=== PATIENT | female | born 1955 | race Caucasian/White ===

== ENCOUNTER 2019-08-28 17:08 | Emergency (ER) | payer MEDICARE, MEDICAID, SELFPAY ==
[2019-08-28 17:11] VITALS: BP 178/103; PULSE 96; RESP 18; TEMP 37.1; O2SAT 97; BMI 26.9
--- NOTE | 2019-08-28 17:31 | ED_ITS ---
Documented by User: SABA Milelr 08/28/19 19:29 HPI - Headache General: Chief Complaint: Headache Stated Complaint: Head Ache Time Seen by Provider: 08/28/19 17:24 History of Present Illness: HPI Narrative: Patient is 64-year-old female comes into the ED with headache. This started 4-5 days ago and she described the headaches as brief sharp pains on the left congregational and face. They are intense mildly sharp and localized. They only last for 3-5 seconds. She reports having these 2-3 times a day. Denies any numbness, weakness, vision changes or any other neurological symptoms during these head pains. She does not have a h istory of migraines or headaches. Patient also denies any head trauma or recent falls. Review of Systems General: Reports: 10 or more systems reviewed and unremarkable except in HPI and below PFSH ED PFSH: Statuses (acute, chronic, etc) shown below reflect problem list status as previously entered and may not be historically accurate Social History Smoking and tobacco status: current every day smoker Physical Exam Const: COMMON NORMALS: oriented x3 HENMT: COMMON NORMALS: normocephalic HEAD & SCALP: normocephalic MOUTH: oral and palatal mucosa normal THROAT: posterior oropharynx normal and uvula midline Neck/C-Spine: COMMON NORMALS: supple GENERAL: Yes normal visual inspection Resp: COMMON NORMALS: normal respiratory effort, no retractions, no use of accessory muscles and clear to auscultation bilaterally AUSCULTATION: clear to auscultation bilaterally and diminished lung sounds (bases ) bilateral Cardio: COMMON NORMALS: regular rate, regular rhythm, S1 normal heart sound, S2 normal heart sound, no gallops, no clicks, no murmurs and peripheral pulses 2+ throughout RATE: regular rate RHYTHM: regular rhythm HEART SOUNDS: S1 normal and S2 normal PERIPHERAL PULSES: pulses 2+ throughout GI: COMMON NORMALS: normal to inspection, nondistended, normoactive bowel sounds, soft to palpation, non-tender and no masses PALPATION: Yes soft : COMMON NORMALS: Yes no CVA tenderness BLADDER/KIDNEY EXAM: Yes no CVA tenderness Back/Pelvis: COMMON NORMALS: no CVA tenderness Extremity: COMMON NORMALS: normal to inspection and full ROM Neuro: COMMON NORMALS: oriented x3, CN's II-XII intact bilaterally, moves all extremities, no focal motor deficits and no sensory deficits noted SENSORY EXAM: Yes extremities (intact) MOTOR EXAM: strength 5/5 throughout Course Vital Signs: Vital signs: Vital Signs Temperature 98.8 F 08/28/19 17:11 Pulse Rate 96 08/28/19 17:11 Respiratory Rate 18 08/28/19 17:11 Blood Pressure 178/103 08/28/19 17:11 Pulse Oximetry 97 08/28/19 17:11 MDM - Headache Lab Data: Labs: Lab Results 08/28/19 08/28/19 08/28/19 Range/Units 18:53 18:53 18:53 WBC 8.2 (4.0-10.0) 10^3/ uL RBC 5.35 H (4.1-5.3) 10^6/u L Hgb 14.3 (11.5-15.3) g/dL Hct 46.5 (37.0-47.0) % MCV 86.9 (81-99) fL MCH 26.7 L (28.0-34.0) pg MCHC 30.8 (30.0-36.0) g/dL RDW 14.5 (12.1-15.1) % Plt Count 225 (130-400) 10^3/c mm MPV 10.3 (7.4-10.4) fL Neut % (Auto) 71.7 % Lymph % (Auto) 20.6 % Hunt % (Auto) 5.2 % Eos % (Auto) 1.9 % Baso % (Auto) 0.2 % Neut # (Auto) 5.9 (1.8-7.7) 10^3/u L Lymph # (Auto) 1.7 (0.8-4.8) 10^3/u L Hunt # (Auto) 0.4 (0.2-0.9) 10^3/u L Eos # (Auto) 0.2 (0.0-0.8) 10^3/u L Baso # (Auto) 0.0 (0.0-0.1) 10^3/u L Nucleated RBC % (a uto) 0 % Nucleated RBCs # 0.0 /100WBC PT 14.00 H (10.5-13.3) SECO NDS INR 1.05 (0.8-1.2) Sodium 137 (136-145) mmol/L Potassium 3.9 (3.5-5.1) mmol/L Chloride 102 (98-107) mmol/L Carbon Dioxide 24 (22-29) mmol/L Anion Gap 14.9 (5-19) BUN 18 (8-23) mg/dL Creatinine 0.7 (0.5-0.9) mg/dL GFR Calculation 84.0 L (90-130) mL/min Glucose 126 H (74-106) mg/dL Calcium 9.7 (8.8-10.2) mg/Dl Discharge Plan Discharge Patient Disposition: Xfer Other Clinical Impression: Subdural hemorrhage Condition: Stable Discharge Orders: Transfer Out of Facility (Order); Ordered 08/28/19 Ordered By: Margarette Rivera Referrals: Marifer Herrera MD [Family Provider] - Coding Level of Care Code ED Buy Boat Operator for Chg Fwd Documented by User: Margarette Rivera MD 08/28/19 19:49 HPI - Headache General: Chief Complaint: Headache Stated Complaint: Head Ache Time Seen by Provider: 08/28/19 17:24 History of Present Illness: Associated symptoms: Deny chest pain, fever(s), rash or vomiting Review of Systems Const: Denies: fever or chills Eyes: Denies: change in vision ENMT: Denies: throat pain or mouth pain Card: Denies: chest pain Resp: Denies: shortness of breath GI: Denies: abdominal pain, vomiting or diarrhea : Denies: difficulty urinating Musc: Denies: back pain or joint pain Skin/Breast: Denies: rash Neuro: Reports: headache Psych: Denies: depression Endo: Denies: excessive urination Brad/Lymph: Denies: easy bruising All/Imm: Denies: hives PFSH ED PFSH: Statuses (acute, chronic, etc) shown below reflect problem list status as previously entered and may not be historically accurate Social History Smoking and tobacco status: current every day smoker Physical Exam Const: COMMON NORMALS: no apparent distress and healthy appearing HENMT: COMMON NORMALS: normocephalic and external nose normal HEAD & SCALP: normocephalic NOSE: external nose normal and no nasal discharge (nasal dischage) Eye: COMMON NORMALS: PERRL PUPIL: Yes PERRL Neck/C-Spine: COMMON NORMALS: full ROM and no lymphadenopathy Chest: COMMONS NORMALS: inspection of chest normal Resp: COMMON NORMALS: normal respiratory effort and clear to auscultation bilaterally AUSCULTATION: clear to auscultation bilaterally Cardio: COMMON NORMALS: regular rate and regular rhythm RATE: regular rate RHYTHM: regular rhythm GI: COMMON NORMALS: soft to palpation PALPATION: Yes soft Extremity: COMMON NORMALS: normal to inspection, full ROM and normal capillary refill Psych: COMMON NORMALS: mental status grossly normal and cooperative Skin: COMMON NORMALS: no rashes or lesions noted GENERAL SKIN EXAM: no rashes or lesions noted Course Vital Signs: Vital signs: Vital Signs Temperature 98.8 F 08/28/19 17:11 Pulse Rate 96 08/28/19 17:11 Respiratory Rate 18 08/28/19 17:11 Blood Pressure 178/103 08/28/19 17:11 Pulse Oximetry 97 08/28/19 17:11 MDM - Headache MDM Narrative: Medical decision making narrative: Patient presents with a closed head injury with a subdural hemorrhage. Spoke to [facility] and will transfer there for higher level of care for neurosurgery. Patient has been stable while here. Lab Data: Labs: Lab Results 08/28/19 08/28/19 08/28/19 Range/Units 18:53 18:53 18:53 WBC 8.2 (4.0-10.0) 10^3/ uL RBC 5.35 H (4.1-5.3) 10^6/u L Hgb 14.3 (11.5-15.3) g/dL Hct 46.5 (37.0-47.0) % MCV 86.9 (81-99) fL MCH 26.7 L (28.0-34.0) pg MCHC 30.8 (30.0-36.0) g/dL RDW 14.5 (12.1-15.1) % Plt Count 225 (130-400) 10^3/c mm MPV 10.3 (7.4-10.4) fL Neut % (Auto) 71.7 % Lymph % (Auto) 20.6 % Hunt % (Auto) 5.2 % Eos % (Auto) 1.9 % Baso % (Auto) 0.2 % Neut # (Auto) 5.9 (1.8-7.7) 10^3/u L Lymph # (Auto) 1.7 (0.8-4.8) 10^3/u L Hunt # (Auto) 0.4 (0.2-0.9) 10^3/u L Eos # (Auto) 0.2 (0.0-0.8) 10^3/u L Baso # (Auto) 0.0 (0.0-0.1) 10^3/u L Nucleated RBC % (a uto) 0 % Nucleated RBCs # 0.0 /100WBC PT 14.00 H (10.5-13.3) SECO NDS INR 1.05 (0.8-1.2) Sodium 137 (136-145) mmol/L Potassium 3.9 (3.5-5.1) mmol/L Chloride 102 (98-107) mmol/L Carbon Dioxide 24 (22-29) mmol/L Anion Gap 14.9 (5-19) BUN 18 (8-23) mg/dL Creatinine 0.7 (0.5-0.9) mg/dL GFR Calculation 84.0 L (90-130) mL/min Glucose 126 H (74-106) mg/dL Calcium 9.7 (8.8-10.2) mg/Dl Imaging Data^: CT Head: Radiologist's impression: PROCEDURE INFORMATION: Exam: CT Head Without Contrast Exam date and time: 08/28/2019 5:50 PM Age: 64 years old Clinical indication: Pain; Headache not specified TECHNIQUE: Imaging protocol: Computed tomography of the head without contrast. Total DLP: 835.07 mGy-cm Radiation optimization: All CT scans at this facility use at least one of these dose optimization techniques: automated exposure control; mA and/or kV adjustment per patient size (includes targeted exams where dose is matched to clinical indication); or iterative reconstruction. COMPARISON: No relevant prior studies available. FINDINGS: Brain: Small slightly dense subdural hemorrhage in the left temporal region measuring up to 2.5 mm in thickness. No mass effect or midline shift. No abnormal brain attenuation identified. No brain parenchymal hemorrhage. Ventricles: Normal. No ventriculomegaly. Bones/joints: Unremarkable. No acute fracture. Sinuses: Visualized sinuses are unremarkable. No fluid levels. Mastoid air cells: Visualized mastoid air cells are well aerated. Soft tissues: Small soft tissue hematoma in the left temporal region, overlying the small subdural hemorrhage. CT/CT head wo con* [id number] IMPRESSION: 1. Small left temporal subdural hemorrhage. This is slightly denser than the bone cortex and is most likely acute or subacute in age. 2. Small left temporal scalp hematoma. Discharge Plan Discharge Patient Disposition: Xfer Other Clinical Impression: Subdural hemorrhage Condition: Stable Discharge Orders: Transfer Out of Facility (Order); Ordered 08/28/19 Ordered By: Margarette Rivera Referrals: Marifer Herrera MD [Family Provider] - Coding Level of Care Code ED Buy Boat Operator for Kiki Escobar
--- NOTE | 2019-08-28 17:48 | CTR_ITS ---
PROCEDURE INFORMATION: Exam: CT Head Without Contrast Exam date and time: 08/28/2019 5:50 PM Age: 64 years old Clinical indication: Pain; Headache not specified TECHNIQUE: Imaging protocol: Computed tomography of the head without contrast. Total DLP: 835.07 mGy-cm Radiation optimization: All CT scans at this facility use at least one of these dose optimization techniques: automated exposure control; mA and/or kV adjustment per patient size (includes targeted exams where dose is matched to clinical indication); or iterative reconstruction. COMPARISON: No relevant prior studies available. FINDINGS: Brain: Small slightly dense subdural hemorrhage in the left temporal region measuring up to 2.5 mm in thickness. No mass effect or midline shift. No abnormal brain attenuation identified. No brain parenchymal hemorrhage. Ventricles: Normal. No ventriculomegaly. Bones/joints: Unremarkable. No acute fracture. Sinuses: Visualized sinuses are unremarkable. No fluid levels. Mastoid air cells: Visualized mastoid air cells are well aerated. Soft tissues: Small soft tissue hematoma in the left temporal region, overlying the small subdural hemorrhage. CT/CT head wo con* [id number] IMPRESSION: 1. Small left temporal subdural hemorrhage. This is slightly denser than the bone cortex and is most likely acute or subacute in age. 2. Small left temporal scalp hematoma. Radiation Dose CTDIVOL = (mGy): DLP = 835.07 (mGy-cm)
[2019-08-28 19:01] LABS: Basophils % 0.2 %; Eosinophils # 0.2 10^3/uL (0.0-0.8); Eosinophils % 1.9 %; Hematocrit 46.5 % (37.0-47.0); Hemoglobin 14.3 g/dL (11.5-15.3); Lymphocytes # 1.7 10^3/uL (0.8-4.8); Lymphocytes % 20.6 %; Mean Corpuscular HGB Conc 30.8 g/dL (30.0-36.0); Mean Corpuscular Hemoglobin 26.7 pg (28.0-34.0); Mean Corpuscular Volume 86.9 fL (81-99); Mean Platelet Volume 10.3 fL (7.4-10.4); Monocytes # 0.4 10^3/uL (0.2-0.9); Monocytes % 5.2 %; Neutrophils # 5.9 10^3/uL (1.8-7.7); Neutrophils % 71.7 %; Nucleated Red Blood Cells % 0 %; Platelet Count 225 10^3/cmm (130-400); Red Blood Count 5.35 10^6/uL (4.1-5.3); Red Cell Distribution Width 14.5 % (12.1-15.1); White Blood Count 8.2 10^3/uL (4.0-10.0)
[2019-08-28 19:17] LABS: Anion Gap 14.9 (5-19); Blood Urea Nitrogen 18 mg/dL (8-23); Calcium 9.7 mg/Dl (8.8-10.2); Carbon Dioxide 24 mmol/L (22-29); Chloride 102 mmol/L (98-107); Glucose 126 mg/dL (74-106); Potassium 3.9 mmol/L (3.5-5.1); Sodium 137 mmol/L (136-145)
--- NOTE | 2019-08-28 19:30 | ECG_ITS ---
Measurements Intervals [place] Rate: 84 P: 65 AL: 142 QRS: 55 QRSD: 87 T: 66 QT: 377 QTc: 448 SINUS RHYTHM Compared to ECG 07/10/2019 21:52:54 No significant changes Electronically Signed On 08-28-2019 22:25:53 NAPHTHALENE STILL OPERATOR by Billie Lea M.D. [id number]
[2019-08-28 19:35] LABS: INR 1.05 (0.8-1.2)
[2019-08-28 19:49] VITALS: BP 151/101; PULSE 88; RESP 16; TEMP 36.9; O2SAT 94
--- NOTE | 2019-08-28 20:14 | PC.NURSE ---
Patient requesting to speak to the physician regarding transfer as she does not feel as though it is necessary and does not understand why she needs to go all that way .
[2019-08-28 22:05] VITALS: BP 149/90; PULSE 81; RESP 16; O2SAT 95
[2019-08-28 22:11] VITALS: BP 149/90; PULSE 81; RESP 16; O2SAT 95
== END 2019-08-28 22:10 | disposition other institution (70) ==
PROVIDERS: Emergency Provider Emergency Medicine; Family Provider Family Medicine
DX: I62.00 Nontraumatic subdural hemorrhage, unspecified (principal); F17.210 Nicotine dependence, cigarettes, uncomplicated
CPT/HCPCS: 70450; 80048; 85025; 85610; 93005; 99282

== ENCOUNTER 2019-09-16 10:02 | Outpatient (CLI) | payer MEDICARE, MEDICAID, SELFPAY | END 2019-09-16 10:03 | disposition home or self-care (01) | LOC: ONCMED 10:10 | PROVIDERS: Family Provider Family Medicine; Referring Provider Internal Medicine Critical Care Medicine; Visit Provider Internal Medicine Hematology & Oncology | DX: C34.11 Malignant neoplasm of upper lobe, right bronchus or lung (principal); J44.9 Chronic obstructive pulmonary disease, unspecified; I10 Essential (primary) hypertension; Z99.81 Dependence on supplemental oxygen; Z90.2 Acquired absence of lung [part of]; Z79.51 Long term (current) use of inhaled steroids | CPT/HCPCS: 99205 ==

== ENCOUNTER 2019-09-23 12:00 | Emergency (ER) | payer MEDICARE, MEDICAID, SELFPAY ==
[2019-09-23 12:20] VITALS: BP 140/88; PULSE 95; RESP 16; TEMP 36.7; O2SAT 95; BMI 26.4
--- NOTE | 2019-09-23 12:31 | CT_ITS ---
WS: [id number] CT scan of the head, 09/23/2019 Clinical Data: hx of subdural hematoma Comparison: CT head, 08/28/2019 DLP: 821.[address] scans at [facility] use at least one of these dose optimization techniques: automat ed exposure control; mA and/or kV adjustment per patient size (includes targeted exams where dose is matched to clinical indication); or iterative reconstruction. Findings: The ventricular system is normal without shift. No recent infarct or hemorrhage is seen. A possible l eft temporal contusion or subdural is still present. This is seen on axial images 18-21 of 64. There is also a scalp hematoma in this area. There are no abnormal intracerebral masses. The cerebellum an d brainstem are not remarkable. Bony windows of the skull and skull base show no fractures or erosions. The mastoid air cells, internal controls consultant al auditory canals, sella turcica, intraorbital contents, and paranasal sinuses are unremarkable. CT/CT head wo con* [id number] Impression: 1. No change in small subdural or possible contusion of the left temporal lobe. 2. Increase in size of soft tissue density adjacent to the left temporal bone w hich may represent a organized hematoma.
--- NOTE | 2019-09-23 12:31 | W.ED.GENADLT ---
HPI - General Adult General: Chief complaint: Headache Stated complaint: Brain bleed on her head Time Seen by Provider: 09/23/19 12:27 History of Present Illness: HPI narrative: Patient with a history of subdural hematoma x2 weeks ago has been follow-up Dr. Tolbert's office and a CT was ordered to see if there is any changes side. Medicare did not approve CT as of now and patient was sent over here by Dr. Tolbert's office to get evaluated for possible increasing size of hematoma. Patient also complains about hematoma on outside skull left side. Also complains about a headache x2 days. Denies any neurological changes MD complaint: headche Onset (ago): day(s) (2) Location: head Radiation: non-radiation Associated symptoms: Reports no associated symptoms and headache(s) (See HPI and past history patient states she has some numbness in the left upper jaw area.); Deny chest pain, dyspnea, nausea, rash or vomiting Review of Systems Const: Denies: fever, chills or body aches Eyes: Denies: change in vision or blurry vision ENMT: Denies: throat pain or nasal congestion Card: Denies: chest pain or shortness of breath on exertion Resp: Denies: shortness of breath, productive cough or non-productive cough GI: Denies: abdominal pain, nausea or vomiting Musc: Denies: extremity pain Skin/Breast: Denies: rash Neuro: Reports: headache (See HPI and past history patient states she has some numbness in the left upper jaw area.) Psych: Denies: anxiety or depression Brad/Lymph: Denies: easy bruising PFSH ED PFSH: Statuses (acute, chronic, etc) shown below reflect problem list status as previously entered and may not be historically accurate Medical History (Updated 09/18/19 @ 13:00 by Marsha Thomas APRN) COPD (chronic obstructive pulmonary disease) Essential (primary) hypertension Lung cancer Rheumatoid arthritis Skull mass Subdural hemorrhage Urinary incontinence UTI (urinary tract infection) Surgical History (Updated 09/18/19 @ 12:28 by Marsha Thomas APRN) H/O shoulder surgery History of cholecystectomy History of knee replacement History of lung surgery CT guided trans-thoracic cord needle biopsy right upper lobe lung mass pending Hx of cataract surgery Social History (Reviewed 09/18/19 @ 12:29 by PHYLLIS Bustos Smoking and tobacco status: current some day smoker Alcohol intake: never Lives independently: Yes Household members: family and children Housing: House Marital status: service: No Current occupational status: retired History of recent travel: No Current gender identity: Female Physical Exam Const: COMMON NORMALS: no apparent distress, average body habitus and oriented x3 HENMT: COMMON NORMALS: normocephalic HEAD & SCALP: normal to inspection and normocephalic FACE & SINUS: normal facial exam Eye: COMMON NORMALS: conjunctivae normal GENERAL EYE: normal appearance of both eyes CONJUNCTIVA: Yes conjunctivae normal Neck/C-Spine: COMMON NORMALS: no JVD Chest: COMMONS NORMALS: inspection of chest normal Resp: COMMON NORMALS: normal respiratory effort and clear to auscultation bilaterally AUSCULTATION: clear to auscultation bilaterally Cardio: COMMON NORMALS: no JVD, regular rate and regular rhythm RATE: regular rate RHYTHM: regular rhythm GI: COMMON NORMALS: normal to inspection, nondistended, normoactive bowel sounds Extremity: COMMON NORMALS: normal to inspection and full ROM Neuro: COMMON NORMALS: oriented x3 and CN's II-XII intact bilaterally Skin: NARRATIVE SKIN EXAM: Patient has small hematoma left temporal area slight bruising old. Is slightly tender. Course Vital Signs: Vital signs: Vital Signs Temperature 98.1 F 09/23/19 12:20 Pulse Rate 95 09/23/19 12:20 Respiratory Rate 16 09/23/19 12:20 Blood Pressure 140/88 09/23/19 12:20 Pulse Oximetry 95 09/23/19 12:20 Discharge Plan Discharge Prescriptions: No Action albuterol sulfate [ProAir HFA] 90 mcg/actuation HFA aerosol inhaler 2 puff INHALATION Q6H PRN (Reason: bronchospasm) Qty: 6.7 RF: 2 albuterol sulfate 2.5 mg /3 mL (0.083 %) solution for nebulization 2.5 mg INHALATION Q4H PRN (Reason: bronchospasm) Qty: 90 RF: 2 losartan 50 mg tablet 100 mg PO QDAY Qty: 30 RF: 2 montelukast [Singulair] 10 mg tablet 10 mg PO QDAY Qty: 30 RF: 2 oxybutynin chloride 15 mg tablet extended release 24hr 15 mg PO QDAY Qty: 30 RF: 2 oxybutynin chloride 5 mg tablet extended release 24hr 5 mg PO QDAY Qty: 30 RF: 2 pantoprazole [Protonix] 20 mg tablet,delayed release (DR/EC) 20 mg PO QDAY Qty: 30 RF: 2 Anoro Ellipta 62.5-25 mcg/actuation blister with device 1 inh INHALATION Q24H Qty: 60 RF: 2 metaxalone [Skelaxin] 800 mg tablet 800 mg PO TID Qty: 90 RF: 0 Coding Level of Care Code ED Inside Technical Sales Representative for Chg Fwmessi
[2019-09-23 12:58] VITALS: O2SAT 98
[2019-09-23 13:28] VITALS: BP 135/87; PULSE 72; RESP 17; O2SAT 97
== END 2019-09-23 13:29 | disposition home or self-care (01) ==
PROVIDERS: Emergency Provider Nurse Practitioner Family; Family Provider Family Medicine; PCP Nurse Practitioner Family
DX: R51 Headache (principal); J44.9 Chronic obstructive pulmonary disease, unspecified; I10 Essential (primary) hypertension; Z85.118 Personal history of other malignant neoplasm of bronchus and lung; F17.210 Nicotine dependence, cigarettes, uncomplicated
CPT/HCPCS: 70450; 99282

== ENCOUNTER 2019-10-01 13:43 | Outpatient (CLI) | payer MEDICARE, MEDICAID, SELFPAY ==
[2019-10-01 13:54] LABS: Basophils # 0.1 10^3/uL (0.0-0.1); Basophils % 0.7 %; Eosinophils # 0.1 10^3/uL (0.0-0.8); Eosinophils % 1.7 %; Hematocrit 44.8 % (37.0-47.0); Lymphocytes # 1.6 10^3/uL (0.8-4.8); Mean Corpuscular HGB Conc 31.3 g/dL (30.0-36.0); Mean Corpuscular Hemoglobin 25.4 pg (28.0-34.0); Mean Corpuscular Volume 81.3 fL (81-99); Mean Platelet Volume 11.6 fL (7.4-10.4); Monocytes # 0.5 10^3/uL (0.2-0.9); Monocytes % 6.9 %; Neutrophils # 4.7 10^3/uL (1.8-7.7); Neutrophils % 63.4 %; Nucleated Red Blood Cells # 0.1 /100WBC; Nucleated Red Blood Cells % 0.7 %; Platelet Count 153 10^3/cmm (130-400); Red Blood Count 5.51 10^6/uL (4.1-5.3); Red Cell Distribution Width 14.8 % (12.1-15.1); White Blood Count 7.4 10^3/uL (4.0-10.0)
[2019-10-01 15:09] LABS: Alanine Aminotransferase 162 U/L (0-33); Albumin Level 3.6 g/dL (3.5-5.2); Alkaline Phosphatase 256 IU/L (35-105); Anion Gap 21.2 (5-19); Aspartate Amino Transferase 119 U/L (0-32); Blood Urea Nitrogen 15 mg/dL (8-23); Calcium 10.1 mg/dL (8.5-10.5); Carbon Dioxide 21 mmol/L (22-29); Chloride 96 mmol/L (98-107); Globulin 3.7 g/dL (1.3-4.6); Glomerular Filtration Rate 55.6 mL/min (90-130); Glucose 126 mg/dL (65-115); Potassium 4.2 mmol/L (3.5-5.1); Sodium 134 mmol/L (136-145); Total Bilirubin 0.3 mg/dL (0.15-1.2); Total Protein 7.3 g/dL (6.6-8.7)
[2019-10-01 15:15] LABS: Slide Review Slide Review Perform
== END 2019-10-01 13:44 | disposition home or self-care (01) ==
LOC: ONCMED 13:43
PROVIDERS: Family Provider Family Medicine; PCP Nurse Practitioner Family; Visit Provider Internal Medicine Hematology & Oncology
DX: C34.11 Malignant neoplasm of upper lobe, right bronchus or lung (principal)
CPT/HCPCS: 80053; 85025

== ENCOUNTER 2019-10-02 15:26 | Outpatient (CLI) | payer MEDICARE, MEDICAID, SELFPAY ==
--- NOTE | 2019-10-02 16:22 | ONC FU_ITS ---
Dr. Kunz follow up note Patient: Shira Mata Unit #: [id number]: 1955 Dicatated By: Nikki Kunz M.D.Date of Visit:Oct 02, 2019 Onc Med Follow-up/Prog Note History of Present Illness: Mrs. Shira Mata, is a 64-year-old female with a history of adenocarcinoma involving the right upper lobe underwent wedge resection in March 2018 in [facility]. As per patient he was stage IA, clear surgical margins and no further treatment was suggested but follow-up every 6 months. Patient said later on she moved to [facility], and lost insurance so no further follow-up was done. Later on she moved to [facility] and establish pulmonary care with Dr. Monroe and during evaluation for COPD, as per patient her chest x-ray shows some abnormality in right lung, subsequently underwent CT scan of chest which revealed right upper lobe mass and patient underwent bronchoscopy and endobronchial ultrasound-guided transbronchial needle aspiration of hilar lymph node which was negative for malignancy. CT PET scan was done which showed hypermetabolic right upper lobe lung mass but no FDG uptake in the hilar or mediastinal lymph nodes. Subsequently on 09/01/2019 she underwent transthoracic needle biopsy in [place] and final pathology report came back small cell carcinoma, interestingly, as mentioned earlier in March 2018 she underwent wedge resection for adenocarcinoma in same right upper lobe of the lung. Recently developed episode of headaches and underwent CT scan of the head and was diagnosed with small subdural bleed which was managed in [place] without surgical intervention. Patient has COPD she is on home oxygen. History of hypertension, Came for follow-up, denies any specific complaints except left temporal area fullness as patient has subcutaneous hematoma and small subdural hematoma and now being monitored by neurosurgery, as per patient MRI scan of the head is under consideration. Patient has seen Dr. Rachel cardiac thoracic surgeon last week for possible surgery for newly diagnosed early-stage small cell lung cancer, as per patient she is not a candidate for surgery because of poor pulmonary reserve. Patient denies any fever chills denies any nausea vomiting denies any hemoptysis or hematemesis. Now recovering from the flu. Medications: Albuterol Sulfate 1 (108 (90 base) mcg/act) Aerosol Powder, Breath Activated Inhalation daily, Anoro Ellipta 1 (62.5-25 mcg/inh) Aerosol Powder, Breath Activated Inhalation daily, Losartan Potassium 1 Tablet (of 50 mg) Oral daily, Metaxalone 1 Tablet (of 800 mg) Oral daily, Montelukast Sodium 1 Tablet (of 10 mg) Oral daily, Oxybutynin Chloride 1 Tablet (of 10 mg) Oral b.i.d., Pantoprazole Sodium 1 Tablet (of 20 mg) Tablet, enteric coated Oral daily Allergies: Iodinated Contrast Media, Lisinopril, and Naproxen. Review of Systems: Constitutional - Appetite and weight have decreased. No fever, chills, hot flashes, or night sweats. Energy level is poor, ENMT - No sinus congestion/drainage. No mouth sores. No sore throat or difficulty swallowing, Hematologic/Lymphatic - Positive for easy bruising, Respiratory - Positive for shortness of breath and cough. No pleuritic pain or hemoptysis, Cardiovascular - No angina pain. No palpitations, Gastrointestinal - Pt states she is recovering from the flu, Genitourinary (F) - No dysuria or hematuria. No urinary frequency. No urgency. Positive for incontinence, Musculoskeletal - Positive for joint stiffness, Neurologic - No headache or dizziness. No numbness/paresthesias or other focal neurologic symptoms, Psychiatric - No anxiety or depression. Positive for insomnia. Vital Signs: Performed on Oct 02, 2019 15:32 Height - 68.00 in Weight - 171.4 lbs (LOW) BSA - 1.91 sq.m BMI - 26.06 Temperature - 98.2 F (LOW) Pulse - 92 /min Respiration - 24 /min BP - 117/74 mm(hg) O2 Sat - 93 % (LOW) Pain - 5 Performance Status: 2 - Ambulatory/capable of all self-care, unable to perform any work activities. Up and about more than 50% of waking hours. (ECOG) Physical Examination: ENMT - . No oral exudates, ulcers, masses, thrush or mucositis. Oropharynx clear. Tongue normal, Hematologic/Lymphatic - No petechiae or purpura. No tender or palpable lymph nodes in the cervical, supraclavicular, axillary or inguinal area, Respiratory - Lungs are clear to auscultation without rhonchi or wheezing, Abdomen - Non-tender, non-distended, . Good bowel sounds. No guarding or rebound tenderness. No pulsatile masses, Extremities - no edema. Lab/Imaging: Most recent lab results are not available for this patient. Impression: Newly diagnosed small cell lung cancer per transthoracic right upper lobe lung biopsy done on 09/01/2019 CT PET scan shows increased uptake in right upper lobe no FDG uptake in mediastinal or hilar lymph nodes as per pulmonology note. History of adenocarcinoma involving the right upper lobe of the lung status post wedge resection and March 2018, stage IA no further treatment was offered rather follow-up. COPD on home oxygen Hypertension. Plan: Discussed with patient regarding her labs white blood count 7.4 hemoglobin 14 crit 44.8 platelets 153,000 CMP within normal limits except ALT 162 AST 119 alkaline phosphatase 256 Clinically, patient is doing well with no signs symptoms suggestive of disease progression but abnormal LFTs and elevated alkaline phosphatase. Patient is reluctant to consider systemic chemotherapy but agreed to consider surgical intervention or radiation therapy so she was referred to Dr. Rachel for evaluation, as per patient she is not a candidate for surgery because of poor pulmonary reserve, now we'll refer her to radiation oncology for evaluation for SB RT or conventional radiation therapy, patient was informed standard of care is systemic chemotherapy with radiation therapy for better local control. But patient and her daughter is refusing systemic chemotherapy at this point but will think about this. We will refer her to radiation oncology for evaluation and we'll see her on same date and patient was also offered second opinion or referred to tertiary care center for evaluation but patient declined. We'll see her back in a week for further discussion. As far as abnormal LFTs concern, etiology unclear, her bilirubin is normal but possibilities including metastatic disease to the liver, or she may have passed gallbladder stone, or infectious like hepatitis,we will review her labs from her PMDs office or from the hospital as is not available to me. we will consider ultrasound right upper quadrant to rule out hepatic pathology if it is normal consider hepatitis profile<<Signature on File>>
--- NOTE | 2019-10-10 13:04 | N.ONRAD NP_ITS ---
Radiation Oncology New Patient Visit Patient: Shira Mata MR#: [id number] : 1955> Age: 64> Sex: Female> Dictated by: Dr. Harjit Mederos Date of Service: 10/09/2019 Referring Physician(s) : Nikki Kunz Primary Diagnosis: C34.11 - malignant neoplasm of upper lobe, right bronchus or lung, Diagnosed 09/16/2019 (active). 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 She received no adjuvant treatment and underwent follow-up every 6 months. Her regular followup was interrupted due to the fact that she moved to [facility] and lost insurance. She moved to [place] recently and establish pulmonary care with Dr. MONROE. She underwent a chest x-ray for evaluation of COPD that showed some abnormality in right lung. Subsequently CT scan of chest revealed a right upper lobe mass. The patient underwent bronchoscopy by Dr. Monroe on July 21, 2019. The bronchoscopy was introduced in the right upper lobe bronchus and endobronchial mass was seen in the anterior segment which was biopsied and the pathology is highly suspicious for small cell carcinoma but very few cells were present for evaluation. Endobronchial ultrasound was performed. There was no identifiable station 4R or 7 lymphadenopathy. Lymphadenopathy was identified in station 11R and 10R. Transbronchial needle aspiration was performed from the 11R and 10R lymphadenopathy but pathology showed no malignancy. There was some error associated with labeling/reporting of the specimen during pathological examination. I have spoken with both Dr. Monroe and the pathologist and confirmed the above finding and pathology results. Subsequently on 09/01/[address] guided transthoracic needle biopsy of the right upper lobe mass in [place], [place] and final pathology report confirmed small cell carcinoma. PET/CT on August 02, 2009 showed 3.7 x 2.5 cm right upper lobe mass with an SUV of 19.6. Another nodule in the right upper lobe measures 1.1 cm and is FDG negative, likely benign. There is no evidence of regional or distant metastasis. The patient was admitted to the hospital due to COPD exacerbation. She also has a hematoma on her scalp. She was evaluated by Dr. Kunz for chemotherapy. She was also evaluated by Dr. Rachel who ruled out her as a candidate for surgery due to poor pulmonary function. Current Medications: Albuterol Sulfate, anoro Ellipta, losartan Potassium, metaxalone, montelukast Sodium, oxybutynin Chloride, pantoprazole Sodium. Allergies: Naproxen, Lisinopril and Iodinated Contrast Media. Medical History: - Chronic obstructive pulmonary disease, - hypertension, - rheumatoid arthritis. No history of collagen vascular disease. No previous radiation therapy. Surgical History: Bilateral knee replacement, bronchoscopy, cataract excision, cholecystectomy and right shoulder. Family History: Father is at age 75 having experienced blood cancer. Mother is at age 91 having experienced emphysema. Social History: Last screened on 09/16/2019 - Current every day smoker 0.5 packs/day for 50 years (25 pack years). Last screened on 09/16/2019 - Never drank. Patient indicated use of the following products: cigarettes. Patient indicated access to the following support systems: lives alone, lives in own house, supportive family/friends willing to assist with needs, and adequate transportation available for expected visits. Patient indicated the following nutritional habits: regular meals. Patient indicated participation in the following forms of activity: regular exercise. Review of Systems: The 12 point review of system is negative except as described in the above history is. Vital Signs: Performed at 4pm 10/09/2019: T 98.4F, P 93, R 18, BP 130/84, O2% 95% Physical Exam: Pertinent to diagnosis and treatment. General: Alert and oriented x 3. No acute distress. HEENT: Normocephalic, atraumatic. EOMI ( Extraocular Movements Intact), PERRLA ( Pupils Equal, Round, Reactive to Light and Accommodation), Sclerae anicteric. Oral cavity is clear without lesions, masses or ulcers. NECK: Supple without supraclavicular or jugular lymphadenopathy. LUNGS: Clear to auscultation bilaterally without rales, rhonchi or wheeze. HEART: Regular rate and rhythm, normal S1 and S2 without murmur, gallop or rub. MUSCULOSKELETAL: No tenderness or percussion pain over the axial skeleton, scapulae or pelvis. ABDOMEN: Soft, nontender, nondistended without masses or organomegaly. Bowel sounds are present. EXTREMITIES: No peripheral edema is identified. Limited motor and sensory examination are grossly intact and symmetric bilaterally. NEUROLOGIC: Cranial nerves II ???XII are grossly intact. Normal sensation, strength 5/5 in all extremities, normal gait, no ataxia. Performance Status: ECOG 2 Pathology: Small cell carcinoma of the lung Lab: Test performed on 10/01/2019 10:45 AM RBC - 5.51 10 6/ul (high), MCH - 25.4 pg (low), MPV - 11.6 fl (high), Sodium - 134 mmol/l (low), Chloride - 96 mmol/l (low), CO2 - 21 mmol/l (low), Anion Gap - 21.2 (high), Creatinine - 1.0 mg/dl (high), Cr Clearance (Est) - 68.84 ml/min (low), eGFR - 55.6 ml/min (low), Glucose - 126 mg/dl (high), ALT (SGPT) - 162 u/l (high), AST (SGOT) - 119 u/l (high) and Alkaline Phosphatase - 256 iu/l (high). Imaging: See HPI Impression: This is a 64-year-old woman with the diagnosis of limited stage small cell carcinoma involving the right upper lobe. She also has endobronchial lesion in the anterior segment of the right upper lobe bronchus which was biopsied and highly suspicious for small cell carcinoma. Plan: The patient has a right upper lobe mass that is confirmed to be small cell carcinoma. She also has an endobronchial lesion/mass in the anterior segment of the right upper lobe bronchus highly suspicious for small cell carcinoma on biopsy. Biopsy of the 11 R and pain or lymphadenopathy were negative for malignancy. I discussed about the treatment options with the patient. I recommended conventional radiotherapy to include the right upper lobe mass and the endobronchial lesion in the treatment arango to a total dose of 66 Gy with concurrent chemotherapy. The patient has some concern on chemotherapy because of her scalp hematoma. She will see Dr. Kunz and discuss about whether or not she will have concurrent chemotherapy with radiotherapy. We can also consider a MRI of brain to complete staging workup. I went over the procedure for radiation therapy to the chest with the patient. The benefit, risks and potential side effects of radiotherapy to the chest were explained to the patient. The potential side effects include but not limited to fatigue, skin reaction, radiation pneumonitis, esophagitis with odynophagia/dysphagia, damages to the heart/vessels, brachial plexus and spinal cord. Ms. Mata expressed good understanding and decided to proceed with the recommended radiotherapy. I instructed the patient to call us and set up appointment for the CT simulation as soon as she is discharged from the hospital. She expressed good understanding and will call us then. Signed by: 10/10/2019 1:02:11 PM <<Signature on File>> CPT Code: CPT Code: Signed By: Dr. Harjit Mederos, 10/10/2019 1:02:12 PM <<Signature on File>>
== END 2019-10-02 15:27 | disposition home or self-care (01) ==
LOC: ONCMED 15:26
PROVIDERS: Family Provider Family Medicine; PCP Nurse Practitioner Family; Visit Provider Internal Medicine Hematology & Oncology
DX: C34.11 Malignant neoplasm of upper lobe, right bronchus or lung (principal); R94.5 Abnormal results of liver function studies; I10 Essential (primary) hypertension; J44.9 Chronic obstructive pulmonary disease, unspecified; Z90.2 Acquired absence of lung [part of]; Z85.118 Personal history of other malignant neoplasm of bronchus and lung; Z99.81 Dependence on supplemental oxygen
CPT/HCPCS: G0463

== ENCOUNTER 2019-10-07 09:36 | Outpatient (CLI) | payer MEDICARE, MEDICAID, SELFPAY ==
--- NOTE | 2019-10-07 09:47 | US_ITS ---
WS: [id number] ULTRASOUND ABDOMEN CLINICAL INFORMATION: ABNORMAL LFT'S COMPARISON: PET/CT August 02, 2019 FINDINGS: Liver Size: Enlarged Craniocaudal length: 18.2 cm. Echogenicity: Coarse Diffuse coarse heterogeneous liver echogenicity. This is nonspecific but considerations include diffu se metastatic disease versus diffuse parenchymal disease. Mild surface nodularity. Hepatomegaly. This can be further evaluated with CT abdomen pelvis with liver protocol. Bile ducts Intrahepatic ducts: Normal. Common bile duct diameter: 3.8 mm. Gallbladder Removed Pancreas Not well seen Spleen Splenomegaly: Present Craniocaudal length: 13.4 cm. Right kidney: Normal. Hydronephrosis: None. Size: 9.7 cm x 3.3 cm x 3.0 cm Left kidney: Normal. Hydronephrosis: None. Size: 11.5 cm x 5.7 cm x 5.2 cm. Abdominal aorta and IVC Visualized portions are normal. Ascites: None. US/US abdomen complete* [id number] IMPRESSION: 1. Hepatomegaly with diffuse coarse echogenicity. This is nonspecific but diff erential considerations include diffuse metastatic disease versus hepatocellula r disease. This can be further evaluated with CT abdomen pelvis liver protocol. 2. Gallbladder is normal. 3. No hydronephrosis in either kidney. 4. Splenomegaly measuring 13.4 cm
== END 2019-10-07 09:37 | disposition home or self-care (01) ==
LOC: RAD 09:40
PROVIDERS: Family Provider Family Medicine; PCP Nurse Practitioner Family; Visit Provider Internal Medicine Hematology & Oncology
DX: R94.5 Abnormal results of liver function studies (principal); R16.0 Hepatomegaly, not elsewhere classified; R16.1 Splenomegaly, not elsewhere classified
CPT/HCPCS: 76700

== ENCOUNTER 2019-10-07 10:26 | Inpatient (IN) | payer MEDICARE, MEDICAID, SELFPAY ==
[2019-10-07] VITALS (11 sets, daily range): BP systolic 108–130; BP diastolic 57–81; PULSE 83–86; RESP 18–20; TEMP 36.5–36.9; O2SAT 89–93; BMI 25.9
--- NOTE | 2019-10-07 10:55 | ED_ITS ---
Entered by Natividad Winter, acting as scribe for Hugo Arroyo DO HPI - SOB/Dyspnea General: Chief Complaint: Shortness of Breath/Dyspnea Stated Complaint: SOB Time Seen by Provider: 10/07/19 10:54 Source: patient and family Mode of arrival: ambulatory Limitations: no limitations History of Present Illness: MD elicited complaint: shortness of breath Onset (ago): day(s) (today) Timing: constant and progressively worsening Severity: moderate Exacerbating factors: nothing Relieving factors: oxygen Known history of: other (cancer) Associated symptoms: Reports other (headache, diarrhea); Deny abdominal pain, chest pain or fever(s) Treatment prior to arrival: oxygen and other (nebulizer ) Related Data: Home oxygen amount: 2 liters Review of Systems General: Reports: 10 or more systems reviewed and unremarkable except in HPI and below Const: Reports: fatigue; Denies: fever Eyes: Denies: change in vision ENMT: Denies: throat pain Card: Denies: chest pain Resp: Reports: shortness of breath and productive cough GI: Denies: abdominal pain PFSH ED PFSH: Social History Smoking and tobacco status: current every day smoker Alcohol intake: never Lives independently: Yes Household members: family and children Housing: House Marital status: service: No Current occupational status: retired History of recent travel: No Physical Exam Const: COMMON NORMALS: no apparent distress, average body habitus, oriented x3, no limitations, healthy appearing, alert and well nourished HENMT: COMMON NORMALS: normocephalic, head/scalp atraumatic, hearing grossly normal bilaterally, external ears normal, EAC's normal, TM's normal bilaterally, external nose normal, nasal mucous membranes and turbinates normal, moist oral mucous membranes, oropharynx normal, dentition normal and gingiva normal HEAD & SCALP: normocephalic and atraumatic NOSE: external nose normal and nasal mucous membranes and turbinates normal EXTERNAL EAR: Yes external ears normal EXTERNAL AUDITORY CANAL: EAC's normal TYMPANIC MEMBRANE: TM's normal bilaterally Eye: COMMON NORMALS: PERRL, EOMs intact bilaterally, conjunctivae normal, no scleral icterus, no papilledema, normal visual arango by confrontation and fundi normal bilaterally CONJUNCTIVA: Yes conjunctivae normal PUPIL: Yes PERRL DIRECT OPHTHALMOSCOPY: Yes no papilledema and Yes fundi normal bilaterally Neck/C-Spine: COMMON NORMALS: full ROM, no lymphadenopathy, supple, no meningeal signs, no JVD, thyroid normal and no carotid bruits THYROID: thyroid normal Chest: COMMONS NORMALS: inspection of chest normal and palpation of chest normal Cardio: COMMON NORMALS: no JVD, regular rate, regular rhythm, S1 normal heart sound, S2 normal heart sound, no gallops, no clicks, no murmurs, no rub and peripheral pulses 2+ throughout RATE: regular rate RHYTHM: regular rhythm HEART SOUNDS: S1 normal and S2 normal PERIPHERAL PULSES: pulses 2+ throughout GI: COMMON NORMALS: normal to inspection, nondistended, normoactive bowel sounds, soft to palpation, non-tender, no hepatosplenomegaly, no masses and no bruits PALPATION: Yes soft and Yes no hepatosplenomegaly : COMMON NORMALS: Yes no CVA tenderness and Yes external appearance normal BLADDER/KIDNEY EXAM: Yes no CVA tenderness Back/Pelvis: COMMON NORMALS: no CVA tenderness, thoracic and lumbar spine normal to inspection, no thoracic nor lumbar tenderness, thoraco-lumbar ROM normal and straight leg raise negative bilaterally Extremity: COMMON NORMALS: normal to inspection, full ROM, normal capillary refill, no joint enlargement, no clubbing, cyanosis or edema, no calf tenderness and no pedal edema Neuro: COMMON NORMALS: oriented x3 SENSORIUM/ORIENTATION: Yes alert MENINGEAL SIGNS: Yes no meningeal signs Skin: COMMON NORMALS: no rashes or lesions noted, no wounds, skin turgor normal, no jaundice, no petechiae and no mottling GENERAL SKIN EXAM: no rashes or lesions noted and turgor normal Course Vital Signs: Vital signs: Vital Signs Temperature 97.7 F 10/07/19 10:30 Pulse Rate 86 10/07/19 14:04 Respiratory Rate 18 10/07/19 11:30 Blood Pressure 108/72 10/07/19 14:04 Pulse Oximetry 92 10/07/19 14:29 MDM - SOB/Dyspnea Lab Data: Labs: Lab Results 10/07/19 10/07/19 10/07/19 Range/Units 11:20 11:20 11:20 WBC 7.8 (4.0-10.0) 10^3/ uL RBC 5.36 H (4.1-5.3) 10^6/u L Hgb 13.4 (11.5-15.3) g/dL Hct 43.9 (37.0-47.0) % MCV 81.9 (81-99) fL MCH 25.0 L (28.0-34.0) pg MCHC 30.5 (30.0-36.0) g/dL RDW 15.8 H (12.1-15.1) % Plt Count 91 L (130-400) 10^3/c mm MPV 12.2 H (7.4-10.4) fL Neut % (Auto) 67.1 % Lymph % (Auto) 19.5 % [place] % (Auto) 6.8 % Eos % (Auto) 1.2 % Baso % (Auto) 0.5 % Neut # (Auto) 5.2 (1.8-7.7) 10^3/u L Lymph # (Auto) 1.5 (0.8-4.8) 10^3/u L [place] # (Auto) 0.5 (0.2-0.9) 10^3/u L Eos # (Auto) 0.1 (0.0-0.8) 10^3/u L Baso # (Auto) 0.0 (0.0-0.1) 10^3/u L Nucleated RBC % (a uto) 1.0 % Nucleated RBCs # 0.1 /100WBC Sodium 135 L (136-145) mmol/L Potassium 4.3 (3.5-5.1) mmol/L Chloride 98 (98-107) mmol/L Carbon Dioxide 22 (22-29) mmol/L Anion Gap 19.3 H (5-19) BUN 31 H (8-23) mg/dL Creatinine 1.8 H (0.5-0.9) mg/dL GFR Calculation 28.2 L (90-130) mL/min Glucose 109 (65-115) mg/dL Calcium 10.8 H (8.5-10.5) mg/dL Total Bilirubin 0.6 (0.15-1.2) mg/dL AST 125 H (0-32) U/L ALT 165 H (0-33) U/L Alkaline Phosphata se 428 H (35-105) IU/L Troponin T Baselin e 49 H (0-10) ng/mL Troponin T 120 Min [place] (0-10) ng/mL Delta Troponin T (0-10) ABS# NT-Pro-B Natriuret Pep 1525 H (0-125) pg/mL Total Protein 6.4 L (6.6-8.7) g/dL Albumin 4.0 (3.5-5.2) g/dL Globulin 2.4 (1.3-4.6) g/dL Influenza Type A A g (Negative) POC Influenza B Ag (Negative) 10/07/19 10/07/19 Range/Units 12:35 13:28 WBC (4.0-10.0) 10^3/ uL RBC (4.1-5.3) 10^6/u L Hgb (11.5-15.3) g/dL Hct (37.0-47.0) % MCV (81-99) fL MCH (28.0-34.0) pg MCHC (30.0-36.0) g/dL RDW (12.1-15.1) % Plt Count (130-400) 10^3/c mm MPV (7.4-10.4) fL Neut % (Auto) % Lymph % (Auto) % [place] % (Auto) % Eos % (Auto) % Baso % (Auto) % Neut # (Auto) (1.8-7.7) 10^3/u L Lymph # (Auto) (0.8-4.8) 10^3/u L [place] # (Auto) (0.2-0.9) 10^3/u L Eos # (Auto) (0.0-0.8) 10^3/u L Baso # (Auto) (0.0-0.1) 10^3/u L Nucleated RBC % (a uto) % Nucleated RBCs # /100WBC Sodium (136-145) mmol/L Potassium (3.5-5.1) mmol/L Chloride (98-107) mmol/L Carbon Dioxide (22-29) mmol/L Anion Gap (5-19) BUN (8-23) mg/dL Creatinine (0.5-0.9) mg/dL GFR Calculation (90-130) mL/min Glucose (65-115) mg/dL Calcium (8.5-10.5) mg/dL Total Bilirubin (0.15-1.2) mg/dL AST (0-32) U/L ALT (0-33) U/L Alkaline Phosphata se (35-105) IU/L Troponin T Baselin e (0-10) ng/mL Troponin T 120 Min [place] 48.42 H (0-10) ng/mL Delta Troponin T -0.58 L (0-10) ABS# NT-Pro-B Natriuret Pep (0-125) pg/mL Total Protein (6.6-8.7) g/dL Albumin (3.5-5.2) g/dL Globulin (1.3-4.6) g/dL Influenza Type A A g Negative (Negative) POC Influenza B Ag Negative (Negative) Discharge Plan Discharge Clinical Impression: Lung mass, Chronic dyspnea COPD (chronic obstructive pulmonary disease) Qualifiers: COPD type: emphysema Emphysema type: unspecified Qualified Code(s): J43.9 - Emphysema, unspecified Lung cancer Qualifiers: Laterality: right Lung location: upper lobe of lung Qualified Code(s): C34.11 - Malignant neoplasm of upper lobe, right bronchus or lung Condition: Stable Prescriptions: No Action albuterol sulfate [ProAir HFA] 90 mcg/actuation HFA aerosol inhaler 2 puff INHALATION Q6H PRN (Reason: bronchospasm) Qty: 6.7 RF: 2 albuterol sulfate 2.5 mg /3 mL (0.083 %) solution for nebulization 2.5 mg INHALATION Q4H PRN (Reason: bronchospasm) Qty: 90 RF: 2 Anoro Ellipta 62.5-25 mcg/actuation blister with device 1 inh INHALATION Q24H Qty: 60 RF: 2 metaxalone [Skelaxin] 800 mg tablet 800 mg PO TID Qty: 90 RF: 0 losartan 50 mg tablet 100 mg PO DAILY RF: 0 oxybutynin chloride 15 mg tablet extended release 24hr 15 mg PO DAILY RF: 0 Protonix 20 mg tablet,delayed release (DR/EC) 20 mg PO DAILY RF: 0 oxybutynin chloride 5 mg tablet extended release 24hr 5 mg PO DAILY RF: 0 Singulair 10 mg tablet 10 mg PO DAILY RF: 0 Referrals: Prema Jenkins FNP [Primary Care Provider] - Marifer Herrera MD [Family Provider] - Coding Level of Care Code ED Business Applications Analyst for Chg Fwd Exam Comprehensive The documentation recorded by the Moy evans Bridget Annette, accurately reflects the service I personally performed and the decisions made by , Hugo Arryoo, Oct 07, 2019 10:26
--- NOTE | 2019-10-07 10:56 | XR_ITS ---
WS: [id number] Portable AP upright chest, 10/07/2019 Clinical Data: dyspnea / lung CA Comparison: Portable chest, 07/10/2019. Findings: The right upper lobe nodule remains the same and it abuts the lateral right pleural surface . 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 Heart smal l. The aortic arch shows tortuosity. No effusions are seen. There is no pneumonia or pneumothorax. Th e right total shoulder prosthesis remains unchanged. XR/XR chest 1V portable [id number] Impression: 1. No change in right upper lobe mass. 2. No change in bilateral interstitial lung disease.
--- NOTE | 2019-10-07 10:58 | ECG_ITS ---
Measurements Intervals [place] Rate: 82 P: 60 NV: 150 QRS: 53 QRSD: 89 T: 67 QT: 368 QTc: 432 SINUS RHYTHM POSSIBLE LEFT ATRIAL ENLARGEMENT [-0.1mV P WAVE IN V1/V2] LOW QRS VOLTAGE IN PRECORDIAL LEADS [QRS DEFLECTION < 1.0 mV IN CHEST LEADS] Compared to ECG 08/28/2019 19:44:54 Low QRS voltage now present Electronically Signed On 10-07-2019 19:44:34 EMERGENCY ROOM RN by Billie Lea M.D. [email or web address]
[2019-10-07] MEDS: ipratropium-albuterol 3 mL Neb INHALATION ×2 (11:31→18:31)
[2019-10-07] MEDS: sodium chloride 0.9% 500 ML 999 ML IV (11:37)
[2019-10-07 11:38] LABS: Basophils % 0.5 %; Eosinophils # 0.1 10^3/uL (0.0-0.8); Eosinophils % 1.2 %; Hematocrit 43.9 % (37.0-47.0); Hemoglobin 13.4 g/dL (11.5-15.3); Lymphocytes # 1.5 10^3/uL (0.8-4.8); Lymphocytes % 19.5 %; Mean Corpuscular HGB Conc 30.5 g/dL (30.0-36.0); Mean Corpuscular Volume 81.9 fL (81-99); Mean Platelet Volume 12.2 fL (7.4-10.4); Monocytes # 0.5 10^3/uL (0.2-0.9); Monocytes % 6.8 %; Neutrophils # 5.2 10^3/uL (1.8-7.7); Neutrophils % 67.1 %; Nucleated Red Blood Cells # 0.1 /100WBC; Platelet Count 91 10^3/cmm (130-400); Red Blood Count 5.36 10^6/uL (4.1-5.3); Red Cell Distribution Width 15.8 % (12.1-15.1); White Blood Count 7.8 10^3/uL (4.0-10.0)
[2019-10-07 11:52] LABS: Troponin(5th) Baseline 49 ng/mL (0-10)
[2019-10-07 12:21] LABS: Alanine Aminotransferase 165 U/L (0-33); Alkaline Phosphatase 428 IU/L (35-105); Anion Gap 19.3 (5-19); Aspartate Amino Transferase 125 U/L (0-32); Blood Urea Nitrogen 31 mg/dL (8-23); Calcium 10.8 mg/dL (8.5-10.5); Carbon Dioxide 22 mmol/L (22-29); Chloride 98 mmol/L (98-107); Globulin 2.4 g/dL (1.3-4.6); Glomerular Filtration Rate 28.2 mL/min (90-130); Glucose 109 mg/dL (65-115); NT Pro B Type Natriuretic Pept 1525 pg/mL (0-125); Potassium 4.3 mmol/L (3.5-5.1); Sodium 135 mmol/L (136-145); Total Bilirubin 0.6 mg/dL (0.15-1.2); Total Protein 6.4 g/dL (6.6-8.7)
--- NOTE | 2019-10-07 12:58 | ECG_ITS ---
Measurements Intervals [place] Rate: 81 P: 66 DE: 152 QRS: 53 QRSD: 87 T: 69 QT: 372 QTc: 434 SINUS RHYTHM POSSIBLE LEFT ATRIAL ENLARGEMENT [-0.1mV P WAVE IN V1/V2] LOW QRS VOLTAGE IN PRECORDIAL LEADS [QRS DEFLECTION < 1.0 mV IN CHEST LEADS] Compared to ECG 08/28/2019 19:44:54 Low QRS voltage now present Electronically Signed On 10-07-2019 20:00:07 EMPLOYMENT LAW ATTORNEY by Billie Lea M.D. [id number]
[2019-10-07 13:18] LABS: Influenza A by IFA Negative (Negative); Influenza B by IFA Negative (Negative)
[2019-10-07 13:59] LABS: Troponin 5 2HR 48.42 ng/mL (0-10)
[2019-10-07] MEDS: acetaminophen 500 mg Tablet 1000 MG PO (14:00)
[2019-10-07 14:03] LABS: Troponin 5 2HR Delta -0.58 ABS# (0-10)
--- NOTE | 2019-10-07 14:42 | PC.NURSE ---
PATIENT ASKING FOR FOOD EMD INFORMED
--- NOTE | 2019-10-07 14:52 | P.HP_ITS ---
Providers/Chief Complaint Primary Care Provider: NELDA Berry Chief Complaint: SOB History of Present Illness Shira Mata is a 64 year old female who presents to the hospital with 5 days of cough productive of green sputum, shortness of breath, loose stools, low-grade temperature of 99.6 and increased wheezing. She reports she has not had any vomiting. No blood in stool. Is currently being evaluated for elevated liver tests. Reports occasional Excedrin Migraine use but relatively rare. No other Tylenol use. No alcohol use. Does take Skelaxin. Review of Systems Const: Reports: fever (Reports low-grade temperature/fever lately) Eyes: Denies: blurry vision ENMT: Denies: throat pain Card: Denies: chest pain Resp: Reports: shortness of breath, productive cough and wheezing GI: Reports: diarrhea; Denies: abdominal pain or nausea : Denies: flank pain Musc: Denies: neck pain Neuro: Denies: headache Psych: Denies: anxiety Endo: Denies: excessive urination Brad/Lymph: Reports: easy bruising All/Imm: Denies: hives Medications/Allergies Home Medications Medication Instructions Recorded Confirmed Last Taken Type Protonix 20 mg PO DAILY 10/07/19 10/07/19 10/07/19 History Singulair 10 mg PO DAILY 10/07/19 10/07/19 10/07/19 History losartan 100 mg PO DAILY 10/07/19 10/07/19 10/07/19 History oxybutynin chloride 5 mg PO DAILY 10/07/19 10/07/19 10/07/19 History oxybutynin chloride 15 mg PO DAILY 10/07/19 10/07/19 10/07/19 History Allergies Allergy/AdvReac Type Severity Reaction Status Date / Time naproxen Allergy Severe ALGY-Anaphy Verified 10/02/19 13:30 laxis Iodinated Contrast Media Allergy ALGY-Anaphy Verified 10/02/19 13:30 laxis lisinopril AdvReac diarrhea Verified 10/02/19 13:30 PFSH Acute PFSH: Medical History (Updated 10/07/19 @ 15:52 by Eran Puente MD) COPD (chronic obstructive pulmonary disease) Essential (primary) hypertension GERD (gastroesophageal reflux disease) Hypertension Lung cancer Rheumatoid arthritis Skull mass Subdural hemorrhage Urinary incontinence UTI (urinary tract infection) Surgical History H/O shoulder surgery History of cholecystectomy History of knee replacement History of lung surgery CT guided trans-thoracic cord needle biopsy right upper lobe lung mass pending Hx of cataract surgery Family History Mother Lung disease COPD Brother Lung disease COPD Social History (Updated 10/07/19 @ 15:46 by Eran Puente MD) Smoking and tobacco status: current every day smoker Alcohol intake: never Substance/Drug Use: never Lives independently: Yes Household members: family and children Housing: House Marital status: service: No Current occupational status: retired History of recent travel: No Vitals/I&O/Wt Last Vital Signs Temp 97.7 F 10/07/19 10:30 Pulse 86 10/07/19 14:04 Resp 18 10/07/19 11:30 BP 108/72 10/07/19 14:04 Pulse Ox 92 10/07/19 14:29 Weight last 48 hrs Weight 77.564 kg Physical Exam Narrative: EXAM NARRATIVE: General exam is a white female, in no apparent distress HEENT: Pupils equally round. Oropharynx clear. Neck is supple no lymphadenopathy or thyromegaly Cardiovascular regular rate and rhythm without murmur. No S3 or S4 Lungs bilateral expiratory wheezes Abdomen is soft with positive bowel sounds. No obvious organomegaly was deferred Extremities no cyanosis clubbing or edema, cap refill brisk Skin no rash Neuro no focal deficits Data : 10/07/19 11:20 10/07/19 11:20 Micro: Microbiology 10/07/19 11:29 Blood Culture - Preliminary Blood SPECIMEN COLLECTED 10/07/19 11:20 Blood Culture - Preliminary Blood SPECIMEN COLLECTED A&P Assessment and plan (1) COPD (chronic obstructive pulmonary disease): Significant COPD exacerbation with hypoxia. Initiate pulmonary toilet Oxygen as needed Levaquin IV Prednisone 40 mg daily Status: Acute Qualifiers: COPD type: emphysema Emphysema type: unspecified Qualified Code(s): J4 3.9 - Emphysema, unspecified Code(s): J44.9 - Chronic obstructive pulmonary disease, unspecified (2) Acute bronchitis: Levaquin as above Status: Acute Code(s): J20.9 - Acute bronchitis, unspecified (3) Respiratory failure: Respiratory care as above Status: Acute Code(s): J96.90 - Respiratory failure, unspecified, unspecified whether with hypoxia or hypercapnia (4) Transaminitis: Stop Skelaxin Robaxin as needed is alternative Follow liver function tests closely Reviewed ultrasound which is nonspecific. Consider CT scan with contrast if renal function improves Associated with thrombocytopenia, follow closely Status: Acute Code(s): R74.0 - Nonspecific elevation of levels of transaminase and lactic acid dehydrogenase [LDH] (5) Tobacco dependency: Counseled abstinence Status: Acute Code(s): F17.200 - Nicotine dependence, unspecified, uncomplicated (6) Acute kidney injury: Hydration, close follow-up of renal function Status: Acute Code(s): N17.9 - Acute kidney failure, unspecified Additional A&P Information History of a traumatic subdural and left scalp hematoma. For now avoid anticoagulants. Small cell lung cancer, recently diagnosed. Reviewing options for chemotherapy and/or radiation. Elevated troponin, suspect type II Elevated BNP, no evidence of fluid overload History of hypertension GERD Rheumatoid arthritis SCDs for DVT prophylaxis Full code Attestations Medical Necessity Statement*: Will need greater than 2 midnight stay for treatment of acute COPD exacerbation with respiratory failure Time Spent in Patient Care: Greater than 35 minutes Coding Level of Care Code Acute Search Engine Optimization Analyst for Kiki Escobar Diagnoses COPD (chronic obstructive pulmonary disease) J43.9 COPD type: emphysema Emphysema type: unspecified Acute bronchitis J20.9 Respiratory failure J96.90 Transaminitis R74.0 Tobacco dependency F17.200 Acute kidney injury N17.9
[2019-10-07 15:39] LABS: INR 1.09 (0.8-1.2)
[2019-10-07] MEDS: predniSONE 20 mg Tablet 40 MG PO (16:53)
[2019-10-07] MEDS: sodium chloride 0.9% 1,000 ML 75 ML IV (16:53)
[2019-10-07] MEDS: TRAMadol 50 mg Tablet PO (16:53)
[2019-10-07] MEDS: levofloxacin-dextrose 5 % 750 MG/150 ML PREMIX 150 MG IV (16:53)
[2019-10-07] MEDS: methocarbamol 500 mg Tablet PO (16:53)
[2019-10-07] MEDS: guaiFENesin-dextromethorphan UDC 10 mL 5 ML PO (17:46)
[2019-10-07 17:51] LABS: Troponin 5 6HR 51.75 ng/mL (0-10); Troponin 5 6HR Delta 2.75 ng/L (0-12)
[2019-10-07 17:58] LABS: Thyroid Stimulating Hormone 3.79 uIU/mL (0.27-4.20)
--- NOTE | 2019-10-07 19:15 | PC.NURSE ---
iNTRODUCTION OF STAFF AND REPORT RECEIVED, AIDET.
[2019-10-08] VITALS (17 sets, daily range): BP systolic 118–160; BP diastolic 68–93; PULSE 83–105; RESP 18–20; TEMP 36.3–36.9; O2SAT 89–95
[2019-10-08] MEDS: ipratropium-albuterol 3 mL Neb INHALATION ×7 (00:12→23:58)
[2019-10-08] MEDS: TRAMadol 50 mg Tablet PO ×3 (03:51→19:15)
[2019-10-08] MEDS: methocarbamol 500 mg Tablet PO (03:51)
[2019-10-08] MEDS: sodium chloride 0.9% 1,000 ML 75 ML IV (04:59)
[2019-10-08 05:34] LABS: Basophils % 0.2 %; Eosinophils % 0.5 %; Hematocrit 39.8 % (37.0-47.0); Hemoglobin 12.1 g/dL (11.5-15.3); Lymphocytes % 16.3 %; Mean Corpuscular HGB Conc 30.4 g/dL (30.0-36.0); Mean Corpuscular Hemoglobin 25.1 pg (28.0-34.0); Mean Corpuscular Volume 82.4 fL (81-99); Mean Platelet Volume 11.9 fL (7.4-10.4); Monocytes # 0.3 10^3/uL (0.2-0.9); Monocytes % 4.5 %; Neutrophils # 4.5 10^3/uL (1.8-7.7); Neutrophils % 71.5 %; Nucleated Red Blood Cells % 0.6 %; Platelet Count 73 10^3/cmm (130-400); Positive C 1; Positive M 1; Red Blood Count 4.83 10^6/uL (4.1-5.3); Red Cell Distribution Width 15.7 % (12.1-15.1); White Blood Count 6.3 10^3/uL (4.0-10.0)
[2019-10-08 05:43] LABS: Anion Gap 16.2 (5-19); Blood Urea Nitrogen 31 mg/dL (8-23); Calcium 10.2 mg/dL (8.5-10.5); Carbon Dioxide 20 mmol/L (22-29); Chloride 101 mmol/L (98-107); Glomerular Filtration Rate 32.3 mL/min (90-130); Glucose 183 mg/dL (65-115); Osmolality Calculated 278 mOsm/kg (285-295); Potassium 4.2 mmol/L (3.5-5.1); Sodium 133 mmol/L (136-145)
[2019-10-08 07:02] LABS: Slide Review Slide Review Perform
[2019-10-08] MEDS: montelukast sodium 10 mg Tablet PO (11:05)
[2019-10-08] MEDS: pantoprazole DR 40 mg Tablet PO (11:05)
[2019-10-08] MEDS: predniSONE 20 mg Tablet 40 MG PO (11:05)
[2019-10-08] MEDS: oxybutynin chloride XL 5 MG TABLET 15 MG PO (11:05)
[2019-10-08 11:26] LABS: Alanine Aminotransferase 135 U/L (0-33); Albumin Level 3.2 g/dL (3.5-5.2); Alkaline Phosphatase 375 IU/L (35-105); Globulin 3.5 g/dL (1.3-4.6); Total Bilirubin 0.4 mg/dL (0.15-1.2); Total Protein 6.7 g/dL (6.6-8.7)
--- NOTE | 2019-10-08 11:29 | P.PN_ITS ---
Subjective Subjective: Interval history: Shira has many different concerns. She does report she seems to be breathing better. She believes her hematoma on her scalp is perhaps slightly less swollen. She certainly has less numbness. Medications: Reviewed: Yes Vitals/I&O/Wt Last Vital Signs Temp 97.7 F 10/08/19 11:15 Pulse 83 10/08/19 11:15 Resp 18 10/08/19 11:15 BP 126/76 10/08/19 11:15 Pulse Ox 90 10/08/19 11:15 10/07/19 10/08/19 10/08/19 22:59 06:59 14:59 Intake Total 1220 / 1220 907.5 / 2127.5 480 / 480 Balance 1220 / 1220 907.5 / 2127.5 480 / 480 Weight last 48 hrs Weight 77.564 kg Physical Exam 2 Narrative: EXAM NARRATIVE: General exam is a white female, in no apparent distress Cardiovascular regular rate and rhythm without murmur. No S3 or S4 Lungs bilateral expiratory wheezes. Perhaps slightly better aeration than yesterday. Occasional cough is noted. Abdomen is soft with positive bowel sounds. No obvious organomegaly Extremities no cyanosis clubbing or edema, cap refill brisk Data : 10/08/19 04:57 10/08/19 04:57 Micro: Microbiology 10/07/19 11:29 Blood Culture - Preliminary Blood SPECIMEN COLLECTED 10/07/19 11:20 Blood Culture - Preliminary Blood SPECIMEN COLLECTED A&P Assessment and plan (1) COPD (chronic obstructive pulmonary disease): Significant COPD exacerbation with hypoxia. Continue pulmonary toilet Oxygen as needed Continue IV Levaquin Prednisone 40 mg daily She may use her home Anora Ellipta Status: Acute Qualifiers: COPD type: emphysema Emphysema type: unspecified Qualified Code(s): J43.9 - Emphysema, unspecified Code(s): J44.9 - Chronic obstructive pulmonary disease, unspecified (2) Acute bronchitis: Levaquin as above Status: Acute Code(s): J20.9 - Acute bronchitis, unspecified (3) Respiratory failure: Respiratory care as above Status: Acute Code(s): J96.90 - Respiratory failure, unspecified, unspecified whether with hypoxia or hypercapnia (4) Transaminitis: Stop Skelaxin Robaxin as needed is alternative Follow liver function tests closely. I failed to order the test today but it is being done now. Will follow up on this. Reviewed ultrasound which is nonspecific. Consider CT scan with contrast if renal function improves Associated with thrombocytopenia, and this is slightly worse. Recheck tomorrow Status: Acute Code(s): R74.0 - Nonspecific elevation of levels of transaminase and lactic acid dehydrogenase [LDH] (5) Tobacco dependency: Counseled abstinence Status: Acute Code(s): F17.200 - Nicotine dependence, unspecified, uncomplicated (6) Acute kidney injury: Improving. Continue hydration Status: Acute Code(s): N17.9 - Acute kidney failure, unspecified Additional A&P Information History of a traumatic subdural and left scalp hematoma. For now avoid anticoagulants. Small cell lung cancer, recently diagnosed. Reviewing options for chemotherapy and/or radiation. Elevated troponin, suspect type II. Will check echocardiogram Elevated BNP, no evidence of fluid overload History of hypertension GERD Rheumatoid arthritis Insomnia. Will use some trazodone as needed. SCDs for DVT prophylaxis Full code Attestations Medical Necessity Statement*: Needs continued hospitalization for close monitoring of COPD exacerbation with frequent nebs Coding Level of Care Code Acute Skilled Nursing Facilities Professional for Chg Fwd Diagnoses COPD (chronic obstructive pulmonary disease) J43.9 COPD type: emphysema Emphysema type: unspecified Acute bronchitis J20.9 Respiratory failure J96.90 Transaminitis R74.0 Tobacco dependency F17.200 Acute kidney injury N17.9
--- NOTE | 2019-10-08 11:33 | USCV_ITS ---
Shira Mata Age: 64 Gender: F : 1955 Exam Date: 10/08/2019 18:05 Ordering Phys: Eran Puente MD Technologist: Iliana Mitchell [place] [facility] [place]: ELEVATED TROPONIN BP: 137 / 82 HR: 95 Rhythm: Sinus Technical Quality: Technically difficult study MEASUREMENTS (Male / Female) Normal Values 2D ECHO LV Diastolic Diameter PLAX 2.3 cm 4.2 - 5.9 / 3.9 - 5.3 cm LV Systolic Diameter PLAX 1.2 cm LV Chamber Size 2.5 cm IVS Diastolic Thickness 1.2 cm 0.6 - 1.0 / 0.6 - 0.9 cm IVS Systolic Thickness 1.8 cm LVPW Diastolic Thickness 1.7 cm 0.6 - 1.0 / 0.6 - 0.9 cm LVPW Systolic Thickness 1.6 cm RV Chamber Size 2.6 cm LVOT Diameter 2.0 cm LV Ejection Fraction 2D Teich 81.8 % LA Diameter 3.2 cm LA Width 3.5 cm LA Height 3.8 cm RA Width 3.1 cm RA Height 2.9 cm Aorta at Sinotubular Diameter 2.9 cm M-MODE LV Diastolic Diameter MM 4.2 cm 4.2 - 5.9 / 3.9 - 5.3 cm LV Systolic Diameter MM 2.2 cm LV Ejection Fraction MM Teich 79.5 % IVS Diastolic Thickness MM 0.8 cm 0.6 - 1.0 / 0.6 - 0.9 cm IVS Systolic Thickness MM 1.2 cm LVPW Diastolic Thickness MM 0.9 cm 0.6 - 1.0 / 0.6 - 0.9 cm LVPW Systolic Thickness MM 1.7 cm Aortic Annulus Diameter 3.1 cm LA Ao Ratio MM 1.0 MV E Point Septal Separation 0.6 cm DOPPLER AV Peak Velocity 120.0 cm/s LVOT Peak Velocity 94.0 cm/s AV Area Cont Eq vti 2.5 cm squared AV Area Cont Eq pk 2.5 cm squared MV Area PHT 5.1 cm squared Mitral E to A Ratio 0.7 MV E' Velocity 9.0 cm/s Mitral E to MV E' Ratio 6.9 Mitral E to LV E' Lateral Ratio 6.4 Mitral E to LV E' Septal Ratio 7.6 TR Peak Velocity 182.0 cm/s TR Peak Gradient 13.2 mmHg TV Peak E Velocity 59.0 cm/s Right Atrial Pressure 3.0 mmHg Pulmonary Artery Systolic Pressu 16.2 mmHg PV Peak Velocity 60.0 cm/s RV Acceleration Time 0.2 s RV Ejection Time 0.4 s RV AcT/ET 0.4 FINDINGS Left Ventricle Normal left ventricular systolic function. Left ventricular ejection fraction is visually estimated at 55 %. This study is inadequate for estimation of regional wall motion abnormality. Grade I diastolic dysfunction (abnormal relaxation filling pattern), normal to mildly elevated filling pressures. Right Ventricle Right ventricle not well visualized. Probably upper normal right ventricular size with normal systolic function. Right ventricular systolic pressure 16.2 mmHg. Right Atrium Right atrium not well visualized. Left Atrium Left atrium not well visualized. Mitral Valve Mitral valve not well visualized. Aortic Valve Aortic valve not well visualized. No aortic valve stenosis. Mild aortic valve regurgitation. Tricuspid Valve Tricuspid valve not well visualized. Pulmonic Valve Pulmonic valve not well visualized. Pericardium No pericardial effusion. Aorta Aorta not well visualized. CONCLUSIONS 1. This is a technically very difficult study. 2. Normal left ventricular systolic function. Left ventricular ejection fraction is visually estimated at 55 %. This study is inadequate for estimation of regional wall motion abnormality. Grade I diastolic dysfunction (abnormal relaxation filling pattern), normal to mildly elevated filling pressures. 3. Mild aortic valve regurgitation. 4. No prior similar studies to compare. Maryellen Schmidt MD (Electronically Signed) Final Date: 09 October 2019 18:09 S
[2019-10-08 11:38] LABS: Aspartate Amino Transferase 112 U/L (0-32)
--- NOTE | 2019-10-08 12:24 | PC.CHAP ---
Pastoral Care Encounter/Spiritual Assessment Type of Contact [] Declined wood miller visit [] Patient/Family/Request visit [] Outpatient visit [] Follow-up visit [] Physician referral [] Code/Alert [x] Routine visit [] Staff referral [] Actively dying [] Patient sleeping [] Family support [] [] Out of room [] Palliative care [] [] Receiving care in room [] Pre-surgical visit [] Trauma [] Long length of stay [] ICU visit [] Other: Relational/Emotional Strength [x] Patient feels connected with others/family/visitors/staff [] Distress [] Loneliness/isolation [] Abandonment Spirituality of Patient [x] Person of [place] [x] Attends Denominational of their [place] [x] Believes in Prayer [] Reads Bible or Sikh materials [] There are Spiritual issues to be addressed [place] Interventions [x] Prayer [x] Active listening [x] Non-anxious presence [] Spiritual/emotional support [] Crisis/trauma care [] Spiritual counseling [] Bereavement support [] Provided bereavement packet [] Provided Bible/devotional materials [] Provided toy/stuffed animal, coloring book to patient or family member [] Provided Communion [] Anointing/[place] [] Salvation [x] Completed spiritual assessment [] Other: Impact on Illness or Injury [] Angry [] Fearful [] Anxious [] Often cries [] Exhaustion [] Unable to work [] Unable to attend religious [] Unable to walk/stand [] Unable to read [] Unable to drive [] Unable to eat/drink [] Unable to sleep [] Unable to be with family [] Patient intubated [] Other: Summary patient say doing better today n eating Time spent with patient 10 min
--- NOTE | 2019-10-08 15:29 | PC.RESP ---
Patient given Pulmonary Rehab information.
--- NOTE | 2019-10-08 19:23 | PC.NURSE ---
CALLED AND NOTIFIED DR HODGE THAT PT IV HAD INFILTRATED AND WANTED TO KNOW IF NEW ONE WAS NEEDED RIGHT NOW. HE SAID IT COULD STAY OUT FOR NOW UNTIL NEXT IV ANTIBIOTIC DUE ON 10/09/19 AT 1700.
[2019-10-09] VITALS (19 sets, daily range): BP systolic 102–144; BP diastolic 64–85; PULSE 82–105; RESP 16–24; TEMP 36.4–36.9; O2SAT 90–96
[2019-10-09] MEDS: TRAMadol 50 mg Tablet PO ×3 (00:09→20:26)
[2019-10-09] MEDS: methocarbamol 500 mg Tablet PO (00:09)
[2019-10-09] MEDS: ipratropium-albuterol 3 mL Neb INHALATION ×7 (03:45→23:42)
[2019-10-09 05:13] LABS: Basophils % 0.5 %; Eosinophils # 0.1 10^3/uL (0.0-0.8); Eosinophils % 0.7 %; Hematocrit 42.1 % (37.0-47.0); Hemoglobin 12.9 g/dL (11.5-15.3); Lymphocytes # 1.8 10^3/uL (0.8-4.8); Lymphocytes % 20.7 %; Mean Corpuscular HGB Conc 30.6 g/dL (30.0-36.0); Mean Corpuscular Hemoglobin 25.7 pg (28.0-34.0); Mean Platelet Volume 10.6 fL (7.4-10.4); Monocytes # 0.6 10^3/uL (0.2-0.9); Monocytes % 6.9 %; Neutrophils # 5.5 10^3/uL (1.8-7.7); Neutrophils % 63.8 %; Nucleated Red Blood Cells # 0.1 /100WBC; Platelet Count 87 10^3/cmm (130-400); Red Blood Count 5.01 10^6/uL (4.1-5.3); Red Cell Distribution Width 15.8 % (12.1-15.1); White Blood Count 8.7 10^3/uL (4.0-10.0)
[2019-10-09 05:43] LABS: Alanine Aminotransferase 140 U/L (0-33); Albumin Level 3.3 g/dL (3.5-5.2); Alkaline Phosphatase 390 IU/L (35-105); Anion Gap 16.4 (5-19); Aspartate Amino Transferase 122 U/L (0-32); Blood Urea Nitrogen 31 mg/dL (8-23); Calcium 10.5 mg/dL (8.5-10.5); Carbon Dioxide 24 mmol/L (22-29); Chloride 99 mmol/L (98-107); Globulin 3.4 g/dL (1.3-4.6); Glomerular Filtration Rate 34.9 mL/min (90-130); Glucose 100 mg/dL (65-115); Potassium 4.4 mmol/L (3.5-5.1); Sodium 135 mmol/L (136-145); Total Bilirubin 0.4 mg/dL (0.15-1.2); Total Protein 6.7 g/dL (6.6-8.7)
[2019-10-09 05:48] LABS: Slide Review Slide Review Perform
[2019-10-09] MEDS: pantoprazole DR 40 mg Tablet PO (08:45)
[2019-10-09] MEDS: oxybutynin chloride XL 5 MG TABLET 20 MG PO (08:47)
[2019-10-09] MEDS: predniSONE 20 mg Tablet 40 MG PO (08:47)
[2019-10-09] MEDS: montelukast sodium 10 mg Tablet PO (08:47)
[2019-10-09 09:47] LABS: Hepatitis A Antibody IgM. Non-Reactive (Nonreactive); Hepatitis B Core IgM Non-Reactive (Nonreactive); Hepatitis B Surface Antigen. Non-Reactive (Nonreactive); Hepatitis C Virus Antibody Reactive (Nonreactive)
--- NOTE | 2019-10-09 11:41 | P.PN_ITS ---
Subjective Subjective: Interval history: Shira reports she had some worsening of her breathing last night. Feels better today. Got placed on a facemask at 4 L. Still coughing and wheezing some. Medications: Reviewed: Yes Vitals/I&O/Wt Last Vital Signs Temp 97.8 F 10/09/19 08:00 Pulse 86 10/09/19 11:02 Resp 18 10/09/19 10:57 BP 102/67 10/09/19 08:00 Pulse Ox 95 10/09/19 10:57 10/08/19 10/09/19 10/09/19 22:59 06:59 14:59 Intake Total 1540 / 2500 360 / 2860 Output Total 450 / 450 Balance 1540 / 2500 -90 / 2410 Physical Exam Narrative: EXAM NARRATIVE: General exam is a white female, in no apparent distress Cardiovascular regular rate and rhythm without murmur. No S3 or S4 Lungs a few bilateral expiratory wheezes Abdomen is soft with positive bowel sounds. No obvious organomegaly Extremities no cyanosis clubbing or edema, cap refill brisk Data : 10/09/19 04:55 10/09/19 04:55 Micro: Microbiology 10/07/19 11:20 Blood Culture - Preliminary Blood NEGATIVE TO DATE 10/07/19 11:29 Blood Culture - Preliminary Blood NEGATIVE TO DATE A&P Assessment and plan (1) COPD (chronic obstructive pulmonary disease): Significant COPD exacerbation with hypoxia. Continue pulmonary toilet Oxygen as needed Continue IV Levaquin Continue prednisone 40 mg daily She may use her home Anora Ellipta Wean oxygen as tolerated Note that influenza swab was negative As she is requiring more oxygen, will recheck chest x-ray. Add flutter valve, add Mucinex. Status: Acute Qualifiers: COPD type: emphysema Emphysema type: unspecified Qualified Code(s): J43.9 - Emphysema, unspecified Code(s): J44.9 - Chronic obstructive pulmonary disease, unspecified (2) Acute bronchitis: Levaquin as above Status: Acute Code(s): J20.9 - Acute bronchitis, unspecified (3) Respiratory failure: Respiratory care as above Status: Acute Code(s): J96.90 - Respiratory failure, unspecified, unspecified whether with hypoxia or hypercapnia (4) Transaminitis: This appears to be slightly improved from admission. Platelet count appears to be rebounding slightly. Stop Skelaxin Robaxin as needed as alternative Repeat liver function test tomorrow Reviewed ultrasound which is nonspecific. Consider CT scan with contrast if renal function improves Status: Acute Code(s): R74.0 - Nonspecific elevation of levels of transaminase and lactic acid dehydrogenase [LDH] (5) Tobacco dependency: Counseled abstinence Status: Acute Code(s): F17.200 - Nicotine dependence, unspecified, uncomplicated (6) Acute kidney injury: Continues to improve Fluids can be discontinued Status: Acute Code(s): N17.9 - Acute kidney failure, unspecified Additional A&P Information History of a traumatic subdural and left scalp hematoma. For now avoid anticoagulants. She feels as if this is slightly better Small cell lung cancer, recently diagnosed. Reviewing options for chemotherapy and/or radiation. I have consulted radiation oncology to see her today. Elevated troponin, suspect type II. Echocardiogram has been taken and report is pending Elevated BNP, no evidence of fluid overload History of hypertension GERD Rheumatoid arthritis Insomnia. Will use some trazodone as needed. SCDs for DVT prophylaxis Full code Attestations Medical Necessity Statement*: Needs continued hospitalization for frequent nebulized treatments, close monitoring secondary to COPD exacerbation. Coding Level of Care Code Acute Acute Care Nurse for g Fwd Diagnoses COPD (chronic obstructive pulmonary disease) J43.9 COPD type: emphysema Emphysema type: unspecified Acute bronchitis J20.9 Respiratory failure J96.90 Transaminitis R74.0 Tobacco dependency F17.200 Acute kidney injury N17.9
--- NOTE | 2019-10-09 11:47 | XR_ITS ---
WS: [id number] PORTABLE CHEST HISTORY: hypoxia COMPARISON: 10/07/2019 Patient has a known RIGHT upper lobe pulmonary mass which measures 3.4 x 3.5 cm. Mass is superimposed on a background of chronic emphysema and coarse interstitial thickening. No pneumonia or pulmonary v ascular congestion. Fullness at the RIGHT hilum consistent with atelectasis and adenopathy which has been previously described. No pleural effusion or pneumothorax. Cardiac size: Normal. Mediastinum/Aorta: Mild atherosclerosis aorta. Prior RIGHT humeral head prosthesis. XR/XR chest 1V portable [id number] IMPRESSION: 1. Lobulated mass RIGHT upper lobe is stable measuring 3.4 x 3.5 cm. 2. Chronic interstitial lung disease with fullness at the RIGHT hilum due to p reviously seen nodules or adenopathy.
[2019-10-09] MEDS: guaiFENesin 600 mg Tablet PO (19:46)
[2019-10-09] MEDS: calcium carbonate 500 mg Chew Tablet 1000 MG PO (23:38)
[2019-10-10] VITALS (18 sets, daily range): BP systolic 116–141; BP diastolic 78–82; PULSE 82–103; RESP 14–24; TEMP 36.5–36.8; O2SAT 90–96
[2019-10-10] MEDS: methocarbamol 500 mg Tablet PO ×2 (00:23→23:10)
[2019-10-10] MEDS: TRAMadol 50 mg Tablet PO ×3 (00:23→22:43)
[2019-10-10] MEDS: ipratropium-albuterol 3 mL Neb INHALATION ×6 (04:01→23:52)
[2019-10-10] MEDS: calcium carbonate 500 mg Chew Tablet 1000 MG PO (04:53)
[2019-10-10 06:23] LABS: Basophils # 0.1 10^3/uL (0.0-0.1); Eosinophils # 0.1 10^3/uL (0.0-0.8); Hematocrit 40.9 % (37.0-47.0); Hemoglobin 12.5 g/dL (11.5-15.3); Lymphocytes # 1.6 10^3/uL (0.8-4.8); Lymphocytes % 27.5 %; Mean Corpuscular HGB Conc 30.6 g/dL (30.0-36.0); Mean Corpuscular Hemoglobin 25.1 pg (28.0-34.0); Mean Platelet Volume 12.2 fL (7.4-10.4); Monocytes # 0.3 10^3/uL (0.2-0.9); Monocytes % 4.6 %; Neutrophils # 3.4 10^3/uL (1.8-7.7); Neutrophils % 56.7 %; Nucleated Red Blood Cells # 0.1 /100WBC; Platelet Count 69 10^3/cmm (130-400); Red Blood Count 4.99 10^6/uL (4.1-5.3); Red Cell Distribution Width 15.9 % (12.1-15.1); White Blood Count 5.9 10^3/uL (4.0-10.0)
[2019-10-10 06:45] LABS: Alanine Aminotransferase 158 U/L (0-33); Albumin Level 3.6 g/dL (3.5-5.2); Alkaline Phosphatase 404 IU/L (35-105); Anion Gap 16.5 (5-19); Aspartate Amino Transferase 138 U/L (0-32); Blood Urea Nitrogen 31 mg/dL (8-23); Calcium 10.9 mg/dL (8.5-10.5); Carbon Dioxide 30 mmol/L (22-29); Chloride 95 mmol/L (98-107); Globulin 3.3 g/dL (1.3-4.6); Glomerular Filtration Rate 49.8 mL/min (90-130); Glucose 90 mg/dL (65-115); Potassium 4.5 mmol/L (3.5-5.1); Sodium 137 mmol/L (136-145); Total Bilirubin 0.5 mg/dL (0.15-1.2); Total Protein 6.9 g/dL (6.6-8.7)
[2019-10-10 07:03] LABS: Slide Review Slide Review Perform
[2019-10-10 07:06] LABS: Absolute Segmented Neutrophil 1.7 10/cmm (1.6-7.1); Band Neutrophils Absolute 1.2 10^3/cmm (0.0-1.2); Lymphocytes 41 %; Monocytes Absolute 0.2 10^3/cmm (0.1-0.6); Segmented Neutrophils 29 %; Total Cells Counted 100 (0-100)
[2019-10-10 07:07] LABS: Platelet Estimate Decreased (Normal)
--- NOTE | 2019-10-10 09:14 | CT_ITS ---
WS: [id number] CTA CHEST ABDOMEN AND PELVIS TECHNIQUE: Noncontrast plus contrast enhanced CTA of the chest, abdomen, and pelvis with coronal and sagittal reformatted images and additional MIP Images. CLINICAL INFORMATION: rule out PE, dyspnea COMPARISON: PET CT August 02, 2019 and CTA chest July 11, 2019 DLP: 1498.[address] scans at [facility] use at least one of these dose optimization techniques: automat ed exposure control; mA and/or kV adjustment per patient size (includes targeted exams where dose is matched to clinical indication); or iterative reconstruction. FINDINGS: Proximal main pulmonary arteries are normal. Multiple new bronchovascular metastatic nodules. No evid ence of pulmonary embolus. Normal caliber thoracic aorta. Right upper lobe pulmonary mass measuring 3.8 x 3.2 CM. This has incre ased in size from previous. Innumerable new metastatic pulmonary nodules throughout both lungs with s ignificant progression. Right hilar lymphadenopathy. Hepatomegaly with innumerable metastatic lesions throughout both hepatic lobes. This is new from the prior examinations. Mild narrowing of the intrahepatic portal vein and hepatic veins which appear pat ent. Splenic vein appears patent. Normal spleen. Adrenal glands are normal. Renal cortical atrophy. N ormal renal parenchymal enhancement. Sigmoid diverticulosis. No periaortic lymphadenopathy. No pelvic or inguinal lymphadenopathy. Chronic anterior wedging L1. CT/CT angio chest w abd pel w con IMPRESSION: 1. No evidence for pulmonary embolus. 2. Innumerable new metastatic nodules throughout both lungs with a bronchovasc ular and angiocentric distribution. This is significantly progressed since the prior examinations. 3. Dominant right upper lobe mass measuring 3.2 x 3.8 cm appears increased. 4. Right hilar lymphadenopathy. 5. Hepatomegaly with diffuse hepatic metastatic disease throughout both hepati c lobes. Innumerable hepatic metastatic lesions. This is new from previous. 6. Normal caliber abdominal aorta. 7. No abdominal or pelvic lymphadenopathy.
--- NOTE | 2019-10-10 09:49 | XR_ITS ---
WS: [id number] Portable AP upright chest, 10/10/2019 Clinical Data: respiratory distress Comparison: Portable chest, 10/09/2019 Findings: Right upper lobe mass has not changed. There are increased interstitial markings throughout both lungs which could represent chronic interstitial lung disease. Right hilum is enlarged. The hea rt remains unchanged. The aortic arch and descending aorta show tortuosity. There are monitoring lead s on the chest wall. There is a right total shoulder prosthesis in position. XR/XR chest 1V portable [id number] Impression: 1. Right upper lobe mass unchanged from yesterday. 2. Interstitial infiltrate of the lungs consistent with chronic lung disease. 2. Probable right hilar adenopathy.
[2019-10-10] MEDS: FUROsemide 10 mg/mL SDV 4mL 40 MG IVP (10:09)
[2019-10-10] MEDS: guaiFENesin 600 mg Tablet PO ×2 (10:24→17:27)
[2019-10-10] MEDS: pantoprazole DR 40 mg Tablet PO (10:25)
[2019-10-10] MEDS: montelukast sodium 10 mg Tablet PO (10:25)
[2019-10-10] MEDS: oxybutynin chloride XL 5 MG TABLET 20 MG PO (10:25)
[2019-10-10] MEDS: diphenhydrAMINE 50 mg Capsule PO (10:26)
[2019-10-10] MEDS: predniSONE 20 mg Tablet 40 MG PO (10:26)
[2019-10-10] MEDS: levoFLOXacin 750 mg Tablet PO (10:26)
[2019-10-10] MEDS: LORazepam 2 mg/mL INJ 1 mL 0.5 MG IVP (10:50)
--- NOTE | 2019-10-10 11:02 | PC.NURSE ---
Personal Inhaler: Pt states that the physician approved her to take her home inhaler, Ellipta Breo. Pt had not had it today so assisted her to remove the Bipap momentarily so she could take it.
--- NOTE | 2019-10-10 11:07 | PC.NURSE ---
Assumed pt care at this time. Report received from JOON Kendall. Kristen given by freelance writer in preparation for her CT.
--- NOTE | 2019-10-10 11:10 | DCPLANNER ---
PT USING BIPAP, NO D/C DATE KNOWN YET.
[2019-10-10] MEDS: iodixanol 320 mg/mL 100mL Btl IV (12:06)
--- NOTE | 2019-10-10 12:15 | PC.SOCIAL ---
IMM Page 2 of IMM explained to and signed by patient. Initialed, dated, and timed and placed in chart. Copy provided to patient.
[2019-10-10 15:36] LABS: HEP C RNA Viral Load Quant <1.18 NOT DETECTED Log IU/mL (NOT DETECTED); HEP C RNA Viral Load Quant <15 NOT DETECTED IU/mL (NOT DETECTED)
--- NOTE | 2019-10-10 15:52 | P.PN_ITS ---
Subjective Subjective: Interval history: Shira reports she was more short of breath this morning. We placed her on BiPAP for a short while. I initiated 40 mg of Lasix. She is now feeling a little bit better. Medications: Reviewed: Yes Vitals/I&O/Wt Last Vital Signs Temp 98.3 F 10/10/19 15:09 Pulse 103 H 10/10/19 15:12 Resp 18 10/10/19 15:12 BP 134/80 10/10/19 15:09 Pulse Ox 91 10/10/19 15:12 10/10/19 10/10/19 10/10/19 06:59 14:59 22:59 Output Total 250 / 850 800 / 800 Balance -250 / -250 -800 / -800 Weight last 48 hrs Weight 84.459 kg Weight 84.459 kg Physical Exam Narrative: EXAM NARRATIVE: General exam is a white female, in no apparent dis tress Cardiovascular regular rate and rhythm without murmur. No S3 or S4 Lungs diminished breath sounds bilaterally with bilateral expiratory wheezes Abdomen is soft with positive bowel sounds. No obvious organomegaly Extremities no cyanosis clubbing or edema, cap refill brisk Data : 10/10/19 06:15 10/10/19 06:15 A&P Assessment and plan (1) COPD (chronic obstructive pulmonary disease): Significant COPD exacerbation with hypoxia. Continue pulmonary toilet Oxygen as needed Continue oral Levaquin Continue prednisone 40 mg daily She may use her home [employer] oxygen as tolerated Note that influenza swab was negative Continue flutter valve, Mucinex CT chest today secondary to worsening. No evidence of pulmonary embolism. Was given 40 mg of Lasix with some improvement. BiPAP started as needed. CT did demonstrate significant worsening of malignancy Status: Acute Qualifiers: COPD type: emphysema Emphysema type: unspecified Qualified Code(s): J43.9 - Emphysema, unspecified Code(s): J44.9 - Chronic obstructive pulmonary disease, unspecified (2) Acute bronchitis: Levaquin as above Status: Acute Code(s): J20.9 - Acute bronchitis, unspecified (3) Respiratory failure: Respiratory care as above Status: Acute Code(s): J96.90 - Respiratory failure, unspecified, unspecified whether with hypoxia or hypercapnia (4) Transaminitis: This appears to be slightly improved from admission. Platelet count appears to be rebounding slightly. Stop Skelaxin Robaxin as needed as alternative Repeat liver function test tomorrow Reviewed ultrasound which is nonspecific. CT scan today demonstrates metastasis in the liver. Status: Acute Code(s): R74.0 - Nonspecific elevation of levels of transaminase and lactic acid dehydrogenase [LDH] (5) Tobacco dependency: Counseled abstinence Status: Acute Code(s): F17.200 - Nicotine dependence, unspecified, uncomplicated (6) Acute kidney injury: Fluids have been discontinued over 48 hours ago. Lasix 40 mg IV given today secondary to significant dyspnea Status: Acute Code(s): N17.9 - Acute kidney failure, unspecified Additional A&P Information History of a traumatic subdural and left scalp hematoma. For now avoid anticoagulants. She feels as if this is slightly better Small cell lung cancer, recently diagnosed. Reviewing options for chemotherapy and/or radiation. Radiation oncology has evaluated the patient Elevated troponin, suspect type II. Echocardiogram demonstrates preserved EF, grade 1/4 diastolic dysfunction Elevated BNP, no evidence of fluid overload. She was given a dose of Lasix today secondary to worsening dyspnea. This did improve her condition History of hypertension GERD Rheumatoid arthritis Insomnia. Will use some trazodone as needed. 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
--- NOTE | 2019-10-10 16:21 | PC.PT ---
PT note; attempted PT evaluation this afternoon, patient declined out of bed stating that she has been up today, and feels she overdid it, states she will participate tomorrow, further states her whole family now has the flu so she cannot return there any time soon, will reattempt tomorrow
[2019-10-10] MEDS: budesonide 0.5 mg/2 mL Neb INHALATION (19:31)
[2019-10-11] VITALS (18 sets, daily range): BP systolic 102–134; BP diastolic 65–88; PULSE 88–100; RESP 18–24; TEMP 36.5–37; O2SAT 85–96
[2019-10-11] MEDS: ipratropium-albuterol 3 mL Neb INHALATION ×6 (03:34→23:29)
[2019-10-11] MEDS: TRAMadol 50 mg Tablet PO ×2 (05:49→09:45)
[2019-10-11] MEDS: levoFLOXacin 750 mg Tablet PO (05:49)
[2019-10-11] MEDS: budesonide 0.5 mg/2 mL Neb INHALATION ×2 (07:36→19:58)
[2019-10-11 07:55] LABS: Anion Gap 18.8 (5-19); Blood Urea Nitrogen 35 mg/dL (8-23); Carbon Dioxide 27 mmol/L (22-29); Chloride 95 mmol/L (98-107); Glomerular Filtration Rate 55.6 mL/min (90-130); Glucose 83 mg/dL (65-115); Osmolality Calculated 281 mOsm/kg (285-295); Potassium 3.8 mmol/L (3.5-5.1); Sodium 137 mmol/L (136-145)
[2019-10-11] MEDS: pantoprazole DR 40 mg Tablet PO (08:29)
[2019-10-11] MEDS: predniSONE 20 mg Tablet 40 MG PO (08:29)
[2019-10-11] MEDS: oxybutynin chloride XL 5 MG TABLET 20 MG PO (08:29)
[2019-10-11] MEDS: guaiFENesin 600 mg Tablet PO ×2 (08:30→17:47)
[2019-10-11] MEDS: montelukast sodium 10 mg Tablet PO (08:30)
[2019-10-11] MEDS: FUROsemide 40 mg Tablet PO (10:56)
--- NOTE | 2019-10-11 13:05 | PC.PT ---
Pt declined rehab today, stating she had difficulty with breathing and needed RT first and Bipap put back on. Pt declined therapy, will attempt again tomorrow.
--- NOTE | 2019-10-11 13:23 | P.PN_ITS ---
Subjective Subjective: Interval history: Shira reports she is a little bit better than yesterday but still short of breath with any movement. Medications: Reviewed: Yes Vitals/I&O/Wt Last Vital Signs Temp 98.3 F 10/11/19 11:46 Pulse 92 10/11/19 12:07 Resp 20 H 10/11/19 12:03 BP 131/88 10/11/19 11:46 Pulse Ox 93 10/11/19 12:07 10/10/19 10/11/19 10/11/19 22:59 06:59 14:59 Intake Total 600 / 600 240 / 240 Output Total 650 / 1450 Balance -50 / -850 240 / 240 Weight last 48 hrs Weight 84.459 kg Physical Exam Narrative: EXAM NARRATIVE: General exam is a white female, in no apparent distress Cardiovascular regular rate and rhythm without murmur. No S3 or S4 Lungs diminished breath sounds bilaterally with bilateral expiratory wheezes Abdomen is soft with positive bowel sounds. No obvious organomegaly Extremities no cyanosis clubbing or edema, cap refill brisk Data : 10/10/19 06:15 10/11/19 07:20 A&P Assessment and plan (1) COPD (chronic obstructive pulmonary disease): Significant COPD exacerbation with hypoxia. Continue pulmonary toilet Oxygen as needed Continue oral Levaquin Continue prednisone 40 mg daily She may use her home [employer] oxygen as tolerated. This is been difficult to do Note that influenza swab was negative Continue flutter valve, Mucinex CT chest today secondary to worsening. No evidence of pulmonary embolism. Was given 40 mg of Lasix with some improvement. BiPAP started as needed. CT did demonstrate significant worsening of malignancy Continue Lasix 40 mg daily, monitoring creatinine closely Status: Acute Qualifiers: COPD type: emphysema Emphysema type: unspecified Qualified Code(s): J43.9 - Emphysema, unspecified Code(s): J44.9 - Chronic obstructive pulmonary disease, unspecified (2) Acute bronchitis: Levaquin as above Status: Acute Code(s): J20.9 - Acute bronchitis, unspecified (3) Respiratory failure: Respiratory care as above Status: Acute Code(s): J96.90 - Respiratory failure, unspecified, unspecified whether with hypoxia or hypercapnia (4) Transaminitis: Reviewed ultrasound which is nonspecific. CT scan demonstrates metastasis in the liver, explaining transaminitis. Status: Acute Code(s): R74.0 - Nonspecific elevation of levels of transaminase and lactic acid dehydrogenase [LDH] (5) Tobacco dependency: Counseled abstinence Status: Acute Code(s): F17.200 - Nicotine dependence, unspecified, uncomplicated (6) Acute kidney injury: Continue Lasix 40 mg daily, monitoring renal function closely Status: Acute Code(s): N17.9 - Acute kidney failure, unspecified Additional A&P Information History of a traumatic subdural and left scalp hematoma. For now avoid ant icoagulants. She feels as if this is slightly better Small cell lung cancer, recently diagnosed. Reviewing options for chemotherapy and/or radiation. Radiation oncology has evaluated the patient Elevated troponin, suspect type II. Echocardiogram demonstrates preserved EF, grade 1/4 diastolic dysfunction Elevated BNP, no evidence of fluid overload. She was given a dose of Lasix today secondary to worsening dyspnea. This did improve her condition History of hypertension GERD Rheumatoid arthritis Insomnia. Will use some trazodone as needed. SCDs for DVT prophylaxis Full code Consider contacting oncology Sunday, to see if there are any options for systemic therapy if she has not made progress to be able to discharge home. Add hydrocodone for pain control Prognosis guarded. If she has no significant improvement, potentially may need skilled placement if she cannot manage at home. Attestations Medical Necessity Statement*: Needs continued hospitalization for frequent nebs, with hopes that her condition can improve somewhat here. She has widely metastatic small cell lung carcinoma. 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
[2019-10-11] MEDS: HYDROcodone-acetaminophen 5-325 mg Tablet 1 TAB PO ×2 (15:42→20:42)
[2019-10-12] VITALS (17 sets, daily range): BP systolic 99–130; BP diastolic 61–83; PULSE 85–103; RESP 16–20; TEMP 36.3–36.9; O2SAT 88–95
[2019-10-12] MEDS: HYDROcodone-acetaminophen 5-325 mg Tablet 1 TAB PO ×5 (00:45→18:28)
[2019-10-12] MEDS: ipratropium-albuterol 3 mL Neb INHALATION ×6 (03:58→23:27)
[2019-10-12 05:55] LABS: Basophils # 0.1 10^3/uL (0.0-0.1); Eosinophils # 0.1 10^3/uL (0.0-0.8); Eosinophils % 1.8 %; Hematocrit 41.8 % (37.0-47.0); Hemoglobin 12.8 g/dL (11.5-15.3); Lymphocytes # 1.9 10^3/uL (0.8-4.8); Lymphocytes % 25.8 %; Mean Corpuscular HGB Conc 30.6 g/dL (30.0-36.0); Mean Corpuscular Hemoglobin 25.3 pg (28.0-34.0); Mean Corpuscular Volume 82.6 fL (81-99); Mean Platelet Volume 11.6 fL (7.4-10.4); Monocytes # 0.6 10^3/uL (0.2-0.9); Neutrophils # 4.1 10^3/uL (1.8-7.7); Neutrophils % 56.8 %; Nucleated Red Blood Cells # 0.3 /100WBC; Nucleated Red Blood Cells % 3.5 %; Platelet Count 81 10^3/cmm (130-400); Red Blood Count 5.06 10^6/uL (4.1-5.3); White Blood Count 7.2 10^3/uL (4.0-10.0)
[2019-10-12 06:10] LABS: Slide Review Slide Review Perform
[2019-10-12] MEDS: levoFLOXacin 750 mg Tablet PO (06:21)
[2019-10-12 06:23] LABS: Alanine Aminotransferase 170 U/L (0-33); Albumin Level 3.8 g/dL (3.5-5.2); Alkaline Phosphatase 482 IU/L (35-105); Anion Gap 22.7 (5-19); Aspartate Amino Transferase 173 U/L (0-32); Blood Urea Nitrogen 40 mg/dL (8-23); Calcium 9.7 mg/dL (8.5-10.5); Carbon Dioxide 27 mmol/L (22-29); Chloride 92 mmol/L (98-107); Globulin 2.9 g/dL (1.3-4.6); Glomerular Filtration Rate 45.1 mL/min (90-130); Glucose 102 mg/dL (65-115); Potassium 3.7 mmol/L (3.5-5.1); Sodium 138 mmol/L (136-145); Total Bilirubin 0.9 mg/dL (0.15-1.2); Total Protein 6.7 g/dL (6.6-8.7)
[2019-10-12] MEDS: budesonide 0.5 mg/2 mL Neb INHALATION ×2 (07:34→20:45)
[2019-10-12] MEDS: FUROsemide 40 mg Tablet PO (07:50)
[2019-10-12] MEDS: oxybutynin chloride XL 5 MG TABLET 20 MG PO (09:12)
[2019-10-12] MEDS: guaiFENesin 600 mg Tablet PO ×2 (09:12→17:16)
[2019-10-12] MEDS: pantoprazole DR 40 mg Tablet PO (09:12)
[2019-10-12] MEDS: montelukast sodium 10 mg Tablet PO (09:13)
[2019-10-12] MEDS: predniSONE 20 mg Tablet 40 MG PO (09:13)
--- NOTE | 2019-10-12 11:55 | DCPLANNER ---
Pg 2 of IM updated and reviewed with pt. No questions. Copy provided.
--- NOTE | 2019-10-12 17:02 | P.PN_ITS ---
Subjective Subjective: Interval history: Shira reports that she is feeling like her shortness of breath is perhaps a little bit better. She is used BiPAP on occasion. Medications: Reviewed: Yes Vitals/I&O/Wt Last Vital Signs Temp 98.2 F 10/12/19 15:12 Pulse 103 H 10/12/19 16:12 Resp 20 H 10/12/19 16:12 BP 99/66 10/12/19 15:12 Pulse Ox 93 10/12/19 16:12 10/12/19 10/12/19 10/12/19 06:59 14:59 22:59 Intake Total 360 / 360 Output Total 850 / 1900 350 / 350 Balance -850 / -1000 10 / 10 Weight last 48 hrs Weight 80.739 kg Weight 80.824 kg Physical Exam Narrative: EXAM NARRATIVE: General exam is a white female, in no apparent distress Cardiovascular regular rate and rhythm without murmur. No S3 or S4 Lungs diminished breath sounds bilaterally with bilateral expiratory wheezes Abdomen is soft with positive bowel sounds. No obvious organomegaly Extremities no cyanosis clubbing or edema, cap refill brisk Data : 10/12/19 05:06 10/12/19 05:06 Micro: Microbiology 10/07/19 11:29 Blood Culture - Final Blood NO GROWTH AFTER 5 DAYS 10/07/19 11:20 Blood Culture - Final Blood NO GROWTH AFTER 5 DAYS A&P Assessment and plan (1) COPD (chronic obstructive pulmonary disease): Significant COPD exacerbation with hypoxia. Continue pulmonary toilet Oxygen as needed Continue oral Levaquin Continue prednisone 40 mg daily She may use her home [employer] oxygen as tolerated. This is been difficult to do Note that influenza swab was negative Continue flutter valve, Mucinex CT chest was done secondary to worsening. No evidence of pulmonary embolism. Was given 40 mg of Lasix with some improvement. BiPAP started as needed. CT did demonstrate significant worsening of malignancy Continue Lasix 40 mg daily, monitoring renal function closely Status: Acute Qualifiers: COPD type: emphysema Emphysema type: unspecified Qualified Code(s): J43.9 - Emphysema, unspecified Code(s): J44.9 - Chronic obstructive pulmonary disease, unspecified (2) Acute bronchitis: Levaquin as above Status: Acute Code(s): J20.9 - Acute bronchitis, unspecified (3) Respiratory failure: Respiratory care as above Status: Acute Code(s): J96.90 - Respiratory failure, unspecified, unspecified whether with hypoxia or hypercapnia (4) Transaminitis: Reviewed ultrasound which is nonspecific. CT scan demonstrates metastasis in the liver, explaining transaminitis. Status: Acute Code(s): R74.0 - Nonspecific elevation of levels of transaminase and lactic acid dehydrogenase [LDH] (5) Tobacco dependency: Counseled abstinence Status: Acute Code(s): F17.200 - Nicotine dependence, unspecified, uncomplicated (6) Acute kidney injury: Continue Lasix 40 mg daily, monitoring renal function closely Status: Acute Code(s): N17.9 - Acute kidney failure, unspecified Additional A&P Information History of a traumatic subdural and left scalp hematoma. For now avoid anticoagulants. She feels as if this is slightly better Small cell lung cancer, recently diagnosed. Reviewing options for chemotherapy and/or radiation. Radiation oncology has evaluated the patient. Oncology will see tomorrow. Elevated troponin, suspect type II. Echocardiogram demonstrates preserved EF, grade 1/4 diastolic dysfunction Elevated BNP, no evidence of fluid overload. She was given a dose of Lasix today secondary to worsening dyspnea. This did improve her condition History of hypertension GERD Rheumatoid arthritis Insomnia. Will use some trazodone as needed. SCDs for DVT prophylaxis Full code Add hydrocodone for pain control Prognosis guarded. If she has no significant improvement, potentially may need skilled placement if she cannot manage at home. May need BiPAP at home. 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
--- NOTE | 2019-10-12 20:48 | PC.RESP ---
patient placed on overnight pox patient was off o2 for 3 min before sat dropped to 84% patient placed back on 4lmp of o2 at that time.
[2019-10-13] VITALS (21 sets, daily range): BP systolic 103–120; BP diastolic 65–81; PULSE 81–109; RESP 18–24; TEMP 36.5–36.9; O2SAT 88–97
[2019-10-13] MEDS: HYDROcodone-acetaminophen 5-325 mg Tablet 1 TAB PO ×6 (00:06→22:00)
[2019-10-13] MEDS: ipratropium-albuterol 3 mL Neb INHALATION ×6 (04:13→23:56)
[2019-10-13 05:40] LABS: ABG PCO2 49.7 mmHg (35-45); ABG PH Result 7.43 (7.35-7.45); Arterial Blood Gas Hematocrit 42.4 % (37-47); Base Excess ABG 6.9 mmol/L (-2.0-2.0); Blood Gas Allen Test Pos; Blood Gas Sample Type Arterial; HCO3 ABG 32.7 mmol/L (22-26); PO2 ABG 70.2 mmHg (80.0-100.0)
[2019-10-13] MEDS: levoFLOXacin 750 mg Tablet PO (06:01)
[2019-10-13 06:28] LABS: Anion Gap 20.8 (5-19); Blood Urea Nitrogen 51 mg/dL (8-23); Calcium 10.1 mg/dL (8.5-10.5); Carbon Dioxide 30 mmol/L (22-29); Chloride 94 mmol/L (98-107); Glomerular Filtration Rate 41.1 mL/min (90-130); Glucose 104 mg/dL (65-115); Osmolality Calculated 291 mOsm/kg (285-295); Potassium 3.8 mmol/L (3.5-5.1); Sodium 141 mmol/L (136-145)
--- NOTE | 2019-10-13 07:41 | PM.CONSULT ---
Providers/Reason For Consult Consulting Physican/Specialty*: Medical Oncology Reason for Consult*: Lung cancer Attending Physician: Eran Puente MD Primary Care Provider: NELDA Berry History of Present Illness History of Present Illness Shira Mata is a 64 year-old woman with recently diagnosed small cell carcinoma involving the upper lobe of the right lung. In March 2018 she had undergone wedge resection of the right upper lobe adenocarcinoma in [place], [place]. She had subsequently relocated to this area and established care with Dr. Monroe for further management of COPD. A chest CT on 07/04/2019 showed right upper lobe intraparenchymal mass measuring 3.3 x 2.1 x 2.4 cm, suspicious for neoplasm. There was associated lobular right suprahilar mass measuring 1.7 cm and there were 2 additional smaller right upper lobe satellite nodules measuring 10 mm, suspicious for metastatic disease. A PET CT reportedly showed hypermetabolic right upper lobe mass but no FDG uptake in hilar or mediastinal lymph nodes. Transbronchial biopsy was nondiagnostic. A CT directed needle biopsy on 09/01/2019 showed small cell carcinoma. Her further clinical course was complicated by headache and finding of small subdural hematoma. It was managed conservatively. On 10/07/2019 she was readmitted to [facility] with increasing shortness of breath and hypoxia. Her CT pulmonary angiogram reported a dominant right upper lobe mass measuring 3.8 x 3.2 cm with multiple new bronchovascular metastatic lesions. Also noted was hepatomegaly with innumerable metastatic lesions throughout both lobes of the liver. At this point she continues to complain of shortness of breath while on continuous oxygen. She has nonproductive cough. She has not had chest pain or hemoptysis. She has very limited activity tolerance. Her ECOG score is 3. Her appetite has been poor. She reports 30 to 40 pound weight loss over the past 6 to 8 months. She does not have fever or night sweats, but she sometimes feels warm. She recently has had some episodes of heartburn. She has no other GI or complaints. She has pain in her neck and back, which is chronic. She is still having headaches. She has no focal neurologic symptoms. Review of Systems General: Reports: 10 or more systems reviewed and unremarkable except in HPI and below Const: Reports: change in appetite, change in weight and fatigue; Denies: fever, night sweats or diaphoresis Eyes: Denies: change in vision ENMT: Denies: throat pain or painful swallowing Card: Reports: shortness of breath on exertion; Denies: chest pain or palpitations Resp: Reports: shortness of breath and non-productive cough; Denies: wheezing, pain on inspiration or coughing up blood GI: Reports: heartburn/indigestion; Denies: abdominal pain, nausea, diarrhea, constipation, blood in stool or black tarry stool : Denies: flank pain, difficulty urinating, painful urination, urinary frequency, urinary urgency, urinary incontinence or blood in urine Musc: Reports: neck pain, back pain and joint pain Skin/Breast: Denies: rash Neuro: Reports: headache; Denies: numbness in extremities, weakness in extremities, changes in sensation or dizziness Psych: Reports: anxiety and sleeping less; Denies: depression Endo: Denies: excessive urination or hot flashes Brad/Lymph: Reports: easy bruising All/Imm: Denies: hives Meds/Allergies Home Medications and Allergies Home Medications Medication Instructions Recorded Confirmed Type Protonix 20 mg PO DAILY 10/07/19 10/07/19 History Singulair 10 mg PO DAILY 10/07/19 10/07/19 History losartan 100 mg PO DAILY 10/07/19 10/07/19 History oxybutynin chloride 5 mg PO DAILY 10/07/19 10/07/19 History oxybutynin chloride 15 mg PO DAILY 10/07/19 10/07/19 History Allergies Allergy/AdvReac Type Severity Reaction Status Date / Time naproxen Allergy Severe ALGY-Anaphy Verified 10/02/19 13:30 laxis Iodinated Contrast Media Allergy ALGY-Anaphy Verified 10/02/19 13:30 laxis lisinopril AdvReac diarrhea Verified 10/02/19 13:30 Current Medications Current Medications Generic Name Dose Route Start Last Admin Trade Name Freq PRN Reason Stop Dose Admin Hydrocodone Bitart/Acetaminophen 1 tab 10/11/19 10:35 10/13/19 04:07 Magnolia 5-325 Mg PO 1 tab Q4H PRN Administration MODERATE PAIN Albuterol/Ipratropium 3 ml 10/09/19 12:00 10/13/19 04:13 Duoneb INHALATION 3 ml Q4H.RESPIRATORY SP Administration Budesonide 0.5 mg 10/10/19 20:00 10/12/19 20:45 Pulmicort INHALATION 0.5 mg BID.RESPIRATORY SP Administration Calcium Carbonate 1,000 mg 10/09/19 23:27 10/10/19 04:53 Tums PO 1,000 mg Q4H PRN Administration INDIGESTION Furosemide 40 mg 10/11/19 10:40 10/12/19 07:50 Lasix PO 40 mg DAILY@0800 SP Administration Guaifenesin 600 mg 10/09/19 18:00 10/12/19 17:16 Mucinex PO 600 mg BID SP Administration Guaifenesin/Dextromethorphan 5 ml 10/07/19 17:20 10/07/19 17:46 Robitussin Dm Oral Liq PO 5 ml Q4H PRN Administration COUGH Levofloxacin 750 mg 10/10/19 09:15 10/13/19 06:01 Levaquin PO 750 mg DAILY@0600 SP Administration Protocol Lorazepam 0.5 mg 10/10/19 10:15 10/10/19 10:50 Ativan IVP 0.5 mg Q4H PRN Administration ANXIETY Losartan Potassium 50 mg 10/09/19 09:00 10/12/19 09:13 Cozaar PO Not Given DAILY SP Methocarbamol 500 mg 10/07/19 16:20 10/10/19 23:10 Robaxin PO 500 mg BID PRN Administration MUSCLE SPASMS Montelukast Sodium 10 mg 10/08/19 09:00 10/12/19 09:13 Singulair PO 10 mg DAILY SP Administration Oxybutynin Chloride 20 mg 10/09/19 09:00 10/12/19 09:12 Ditropan Xl PO 20 mg DAILY SP Administration Pantoprazole Sodium 40 mg 10/08/19 09:00 10/12/19 09:12 Protonix PO 40 mg DAILY SP Administration Prednisone 40 mg 10/07/19 16:20 10/12/19 09:13 Prednisone PO 40 mg DAILY SP Administration Tramadol HCl 50 mg 10/07/19 16:20 10/11/19 09:45 Ultram PO 50 mg Q4H PRN Administration PAIN PFSH Acute PFSH: Medical History (Updated 10/13/19 @ 08:34 by Eben Andino MD) COPD (chronic obstructive pulmonary disease) Essential (primary) hypertension GERD (gastroesophageal reflux disease) Hypertension Lung cancer Rheumatoid arthritis Skull mass Subdural hemorrhage Urinary incontinence UTI (urinary tract infection) Surgical History H/O shoulder surgery History of cholecystectomy History of knee replacement History of lung surgery CT guided trans-thoracic cord needle biopsy right upper lobe lung mass pending Hx of cataract surgery Family History Mother Lung disease COPD Brother Lung disease COPD Social History (Updated 10/07/19 @ 15:46 by Eran Puente MD) Smoking and tobacco status: current every day smoker Alcohol intake: never Substance/Drug Use: never Lives independently: Yes Household members: family and children Housing: House Marital status: service: No Current occupational status: retired History of recent travel: No Dietary Habits: Current diet type/program: regular High-fat food intake: 0-1 times daily Daily servings fruits/vegetables: 0-1 Daily servings of milk/calcium: 2-4 Eating out: rarely or never Reads food labels: seldom or never During the past year weight has: decreased > 10 lbs Exercise: What type of physical activity do you participate in?: walking Vitals/I&O/Wt Last Vital Signs Temp 97.9 F 10/13/19 07:31 Pulse 87 10/13/19 07:31 Resp 24 H 10/13/19 07:31 BP 103/65 10/13/19 07:31 Pulse Ox 92 10/13/19 07:31 10/12/19 10/13/19 10/13/19 22:59 06:59 14:59 Intake Total 360 / 720 Output Total 700 / 1050 Balance 360 / 370 -700 / -330 Weight last 48 hrs Weight 78.67 kg Weight 80.739 kg Weight 80.824 kg Physical Exam Const: OTHER: She appears generally weak and chronically ill. HENMT: THROAT: posterior oropharynx normal Eye: COMMON NORMALS: conjunctivae normal and no scleral icterus CONJUNCTIVA: Yes conjunctivae normal Lymph: LYMPHATIC: no lymphadenopathy noted (No cervical, clavicular, axillary, or inguinal lymphadenopathy) Resp: OTHER: Lungs show diminished air movement bilaterally. There are scattered coarse rales. Cardio: COMMON NORMALS: regular rate, regular rhythm, no gallops, no murmurs and no rub RATE: regular rate RHYTHM: regular rhythm GI: COMMON NORMALS: non-tender, no hepatosplenomegaly and no masses PALPATION: Yes no hepatosplenomegaly Back/Pelvis: COMMON NORMALS: no thoracic nor lumbar tenderness Extremity: NARRATIVE EXTREMITY EXAM: No edema. Pedal pulses are palpable bilaterally. Neuro: COMMON NORMALS: no focal motor deficits and no sensory deficits noted Skin: NARRATIVE SKIN EXAM: No evidence of skin eruption. No suspicious skin lesions noted. Data Micro: Micro: Microbiology 10/07/19 11:29 Blood Culture - Fi nal Blood NO GROWTH AFTER 5 DAYS 10/07/19 11:20 Blood Culture - Fi nal Blood NO GROWTH AFTER 5 DAYS A&P Assessment and plan (1) Cancer of lung, secondary: Status: Acute Code(s): C78.00 - Secondary malignant neoplasm of unspecified lung (2) Secondary malignant neoplasm of liver and intrahepatic bile duct: Status: Acute Code(s): C78.7 - Secondary malignant neoplasm of liver and intrahepatic bile duct Additional A&P Information 1. Patient with small cell carcinoma involving the upper lobe of the right lung, stage IV, with multiple pulmonary and multiple liver metastases. 2. She has shortness of breath and hypoxia, now oxygen dependent. 3. She has underlying COPD. 4. She has overall poor performance status, ECOG 3. 5. She has had a recent subdural hematoma. Recommendation: The CT findings were reviewed with the patient. We discussed the clinical implications. She has fairly widespread metastatic disease which appears to be progressing rather rapidly. We discussed the fact that his disease does tend to be sensitive to chemotherapy, with response rates in the range of 60 to 70%, but with no potential for cure in the setting of metastatic disease. Nonetheless, with relatively high response rate, she is recommended to begin a trial of chemotherapy with carboplatin/etoposide. This will need to be initiated as an inpatient, given her overall poor condition and declining status. I reviewed side effects including the potential for nausea/vomiting, fatigue, alopecia, and low blood counts. The latter would potentially put her at risk for infection and would also potentially increase her risk of bleeding with a low platelet count, which is obviously significant in the setting of a known subdural hematoma. Nonetheless, she is willing to proceed with treatment as recommended, and I will get this started today if at all possible. 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
--- NOTE | 2019-10-13 07:52 | DCPLANNER ---
Pg 2 of IM was updated and reviewed with pt on 10/11, filing writer failed to enter a note. Copy provided.
[2019-10-13] MEDS: guaiFENesin 600 mg Tablet PO ×2 (08:11→18:23)
[2019-10-13] MEDS: pantoprazole DR 40 mg Tablet PO (08:12)
[2019-10-13] MEDS: montelukast sodium 10 mg Tablet PO (08:12)
[2019-10-13] MEDS: oxybutynin chloride XL 5 MG TABLET 20 MG PO (08:13)
[2019-10-13] MEDS: predniSONE 20 mg Tablet 40 MG PO (08:13)
[2019-10-13] MEDS: FUROsemide 40 mg Tablet PO (08:13)
[2019-10-13] MEDS: budesonide 0.5 mg/2 mL Neb INHALATION ×2 (08:46→20:11)
--- NOTE | 2019-10-13 14:24 | P.PN_ITS ---
Subjective Subjective: Interval history: continues to be tachypneic. c/o dyspnea, currently on 5lpm via oxymask. Seen by Dr. lagos today, starting chemotherapy with carboplatin/etoposide today Medications: Reviewed: Yes Vitals/I&O/Wt Last Vital Signs Temp 97.7 F 10/13/19 12:00 Pulse 101 H 10/13/19 13:08 Resp 22 H 10/13/19 13:00 BP 116/79 10/13/19 12:00 Pulse Ox 94 10/13/19 13:00 10/12/19 10/13/19 10/13/19 22:59 06:59 14:59 Intake Total 360 / 720 840 / 840 Output Total 700 / 1050 Balance 360 / 370 -700 / -330 840 / 840 Weight last 48 hrs Weight 78.67 kg Weight 80.739 kg Physical Exam Narrative: EXAM NARRATIVE: GEN: Awake, alert and oriented, no acute distress , tachypneic on exam, able to talk to me in complete sentences HEENT: oxymask in place CVS: S1S2 N RS: B/L coarse crackles on auscultation Abd: Soft, nt/nd , bs+ ELECTRICAL ENGINEERING DRAFTSPERSON: no focal neuro deficits Data : 10/12/19 05:06 10/13/19 04:59 Micro: Microbiology 10/07/19 11:29 Blood Culture - Final Blood NO GROWTH AFTER 5 DAYS 10/07/19 11:20 Blood Culture - Final Blood NO GROWTH AFTER 5 DAYS A&P Assessment and plan (1) COPD (chronic obstructive pulmonary disease): Significant COPD exacerbation with hypoxia. Continue pulmonary toilet Oxygen as needed, titrate to keep saturation 90-92% Continue oral Levaquin day 4 today Continue prednisone 40 mg daily Continue flutter valve, Mucinex No evidence of pulmonary embolism. Continue BiPAP as needed. CT did demonstrate significant worsening of malignancy. To start chemo today Continue Lasix 40 mg daily, monitoring renal function closely Status: Acute Qualifiers: COPD type: emphysema Emphysema type: unspecified Qualified Code(s): J43.9 - Emphysema, unspecified Code(s): J44.9 - Chronic obstructive pulmonary disease, unspecified (2) Acute bronchitis: Levaquin as above Status: Acute Code(s): J20.9 - Acute bronchitis, unspecified (3) Respiratory failure: Respiratory care as above Status: Acute Code(s): J96.90 - Respiratory failure, unspecified, unspecified whether with hypoxia or hypercapnia (4) Transaminitis: Reviewed ultrasound which is nonspecific. CT scan demonstrates metastasis in the liver, explaining transaminitis. Status: Acute Code(s): R74.0 - Nonspecific elevation of levels of transaminase and lactic acid dehy drogenase [LDH] (5) Tobacco dependency: Counseled abstinence Status: Acute Code(s): F17.200 - Nicotine dependence, unspecified, uncomplicated (6) Acute kidney injury: Continue Lasix 40 mg daily, monitoring renal function closely Status: Acute Code(s): N17.9 - Acute kidney failure, unspecified Additional A&P Information History of a traumatic subdural and left scalp hematoma. For now avoid anticoagulants. She feels as if this is slightly better Small cell lung cancer, recently diagnosed. Starting chemotherapy with carboplatin/etoposide today Elevated troponin, suspect type II. Echocardiogram demonstrates preserved EF, grade 1/4 diastolic dysfunction History of hypertension GERD Rheumatoid arthritis Insomnia. Will use some trazodone as needed. SCDs for DVT prophylaxis Full code Prognosis guarded. If she has no significant improvement, potentially may need skilled placement if she cannot manage at home. Overnight oximetry done to evaluate for home bipap. Attestations Medical Necessity Statement*: starting chemotherapy today for metastatic lung cancer Coding Level of Care Code Acute Bindery Machine Tender for Chg Fwd Diagnoses COPD (chronic obstructive pulmonary disease) J43.9 COPD type: emphysema Emphysema type: unspecified Acute bronchitis J20.9 Respiratory failure J96.90 Transaminitis R74.0 Tobacco dependency F17.200 Acute kidney injury N17.9
[2019-10-13] MEDS: LORazepam 2 mg/mL INJ 1 mL 0.5 MG IVP ×2 (14:29→18:25)
[2019-10-13] MEDS: ondansetron 2 mg/ML SDV 2 mL 8 MG IV (14:34)
[2019-10-13] MEDS: dexamethasone 10 mg/mL INJ IV (14:36)
[2019-10-14] VITALS (16 sets, daily range): BP systolic 95–116; BP diastolic 64–77; PULSE 74–96; RESP 18–20; TEMP 36.8; O2SAT 90–97; BMI 27.5
[2019-10-14] MEDS: LORazepam 2 mg/mL INJ 1 mL 0.5 MG IVP ×2 (00:17→14:39)
[2019-10-14] MEDS: HYDROcodone-acetaminophen 5-325 mg Tablet 1 TAB PO ×6 (02:24→22:02)
[2019-10-14] MEDS: trazodone 50 mg Tablet PO ×2 (02:26→22:02)
[2019-10-14] MEDS: ipratropium-albuterol 3 mL Neb INHALATION ×6 (03:56→23:32)
[2019-10-14 04:52] LABS: Basophils % 0.3 %; Eosinophils # 0.1 10^3/uL (0.0-0.8); Eosinophils % 0.5 %; Hemoglobin 12.4 g/dL (11.5-15.3); Lymphocytes # 1.5 10^3/uL (0.8-4.8); Lymphocytes % 15.1 %; Mean Corpuscular HGB Conc 30.2 g/dL (30.0-36.0); Mean Corpuscular Hemoglobin 25.1 pg (28.0-34.0); Mean Corpuscular Volume 82.8 fL (81-99); Monocytes # 0.5 10^3/uL (0.2-0.9); Neutrophils # 7.3 10^3/uL (1.8-7.7); Neutrophils % 73.5 %; Nucleated Red Blood Cells # 0.1 /100WBC; Nucleated Red Blood Cells % 1.4 %; Platelet Count 95 10^3/cmm (130-400); Red Blood Count 4.95 10^6/uL (4.1-5.3); Red Cell Distribution Width 16.2 % (12.1-15.1); White Blood Count 9.9 10^3/uL (4.0-10.0)
[2019-10-14 05:10] LABS: Alanine Aminotransferase 152 U/L (0-33); Albumin Level 3.6 g/dL (3.5-5.2); Alkaline Phosphatase 431 IU/L (35-105); Anion Gap 18.1 (5-19); Aspartate Amino Transferase 138 U/L (0-32); Blood Urea Nitrogen 42 mg/dL (8-23); Calcium 9.2 mg/dL (8.5-10.5); Carbon Dioxide 30 mmol/L (22-29); Chloride 93 mmol/L (98-107); Globulin 2.7 g/dL (1.3-4.6); Glomerular Filtration Rate 55.6 mL/min (90-130); Glucose 121 mg/dL (65-115); Potassium 4.1 mmol/L (3.5-5.1); Sodium 137 mmol/L (136-145); Total Bilirubin 0.9 mg/dL (0.15-1.2); Total Protein 6.3 g/dL (6.6-8.7)
[2019-10-14 05:40] LABS: Slide Review Slide Review Perform
[2019-10-14] MEDS: levoFLOXacin 750 mg Tablet PO (06:14)
[2019-10-14] MEDS: budesonide 0.5 mg/2 mL Neb INHALATION ×2 (07:42→19:50)
[2019-10-14] MEDS: predniSONE 20 mg Tablet 40 MG PO (08:40)
[2019-10-14] MEDS: montelukast sodium 10 mg Tablet PO (08:41)
[2019-10-14] MEDS: guaiFENesin 600 mg Tablet PO ×2 (08:43→18:36)
[2019-10-14] MEDS: pantoprazole DR 40 mg Tablet PO (08:44)
[2019-10-14] MEDS: oxybutynin chloride XL 5 MG TABLET 20 MG PO (08:44)
[2019-10-14] MEDS: FUROsemide 40 mg Tablet PO (08:44)
--- NOTE | 2019-10-14 11:52 | PC.SOCIAL ---
IMM Updated Page 2 of IMM updated and given to patient. Initialed, dated, and timed and placed in chart.
--- NOTE | 2019-10-14 14:30 | P.PN_ITS ---
Subjective Subjective: Interval history: s/p crboplatin/etoposide yesterday, planned for more chemo today. She states feeling better since chemo yesterday, as if she is able to move air better Continues on 5lpm via NC Medications: Reviewed: Yes Vitals/I&O/Wt Last Vital Signs Temp 98.3 F 10/14/19 11:33 Pulse 74 10/14/19 11:33 Resp 18 10/14/19 11:33 BP 102/65 10/14/19 11:33 Pulse Ox 91 10/14/19 11:33 10/13/19 10/14/19 10/14/19 22:59 06:59 14:59 Intake Total 240 / 1080 480 / 480 Output Total 1000 / 1000 300 / 1300 Balance -760 / 80 -300 / -220 480 / 480 Weight last 48 hrs Weight 82.1 kg Weight 78.925 kg Weight 100.607 kg Weight 78.67 kg Physical Exam Narrative: EXAM NARRATIVE: GEN: Awake, alert and oriented, no acute distress , appears more comfortable compared to yesterday CVS: S1S2 N RS: B/L coarse crackles on auscultation Abd: Soft, nt/nd , bs+ OBSERVER ELECTRICAL PROSPECTING: no focal neuro deficits Urinary Catheter Management^: Ta: Cath Placed During This Visit: yes Urethral Indwelling: No Reason for Continuing Indwelling Catheter: Other Urinary Catheter Date of Insertion: 10/13/19 Data : 10/14/19 04:25 10/14/19 04:25 A&P Assessment and plan (1) COPD (chronic obstructive pulmonary disease): Significant COPD exacerbation with hypoxia. Continue pulmonary toilet Oxygen as needed, titrate to keep saturation 90-92% Continue oral Levaquin day 5 today. Will discontinue tomorrow Continue prednisone 40 mg daily Continue flutter valve, Mucinex No evidence of pulmonary embolism. Continue BiPAP as needed. CT did demonstrate significant worsening of malignancy. Started on palliative chemo yesetrday, states breathing is improving Continue Lasix 40 mg daily, monitoring renal function closely Status: Acute Qualifiers: COPD type: emphysema Emphysema type: unspecified Qualified Code(s): J43.9 - Emphysema, unspecified Code(s): J44.9 - Chronic obstructive pulmonary disease, unspecified (2) Acute bronchitis: Levaquin as above Status: Acute Code(s): J20.9 - Acute bronchitis, unspecified (3) Respiratory failure: Respiratory care as above Status: Acute Code(s): J96.90 - Respiratory failure, unspecified, unspecified whether with hypoxia or hypercapnia (4) Transaminitis: Reviewed ultrasound which is nonspecific. CT scan demonstrates metastasis in the liver, explaining transaminitis. Status: Acute Code(s): R74.0 - Nonspecific elevation of levels of transaminase and lactic acid dehydrogenase [LDH] (5) Tobacco dependency: Counseled abstinence Status: Acute Code(s): F17.200 - Nicotine dependence, unspecified, uncomplicated (6) Acute kidney injury: Continue Lasix 40 mg daily, monitoring renal function closely Status: Acute Code(s): N17.9 - Acute kidney failure, unspecified Additional A&P Information History of a traumatic subdural and left scalp hematoma. For now avoid anticoagulants. She feels as if this is slightly better Small cell lung cancer, recently diagnosed. Starting chemotherapy with carbopl atin/etoposide today Elevated troponin, suspect type II. Echocardiogram demonstrates preserved EF, grade 1/4 diastolic dysfunction History of hypertension GERD Rheumatoid arthritis Insomnia. Will use some trazodone as needed. SCDs for DVT prophylaxis Full code Prognosis guarded. If she has no significant improvement, potentially may need skilled placement if she cannot manage at home. Attestations Medical Necessity Statement*: ongoing chemotherapy, awaiting optimization of respiratory status Coding Level of Care Code Acute Child Life Therapist for Chg Fwd Diagnoses COPD (chronic obstructive pulmonary disease) J43.9 COPD type: emphysema Emphysema type: unspecified Acute bronchitis J20.9 Respiratory failure J96.90 Transaminitis R74.0 Tobacco dependency F17.200 Acute kidney injury N17.9
[2019-10-14] MEDS: ondansetron 2 mg/ML SDV 2 mL 8 MG IV (16:22)
[2019-10-14] MEDS: dexamethasone 10 mg/mL INJ IV (16:24)
[2019-10-15] VITALS (17 sets, daily range): BP systolic 96–115; BP diastolic 58–75; PULSE 76–93; RESP 18–20; TEMP 36.2–36.9; O2SAT 92–97
[2019-10-15] MEDS: calcium carbonate 500 mg Chew Tablet 1000 MG PO (00:26)
[2019-10-15] MEDS: methocarbamol 500 mg Tablet PO (01:18)
[2019-10-15] MEDS: HYDROcodone-acetaminophen 5-325 mg Tablet 1 TAB PO ×4 (01:32→18:24)
[2019-10-15] MEDS: ipratropium-albuterol 3 mL Neb INHALATION ×5 (03:52→19:53)
[2019-10-15] MEDS: levoFLOXacin 750 mg Tablet PO (05:17)
[2019-10-15] MEDS: budesonide 0.5 mg/2 mL Neb INHALATION ×2 (07:20→19:53)
[2019-10-15] MEDS: FUROsemide 40 mg Tablet PO (07:23)
[2019-10-15] MEDS: montelukast sodium 10 mg Tablet PO (08:34)
[2019-10-15] MEDS: predniSONE 20 mg Tablet 40 MG PO (08:34)
[2019-10-15] MEDS: guaiFENesin 600 mg Tablet PO ×2 (08:34→18:24)
[2019-10-15] MEDS: pantoprazole DR 40 mg Tablet PO (08:34)
[2019-10-15] MEDS: oxybutynin chloride XL 5 MG TABLET 20 MG PO (08:35)
[2019-10-15 10:40] LABS: Blood Gas Operator Identificat GD; Oxygen Device NC
[2019-10-15 10:45] LABS: Basophils % 0.2 %; Eosinophils % 0.2 %; Hematocrit 40.9 % (37.0-47.0); Hemoglobin 12.4 g/dL (11.5-15.3); Lymphocytes # 0.9 10^3/uL (0.8-4.8); Lymphocytes % 14.8 %; Mean Corpuscular HGB Conc 30.3 g/dL (30.0-36.0); Mean Corpuscular Hemoglobin 25.1 pg (28.0-34.0); Mean Corpuscular Volume 82.8 fL (81-99); Mean Platelet Volume 10.6 fL (7.4-10.4); Monocytes # 0.1 10^3/uL (0.2-0.9); Monocytes % 1.3 %; Neutrophils # 5.2 10^3/uL (1.8-7.7); Neutrophils % 81.8 %; Nucleated Red Blood Cells % 0.5 %; Platelet Count 75 10^3/cmm (130-400); Red Blood Count 4.94 10^6/uL (4.1-5.3); Red Cell Distribution Width 16.2 % (12.1-15.1); White Blood Count 6.4 10^3/uL (4.0-10.0)
[2019-10-15 11:06] LABS: Alanine Aminotransferase 139 U/L (0-33); Albumin Level 3.7 g/dL (3.5-5.2); Alkaline Phosphatase 411 IU/L (35-105); Anion Gap 13.8 (5-19); Aspartate Amino Transferase 141 U/L (0-32); Blood Urea Nitrogen 38 mg/dL (8-23); Calcium 8.9 mg/dL (8.5-10.5); Carbon Dioxide 36 mmol/L (22-29); Chloride 93 mmol/L (98-107); Globulin 2.8 g/dL (1.3-4.6); Glomerular Filtration Rate 55.6 mL/min (90-130); Glucose 115 mg/dL (65-115); Potassium 3.8 mmol/L (3.5-5.1); Sodium 139 mmol/L (136-145); Total Bilirubin 0.8 mg/dL (0.15-1.2); Total Protein 6.5 g/dL (6.6-8.7)
[2019-10-15 11:17] LABS: Slide Review Slide Review Perform
[2019-10-15 11:20] LABS: Absolute Eosinophils 0.1 10^3/cmm (0.0-0.7); Absolute Segmented Neutrophil 2.9 10/cmm (1.6-7.1); Band Neutrophils Absolute 2.2 10^3/cmm (0.0-1.2); Eosinophils 3 %; Giant Platelets Trace; Lymphocytes 14 %; Monocytes Absolute 0.1 10^3/cmm (0.1-0.6); Platelet Estimate Decreased (Normal); Poikilocytosis 1+; Polychromasia Trace; Segmented Neutrophils 46 %; Stomatocytes 1+; Total Cells Counted 100 (0-100)
[2019-10-15] MEDS: LORazepam 2 mg/mL INJ 1 mL 0.5 MG IVP ×2 (13:20→20:00)
--- NOTE | 2019-10-15 15:09 | PM.PN ---
Subjective Subjective: Interval history: feels that breathing is imrpoving with easier work of breathing since starting chemo. Objectively remains on 5lpm via nasal canula. Afebrile, hemodynamically stable. Refused removal of Ta cath today as she feels more comfortable with it. Counselled that this puts her at a higher risk of infections, she acknowledeges and refuses. Medications: Reviewed: Yes Vitals/I&O/Wt Last Vital Signs Temp 97.1 F L 10/15/19 11:23 Pulse 84 10/15/19 11:34 Resp 18 10/15/19 11:30 BP 107/69 10/15/19 11:23 Pulse Ox 92 10/15/19 11:30 10/15/19 10/15/19 10/15/19 06:59 14:59 22:59 Intake Total 480 / 480 Output Total 900 / 900 1450 / 1450 Balance -900 / -180 -970 / -970 Weight last 48 hrs Weight 82.826 kg Weight 82.214 kg Weight 82.1 kg Weight 78.925 kg Weight 100.607 kg Physical Exam Narrative: EXAM NARRATIVE: GEN: Awake, alert and oriented, no acute distress , appears more comfortable compared to yesterday CVS: S1S2 N RS: B/L coarse crackles on auscultation Abd: Soft, nt/nd , bs+ EXPANDED FUNCTION DENTAL ASSISTANT: no focal neuro deficits Urinary Catheter Management^: Ta: Cath Placed During This Visit: yes Urethral Indwelling: No Reason for Continuing Indwelling Catheter: Other Urinary Catheter Date of Insertion: 10/13/19 Data : 10/15/19 10:26 10/15/19 10:26 A&P Assessment and plan (1) COPD (chronic obstructive pulmonary disease): Significant COPD exacerbation with hypoxia. Continue pulmonary toilet Oxygen as needed, titrate to keep saturation 90-92% Discontinue Levaquin today Continue prednisone 40 mg daily Continue flutter valve, Mucinex No evidence of pulmonary embolism. Continue BiPAP as needed. CT did demonstrate significant worsening of malignancy. Started on palliative chemo states breathing is improving Continue Lasix 40 mg daily, monitoring renal function closely Status: Acute Qualifiers: COPD type: emphysema Emphysema type: unspecified Qualified Code(s): J43.9 - Emphysema, unspecified Code(s): J44.9 - Chronic obstructive pulmonary disease, unspecified (2) Acute bronchitis: Levaquin as above Status: Acute Code(s): J20.9 - Acute bronchitis, unspecified (3) Respiratory failure: Respiratory care as above Status: Acute Code(s): J96.90 - Respiratory failure, unspecified, unspecified whether with hypoxia or hypercapnia (4) Transaminitis: Reviewed ultrasound which is nonspecific. CT scan demonstrates metastasis in the liver, explaining transaminitis. Status: Acute Code(s): R74.0 - Nonspecific elevation of levels of transaminase and lactic acid dehydrogenase [LDH] (5) Tobacco dependency: Counseled abstinence Status: Acute Code(s): F17.200 - Nicotine dependence, unspecified, uncomplicated (6) Acute kidney injury: Continue Lasix 40 mg daily, monitoring renal function closely Status: Acute Code(s): N17.9 - Acute kidney failure, unspecified Additional A&P Information History of a traumatic subdural and left scalp hematoma. For now avoid anticoagulants. Small cell lung cancer, recently diagnosed. Starting palliative chemotherapy with carboplatin/etoposide today Elevated troponin, suspect type II. Echocardiogram demonstrates preserved EF, grade 1/4 diastolic dysfunction History of hypertension GERD Rheumatoid arthritis Insomnia. Will use some trazodone as needed. SCDs for DVT prophylaxis Full code Prognosis guarded. Dispo: [facility] with [facility] Attestations Medical Necessity Statement*: ongoing palliative chemotherapy Coding Level of Care Code Acute Felt Hat Mellowing Machine Operator for g Fwd Diagnoses COPD (chronic obstructive pulmonary disease) J43.9 COPD type: emphysema Emphysema type: unspecified Acute bronchitis J20.9 Respiratory failure J96.90 Transaminitis R74.0 Tobacco dependency F17.200 Acute kidney injury N17.9
[2019-10-16] VITALS (18 sets, daily range): BP systolic 106–147; BP diastolic 71–89; PULSE 83–103; RESP 16–20; TEMP 36.4–37.1; O2SAT 84–96
[2019-10-16] MEDS: ipratropium-albuterol 3 mL Neb INHALATION ×6 (00:16→23:53)
[2019-10-16] MEDS: budesonide 0.5 mg/2 mL Neb INHALATION ×2 (07:14→19:54)
[2019-10-16] MEDS: FUROsemide 40 mg Tablet PO (07:41)
[2019-10-16] MEDS: HYDROcodone-acetaminophen 5-325 mg Tablet 1 TAB PO ×2 (07:41→20:15)
[2019-10-16] MEDS: guaiFENesin 600 mg Tablet PO ×2 (08:45→17:27)
[2019-10-16] MEDS: oxybutynin chloride XL 5 MG TABLET 20 MG PO (08:45)
[2019-10-16] MEDS: pantoprazole DR 40 mg Tablet PO (08:45)
[2019-10-16] MEDS: predniSONE 20 mg Tablet 40 MG PO (08:45)
[2019-10-16] MEDS: montelukast sodium 10 mg Tablet PO (08:45)
--- NOTE | 2019-10-16 09:00 | PC.NURSE ---
Patient has refused physical therapy and is concerned about her doctor coming to see her. She was under the impression that Dr. Andino was going to come see her here in the hospital and Dr Monroe. Patient's family insisted on calling Dr Mclaughlin office. The number was provided to the family.
--- NOTE | 2019-10-16 12:05 | PC.CHAP ---
Pastoral Care Encounter/Spiritual Assessment Type of Contact [] Declined cleaning porter visit [] Patient/Family/Request visit [] Outpatient visit [] Follow-up visit [] Physician referral [] Code/Alert [x] Routine visit [] Staff referral [] Actively dying [] Patient sleeping [] Family support [] [] Out of room [] Palliative care [] [] Receiving care in room [] Pre-surgical visit [] Trauma [] Long length of stay [] ICU visit [] Other: Relational/Emotional Strength [x] Patient feels connected with others/family/visitors/staff [] Distress [] Loneliness/isolation [] Abandonment Spirituality of Patient [x] Person of Simona [x] Attends Zoroastrian of their [place] [x] Believes in Prayer [x] Reads Bible or Jainism materials [] There are Spiritual issues to be addressed Commercial Sewing Instructor Interventions [x] Prayer [x] Active listening [x] Non-anxious presence [x] Spiritual/emotional support [] Crisis/trauma care [x] Spiritual counseling [] Bereavement support [] Provided bereavement packet [] Provided Bible/devotional materials [] Provided toy/stuffed animal, coloring book to patient or family member [] Provided Communion [] Anointing/[place] [] Salvation [] Completed spiritual assessment [] Other: Impact on Illness or Injury [] Angry [] Fearful [] Anxious [] Often cries [] Exhaustion [] Unable to work [] Unable to attend jehovah's witness [] Unable to walk/stand [] Unable to read [] Unable to drive [] Unable to eat/drink [] Unable to sleep [] Unable to be with family [] Patient intubated [] Other: Summary Patient had her sister from [place] in visiting. Time spent with patient 10-minutes
--- NOTE | 2019-10-16 12:34 | PC.SOCIAL ---
IMM Updated Updated pt on Pg 2 IMM. Provided pt a copy & left on pt's bedside table. No questions voiced. Signed, dated, & timed original in chart.
--- NOTE | 2019-10-16 13:39 | PM.DCS ---
Discharge Providers Date of Admission: 10/07/19 14:48 Date of Discharge: October 16, 2019 Attending Provider at Admission: Eran Puente MD Attending Provider at Discharge: Elicia Luis MD Primary Care Provider: NELDA Berry Diagnoses at Discharge Discharge Diagnosis (1) COPD (chronic obstructive pulmonary disease): Status: Acute Qualifiers: COPD type: emphysema Emphysema type: unspecified Qualified Code(s): J43.9 - Emphysema, unspecified (2) Acute bronchitis: Status: Acute (3) Respiratory failure: Status: Acute (4) Transaminitis: Status: Acute (5) Tobacco dependency: Status: Acute (6) Acute kidney injury: Status: Acute Reason for Visit Reason for Visit: Reason For Visit: SOB Hospital Course Discharge Summary: This is a 64-year-old female with a 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 She received no adjuvant treatment and underwent follow-up every 6 months. She moved to [place] recently and establish pulmonary care with Dr. Monroe. She underwent a Ct chest for evaluation of COPD that showed a right upper lobe mass s/p endobronchial biopsy in Jul 2019 which was c/w small cell carcinoma. Her further clinical course was complicated by headache and finding of small subdural hematoma. It was managed conservatively. She presented for admission on 10/08 after developing worsening SOB, cough and expectoration, now requiring 5lpm 02 from a baseline of 2lpm. Her CT pulmonary angiogram reported a dominant right upper lobe mass measuring 3.8 x 3.2 cm with multiple new bronchovascular metastatic lesions. Also noted was hepatomegaly with innumerable metastatic lesions throughout both lobes of the liver. She was initially managed for COPD exacerbation with steroids, duoneb, pulmicort and intermittent bipap, however continued to have worsening respiratory distress. She then began chemo with carboplatin/etoposide on 10/13/19. Since starting chemo, she reports it is much easire for her to breathe. Her work of breathing is significantly improved. She is no longer requiring intermittent Bipap support. She underwent an overnight oximetry testing to see if she would qualify for BiPAP however she was declined for the same by her insurance based on results of the study. At the time of discharge she continues to be chronically sick, however improved since the time she was admitted. Her prognosis however overall is relatively poor given advanced metastatic disease. She will follow-up with Dr. Galvez as an outpatient on Sunday to discuss further treatment options.. Physical Exam Narrative: EXAM NARRATIVE: GEN: Awake, alert and oriented, no acute distress CVS: S1S2 N RS: restricted air entry over B/L lung arango, however improved since admission Abd: Soft, nt/nd , bs+ GRAPHIC DESIGN INTERN: no focal neuro deficits Urinary Catheter Management^: Ta: Cath Placed During This Visit: yes Urethral Indwelling: No Reason for Continuing Indwelling Catheter: Accurate Measurement of Urinary Output in Critically Ill Patients Urinary Catheter Date of Insertion: 10/13/19 Discharge Data Data Completed and Pending: Completed Studies During Hospitalization Category Date Time Status CT angio chest w abd pel w con Rout ine Cat Scan 10/10/19 09:14 Completed XR chest 1V moy ble [id number] Routine Exams 10/09/19 11:47 Completed XR chest 1V moy ble [id number] Stat Exams 10/10/19 09:49 Completed XR chest 1V moy ble [id number] Urgent Exams 10/07/19 10:56 Completed CV echo complete* [id number] Routine Ultrasound 10/08/19 11:33 Completed Pending at discharge Category Date Time Status ABG ONLY [Arteria l Blood Gas W/O Co ox] Routine Lab 10/13/19 05:30 Results Vitals: Last Vital Signs Temp 98.7 F 10/16/19 11:28 Pulse 83 10/16/19 11:45 Resp 16 10/16/19 11:45 BP 119/75 10/16/19 11:28 Pulse Ox 84 L 10/16/19 11:46 Discharge Plan Discharge Patient Disposition: Home Health Service Condition: Fair Prescriptions: New trazodone 50 mg Tablet 50 mg PO BEDTIME PRN (Reason: Insomnia) 7 Days Qty: 7 RF: 0 hydrocodone-acetaminophen 5-325 mg Tablet 1 tab PO Q4H PRN (Reason: Moderate Pain) 7 Days Qty: 28 RF: 0 tramadol 50 mg Tablet 50 mg PO Q4H PRN (Reason: Pain) 14 Days Qty: 56 RF: 0 dextromethorphan-guaifenesin 10-100 mg/5 mL Syrup 5 ml PO Q4H PRN (Reason: Cough) Qty: 0 RF: 0 Continued albuterol sulfate [ProAir HFA] 90 mcg/actuation HFA aerosol inhaler 2 puff INHALATION Q6H PRN (Reason: bronchospasm) Qty: 6.7 RF: 2 albuterol sulfate 2.5 mg /3 mL (0.083 %) solution for nebulization 2.5 mg INHALATION Q4H PRN (Reason: bronchospasm) Qty: 90 RF: 2 Anoro Ellipta 62.5-25 mcg/actuation blister with device 1 inh INHALATION Q24H Qty: 60 RF: 2 metaxalone [Skelaxin] 800 mg tablet 800 mg PO TID Qty: 90 RF: 0 losartan 50 mg tablet 100 mg PO DAILY RF: 0 oxybutynin chloride 15 mg tablet extended release 24hr 15 mg PO DAILY RF: 0 Protonix 20 mg tablet,delayed release (DR/EC) 20 mg PO DAILY RF: 0 oxybutynin chloride 5 mg tablet extended release 24hr 5 mg PO DAILY RF: 0 Singulair 10 mg tablet 10 mg PO DAILY RF: 0 Discharge Orders: Discharge Order (Routine); Ordered 10/16/19 Ordered By: Elicia Luis Other Ambulatory Orders: DME: BIPAP (Order) Location: None Selected Ordered By: Elicia Luis DME: Commode (Order) Location: None Selected Ordered By: Elicia Luis DME: Oxygen (Order) Location: None Selected Ordered By: Elicia Luis DME: Walker (Order) Location: None Selected Ordered By: Elicia Luis Referrals: Nikki Galvez MD [Staff Physician] - 10/20/19 3:00 pm (APPOINTMENT FOR LABS ON SundayOCTOBER 19 AT 3:[address] GALVEZ ON SundayOCTOBER 19 AT 4:30) Mellisa Dyer MD [Physician] - 10/22/19 2:30 pm Discharge Diet: Usual diet Discharge Activity: Resume usual activity, As per PT/OT instructions and Oxygen as instructed Discharge Attestations Time Spent in Discharge Care*: greater than 30 min Quality Metrics Clinical Quality Measures During this hospital stay, did patient experience: None Coding Level of Care Code Acute Seismic Computer for g Fwd Diagnoses COPD (chronic obstructive pulmonary disease) J43.9 COPD type: emphysema Emphysema type: unspecified Acute bronchitis J20.9 Respiratory failure J96.90 Transaminitis R74.0 Tobacco dependency F17.200 Acute kidney injury N17.9
--- NOTE | 2019-10-16 14:33 | PC.NURSE ---
Prn discharge note Patient family member came to desk stating patient would not discharge today as she had noone to help her at home and that she needed more time working with physical therapy. notified as well Meka with outreach and education social worker.
--- NOTE | 2019-10-16 15:43 | PC.NURSE ---
Pt expresses concern that the daughter of the patient will not be available to care for her at home until tomorrow and did not see how she could go home today. They petitioned the discharge stating that PT has not came and worked with them. See earlier entry. Pt's kingsley removed and patient transferred to the bed side commode with stand by assist. Her oxygen dropped to 82% on 4L NC. Oxygen went up to 89% after sitting on the commode.
--- NOTE | 2019-10-16 17:53 | PC.SOCIAL ---
Lilibeth from [facility] called to notify of appeal. Case # [id number]. Detailed notice of discharge completed, reviewed and signed by patient. Gave a copy to the patient. Sent all records to [facility]. Successful fax confirmation received. Patient had no questions or concerns and indicates it was explained well enough for her to understand.
[2019-10-16] MEDS: methocarbamol 500 mg Tablet PO (20:14)
[2019-10-16] MEDS: LORazepam 2 mg/mL INJ 1 mL 0.5 MG IVP (20:14)
[2019-10-17] VITALS (7 sets, daily range): BP systolic 107–111; BP diastolic 66–72; PULSE 76–88; RESP 16–18; TEMP 36.6–36.9; O2SAT 93–98; BMI 27.7
[2019-10-17] MEDS: ipratropium-albuterol 3 mL Neb INHALATION ×3 (03:34→11:16)
[2019-10-17] MEDS: LORazepam 2 mg/mL INJ 1 mL 0.5 MG IVP (05:02)
[2019-10-17] MEDS: HYDROcodone-acetaminophen 5-325 mg Tablet 1 TAB PO ×2 (05:02→09:28)
[2019-10-17] MEDS: budesonide 0.5 mg/2 mL Neb INHALATION (07:47)
[2019-10-17] MEDS: oxybutynin chloride XL 5 MG TABLET 20 MG PO (08:16)
[2019-10-17] MEDS: guaiFENesin 600 mg Tablet PO (08:16)
[2019-10-17] MEDS: montelukast sodium 10 mg Tablet PO (08:16)
[2019-10-17] MEDS: pantoprazole DR 40 mg Tablet PO (08:16)
[2019-10-17] MEDS: LORazepam 0.5 mg Tablet 0.25 MG PO (09:53)
--- NOTE | 2019-10-17 11:29 | P.DS_ITS ---
Discharge Providers Date of Admission: 10/07/19 14:48 Date of Discharge: October 17, 2019 Attending Provider at Admission: Eran Puente MD Attending Provider at Discharge: Elicia Luis MD Primary Care Provider: NELDA Berry Diagnoses at Discharge Discharge Diagnosis (1) COPD (chronic obstructive pulmonary disease): Status: Acute Qualifiers: COPD type: emphysema Emphysema type: unspecified Qualified Code(s): J43.9 - Emphysema, unspecified (2) Acute bronchitis: Status: Acute (3) Respiratory failure: Status: Acute (4) Transaminitis: Status: Acute (5) Tobacco dependency: Status: Acute (6) Acute kidney injury: Status: Acute Reason for Visit Reason for Visit: Reason For Visit: SOB Hospital Course Discharge Summary: please see summary from yesetrday, no acute events. Physical Exam Narrative: EXAM NARRATIVE: GEN: Awake, alert and oriented, no acute distress CVS: S1S2 N RS: restricted air entry over B/L lung arango, however improved since admission Abd: Soft, nt/nd , bs+ FORMS ANALYSIS MANAGER: no focal neuro deficits Urinary Catheter Management^: Ta: Cath Placed During This Visit: yes, but has since been removed by the nurse Urethral Indwelling: No Reason for Continuing Indwelling Catheter: Accurate Measurement of Urinary Output in Critically Ill Patients Urinary Catheter Date of Insertion: 10/13/19 Date Urinary Catheter Removed: 10/16/19 Time Urinary Catheter Discontinued: 13:00 Discharge Data Data Completed and Pending: Completed Studies During Hospitalization Category Date Time Status CT angio chest w abd pel w con Rout ine Cat Scan 10/10/19 09:14 Completed XR chest 1V moy ble [id number] Routine Exams 10/09/19 11:47 Completed XR chest 1V moy ble [id number] Stat Exams 10/10/19 09:49 Completed XR chest 1V moy ble [id number] Urgent Exams 10/07/19 10:56 Completed CV echo complete* [id number] Routine Ultrasound 10/08/19 11:33 Completed Pending at discharge Category Date Time Status ABG ONLY [Arteria l Blood Gas W/O Co ox] Routine Lab 10/13/19 05:30 Results Vitals: Last Vital Signs Temp 98.4 F 10/17/19 08:00 Pulse 86 10/17/19 11:26 Resp 16 10/17/19 11:26 BP 111/72 10/17/19 08:00 Pulse Ox 95 10/17/19 11:26 Discharge Plan Discharge Patient Disposition: Home Health Service Condition: Fair Prescriptions: New trazodone 50 mg Tablet 50 mg PO BEDTIME PRN (Reason: Insomnia) 7 Days Qty: 7 RF: 0 hydrocodone-acetaminophen 5-325 mg Tablet 1 tab PO Q4H PRN (Reason: Moderate Pain) 7 Days Qty: 28 RF: 0 dextromethorphan-guaifenesin 10-100 mg/5 mL Syrup 5 ml PO Q4H PRN (Reason: Cough) Qty: 0 RF: 0 tramadol 50 mg Tablet 50 mg PO Q4H PRN (Reason: Pain) 14 Days Qty: 56 RF: 0 Pyridium 100 mg tablet 100 mg PO Q12H PRN (Reason: pain) Qty: 28 RF: 0 Continued albuterol sulfate [ProAir HFA] 90 mcg/actuation HFA aerosol inhaler 2 puff INHALATION Q6H PRN (Reason: bronchospasm) Qty: 6.7 RF: 2 albuterol sulfate 2.5 mg /3 mL (0.083 %) solution for nebulization 2.5 mg INHALATION Q4H PRN (Reason: bronchospasm) Qty: 90 RF: 2 Anoro Ellipta 62.5-25 mcg/actuation blister with device 1 inh INHALATION Q24H Qty: 60 RF: 2 metaxalone [Skelaxin] 800 mg tablet 800 mg PO TID Qty: 90 RF: 0 losartan 50 mg tablet 100 mg PO DAILY RF: 0 oxybutynin chloride 15 mg tablet extended release 24hr 15 mg PO DAILY RF: 0 Protonix 20 mg tablet,delayed release (DR/EC) 20 mg PO DAILY RF: 0 oxybutynin chloride 5 mg tablet extended release 24hr 5 mg PO DAILY RF: 0 Singulair 10 mg tablet 10 mg PO DAILY RF: 0 Discharge Orders: Discharge Order (Routine); Ordered 10/16/19 Ordered By: Elicia Luis Other Ambulatory Orders: DME: BIPAP (Order) Location: None Selected Ordered By: Elicia Luis DME: Commode (Order) Location: None Selected Ordered By: Elicia Luis DME: Oxygen (Order) Location: None Selected Ordered By: Elicia Luis DME: Walker (Order) Location: None Selected Ordered By: Elicia Luis Referrals: [facility] [Outside] [facility]] Mars Castillo MD [Physician] - 2 weeks (urinary frequency and urgency ) Nikki Galvez MD [Staff Physician] - 10/20/19 3:00 pm (APPOINTMENT FOR LABS ON SundayOCTOBER 19 AT 3:[address] GALVEZ ON SundayOCTOBER 19 AT 4:30) Mellisa Dyer MD [Physician] - 10/22/19 2:30 pm Discharge Diet: Usual diet Discharge Activity: Resume usual activity, As per PT/OT instructions and Oxygen as instructed Patient Instructions: Hydrocodone/Acetaminophen (By mouth), Trazodone (By mouth), Tramadol (By mouth), How to Stop Smoking (DC), Acute Kidney Injury (DC), Lung Cancer (DC), Liver Cancer (DC) Discharge Date/Time: 10/17/19 12:00 Discharge Attestations Time Spent in Discharge Care*: less than 30 min Quality Metrics Clinical Quality Measures During this hospital stay, did patient experience: None Coding Level of Care Code Acute Clam Digger for Chg Fwd Diagnoses COPD (chronic obstructive pulmonary disease) J43.9 COPD type: emphysema Emphysema type: unspecified Acute bronchitis J20.9 Respiratory failure J96.90 Transaminitis R74.0 Tobacco dependency F17.200 Acute kidney injury N17.9
--- NOTE | 2019-10-17 12:09 | PC.NURSE ---
DISCHARGE SUMMARY Patient was given discharge instructions and verbalized understanding. Patients daughter/caregiver was also in the room while discharge instructions were being gone over. all medications sent tot patients preferred pharmacy. IV was discontinued. vital signs within patients normals. oxygen was delivered to patient in room. patient seen by physician before discharge.
--- NOTE | 2019-10-17 17:17 | PC.SOCIAL ---
Patient decided to be discharged prior to the determination from [facility] the O.
--- NOTE | 2019-10-17 17:46 | PC.SOCIAL ---
Shakira from [facility] called to update the result is that they do agree with discharge and fees would not incur until tomorrow at 12 Noon. Updated patients daughter of result even though she has decided to go home today anyway. CASE # [id number]
--- NOTE | 2019-10-21 16:50 | ONC FU_ITS ---
Dr. Kunz follow up note Patient: Shira Mata Unit #: [id number]: [id number] Dicatated By: Nikki Kunz M.D.Date of Visit:Oct 20, 2019 Onc Med Follow-up/Prog Note History of Present Illness: Mrs. Shira Mata, is a 64-year-old female with a history of adenocarcinoma involving the right upper lobe underwent wedge resection in March 2018 in [facility]. As per patient he was stage IA, clear surgical margins and no further treatment was suggested but follow-up every 6 months. Patient said later on she moved to [facility], and lost insurance so no further follow-up was done. Later on she moved to [facility] and establish pulmonary care with Dr. Monroe and during evaluation for COPD, as per patient her chest x-ray shows some abnormality in right lung, subsequently underwent CT scan of chest which revealed right upper lobe mass and patient underwent bronchoscopy and endobronchial ultrasound-guided transbronchial needle aspiration of hilar lymph node which was negative for malignancy. CT PET scan was done which showed hypermetabolic right upper lobe lung mass but no FDG uptake in the hilar or mediastinal lymph nodes. Subsequently on 09/01/2019 she underwent transthoracic needle biopsy in [place] and final pathology report came back small cell carcinoma, interestingly, as mentioned earlier in March 2018 she underwent wedge resection for adenocarcinoma in same right upper lobe of the lung. Recently developed episode of headaches and underwent CT scan of the head and was diagnosed with small subdural bleed which was managed in [place] without surgical intervention. Patient has COPD she is on home oxygen. History of hypertension, Patient developed progressive symptoms and was admitted to hospital recently and and abdominal sonogram showed hepatomegaly with a diffuse coarse echogenicity., Splenomegaly , eg disease progression and now she has extensive disease and patient was started on carboplatin/etoposide on 10/13/2019 Came for follow-up, complaining of generalized weakness and fatigue but no fever or chills, no nausea or vomiting no diarrhea constipation, no jaundice, no headaches blurred vision or double vision. No dysuria, no sinus tenderness no sore throat. No petechiae or ecchymosis. Medications: Albuterol Sulfate 1 (108 (90 base) mcg/act) Aerosol Powder, Breath Activated Inhalation daily, Anoro Ellipta 1 (62.5-25 mcg/inh) Aerosol Powder, Breath Activated Inhalation daily, HYDROcodone-Acetaminophen 1 - 2 Tablet (of 5-325 mg) Oral daily PRN, Metaxalone 1 Tablet (of 800 mg) Oral daily, Montelukast Sodium 1 Tablet (of 10 mg) Oral daily, Oxybutynin Chloride 1 Tablet (of 10 mg) Oral b.i.d., Pantoprazole Sodium 1 Tablet (of 20 mg) Tablet, enteric coated Oral daily, traZODone HCl 1 Tablet (of 50 mg) Oral at bedtime Allergies: Iodinated Contrast Media, Lisinopril, and Naproxen. Review of Systems: Constitutional - Appetite and weight have decreased. No fever, chills, hot flashes, or night sweats. Energy level is poor, ENMT - No sinus congestion/drainage. No mouth sores. No sore throat or difficulty swallowing, Hematologic/Lymphatic - Positive for easy bruising, Respiratory - Positive for shortness of breath and cough. No pleuritic pain or hemoptysis, Cardiovascular - No angina pain. No palpitations, Gastrointestinal - No nausea, vomiting or abdominal discomfort, Genitourinary (F) - No dysuria or hematuria. No urinary frequency. No urgency. Positive for incontinence, Musculoskeletal - Positive for joint stiffness, Neurologic - No headache or dizziness. No numbness/paresthesias or other focal neurologic symptoms, Psychiatric - No anxiety or depression. Positive for insomnia. Vital Signs: Performed on Oct 20, 2019 16:11 Height - 68.00 in Temperature - 98.4 F Pulse - 82 /min Respiration - 22 /min BP - 110/61 mm(hg) O2 Sat - 95 % (LOW) Pain - 0 Performance Status: 1 - No physically strenuous activity, but ambulatory and able to carry out light or sedentary work (e.g. office work, light house work). (ECOG) Physical Examination: ENMT - No oral exudates, ulcers, masses, thrush or mucositis. Oropharynx clear. Tongue normal, Respiratory - poor air entry, decreased breath sound at bases, Cardiovascular - Regular rate and rhythm of heart, Abdomen - Non-tender, non-distended, Good bowel sounds. No guarding or rebound tenderness. No pulsatile masses, Extremities - trace edema bilaterally. Lab/Imaging: Test performed on Oct 13, 2019 09:39 Glucose 104 mg/dL BUN 51 mg/dL Creatinine 1.3 mg/dL Cr Clearance (Est) 52.95 mL/min Sodium 141 mmol/L Potassium 3.8 mmol/L Chloride 94 mmol/L CO2 30 mmol/L Calcium 10.1 mg/dL Test performed on Oct 12, 2019 09:42 WBC 7.2 10^9/L RBC 5.06 10^12/L HGB 12.8 g/dL HCT 41.8 % MCV 82.6 fl MCH 25.3 pg MCHC 30.6 g/dL RDW 16.0 % Platelet Count 81 10^9/L MPV 11.6 fL Neutrophils (Gran) 4.1 10^9/L Lymphocytes 1.9 10^9/L Monocytes 0.6 10^9/L Eosinophils 0.1 10^9/L Basophils 0.1 10^9/L Test performed on Oct 01, 2019 10:45 Anion Gap 21.2 eGFR 55.6 mL/min Protein, Total 7.3 g/dL Albumin 3.6 g/dL Globulin 3.7 g/dL Bilirubin, Total 0.3 mg/dL ALT (SGPT) 162 U/L AST (SGOT) 119 U/L Alkaline Phosphatase 256 IU/L Neutrophil % 63.4 % Lymphocyte % 21.0 % Monocyte % 6.9 % Eosinophil % 1.7 % Basophils % 0.7 % CBC Slide Review Slide Review Perform Impression: small cell lung cancer per transthoracic right upper lobe lung biopsy done on 09/01/2019 patient was admitted to hospital with progressive signs symptoms and diagnosed with metastatic small cell lung cancer and she was started on systemic chemotherapy with carboplatin/etoposide on 10/13/2019. CT PET scan shows increased uptake in right upper lobe no FDG uptake in mediastinal or hilar lymph nodes as per pulmonology note. History of adenocarcinoma involving the right upper lobe of the lung status post wedge resection and March 2018, stage IA no further treatment was offered rather follow-up. COPD on home oxygen Hypertension. Plan: Discussed with patient regarding her labs white blood count 0.6 hemoglobin 10.4 hematocrit 34 platelets 48,000 ANC 0 CMP within normal limits except AST 45, ALT 52, glucose 137 Clinically, patient is doing reasonably well, she was given systemic chemotherapy with carboplatin and etoposide starting on 10/13/2019 and she is carboplatin now day 1 and etoposide day 1 through 3, tolerated well now her follow-up lab shows severe neutropenia/leukopenia and moderate thrombocytopenia and mild anemia. At this point we'll start on Levaquin 500 mg daily prophylactic patient is afebrile and patient was advised in case she has an episode of fever even low-grade she needed to go to hospital immediately for evaluation otherwise she was advised to avoid public places, or sick persons. She was also advised to avoid fresh fruit reynolds. And we will consider Neulasta with the next cycle of chemotherapy. Patient return to clinic in 1 week with CBC and CMP in the meantime we'll consider Port-A-Cath placement once her blood counts recover. Signed By: Nikki Kunz M.D. <<Signature on File>>
--- NOTE | 2019-10-28 17:35 | ONC FU_ITS ---
Dr. Kunz follow up note Patient: Shira Mata Unit #: [id number]: 1955 Dicatated By: Nikki Kunz M.D.Date of Visit:Oct 28, 2019 Onc Med Follow-up/Prog Note History of Present Illness: Mrs. Shira Mata, is a 64-year-old female with a history of adenocarcinoma involving the right upper lobe underwent wedge resection in March 2018 in [facility]. As per patient he was stage IA, clear surgical margins and no further treatment was suggested but follow-up every 6 months. Patient said later on she moved to [facility], and lost insurance so no further follow-up was done. Later on she moved to [facility] and establish pulmonary care with Dr. Monroe and during evaluation for COPD, as per patient her chest x-ray shows some abnormality in right lung, subsequently underwent CT scan of chest which revealed right upper lobe mass and patient underwent bronchoscopy and endobronchial ultrasound-guided transbronchial needle aspiration of hilar lymph node which was negative for malignancy. CT PET scan was done which showed hypermetabolic right upper lobe lung mass but no FDG uptake in the hilar or mediastinal lymph nodes. Subsequently on 09/01/2019 she underwent transthoracic needle biopsy in [place] and final pathology report came back small cell carcinoma, interestingly, as mentioned earlier in March 2018 she underwent wedge resection for adenocarcinoma in same right upper lobe of the lung. Recently developed episode of headaches and underwent CT scan of the head and was diagnosed with small subdural bleed which was managed in [place] without surgical intervention. Patient has COPD she is on home oxygen. History of hypertension, Patient developed progressive symptoms and was admitted to hospital recently and follow-ups CT scan of chest abdomen showed disease progression and now she has extensive disease and patient was started on carboplatin/etoposide on 10/13/2019 Came for follow-up, denies any specific complaint except one episode of brief nosebleed. No fever or chills, on Levaquin prophylactically. No sore throat no dysuria, no shortness of breath, no cough or yellowish phlegm. No sinus tenderness. No diarrhea constipation.Said she felt smaller nodules in both axilla but now resolved Medications: Albuterol Sulfate 1 (108 (90 base) mcg/act) Aerosol Powder, Breath Activated Inhalation daily, Anoro Ellipta 1 (62.5-25 mcg/inh) Aerosol Powder, Breath Activated Inhalation daily, HYDROcodone-Acetaminophen 1 - 2 Tablet (of 5-325 mg) Oral daily PRN, Metaxalone 1 Tablet (of 800 mg) Oral daily, Montelukast Sodium 1 Tablet (of 10 mg) Oral daily, Oxybutynin Chloride 1 Tablet (of 10 mg) Oral b.i.d., Pantoprazole Sodium 1 Tablet (of 20 mg) Tablet, enteric coated Oral daily, traZODone HCl 1 Tablet (of 50 mg) Oral at bedtime Allergies: Iodinated Contrast Media, Lisinopril, and Naproxen. Review of Systems: Constitutional - Appetite and weight have decreased. No fever, chills, hot flashes, or night sweats. Energy level is poor, ENMT - No sinus congestion/drainage. No mouth sores. No sore throat or difficulty swallowing, Hematologic/Lymphatic - Positive for easy bruising, Respiratory - Positive for shortness of breath and cough. No pleuritic pain or hemoptysis, Cardiovascular - No angina pain. No palpitations, Gastrointestinal - No nausea, vomiting or abdominal discomfort, Genitourinary (F) - No dysuria or hematuria. No urinary frequency. No urgency. Positive for incontinence, Musculoskeletal - Positive for joint stiffness, Neurologic - No headache or dizziness. No numbness/paresthesias or other focal neurologic symptoms, Psychiatric - No anxiety or depression. Positive for insomnia. Vital Signs: Performed on Oct 28, 2019 16:27 Height - 68.00 in Weight - 164.0 lbs (LOW) BSA - 1.88 sq.m BMI - 24.94 Temperature - 98.1 F (LOW) Pulse - 95 /min Respiration - 24 /min BP - 124/88 mm(hg) O2 Sat - 96 % Pain - 0 Performance Status: 1 - No physically strenuous activity, but ambulatory and able to carry out light or sedentary work (e.g. office work, light house work). (ECOG) Physical Examination: ENMT - No oral exudates, ulcers, masses, thrush or mucositis. Oropharynx clear. Tongue normal, Respiratory - Lungs are clear to auscultation without rhonchi or wheezing, Cardiovascular - Regular rate and rhythm of heart, Abdomen - Non-tender, non-distended, Good bowel sounds. No guarding or rebound tenderness. No pulsatile masses, Extremities - no edema. Lab/Imaging: Test performed on Oct 13, 2019 09:39 Glucose 104 mg/dL BUN 51 mg/dL Creatinine 1.3 mg/dL Cr Clearance (Est) 52.95 mL/min Sodium 141 mmol/L Potassium 3.8 mmol/L Chloride 94 mmol/L CO2 30 mmol/L Calcium 10.1 mg/dL Test performed on Oct 12, 2019 09:42 WBC 7.2 10^9/L RBC 5.06 10^12/L HGB 12.8 g/dL HCT 41.8 % MCV 82.6 fl MCH 25.3 pg MCHC 30.6 g/dL RDW 16.0 % Platelet Count 81 10^9/L MPV 11.6 fL Neutrophils (Gran) 4.1 10^9/L Lymphocytes 1.9 10^9/L Monocytes 0.6 10^9/L Eosinophils 0.1 10^9/L Basophils 0.1 10^9/L Test performed on Oct 01, 2019 10:45 Anion Gap 21.2 eGFR 55.6 mL/min Protein, Total 7.3 g/dL Albumin 3.6 g/dL Globulin 3.7 g/dL Bilirubin, Total 0.3 mg/dL ALT (SGPT) 162 U/L AST (SGOT) 119 U/L Alkaline Phosphatase 256 IU/L Neutrophil % 63.4 % Lymphocyte % 21.0 % Monocyte % 6.9 % Eosinophil % 1.7 % Basophils % 0.7 % CBC Slide Review Slide Review Perform Impression: small cell lung cancer per transthoracic right upper lobe lung biopsy done on 09/01/2019patient was admitted to hospital with progressive signs symptoms and diagnosed with metastatic small cell lung cancer per CT scan of chest abdomen and she was started on systemic chemotherapy with carboplatin/etoposide on 10/13/2019. CT PET scan shows increased uptake in right upper lobe no FDG uptake in mediastinal or hilar lymph nodes as per pulmonology note. History of adenocarcinoma involving the right upper lobe of the lung status post wedge resection and March 2018, stage IA no further treatment was offered rather follow-up. COPD on home oxygen Hypertension. Plan: Discussed with patient regarding her labs white blood count 1.2 hemoglobin 9.1 hematocrit 31.1 platelets 51,000 ANC 100 Clinically, patient is doing well with no signs symptoms suggestive of infection, on Levaquin prophylaxis. Patient had one episode of brief nosebleed, which happened after she cleaned her nose. Patient was advised not to blow nose and avoid any trauma to nasal lining. Her white blood count is recovering slowly and patient is afebrile with no sign suggestive of infection we'll continue to monitor repeat her CBC on if further recovery then she will return to clinic in a week with CBC CMP and if sufficient recovery then will consider second cycle of chemotherapy with but this time with Neulasta to prevent chemotherapy-induced neutropenia/leukopenia.was advised in case she has any fever and equal to more than 100f she needed to go to emergency room immediately Signed By: Nikki Kunz M.D. <<Signature on File>>
--- NOTE | 2019-11-17 16:07 | ONC FU_ITS ---
Dr. Kunz follow up note Patient: Shira Mata Unit #: [id number]: 1955 Dicatated By: Nikki Kunz M.D.Date of Visit:Nov 17, 2019 Onc Med Follow-up/Prog Note History of Present Illness: Mrs. Shira Mata, is a 64-year-old female with a history of adenocarcinoma involving the right upper lobe underwent wedge resection in March 2018 in [facility]. As per patient he was stage IA, clear surgical margins and no further treatment was suggested but follow-up every 6 months. Patient said later on she moved to [facility], and lost insurance so no further follow-up was done. Later on she moved to [facility] and establish pulmonary care with Dr. Monroe and during evaluation for COPD, as per patient her chest x-ray shows some abnormality in right lung, subsequently underwent CT scan of chest which revealed right upper lobe mass and patient underwent bronchoscopy and endobronchial ultrasound-guided transbronchial needle aspiration of hilar lymph node which was negative for malignancy. CT PET scan was done which showed hypermetabolic right upper lobe lung mass but no FDG uptake in the hilar or mediastinal lymph nodes. Subsequently on 09/01/2019 she underwent transthoracic needle biopsy in [place] and final pathology report came back small cell carcinoma, interestingly, as mentioned earlier in March 2018 she underwent wedge resection for adenocarcinoma in same right upper lobe of the lung. Recently developed episode of headaches and underwent CT scan of the head and was diagnosed with small subdural bleed which was managed in [place] without surgical intervention. Patient has COPD she is on home oxygen. History of hypertension, Patient developed progressive symptoms and was admitted to hospital recently and follow-ups CT scan of chest abdomen showed disease progression and now she has extensive disease and patient was started on carboplatin/etoposide on 10/13/2019 On 11/15/2019, patient went to [facility] with progressive headaches and left jaw pain CT scan of head without contrast was done on 11/15/2019 which showed findings strongly suspicious of left frontotemporal extracranial soft tissue metastatic tumor mass with invasion via dural sinus spread into the intracranial left frontotemporal extra axial space with 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 No definite visible evidence of intraparenchymal metastatic disease. As her headaches were not controlled with narcotics so trial of dexamethasone 4 mg every 6 hours for 3 days followed by 4 mg 3 times a day for 3 days was tried and patient felt much better with good pain control. Came for follow-up, denies any specific complaints, no fever or chills, no nausea or vomiting, no diarrhea constipation, no focal weakness, no blurred vision double vision, headaches is much better with steroids and pain medication. Medications: Albuterol Sulfate 1 (108 (90 base) mcg/act) Aerosol Powder, Breath Activated Inhalation daily, Anoro Ellipta 1 (62.5-25 mcg/inh) Aerosol Powder, Breath Activated Inhalation daily, HYDROcodone-Acetaminophen 1 - 2 Tablet (of 5-325 mg) Oral daily PRN, Metaxalone 1 Tablet (of 800 mg) Oral daily, Montelukast Sodium 1 Tablet (of 10 mg) Oral daily, Oxybutynin Chloride 1 Tablet (of 10 mg) Oral b.i.d., Pantoprazole Sodium 1 Tablet (of 20 mg) Tablet, enteric coated Oral daily, traZODone HCl 1 Tablet (of 50 mg) Oral at bedtime Allergies: Iodinated Contrast Media, Lisinopril, and Naproxen. Review of Systems: Constitutional - Appetite and weight have decreased. No fever, chills, hot flashes, or night sweats. Energy level is poor, ENMT - No sinus congestion/drainage. No mouth sores. No sore throat or difficulty swallowing, Hematologic/Lymphatic - Positive for easy bruising, Respiratory - Positive for shortness of breath and cough. No pleuritic pain or hemoptysis, Cardiovascular - No angina pain. No palpitations, Gastrointestinal - No nausea, vomiting or abdominal discomfort, Genitourinary (F) - No dysuria or hematuria. No urinary frequency. No urgency. Positive for incontinence, Musculoskeletal - Positive for joint stiffness. Positive for jaw pain, Neurologic - Positive for headache, no dizziness. No numbness/paresthesias or other focal neurologic symptoms, Psychiatric - No anxiety or depression. Positive for insomnia. Vital Signs: Performed on Nov 17, 2019 11:32 Height - 68.00 in Weight - 168.6 lbs (HIGH) BSA - 1.90 sq.m BMI - 25.64 Temperature - 98.3 F (LOW) Pulse - 87 /min Respiration - 24 /min BP - 135/80 mm(hg) O2 Sat - 99 % Pain - 4 Performance Status: 1 - No physically strenuous activity, but ambulatory and able to carry out light or sedentary work (e.g. office work, light house work). (ECOG) Physical Examination: ENMT - No oral exudates, ulcers, masses, thrush or mucositis. Oropharynx clear. Tongue normal, Respiratory - poor air entry otherwise clear, Cardiovascular - Regular rate and rhythm of heart, Abdomen - Non-tender, non-distended Good bowel sounds. No guarding or rebound tenderness. No pulsatile masses, Extremities - 1+ edema bilaterally. Lab/Imaging: Test performed on Nov 17, 2019 10:50 Sodium 137 mmol/L Potassium 4.2 mmol/L Chloride 100 mmol/L CO2 25 mmol/L Anion Gap 16.2 BUN 16 mg/dL Creatinine 0.8 mg/dL Cr Clearance (Est) 86.0500 mL/min eGFR 72.0 mL/min Glucose 135 mg/dL Calcium 9.2 mg/dL Protein, Total 6.6 g/dL Albumin 3.9 g/dL Globulin 2.7 g/dL Bilirubin, Total 0.5 mg/dL ALT (SGPT) 15 U/L AST (SGOT) 22 U/L Alkaline Phosphatase 232 IU/L WBC 6.4 10 3/uL Manual Bands % 12.0 % RBC 3.57 10 6/uL HGB 9.1 g/dL Manual Lymphs % 16 % HCT 31.6 % Manual Monos % 8.0 % MCV 88.5 fL MCH 25.5 pg MCHC 28.8 g/dL Metamyelocytes % 2.0 % RDW 19.5 % Myelocytes % 5.0 % Platelet Count 167 10 3/cmm MPV 10.6 fL Neutrophils 4.8 10 3/uL Lymphocytes 0.7 10 3/uL Monocytes 0.5 10 3/uL Eosinophils 0.0 10 3/uL Basophils 0.0 10 3/uL Neutrophil % 74.1 % Lymphocyte % 11.1 % Monocyte % 7.5 % Eosinophil % 0.3 % Basophils % 0.3 % CBC Slide Review Slide Review Perform Hypochromia 1+ Polychromasia 1+ Poikilocytosis 1+ Manual Bands Abs 0.8 10 3/cmm Manual Monocytes Abs 0.5 10 3/cmm Test performed on Nov 03, 2019 14:10 Anisocytosis 1+ Impression: small cell lung cancer per transthoracic right upper lobe lung biopsy done on 09/01/2019patient was admitted to hospital with progressive signs symptoms and diagnosed with metastatic small cell lung cancer per CT scan of chest abdomen and she was started on systemic chemotherapy with carboplatin/etoposide on 10/13/2019. CT PET scan shows increased uptake in right upper lobe no FDG uptake in mediastinal or hilar lymph nodes as per pulmonology note. History of adenocarcinoma involving the right upper lobe of the lung status post wedge resection and March 2018, stage IA no further treatment was offered rather follow-up. COPD on home oxygen Hypertension. 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 Her headaches improved with dexamethasone. We will proceed with next cycle #2 with carboplatin/etoposide with Neulasta support to prevent chemotherapy-induced neutropenia/leukopenia and to maintain chemotherapy schedule we will also consider adding tecentriq with the next cycle. And if there is a worsening of left headache or jaw pain then will consider referred to radiation oncology. Patient will return to clinic in 1 week with CBC CMP. Signed By: Nikki Kunz M.D. <<Signature on File>>
--- NOTE | 2019-12-01 17:59 | ONC FU_ITS ---
Dr. Kunz follow up note Patient: Shira Mata Unit #: [id number]: 1955 Dicatated By: Nikki Kunz M.D.Date of Visit:Dec 01, 2019 Onc Med Follow-up/Prog Note History of Present Illness: Mrs. Shira Mata, is a 64-year-old female with a history of adenocarcinoma involving the right upper lobe underwent wedge resection in March 2018 in [facility]. As per patient he was stage IA, clear surgical margins and no further treatment was suggested but follow-up every 6 months. Patient said later on she moved to [facility], and lost insurance so no further follow-up was done. Later on she moved to [facility] and establish pulmonary care with Dr. Monroe and during evaluation for COPD, as per patient her chest x-ray shows some abnormality in right lung, subsequently underwent CT scan of chest which revealed right upper lobe mass and patient underwent bronchoscopy and endobronchial ultrasound-guided transbronchial needle aspiration of hilar lymph node which was negative for malignancy. CT PET scan was done which showed hypermetabolic right upper lobe lung mass but no FDG uptake in the hilar or mediastinal lymph nodes. 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 Recently developed episode of headaches and underwent CT scan of the head and was diagnosed with small subdural bleed which was managed in [place] without surgical intervention. Patient has COPD she is on home oxygen. History of hypertension, Patient developed progressive symptoms and was admitted to hospital recently and follow-ups CT scan of chest abdomen showed disease progression and now she has extensive disease and patient was started on carboplatin/etoposide on 10/13/2019 On 11/15/2019, patient went to [facility] with progressive headaches and left jaw pain CT scan of head without contrast was done on 11/15/2019 which showed findings strongly suspicious of left frontotemporal extracranial soft tissue metastatic tumor mass with invasion via dural sinus spread into the intracranial left frontotemporal extra axial space with 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 No definite visible evidence of intraparenchymal metastatic disease. As her headaches were not controlled with narcotics so trial of dexamethasone 4 mg every 6 hours for 3 days followed by 4 mg 3 times a day for 3 days was tried and patient felt much better with good pain control. Came for follow-up, denies any specific complaints except generalized weakness and fatigue and requiring more oxygen but no shortness of breath or wheezing or palpitation at rest. Left temporal swelling is resolved with the chemotherapy. No headaches, no blurred vision or double vision. No fever or chills, no hemoptysis or hematemesis, no nosebleed or gum bleed, no petechiae or ecchymosis. Medications: Albuterol Sulfate 1 (108 (90 base) mcg/act) Aerosol Powder, Breath Activated Inhalation daily, Anoro Ellipta 1 (62.5-25 mcg/inh) Aerosol Powder, Breath Activated Inhalation daily, HYDROcodone-Acetaminophen 1 - 2 Tablet (of 5-325 mg) Oral daily PRN, Metaxalone 1 Tablet (of 800 mg) Oral daily, Montelukast Sodium 1 Tablet (of 10 mg) Oral daily, Pantoprazole Sodium 1 Tablet (of 20 mg) Tablet, enteric coated Oral daily, traZODone HCl 1 Tablet (of 50 mg) Oral at bedtime PRN Allergies: Iodinated Contrast Media, Lisinopril, and Naproxen. Review of Systems: Constitutional - Appetite and weight have decreased. No fever, chills, hot flashes, or night sweats. Energy level is poor, ENMT - No sinus congestion/drainage. No mouth sores. No sore throat or difficulty swallowing, Hematologic/Lymphatic - Positive for easy bruising, Respiratory - Positive for shortness of breath and cough. No pleuritic pain or hemoptysis, Cardiovascular - No angina pain. No palpitations, Gastrointestinal - No nausea, vomiting or abdominal discomfort, Genitourinary (F) - No dysuria or hematuria. No urinary frequency. No urgency. Positive for incontinence, Musculoskeletal - Positive for joint stiffness. Positive for jaw pain, Neurologic - Positive for headache, no dizziness. No numbness/paresthesias or other focal neurologic symptoms, Psychiatric - No anxiety or depression. Positive for insomnia. Vital Signs: Performed on Dec 01, 2019 13:03 Height - 68.00 in Weight - 170.2 lbs (HIGH) BSA - 1.91 sq.m BMI - 25.88 Temperature - 98.3 F (LOW) Pulse - 100 /min Respiration - 22 /min BP - 140/67 mm(hg) O2 Sat - 96 % Pain - 5 Performance Status: 2 - Ambulatory/capable of all self-care, unable to perform any work activities. Up and about more than 50% of waking hours. (ECOG) Physical Examination: Physical Exam-Comments is not available for this patient. Lab/Imaging: Test performed on Dec 01, 2019 12:43 WBC 13.2 10^9/L RBC 2.70 10^12/L HGB 6.9 g/dL HCT 23.7 % MCV 87.8 fl MCH 25.6 pg MCHC 29.1 g/dL RDW 19.2 % Platelet Count 20 10^9/L MPV 15.0 fL Neutrophils (Gran) 9.1 10^9/L Lymphocytes 1.3 10^9/L Monocytes 1.0 10^9/L Eosinophils 0.0 10^9/L Basophils 0.1 10^9/L Manual Lymphocytes 9.8 % Manual Monocytes 7.6 % Manual Eosinophils 0.2 % Manual Basophils 0.8 % Test performed on Nov 27, 2019 18:05 Sodium 138 mmol/L Potassium 4.1 mmol/L Chloride 100 mmol/L CO2 27 mmol/L Anion Gap 15.1 BUN 16 mg/dL Creatinine 0.6 mg/dL Cr Clearance (Est) 114.7300 mL/min eGFR 100.3 mL/min Glucose 126 mg/dL Calcium 9.1 mg/dL Protein, Total 5.8 g/dL Albumin 3.6 g/dL Globulin 2.2 g/dL Bilirubin, Total 0.3 mg/dL ALT (SGPT) 14 U/L AST (SGOT) 15 U/L Alkaline Phosphatase 216 IU/L Neutrophil % 36.1 % Lymphocyte % 36.2 % Monocyte % 15.9 % Eosinophil % 0.4 % Basophils % 1.2 % CBC Slide Review Slide Review Perform SLIDE REVIEW AGREES WITH AUTOMATION Test performed on Nov 17, 2019 10:50 Manual Bands % 12.0 % Metamyelocytes % 2.0 % Myelocytes % 5.0 % Hypochromia 1+ Polychromasia 1+ Poikilocytosis 1+ Manual Bands Abs 0.8 10 3/cmm Manual Monocytes Abs 0.5 10 3/cmm Test performed on Nov 03, 2019 14:10 Anisocytosis 1+ Impression: small cell lung cancer per transthoracic right upper lobe lung biopsy done on 09/01/2019patient was admitted to hospital with progressive signs symptoms and diagnosed with metastatic small cell lung cancer per CT scan of chest abdomen and she was started on systemic chemotherapy with carboplatin/etoposide on 10/13/2019. CT PET scan shows increased uptake in right upper lobe no FDG uptake in mediastinal or hilar lymph nodes as per pulmonology note. History of adenocarcinoma involving the right upper lobe of the lung status post wedge resection and March 2018, stage IA no further treatment was offered rather follow-up. COPD on home oxygen Hypertension. Plan: Discussed with patient regarding her labs white blood count 13.2 hemoglobin 6.9 hematocrit 23.7 platelets 20,000 Clinically, patient is doing reasonably well, tolerating systemic chemotherapy with carboplatin and etoposide well. Patient received second cycle on 11/16/2021 to 11/19/2019, with that her left headaches and left temporal mass is resolved. Her follow-up lab shows improvement in her white blood count with Neulasta but there is a further drop in her hemoglobin and persistent severe thrombocytopenia. At this point we'll proceed with type and cross-matching and consider 2 units of packed RBC and also consider units of platelets. And then patient return to clinic in 10 days with CBC CMP and blood counts recover then will consider third cycle of chemotherapy with carbo/etoposide and also add tecentriq. Signed By: Nikki Kunz M.D. <<Signature on File>>
--- NOTE | 2019-12-12 15:13 | ONC FU_ITS ---
Dr. Kunz follow up note Patient: Shira Mata Ann Unit #: [id number]: 1955 Dicatated By: Nikki Kunz M.D.Date of Visit:December 12, 2019 Onc Med Follow-up/Prog Note History of Present Illness: Mrs. Shira Mata, is a 64-year-old female with a history of adenocarcinoma involving the right upper lobe underwent wedge resection in March 2018 in [facility]. As per patient he was stage IA, clear surgical margins and no further treatment was suggested but follow-up every 6 months. Patient said later on she moved to [facility], and lost insurance so no further follow-up was done. Later on she moved to [facility] and establish pulmonary care with Dr. Monroe and during evaluation for COPD, as per patient her chest x-ray shows some abnormality in right lung, subsequently underwent CT scan of chest which revealed right upper lobe mass and patient underwent bronchoscopy and endobronchial ultrasound-guided transbronchial needle aspiration of hilar lymph node which was negative for malignancy. CT PET scan was done which showed hypermetabolic right upper lobe lung mass but no FDG uptake in the hilar or mediastinal lymph nodes. 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 Recently developed episode of headaches and underwent CT scan of the head and was diagnosed with small subdural bleed which was managed in [place] without surgical intervention. Patient has COPD she is on home oxygen. History of hypertension, Patient developed progressive symptoms and was admitted to hospital recently and follow-ups CT scan of chest abdomen showed disease progression and now she has extensive disease and patient was started on carboplatin/etoposide on 10/13/2019 On 11/15/2019, patient went to [facility] with progressive headaches and left jaw pain CT scan of head without contrast was done on 11/15/2019 which showed findings strongly suspicious of left frontotemporal extracranial soft tissue metastatic tumor mass with invasion via dural sinus spread into the intracranial left frontotemporal extra axial space with 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 No definite visible evidence of intraparenchymal metastatic disease. As her headaches were not controlled with narcotics so trial of dexamethasone 4 mg every 6 hours for 3 days followed by 4 mg 3 times a day for 3 days was tried and patient felt much better with good pain control. Came for follow-up, denies any specific complaints, no fever or chills, no nausea or vomiting, feeling much better with blood transfusion, more energetic. No more headaches, left temporal swelling resolved., Tolerating systemic chemotherapy with carboplatin/etoposide well, we'll also consider adding tecentriq to her regimen. Medications: Albuterol Sulfate 1 (108 (90 base) mcg/act) Aerosol Powder, Breath Activated Inhalation daily, Anoro Ellipta 1 (62.5-25 mcg/inh) Aerosol Powder, Breath Activated Inhalation daily, HYDROcodone-Acetaminophen 1 - 2 Tablet (of 5-325 mg) Oral daily PRN, Metaxalone 1 Tablet (of 800 mg) Oral daily, Montelukast Sodium 1 Tablet (of 10 mg) Oral daily, Pantoprazole Sodium 1 Tablet (of 20 mg) Tablet, enteric coated Oral daily, traZODone HCl 1 Tablet (of 50 mg) Oral at bedtime PRN Allergies: Iodinated Contrast Media, Lisinopril, and Naproxen. Review of Systems: Constitutional - Appetite and weight have decreased. No fever, chills, hot flashes, or night sweats. Energy level is poor, ENMT - No sinus congestion/drainage. No mouth sores. No sore throat or difficulty swallowing, Hematologic/Lymphatic - Positive for easy bruising, Respiratory - Positive for shortness of breath and cough. No pleuritic pain or hemoptysis, Cardiovascular - No angina pain. No palpitations, Gastrointestinal - No nausea, vomiting or abdominal discomfort, Genitourinary (F) - No dysuria or hematuria. No urinary frequency. No urgency. Positive for incontinence, Musculoskeletal - Positive for joint stiffness, Neurologic - No headache, no dizziness. No numbness/paresthesias or other focal neurologic symptoms, Psychiatric - No anxiety or depression. Positive for insomnia. Vital Signs: Performed on December 12, 2019 09:09 Height - 68.00 in Temperature - 97.9 F (LOW) Pulse - 86 /min Respiration - 19 /min BP - 125/72 mm(hg) O2 Sat - 97 % Pain - 0 Performance Status: 1 - No physically strenuous activity, but ambulatory and able to carry out light or sedentary work (e.g. office work, light house work). (ECOG) Physical Examination: ENMT - No mouth sores, Respiratory - Lungs are clear, Cardiovascular - Regular rate and rhythm of heart, Abdomen - soft ,bowel sounds present, Extremities - no visible edema. Lab/Imaging: Test performed on December 12, 2019 08:40 Sodium 140 mmol/L Potassium 4.1 mmol/L Chloride 100 mmol/L CO2 31 mmol/L Anion Gap 13.1 BUN 13 mg/dL Creatinine 0.6 mg/dL Cr Clearance (Est) 113.9300 mL/min eGFR 100.3 mL/min Glucose 120 mg/dL Calcium 9.0 mg/dL Protein, Total 6.3 g/dL Albumin 3.7 g/dL Globulin 2.6 g/dL Bilirubin, Total 0.3 mg/dL ALT (SGPT) 12 U/L AST (SGOT) 15 U/L Alkaline Phosphatase 227 IU/L WBC 6.9 10 3/uL RBC 3.53 10 6/uL HGB 9.7 g/dL HCT 32.5 % MCV 92.1 fL MCH 27.5 pg MCHC 29.8 g/dL RDW 19.9 % Platelet Count 198 10 3/cmm MPV 10.4 fL Neutrophils 4.9 10 3/uL Lymphocytes 1.1 10 3/uL Monocytes 0.8 10 3/uL Eosinophils 0.0 10 3/uL Basophils 0.0 10 3/uL Neutrophil % 70.8 % Lymphocyte % 15.6 % Monocyte % 11.1 % Eosinophil % 0.3 % Basophils % 0.3 % Test performed on Dec 01, 2019 12:43 Manual Lymphocytes 9.8 % Manual Monocytes 7.6 % Manual Eosinophils 0.2 % Manual Basophils 0.8 % CBC Slide Review Slide Review Perform SLIDE REVIEW AGREES WITH AUTO DIFF. Test performed on Nov 17, 2019 10:50 Manual Bands % 12.0 % Metamyelocytes % 2.0 % Myelocytes % 5.0 % Hypochromia 1+ Polychromasia 1+ Poikilocytosis 1+ Manual Bands Abs 0.8 10 3/cmm Manual Monocytes Abs 0.5 10 3/cmm Test performed on Nov 03, 2019 14:10 Anisocytosis 1+ Impression: small cell lung cancer per transthoracic right upper lobe lung biopsy done on 09/01/2019patient was admitted to hospital with progressive signs symptoms and diagnosed with metastatic small cell lung cancer per CT scan of chest abdomen and she was started on systemic chemotherapy with carboplatin/etoposide on 10/13/2019. CT PET scan shows increased uptake in right upper lobe no FDG uptake in mediastinal or hilar lymph nodes as per pulmonology note. History of adenocarcinoma involving the right upper lobe of the lung status post wedge resection and March 2018, stage IA no further treatment was offered rather follow-up. COPD on home oxygen Hypertension. Plan: Discussed with patient regarding her labs white blood count 6.9 hemoglobin 9.7 hematocrit 32.5 platelets 198,000 CMP within normal limits Clinically, patient is doing well, tolerating systemic therapy with carboplatin/etoposide well but with expected side effects. At this point we will proceed with cycle #3 with carboplatin/etoposide but also add tecentriq to her regimen. Patient will return to clinic on Sunday for day 2 etoposide. And Sunday for day 3 followed by Neulasta to prevent chemotherapy-induced neutropenia. And then she will return to clinic in 1 week after completion of the cycle, with CBC CMP and will consider follow-up CT PET scan prior to next cycle of chemotherapy, to assess the response. Signed By: Nikki Kunz M.D. <<Signature on File>>
--- NOTE | 2020-01-08 13:39 | ONC FU_ITS ---
Dr. Kunz follow up note Patient: Shira Mata Ann Unit #: [id number]: 1955 Dicatated By: Nikki Kunz M.D.Date of Visit:January 08, 2020 Onc Med Follow-up/Prog Note History of Present Illness: Mrs. Shira Mata, is a 64-year-old female with a history of adenocarcinoma involving the right upper lobe underwent wedge resection in March 2018 in [facility]. As per patient he was stage IA, clear surgical margins and no further treatment was suggested but follow-up every 6 months. Patient said later on she moved to [facility], and lost insurance so no further follow-up was done. Later on she moved to [facility] and establish pulmonary care with Dr. Monroe and during evaluation for COPD, as per patient her chest x-ray shows some abnormality in right lung, subsequently underwent CT scan of chest which revealed right upper lobe mass and patient underwent bronchoscopy and endobronchial ultrasound-guided transbronchial needle aspiration of hilar lymph node which was negative for malignancy. CT PET scan was done which showed hypermetabolic right upper lobe lung mass but no FDG uptake in the hilar or mediastinal lymph nodes. Subsequently on 09/01/2019 she underwent transthoracic needle biopsy in [place] and final pathology report came back small cell carcinoma, interestingly, as mentioned earlier in March 2018 she underwent wedge resection for adenocarcinoma in same right upper lobe of the lung. Recently developed episode of headaches and underwent CT scan of the head and was diagnosed with small subdural bleed which was managed in [place] without surgical intervention. Patient has COPD she is on home oxygen. History of hypertension, Patient developed progressive symptoms and was admitted to hospital recently and follow-ups CT scan of chest abdomen done on 10/07/2019 showed disease progression e.g. now right upper lobe lung mass measuring 2.8 x 3.2 cm, has increased in size and also seen innumerable new metastatic pulmonary nodules throughout both lungs with significant progression right hilar lymphadenopathy, hepatomegaly and innumerable metastatic lesions were both hepatic lobes. 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 No definite visible evidence of intraparenchymal metastatic disease. As her headaches were not controlled with narcotics so trial of dexamethasone 4 mg every 6 hours for 3 days followed by 4 mg 3 times a day for 3 days was tried and patient felt much better with good pain control. Follow-up CT PET scan done after 3 cycles of chemotherapy,on 12/20/2019 showed excellent response now with right upper lobe nodule which was previously 2.8 x 3.[address] scan of chest abdomen pelvis done on 10/07/2019 and now it is 1.1 x 1.5 cm with SUV of 5.7 and a secondary 1.1 cm nodule seen previously is no longer seen and the liver also shows normal uptake with resolution of metastatic disease and no other distant metastases seen Came for follow-up, denies any specific complaints, no fever or chills, no nausea or vomiting, no diarrhea constipation, no headaches or blurred vision or double vision, no hemoptysis or hematemesis. No skin rash, no shortness of breath, no diarrhea Tolerating carboplatin/etoposide/ tecentriq well. Medications: Albuterol Sulfate 1 (108 (90 base) mcg/act) Aerosol Powder, Breath Activated Inhalation daily, Anoro Ellipta 1 (62.5-25 mcg/inh) Aerosol Powder, Breath Activated Inhalation daily, HYDROcodone-Acetaminophen 1 - 2 Tablet (of 5-325 mg) Oral daily PRN, Montelukast Sodium 1 Tablet (of 10 mg) Oral daily, Pantoprazole Sodium 1 Tablet (of 20 mg) Tablet, enteric coated Oral daily Allergies: Iodinated Contrast Media, Lisinopril, and Naproxen. Review of Systems: Constitutional - Appetite and weight have decreased. No fever, chills, hot flashes, or night sweats. Energy level is poor, ENMT - No sinus congestion/drainage. No mouth sores. No sore throat or difficulty swallowing, Hematologic/Lymphatic - Positive for easy bruising, Respiratory - Positive for shortness of breath and cough. No pleuritic pain or hemoptysis, Cardiovascular - No angina pain. No palpitations, Gastrointestinal - No nausea, vomiting or abdominal discomfort, Genitourinary (F) - No dysuria or hematuria. No urinary frequency. No urgency. Positive for incontinence, Musculoskeletal - Positive for joint stiffness, Neurologic - No headache, no dizziness. No numbness/paresthesias or other focal neurologic symptoms, Psychiatric - No anxiety or depression. Positive for insomnia. Vital Signs: Performed on January 08, 2020 09:27 Height - 68.00 in Weight - 166.0 lbs (LOW) BSA - 1.89 sq.m BMI - 25.24 Temperature - 97.5 F (LOW) Pulse - 96 /min Respiration - 24 /min BP - 168/85 mm(hg) (HIGH) O2 Sat - 95 % (LOW) Pain - 5 Performance Status: 2 - Ambulatory/capable of all self-care, unable to perform any work activities. Up and about more than 50% of waking hours. (ECOG) Physical Examination: ENMT - , no mouth sores, no thrush, no jaundice, Respiratory - Lungs are clear, Cardiovascular - Regular rate and rhythm of heart, Abdomen - soft, bowel sounds present, Extremities - trace edema bilaterally. Lab/Imaging: Test performed on January 08, 2020 08:40 Sodium 143 mmol/L Potassium 3.6 mmol/L Chloride 102 mmol/L CO2 29 mmol/L Anion Gap 15.6 BUN 19 mg/dL Creatinine 0.7 mg/dL Cr Clearance (Est) 97.6500 mL/min eGFR 84.0 mL/min Glucose 119 mg/dL Calcium 9.7 mg/dL Protein, Total 6.5 g/dL Albumin 3.9 g/dL Globulin 2.6 g/dL Bilirubin, Total 0.2 mg/dL ALT (SGPT) 12 U/L AST (SGOT) 15 U/L Alkaline Phosphatase 192 IU/L WBC 6.1 10 3/uL RBC 3.98 10 6/uL HGB 10.6 g/dL HCT 36.5 % MCV 91.7 fL MCH 26.6 pg MCHC 29.0 g/dL RDW 18.7 % Platelet Count 241 10 3/cmm MPV 10.3 fL Neutrophils 4.3 10 3/uL Lymphocytes 1.1 10 3/uL Monocytes 0.6 10 3/uL Eosinophils 0.1 10 3/uL Basophils 0.0 10 3/uL Neutrophil % 70.4 % Lymphocyte % 18.2 % Monocyte % 9.9 % Eosinophil % 1.0 % Basophils % 0.3 % Test performed on Dec 01, 2019 12:43 Manual Lymphocytes 9.8 % Manual Monocytes 7.6 % Manual Eosinophils 0.2 % Manual Basophils 0.8 % CBC Slide Review Slide Review Perform SLIDE REVIEW AGREES WITH AUTO DIFF. Test performed on Nov 17, 2019 10:50 Manual Bands % 12.0 % Metamyelocytes % 2.0 % Myelocytes % 5.0 % Hypochromia 1+ Polychromasia 1+ Poikilocytosis 1+ Manual Bands Abs 0.8 10 3/cmm Manual Monocytes Abs 0.5 10 3/cmm Test performed on Nov 03, 2019 14:10 Anisocytosis 1+ Impression: small cell lung cancer per transthoracic right upper lobe lung biopsy done on 09/01/2019patient was admitted to hospital with progressive signs symptoms and diagnosed with metastatic small cell lung cancer per CT scan of chest abdomen and she was started on systemic chemotherapy with carboplatin/etoposide on 10/13/2019. extensive disease .CT scan of chest abdomen pelvis done on 10/07/2019 showed right upper lobe pulmonary mass 3.8 x 2.2 cm which has increased in size since last PET scan and now also with innumerable new pulmonary nodules throughout both lungs with significant progression of right hilar lymphadenopathy and hepatomegaly with innumerable metastatic lesions were both hepatic lobes butCT PET scan done earlier showed increased uptake in right upper lobe no FDG uptake in mediastinal or hilar lymph nodes as per pulmonology note History of adenocarcinoma involving the right upper lobe of the lung status post wedge resection and March 2018, stage IA no further treatment was offered rather follow-up. COPD on home oxygen Hypertension. Plan: Discussed with patient regarding her labs white blood count 6.1 hemoglobin 10.6 hematocrit 36.5 platelets 241,000 CMP within normal limits and follow-up CT PET scan which showed excellent response to the treatment, with resolution of hepatic metastases and now with a minimum disease in right upper lung Clinically, patient is doing well, tolerating systemic therapy with carboplatin/etoposide/ tecentriq , well but with expected side effects, follow-up CT PET scan done after 3 cycles showed excellent response. At this point we'll proceed with cycle #4 with Neulasta support and then we'll refer her to radiation oncology for evaluation for radiation therapy to the right lung for local control as well as prophylactic cranial radiation . And other option will be considering switching her maintenance therapy with immunotherapy tecentriq . Patient return to clinic in 2 weeks with CBC CMP in the meantime we'll refer her to radiation oncology for evaluation. Signed By: Nikki Kunz M.D. <<Signature on File>>
--- NOTE | 2020-01-26 15:49 | ONC FU_ITS ---
Dr. Kunz follow up note Patient: Shira Mata Ann Unit #: [id number]: 1955 Dicatated By: Nikki Kunz M.D.Date of Visit:Jan 26, 2020 Onc Med Follow-up/Prog Note History of Present Illness: Mrs. Shira Mata, is a 64-year-old female with a history of adenocarcinoma involving the right upper lobe underwent wedge resection in March 2018 in [facility]. As per patient he was stage IA, clear surgical margins and no further treatment was suggested but follow-up every 6 months. Patient said later on she moved to [facility], and lost insurance so no further follow-up was done. Later on she moved to [facility] and establish pulmonary care with Dr. Monroe and during evaluation for COPD, as per patient her chest x-ray shows some abnormality in right lung, subsequently underwent CT scan of chest which revealed right upper lobe mass and patient underwent bronchoscopy and endobronchial ultrasound-guided transbronchial needle aspiration of hilar lymph node which was negative for malignancy. CT PET scan was done which showed hypermetabolic right upper lobe lung mass but no FDG uptake in the hilar or mediastinal lymph nodes. Subsequently on 09/01/2019 she underwent transthoracic needle biopsy in [place] and final pathology report came back small cell carcinoma, interestingly, as mentioned earlier in March 2018 she underwent wedge resection for adenocarcinoma in same right upper lobe of the lung. Recently developed episode of headaches and underwent CT scan of the head and was diagnosed with small subdural bleed which was managed in [place] without surgical intervention. Patient has COPD she is on home oxygen. History of hypertension, Patient developed progressive symptoms and was admitted to hospital recently and follow-ups CT scan of chest abdomen done on 10/07/2019 showed disease progression e.g. now right upper lobe lung mass measuring 2.8 x 3.2 cm, has increased in size and also seen innumerable new metastatic pulmonary nodules throughout both lungs with significant progression right hilar lymphadenopathy, hepatomegaly and innumerable metastatic lesions were both hepatic lobes. 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 No definite visible evidence of intraparenchymal metastatic disease. As her headaches were not controlled with narcotics so trial of dexamethasone 4 mg every 6 hours for 3 days followed by 4 mg 3 times a day for 3 days was tried and patient felt much better with good pain control. Follow-up CT PET scan done after 3 cycles of chemotherapy,on 12/20/2019 showed excellent response now with right upper lobe nodule which was previously 2.8 x 3.[address] scan of chest abdomen pelvis done on 10/07/2019 and now it is 1.1 x 1.5 cm with SUV of 5.7 and a secondary 1.1 cm nodule seen previously is no longer seen and the liver also shows normal uptake with resolution of metastatic disease and no other distant metastases seen Came for follow-up, complaining of generalized weakness and fatigue, as per patient she had an episode of fever on Sunday, gone up to 101.2, lasted for 2 hours and improved on its own without any medicine, no more fever or chills since then. Also felt discomfort in chest wall and back, which is improved too. Denies any melena or hematochezia, denies any hemoptysis or hematemesis, denies any tachycardia or palpitation at rest but generalized weakness as mentioned above, denies any jaundice. Patient said she had episode of urine tract infection last month at that time she was treated with ciprofloxacin but then Dr. Castillo gave her Macrobid which she finished last week. Other than that no other symptoms. Patient has seen radiation oncology for evaluation, and has decided not to proceed with radiation to the chest or prophylactic cranial radiation rather continue with chemotherapy alone and if needed maintenance therapy with immunotherapy.. Tolerating carboplatin/etoposide/ tecentriq well. Medications: Albuterol Sulfate 1 (108 (90 base) mcg/act) Aerosol Powder, Breath Activated Inhalation daily, Anoro Ellipta 1 (62.5-25 mcg/inh) Aerosol Powder, Breath Activated Inhalation daily, HYDROcodone-Acetaminophen 1 - 2 Tablet (of 5-325 mg) Oral daily PRN, Montelukast Sodium 1 Tablet (of 10 mg) Oral daily, Pantoprazole Sodium 1 Tablet (of 20 mg) Tablet, enteric coated Oral daily, Tolterodine Tartrate ER 1 (4 mg) Capsule SR 24 HR Oral daily Allergies: Iodinated Contrast Media, Lisinopril, and Naproxen. Review of Systems: Constitutional - Appetite and weight have decreased. No fever, chills, hot flashes, or night sweats. Energy level is poor, ENMT - No sinus congestion/drainage. No mouth sores. No sore throat or difficulty swallowing, Hematologic/Lymphatic - Positive for easy bruising, Respiratory - Positive for shortness of breath and cough. No pleuritic pain or hemoptysis, Cardiovascular - No angina pain. No palpitations, Gastrointestinal - No nausea, vomiting or abdominal discomfort, Genitourinary (F) - No dysuria or hematuria. No urinary frequency. No urgency. Positive for incontinence, Musculoskeletal - Positive for joint stiffness, Neurologic - No headache, no dizziness. No numbness/paresthesias or other focal neurologic symptoms, Psychiatric - No anxiety or depression. Positive for insomnia. Vital Signs: Performed on Jan 26, 2020 10:58 Height - 68.00 in Weight - 169.8 lbs (HIGH) BSA - 1.91 sq.m BMI - 25.82 Temperature - 97.1 F (LOW) Pulse - 91 /min Respiration - 24 /min BP - 108/69 mm(hg) O2 Sat - 94 % (LOW) Pain - 0 Performance Status: 2 - Ambulatory/capable of all self-care, unable to perform any work activities. Up and about more than 50% of waking hours. (ECOG) Physical Examination: ENMT - No mouth sores, no thrush, no jaundice, Respiratory - Lungs are clear, Cardiovascular - Regular rate and rhythm of heart, Abdomen - Soft, bowel sounds present, Extremities - 1+ edema bilaterally. Lab/Imaging: Test performed on January 08, 2020 08:40 Sodium 143 mmol/L Potassium 3.6 mmol/L Chloride 102 mmol/L CO2 29 mmol/L Anion Gap 15.6 BUN 19 mg/dL Creatinine 0.7 mg/dL Cr Clearance (Est) 97.6500 mL/min eGFR 84.0 mL/min Glucose 119 mg/dL Calcium 9.7 mg/dL Protein, Total 6.5 g/dL Albumin 3.9 g/dL Globulin 2.6 g/dL Bilirubin, Total 0.2 mg/dL ALT (SGPT) 12 U/L AST (SGOT) 15 U/L Alkaline Phosphatase 192 IU/L WBC 6.1 10 3/uL RBC 3.98 10 6/uL HGB 10.6 g/dL HCT 36.5 % MCV 91.7 fL MCH 26.6 pg MCHC 29.0 g/dL RDW 18.7 % Platelet Count 241 10 3/cmm MPV 10.3 fL Neutrophils 4.3 10 3/uL Lymphocytes 1.1 10 3/uL Monocytes 0.6 10 3/uL Eosinophils 0.1 10 3/uL Basophils 0.0 10 3/uL Neutrophil % 70.4 % Lymphocyte % 18.2 % Monocyte % 9.9 % Eosinophil % 1.0 % Basophils % 0.3 % Test performed on Dec 01, 2019 12:43 Manual Lymphocytes 9.8 % Manual Monocytes 7.6 % Manual Eosinophils 0.2 % Manual Basophils 0.8 % CBC Slide Review Slide Review Perform SLIDE REVIEW AGREES WITH AUTO DIFF. Test performed on Nov 17, 2019 10:50 Manual Bands % 12.0 % Metamyelocytes % 2.0 % Myelocytes % 5.0 % Hypochromia 1+ Polychromasia 1+ Poikilocytosis 1+ Manual Bands Abs 0.8 10 3/cmm Manual Monocytes Abs 0.5 10 3/cmm Test performed on Nov 03, 2019 14:10 Anisocytosis 1+ Impression: small cell lung cancer per transthoracic right upper lobe lung biopsy done on 09/01/2019patient was admitted to hospital with progressive signs symptoms and diagnosed with metastatic small cell lung cancer per CT scan of chest abdomen and she was started on systemic chemotherapy with carboplatin/etoposide on 10/13/2019. extensive disease .CT scan of chest abdomen pelvis done on 10/07/2019 showed right upper lobe pulmonary mass 3.8 x 2.2 cm which has increased in size since last PET scan and now also with innumerable new pulmonary nodules throughout both lungs with significant progression of right hilar lymphadenopathy and hepatomegaly with innumerable metastatic lesions were both hepatic lobes butCT PET scan done earlier showed increased uptake in right upper lobe no FDG uptake in mediastinal or hilar lymph nodes as per pulmonology note History of adenocarcinoma involving the right upper lobe of the lung status post wedge resection and March 2018, stage IA no further treatment was offered rather follow-up. COPD on home oxygen Hypertension. Plan: Discussed with patient regarding her labs white blood count 2.5 hemoglobin is 7.8 g hematocrit 26.6 platelets 107,000 ANC 1300 Clinically, patient is doing reasonably well, now symptomatic due to progressive anemia, at this point will consider blood transfusion, as patient on home oxygen and now complaining of progressive weakness and fatigue. Will consider typing and crossing and transfuse 2 units of packed RBCs and consider Lasix 20 mg after first unit to avoid fluid overload. In the meantime, as patient has declined radiation therapy to the thorax and prophylactic radiation to her brain, treatment options including continue with current chemo regimen and complete total 6 cycles of chemo followed by CT PET scan if shows complete remission then consider maintenance therapy with immunotherapy Tecentriq. And if patient could not tolerate chemo then switch her to maintenance therapy alone. Patient wants to complete the recommended chemotherapy unless she could not tolerate. In the meantime we will continue supportive care and she will return to clinic in 1 week if blood count recovers then consider cycle #5 with carboplatin/etoposide/Tecentriq. Signed By: Nikki Kunz M.D. <<Signature on File>>
--- NOTE | 2020-02-17 18:44 | ONC FU_ITS ---
Dr. Kunz follow up note Patient: Shira Mata Ann Unit #: [id number]: 1955 Dicatated By: Nikki Kunz M.D.Date of Visit:Feb 17, 2020 Onc Med Follow-up/Prog Note History of Present Illness: Mrs. Shira Mata, is a 64-year-old female with a history of adenocarcinoma involving the right upper lobe underwent wedge resection in March 2018 in [facility]. As per patient he was stage IA, clear surgical margins and no further treatment was suggested but follow-up every 6 months. Patient said later on she moved to [facility], and lost insurance so no further follow-up was done. Later on she moved to [facility] and establish pulmonary care with Dr. Monroe and during evaluation for COPD, as per patient her chest x-ray shows some abnormality in right lung, subsequently underwent CT scan of chest which revealed right upper lobe mass and patient underwent bronchoscopy and endobronchial ultrasound-guided transbronchial needle aspiration of hilar lymph node which was negative for malignancy. CT PET scan was done which showed hypermetabolic right upper lobe lung mass but no FDG uptake in the hilar or mediastinal lymph nodes. Subsequently on 09/01/2019 she underwent transthoracic needle biopsy in [place] and final pathology report came back small cell carcinoma, interestingly, as mentioned earlier in March 2018 she underwent wedge resection for adenocarcinoma in same right upper lobe of the lung. Recently developed episode of headaches and underwent CT scan of the head and was diagnosed with small subdural bleed which was managed in [place] without surgical intervention. Patient has COPD she is on home oxygen. History of hypertension, Patient developed progressive symptoms and was admitted to hospital recently and follow-ups CT scan of chest abdomen done on 10/07/2019 showed disease progression e.g. now right upper lobe lung mass measuring 2.8 x 3.2 cm, has increased in size and also seen innumerable new metastatic pulmonary nodules throughout both lungs with significant progression right hilar lymphadenopathy, hepatomegaly and innumerable metastatic lesions were both hepatic lobes. 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 No definite visible evidence of intraparenchymal metastatic disease. As her headaches were not controlled with narcotics so trial of dexamethasone 4 mg every 6 hours for 3 days followed by 4 mg 3 times a day for 3 days was tried and patient felt much better with good pain control. Follow-up CT PET scan done after 3 cycles of chemotherapy,on 12/20/2019 showed excellent response now with right upper lobe nodule which was previously 2.8 x 3[address] scan of chest abdomen pelvis done on 10/07/2019 and now it is 1.1 x 1.5 cm with SUV of 5.7 and a secondary 1.1 cm nodule seen previously is no longer seen and the liver also shows normal uptake with resolution of metastatic disease and no other distant metastases seen Came for follow-up, denies any specific complaints, no nausea or vomiting no diarrhea fever, patient said she was in the hospital recently with urine tract infection and treated with IV antibiotic, now on oral antibiotic and Dr. Castillo has recommended her to continue it for whole month. Otherwise no fever chills no nausea or vomiting no dysuria no headaches blurred or double vision, no peripheral neuropathy. Medications: Albuterol Sulfate 1 (108 (90 base) mcg/act) Aerosol Powder, Breath Activated Inhalation daily, Anoro Ellipta 1 (62.5-25 mcg/inh) Aerosol Powder, Breath Activated Inhalation daily, Cyclobenzaprine HCl 1 Tablet (of 5 mg) Oral daily, HYDROcodone-Acetaminophen 1 - 2 Tablet (of 5-325 mg) Oral daily PRN, Montelukast Sodium 1 Tablet (of 10 mg) Oral daily, Pantoprazole Sodium 1 Tablet (of 20 mg) Tablet, enteric coated Oral daily, Tolterodine Tartrate ER 1 (4 mg) Capsule SR 24 HR Oral daily Allergies: Iodinated Contrast Media, Lisinopril, and Naproxen. Review of Systems: Review of Systems is not available for this patient. Vital Signs: Performed on Feb 17, 2020 10:43 Height - 68.00 in Weight - 165.4 lbs (LOW) BSA - 1.89 sq.m BMI - 25.15 Temperature - 98.6 F Pulse - 92 /min Respiration - 20 /min BP - 125/70 mm(hg) O2 Sat - 96 % Pain - 0 Performance Status: 1 - No physically strenuous activity, but ambulatory and able to carry out light or sedentary work (e.g. office work, light house work). (ECOG) Physical Examination: ENMT - No mouth sores, no thrush, no jaundice, Respiratory - Lungs are clear, Cardiovascular - Regular rate and rhythm of heart, Abdomen - Soft, bowel sounds present, Extremities - 1+ edema bilaterally. Lab/Imaging: Test performed on Feb 17, 2020 08:00 Creatinine 0.8 mg/dL Cr Clearance (Est) 85.45 mL/min Test performed on Feb 16, 2020 11:54 Sodium 136 mmol/L Potassium 3.9 mmol/L Chloride 98 mmol/L CO2 26 mmol/L Anion Gap 15.9 BUN 16 mg/dL eGFR 72.0 mL/min Glucose 116 mg/dL Calcium 9.2 mg/dL Protein, Total 6.9 g/dL Albumin 3.6 g/dL Globulin 3.3 g/dL Bilirubin, Total 0.3 mg/dL ALT (SGPT) 9 U/L AST (SGOT) 15 U/L Alkaline Phosphatase 168 IU/L WBC 6.3 10 3/uL RBC 4.50 10 6/uL HGB 11.8 g/dL HCT 39.5 % MCV 87.8 fL MCH 26.2 pg MCHC 29.9 g/dL RDW 16.1 % Platelet Count 186 10 3/cmm MPV 10.6 fL Neutrophils 4.6 10 3/uL Lymphocytes 0.9 10 3/uL Monocytes 0.6 10 3/uL Eosinophils 0.2 10 3/uL Basophils 0.0 10 3/uL Neutrophil % 72.7 % Lymphocyte % 15.0 % Monocyte % 9.2 % Eosinophil % 2.7 % Basophils % 0.2 % NRBC % 0 % Test performed on Dec 01, 2019 12:43 Manual Lymphocytes 9.8 % Manual Monocytes 7.6 % Manual Eosinophils 0.2 % Manual Basophils 0.8 % CBC Slide Review Slide Review Perform SLIDE REVIEW AGREES WITH AUTO DIFF. Test performed on Nov 17, 2019 10:50 Manual Bands % 12.0 % Metamyelocytes % 2.0 % Myelocytes % 5.0 % Hypochromia 1+ Polychromasia 1+ Poikilocytosis 1+ Manual Bands Abs 0.8 10 3/cmm Manual Monocytes Abs 0.5 10 3/cmm Test performed on Nov 03, 2019 14:10 Anisocytosis 1+ Impression: small cell lung cancer per transthoracic right upper lobe lung biopsy done on 09/01/2019patient was admitted to hospital with progressive signs symptoms and diagnosed with metastatic small cell lung cancer per CT scan of chest abdomen and she was started on systemic chemotherapy with carboplatin/etoposide on 10/13/2019. extensive disease .CT scan of chest abdomen pelvis done on 10/07/2019 showed right upper lobe pulmonary mass 3.8 x 2.2 cm which has increased in size since last PET scan and now also with innumerable new pulmonary nodules throughout both lungs with significant progression of right hilar lymphadenopathy and hepatomegaly with innumerable metastatic lesions were both hepatic lobes butCT PET scan done earlier showed increased uptake in right upper lobe no FDG uptake in mediastinal or hilar lymph nodes as per pulmonology note History of adenocarcinoma involving the right upper lobe of the lung status post wedge resection and March 2018, stage IA no further treatment was offered rather follow-up. COPD on home oxygen Hypertension. Plan: Discussed with patient regarding her labs white blood count 6.3 hemoglobin 11.8 crit 39.5 platelets 186,000 CMP within normal limits Clinically, patient is doing well, tolerating systemic therapy with carboplatin/etoposide/Tecentriq well but with expected side effects. We will proceed with cycle #5 and with Neulasta support to prevent chemotherapy-induced neutropenia/leukopenia, today and then return to clinic in 2 weeks with CBC CMP Signed By: Nikki Kunz M.D. <<Signature on File>>
--- NOTE | 2020-03-02 13:19 | ONC FU_ITS ---
Dr. Kunz follow up note Patient: Shira Mata Ann Unit #: [id number]: 1955 Dicatated By: Nikki Kunz M.D.Date of Visit:Mar 02, 2020 Onc Med Follow-up/Prog Note History of Present Illness: Mrs. Shira Mata, is a 64-year-old female with a history of adenocarcinoma involving the right upper lobe underwent wedge resection in March 2018 in [facility]. As per patient he was stage IA, clear surgical margins and no further treatment was suggested but follow-up every 6 months. Patient said later on she moved to [facility], and lost insurance so no further follow-up was done. Later on she moved to [facility] and establish pulmonary care with Dr. Monroe and during evaluation for COPD, as per patient her chest x-ray shows some abnormality in right lung, subsequently underwent CT scan of chest which revealed right upper lobe mass and patient underwent bronchoscopy and endobronchial ultrasound-guided transbronchial needle aspiration of hilar lymph node which was negative for malignancy. CT PET scan was done which showed hypermetabolic right upper lobe lung mass but no FDG uptake in the hilar or mediastinal lymph nodes. 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 Recently developed episode of headaches and underwent CT scan of the head and was diagnosed with small subdural bleed which was managed in [place] without surgical intervention. Patient has COPD she is on home oxygen. History of hypertension, Patient developed progressive symptoms and was admitted to hospital recently and follow-ups CT scan of chest abdomen done on 10/07/2019 showed disease progression e.g. now right upper lobe lung mass measuring 2.8 x 3.2 cm, has increased in size and also seen innumerable new metastatic pulmonary nodules throughout both lungs with significant progression right hilar lymphadenopathy, hepatomegaly and innumerable metastatic lesions were both hepatic lobes. 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 No definite visible evidence of intraparenchymal metastatic disease. As her headaches were not controlled with narcotics so trial of dexamethasone 4 mg every 6 hours for 3 days followed by 4 mg 3 times a day for 3 days was tried and patient felt much better with good pain control. Follow-up CT PET scan done after 3 cycles of chemotherapy,on 12/20/2019 showed excellent response now with right upper lobe nodule which was previously 2.8 x 3.[address] scan of chest abdomen pelvis done on 10/07/2019 and now it is 1.1 x 1.5 cm with SUV of 5.7 and a secondary 1.1 cm nodule seen previously is no longer seen and the liver also shows normal uptake with resolution of metastatic disease and no other distant metastases seen . Came for follow-up, denies any specific complaints, no fever chills, no nausea or vomiting, no diarrhea constipation, no melena hematochezia, no hematuria, no petechia, no wheezing, no skin rash, tolerating systemic therapy with carboplatin/etoposide/Tecentriq well Medications: Albuterol Sulfate 1 (108 (90 base) mcg/act) Aerosol Powder, Breath Activated Inhalation daily, Anoro Ellipta 1 (62.5-25 mcg/inh) Aerosol Powder, Breath Activated Inhalation daily, Cyclobenzaprine HCl 1 Tablet (of 5 mg) Oral daily, HYDROcodone-Acetaminophen 1 - 2 Tablet (of 5-325 mg) Oral daily PRN, Montelukast Sodium 1 Tablet (of 10 mg) Oral daily, Pantoprazole Sodium 1 Tablet (of 20 mg) Tablet, enteric coated Oral daily, Tolterodine Tartrate ER 1 (4 mg) Capsule SR 24 HR Oral daily Allergies: Iodinated Contrast Media, Lisinopril, and Naproxen. Review of Systems: Constitutional - Appetite and weight have decreased. No fever, chills, hot flashes, or night sweats. Energy level is poor, ENMT - No sinus congestion/drainage. No mouth sores. No sore throat or difficulty swallowing, Hematologic/Lymphatic - Positive for easy bruising, Respiratory - Positive for shortness of breath and cough. No pleuritic pain or hemoptysis, Cardiovascular - No angina pain. No palpitations, Gastrointestinal - No nausea, vomiting or abdominal discomfort, Genitourinary (F) - No dysuria or hematuria. No urinary frequency. No urgency. Positive for incontinence, Musculoskeletal - Positive for joint stiffness, Neurologic - No headache, no dizziness. No numbness/paresthesias or other focal neurologic symptoms, Psychiatric - No anxiety or depression. Positive for insomnia. Vital Signs: Performed on Mar 02, 2020 12:42 Height - 68.00 in Weight - 164.0 lbs (LOW) BSA - 1.88 sq.m BMI - 24.94 Temperature - 98.2 F (LOW) Pulse - 95 /min Respiration - 24 /min BP - 134/86 mm(hg) O2 Sat - 96 % Pain - 0 Performance Status: 1 - No physically strenuous activity, but ambulatory and able to carry out light or sedentary work (e.g. office work, light house work). (ECOG) Physical Examination: ENMT - No mouth sores, no thrush, no jaundice, Respiratory - Poor air entry otherwise clear, Cardiovascular - Regular rate and rhythm of heart, Abdomen - Soft, bowel sounds present, Extremities - Trace lower extremity edema bilaterally. Lab/Imaging: Test performed on Feb 17, 2020 08:00 Creatinine 0.8 mg/dL Cr Clearance (Est) 85.45 mL/min Test performed on Feb 16, 2020 11:54 Sodium 136 mmol/L Potassium 3.9 mmol/L Chloride 98 mmol/L CO2 26 mmol/L Anion Gap 15.9 BUN 16 mg/dL eGFR 72.0 mL/min Glucose 116 mg/dL Calcium 9.2 mg/dL Protein, Total 6.9 g/dL Albumin 3.6 g/dL Globulin 3.3 g/dL Bilirubin, Total 0.3 mg/dL ALT (SGPT) 9 U/L AST (SGOT) 15 U/L Alkaline Phosphatase 168 IU/L WBC 6.3 10 3/uL RBC 4.50 10 6/uL HGB 11.8 g/dL HCT 39.5 % MCV 87.8 fL MCH 26.2 pg MCHC 29.9 g/dL RDW 16.1 % Platelet Count 186 10 3/cmm MPV 10.6 fL Neutrophils 4.6 10 3/uL Lymphocytes 0.9 10 3/uL Monocytes 0.6 10 3/uL Eosinophils 0.2 10 3/uL Basophils 0.0 10 3/uL Neutrophil % 72.7 % Lymphocyte % 15.0 % Monocyte % 9.2 % Eosinophil % 2.7 % Basophils % 0.2 % NRBC % 0 % Test performed on Dec 01, 2019 12:43 Manual Lymphocytes 9.8 % Manual Monocytes 7.6 % Manual Eosinophils 0.2 % Manual Basophils 0.8 % CBC Slide Review Slide Review Perform SLIDE REVIEW AGREES WITH AUTO DIFF. Test performed on Nov 17, 2019 10:50 Manual Bands % 12.0 % Metamyelocytes % 2.0 % Myelocytes % 5.0 % Hypochromia 1+ Polychromasia 1+ Poikilocytosis 1+ Manual Bands Abs 0.8 10 3/cmm Manual Monocytes Abs 0.5 10 3/cmm Test performed on Nov 03, 2019 14:10 Anisocytosis 1+ Impression: small cell lung cancer per transthoracic right upper lobe lung biopsy done on 09/01/2019patient was admitted to hospital with progressive signs symptoms and diagnosed with metastatic small cell lung cancer per CT scan of chest abdomen and she was started on systemic chemotherapy with carboplatin/etoposide on 10/13/2019. extensive disease .CT scan of chest abdomen pelvis done on 10/07/2019 showed right upper lobe pulmonary mass 3.8 x 2.2 cm which has increased in size since last PET scan and now also with innumerable new pulmonary nodules throughout both lungs with significant progression of right hilar lymphadenopathy and hepatomegaly with innumerable metastatic lesions were both hepatic lobes butCT PET scan done earlier showed increased uptake in right upper lobe no FDG uptake in mediastinal or hilar lymph nodes as per pulmonology note History of adenocarcinoma involving the right upper lobe of the lung status post wedge resection and March 2018, stage IA no further treatment was offered rather follow-up. COPD on home oxygen Hypertension. Plan: Discussed with patient regarding her labs white blood count 5.6 hemoglobin 11.1 hematocrit 37.5 platelets 48,000 CMP within normal limits except alk phos 252 Clinically, patient is doing well with no signs symptoms suggestive of disease progression, tolerating systemic therapy with carboplatin/etoposide/Tecentriq well. Her follow-up CBC showed white blood count within normal range due to Neulasta given after the chemotherapy but significant drop in her platelet count and with a stable mild anemia. Patient has no evidence of gross bleeding and hemoglobin is stable. We will continue monitor and repeat her CBC on Sunday if thrombocytopenia resolves and her white blood count continues stay within normal range then will consider final cycle #6 of chemotherapy with carboplatin/etoposide/Tecentriq on Sunday otherwise we will hold chemo for another week and repeat CBC to ensure recovery before we consider final cycle of chemotherapy/immunotherapy prior to follow-up CT PET scan, if that shows complete remission then will discuss with patient regarding maintenance therapy with Tecentriq versus observation. Patient was advised to avoid any kind of trauma. Signed By: Nikki Kunz M.D. <<Signature on File>>
--- NOTE | 2020-03-25 16:07 | ONC FU_ITS ---
Dr. Kunz follow up note Patient: Shira Mata Ann Unit #: [id number]: 1955 Dicatated By: Nikki Kunz M.D.Date of Visit:Mar 23, 2020 Onc Med Follow-up/Prog Note History of Present Illness: Mrs. Shira Mata, is a 64-year-old female with a history of adenocarcinoma involving the right upper lobe underwent wedge resection in March 2018 in [facility]. As per patient he was stage IA, clear surgical margins and no further treatment was suggested but follow-up every 6 months. Patient said later on she moved to [facility], and lost insurance so no further follow-up was done. Later on she moved to [facility] and establish pulmonary care with Dr. Monroe and during evaluation for COPD, as per patient her chest x-ray shows some abnormality in right lung, subsequently underwent CT scan of chest which revealed right upper lobe mass and patient underwent bronchoscopy and endobronchial ultrasound-guided transbronchial needle aspiration of hilar lymph node which was negative for malignancy. CT PET scan was done which showed hypermetabolic right upper lobe lung mass but no FDG uptake in the hilar or mediastinal lymph nodes. Subsequently on 09/01/2019 she underwent transthoracic needle biopsy in [place] and final pathology report came back small cell carcinoma, interestingly, as mentioned earlier in March 2018 she underwent wedge resection for adenocarcinoma in same right upper lobe of the lung. Recently developed episode of headaches and underwent CT scan of the head and was diagnosed with small subdural bleed which was managed in [place] without surgical intervention. Patient has COPD she is on home oxygen. History of hypertension, Patient developed progressive symptoms and was admitted to hospital recently and follow-ups CT scan of chest abdomen done on 10/07/2019 showed disease progression e.g. now right upper lobe lung mass measuring 2.8 x 3.2 cm, has increased in size and also seen innumerable new metastatic pulmonary nodules throughout both lungs with significant progression right hilar lymphadenopathy, hepatomegaly and innumerable metastatic lesions were both hepatic lobes. 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 No definite visible evidence of intraparenchymal metastatic disease. As her headaches were not controlled with narcotics so trial of dexamethasone 4 mg every 6 hours for 3 days followed by 4 mg 3 times a day for 3 days was tried and patient felt much better with good pain control. Follow-up CT PET scan done after 3 cycles of chemotherapy,on 12/20/2019 showed excellent response now with right upper lobe nodule which was previously 2.8 x 3[address] scan of chest abdomen pelvis done on 10/07/2019 and now it is 1.1 x 1.5 cm with SUV of 5.7 and a secondary 1.1 cm nodule seen previously is no longer seen and the liver also shows normal uptake with resolution of metastatic disease and no other distant metastases seen, Patient continued with her systemic chemotherapy carboplatin/etoposide/Tecentriq and fifth dose was given on February 16 through February 19, 2020, she did fine but after couple of weeks she developed progressive shortness of breath, concern was with a COPD exacerbation but she was diagnosed with right pleural effusion which was drained on March 12, 2020, and again patient was admitted to hospital on March 15, 2020 with recurrent right pleural effusion and that time chest tube was placed in about 4 L fluid was drained and cytology came back clusters of large malignant cells with atypical mitotic figures., Sample was suboptimal further evaluation with flow cytometry was suggested, which was done and it ruled out lymphoma. Patient has history of adenocarcinoma of the lung in the past for which she underwent resection so, there was a concern whether pleural effusion was due to adenocarcinoma as her small cell lung cancer was responding so well to the chemotherapy. Patient underwent right Pleurx catheter and was discharged home on March 20, 2020.During recent hospital visit she underwent CTA chest which showed right pleural effusion as well as disease progression . Came for follow-up, complaining of generalized weakness and fatigue and poor appetite, poor oral intake, no shortness of breath at rest but dyspnea on exertion. Patient has Pleurx catheter in the right chest as per daughter Michelle, fluid drainage is decreasing. Patient denies any hemoptysis or hematemesis, denies any fever or chills, denies any headaches blurred vision or double vision. Medications: Albuterol Sulfate 1 (108 (90 base) mcg/act) Aerosol Powder, Breath Activated Inhalation daily, Anoro Ellipta 1 (62.5-25 mcg/inh) Aerosol Powder, Breath Activated Inhalation daily, Cyclobenzaprine HCl 1 Tablet (of 5 mg) Oral daily, HYDROcodone-Acetaminophen 1 - 2 Tablet (of 5-325 mg) Oral daily PRN, Montelukast Sodium 1 Tablet (of 10 mg) Oral daily, Pantoprazole Sodium 1 Tablet (of 20 mg) Tablet, enteric coated Oral daily, Tolterodine Tartrate ER 1 (4 mg) Capsule SR 24 HR Oral daily Allergies: Iodinated Contrast Media, Lisinopril, and Naproxen. Review of Systems: Constitutional - Appetite and weight have decreased. No fever, chills, hot flashes, or night sweats. Energy level is poor, ENMT - No sinus congestion/drainage. No mouth sores. No sore throat or difficulty swallowing, Hematologic/Lymphatic - Positive for easy bruising, Respiratory - Positive for severe shortness of breath and slight cough. No pleuritic pain or hemoptysis, Cardiovascular - No angina pain. No palpitations, Gastrointestinal - Positive for nausea today, Genitourinary (F) - No dysuria or hematuria. No urinary frequency. No urgency. Positive for incontinence, Musculoskeletal - Positive for joint stiffness, Neurologic - No headache, no dizziness. No numbness/paresthesias or other focal neurologic symptoms, Psychiatric - No anxiety or depression. Positive for insomnia. Vital Signs: Performed on Mar 23, 2020 10:48 Height - 68.00 in Weight - lbs Temperature - 98.3 F (LOW) Pulse - 98 /min Respiration - 24 /min BP - 122/64 mm(hg) O2 Sat - 83 % (LOW) Pain - 6 Performance Status: 3 - Capable of only limited self-care, confined to bed or chair more than 50% of waking hours. (ECOG) Physical Examination: ENMT - Poor oral hygiene but no mucositis, Respiratory - Decreased breath sound bilaterally more on the right side, right Pleurx catheter site, without discharge, Cardiovascular - Regular rate and rhythm of heart, Abdomen - Soft, bowel sounds present, Extremities - 2+ edema bilaterally. Lab/Imaging: Test performed on Mar 01, 2020 12:25 Cr Clearance (Est) 85.4500 mL/min Neutrophils 3.51 10 3/uL Eosinophils 0.1 10 3/uL Basophils 0.0 10 3/uL Neutrophil % 63.1 % Eosinophil % 1.3 % Basophils % 0.5 % NRBC % 0 % CBC Slide Review Slide Review Perform SLIDE REVIEW AGREES WITH AUTOMATED RESULTS Test performed on Dec 01, 2019 12:43 Manual Lymphocytes 9.8 % Manual Monocytes 7.6 % Manual Eosinophils 0.2 % Manual Basophils 0.8 % Test performed on Nov 17, 2019 10:50 Manual Bands % 12.0 % Metamyelocytes % 2.0 % Myelocytes % 5.0 % Hypochromia 1+ Polychromasia 1+ Poikilocytosis 1+ Manual Bands Abs 0.8 10 3/cmm Manual Monocytes Abs 0.5 10 3/cmm Test performed on Nov 03, 2019 14:10 Anisocytosis 1+ Impression: small cell lung cancer per transthoracic right upper lobe lung biopsy done on 09/01/2019patient was admitted to hospital with progressive signs symptoms and diagnosed with metastatic small cell lung cancer per CT scan of chest abdomen and she was started on systemic chemotherapy with carboplatin/etoposide on 10/13/2019. Because of extensive disease Tecentriq was added, Patient received total 5 doses of carboplatin/etoposide/Tecentriq till February 2020 as further course was complicated by recurrent right pleural effusion, cytology confirmed malignant and CTA chest done showed no evidence of pulmonary embolism but new right pleural effusion and disease progression .CT scan of chest abdomen pelvis done on 10/07/2019 showed right upper lobe pulmonary mass 3.8 x 2.2 cm which has increased in size since last PET scan and now also with innumerable new pulmonary nodules throughout both lungs with significant progression of right hilar lymphadenopathy and hepatomegaly with innumerable metastatic lesions were both hepatic lobes butCT PET scan done earlier showed increased uptake in right upper lobe no FDG uptake in mediastinal or hilar lymph nodes as per pulmonology note History of adenocarcinoma involving the right upper lobe of the lung status post wedge resection and March 2018, stage IA no further treatment was offered rather follow-up. COPD on home oxygen Hypertension. Plan: Discussed with patient regarding her disease status and further treatment options, considering her poor performance status and now disease progression while on systemic therapy/immunotherapy with carboplatin/etoposide/Tecentriq, her prognosis is guarded treatment options including new agent Lurbinectedin ( Zepzelca) or hospice care was discussed, patient will discuss with family and decide whether to consider hospice or proceed with palliative therapy with zepzelca, which is a new drug recently approved by FDA with significant response in recurrent small cell lung cancer but with significant toxicity. Patient has poor performance status due to poor nutritional status, patient was encouraged to maintain nutrition and once patient decided, then will make further planning e.g. hospice versus palliative therapy. Signed By: Nikki Kunz M.D. <<Signature on File>>
== END 2019-10-17 12:00 | disposition home health service (06) | DRG 190 ==
LOC: ER 14:04 → MEDSURG 16:02
PROVIDERS: Admitting Provider Internal Medicine; Emergency Provider Family Medicine; Family Provider Family Medicine; PCP Nurse Practitioner Family; Visit Provider Student in an Organized Health Care Education/Training Program
DX: J43.9 Emphysema, unspecified (principal); J96.01 Acute respiratory failure with hypoxia; C34.11 Malignant neoplasm of upper lobe, right bronchus or lung; N17.9 Acute kidney failure, unspecified; C78.7 Secondary malignant neoplasm of liver and intrahepatic bile duct; C78.02 Secondary malignant neoplasm of left lung; Z79.899 Other long term (current) drug therapy; Z91.041 Radiographic dye allergy status; Z88.8 Allergy status to other drugs, medicaments and biological substances; K21.9 Gastro-esophageal reflux disease without esophagitis; M06.9 Rheumatoid arthritis, unspecified; I10 Essential (primary) hypertension; J20.9 Acute bronchitis, unspecified; F17.200 Nicotine dependence, unspecified, uncomplicated; R74.0 Nonspecific elevation of levels of transaminase and lactic acid dehydrogenase [LDH]; G47.00 Insomnia, unspecified; R79.89 Other specified abnormal findings of blood chemistry
CPT/HCPCS: 12345; 36415; 36600; 51702; 71045; 71275; 74177; 76700; 80048; 80053; 80074; 80076; 82803; 83880; 84443; 84484; 85007; 85025; 85610; 87040; 87522; 87804; 93005; 93306; 94640; 94660; 94760; 96375; 97116; 97161; 97530; 99214; 99284; J1100; J1940; J1956; J2060; J2405; J2469; J7030; J7040; J7512; J7626; J9045; J9181; Q0163; Q9967

== ENCOUNTER 2019-10-20 15:05 | Outpatient (CLI) | payer MEDICARE, MEDICAID, SELFPAY ==
[2019-10-20 15:41] LABS: Hemoglobin 10.4 g/dL (11.5-15.3); Lymphocytes # 0.6 10^3/uL (0.8-4.8); Lymphocytes % 92.2 %; Mean Corpuscular HGB Conc 30.6 g/dL (30.0-36.0); Mean Corpuscular Hemoglobin 24.9 pg (28.0-34.0); Mean Corpuscular Volume 81.5 fL (81-99); Mean Platelet Volume 11.9 fL (7.4-10.4); Monocytes % 1.6 %; Neutrophils % 4.6 %; Nucleated Red Blood Cells % 0 %; Red Blood Count 4.17 10^6/uL (4.1-5.3); Red Cell Distribution Width 15.5 % (12.1-15.1)
[2019-10-20 16:38] LABS: Alanine Aminotransferase 52 U/L (0-33); Albumin Level 3.1 g/dL (3.5-5.2); Alkaline Phosphatase 298 IU/L (35-105); Anion Gap 17.3 (5-19); Aspartate Amino Transferase 45 U/L (0-32); Blood Urea Nitrogen 20 mg/dL (8-23); Calcium 9.7 mg/dL (8.5-10.5); Carbon Dioxide 30 mmol/L (22-29); Chloride 96 mmol/L (98-107); Glomerular Filtration Rate 100.3 mL/min (90-130); Glucose 137 mg/dL (65-115); Osmolality Calculated 287 mOsm/kg (285-295); Potassium 4.3 mmol/L (3.5-5.1); Sodium 139 mmol/L (136-145); Total Bilirubin 0.5 mg/dL (0.15-1.2); Total Protein 6.1 g/dL (6.6-8.7)
[2019-10-20 16:41] LABS: Platelet Count 48 10^3/cmm (130-400)
[2019-10-20 16:42] LABS: Slide Review Slide Review Perform; White Blood Count 0.6 10^3/uL (4.0-10.0)
== END 2019-10-20 15:06 | disposition home or self-care (01) ==
PROVIDERS: Family Provider Family Medicine; PCP Nurse Practitioner Family; Visit Provider Internal Medicine Hematology & Oncology
DX: C34.11 Malignant neoplasm of upper lobe, right bronchus or lung (principal); J44.9 Chronic obstructive pulmonary disease, unspecified; I10 Essential (primary) hypertension; Z99.81 Dependence on supplemental oxygen; Z79.51 Long term (current) use of inhaled steroids; Z79.891 Long term (current) use of opiate analgesic; Z79.899 Other long term (current) drug therapy; Z90.2 Acquired absence of lung [part of]
CPT/HCPCS: 80053; 85025; 99214

== ENCOUNTER 2019-10-27 13:50 | Outpatient (CLI) | payer MEDICARE, MEDICAID, SELFPAY ==
[2019-10-27 16:18] LABS: Eosinophils % 0.8 %; Hematocrit 30.6 % (37.0-47.0); Hemoglobin 9.2 g/dL (11.5-15.3); Lymphocytes % 82.8 %; Mean Corpuscular HGB Conc 30.1 g/dL (30.0-36.0); Mean Corpuscular Hemoglobin 25.3 pg (28.0-34.0); Mean Corpuscular Volume 84.1 fL (81-99); Monocytes # 0.2 10^3/uL (0.2-0.9); Monocytes % 13.1 %; Neutrophils % 3.3 %; Nucleated Red Blood Cells % 3.3 %; Platelet Count 31 10^3/cmm (130-400); Red Blood Count 3.64 10^6/uL (4.1-5.3); Red Cell Distribution Width 14.3 % (12.1-15.1); White Blood Count 1.2 10^3/uL (4.0-10.0)
[2019-10-27 17:35] LABS: Alanine Aminotransferase 28 U/L (0-33); Albumin Level 3.6 g/dL (3.5-5.2); Alkaline Phosphatase 279 IU/L (35-105); Anion Gap 14.2 (5-19); Aspartate Amino Transferase 24 U/L (0-32); Blood Urea Nitrogen 15 mg/dL (8-23); Calcium 8.9 mg/dL (8.5-10.5); Carbon Dioxide 28 mmol/L (22-29); Chloride 103 mmol/L (98-107); Glomerular Filtration Rate 100.3 mL/min (90-130); Glucose 127 mg/dL (65-115); Osmolality Calculated 290 mOsm/kg (285-295); Potassium 4.2 mmol/L (3.5-5.1); Sodium 141 mmol/L (136-145); Total Bilirubin 0.4 mg/dL (0.15-1.2); Total Protein 6.6 g/dL (6.6-8.7)
== END 2019-10-27 13:51 | disposition home or self-care (01) ==
LOC: ONCMED 15:31
PROVIDERS: Family Provider Family Medicine; PCP Nurse Practitioner Family; Visit Provider Internal Medicine Hematology & Oncology
DX: C34.11 Malignant neoplasm of upper lobe, right bronchus or lung (principal); D70.9 Neutropenia, unspecified
CPT/HCPCS: 80053; 85025

== ENCOUNTER 2019-10-28 15:54 | Outpatient (CLI) | payer MEDICARE, MEDICAID, SELFPAY ==
[2019-10-28 16:46] LABS: Eosinophils % 0.8 %; Hematocrit 31.1 % (37.0-47.0); Hemoglobin 9.2 g/dL (11.5-15.3); Lymphocytes # 0.9 10^3/uL (0.8-4.8); Lymphocytes % 71.1 %; Mean Corpuscular HGB Conc 29.6 g/dL (30.0-36.0); Mean Corpuscular Hemoglobin 25.6 pg (28.0-34.0); Mean Corpuscular Volume 86.4 fL (81-99); Mean Platelet Volume 11.1 fL (7.4-10.4); Monocytes # 0.3 10^3/uL (0.2-0.9); Monocytes % 20.7 %; Neutrophils % 6.6 %; Nucleated Red Blood Cells % 2.5 %; Platelet Count 51 10^3/cmm (130-400); Red Cell Distribution Width 14.3 % (12.1-15.1); White Blood Count 1.2 10^3/uL (4.0-10.0)
[2019-10-28 17:02] LABS: Neutrophils # 0.1 10^3/uL (1.8-7.7); Slide Review Slide Review Perform
== END 2019-10-28 15:55 | disposition home or self-care (01) ==
PROVIDERS: Family Provider Family Medicine; PCP Nurse Practitioner Family; Visit Provider Internal Medicine Hematology & Oncology
DX: C34.11 Malignant neoplasm of upper lobe, right bronchus or lung (principal); C77.1 Secondary and unspecified malignant neoplasm of intrathoracic lymph nodes; I10 Essential (primary) hypertension; J44.9 Chronic obstructive pulmonary disease, unspecified; Z99.81 Dependence on supplemental oxygen; Z79.51 Long term (current) use of inhaled steroids; Z79.891 Long term (current) use of opiate analgesic; Z79.899 Other long term (current) drug therapy; Z90.2 Acquired absence of lung [part of]
CPT/HCPCS: 85025; 99214

== ENCOUNTER 2019-11-10 05:58 | Day surgery (SDC) | payer MEDICARE, MEDICAID, SELFPAY ==
[2019-11-07 09:33] VITALS: BMI 25.0
--- NOTE | 2019-11-10 06:08 | W.PM.OPSFHP ---
Same Day Surgery H&P Indication for Procedure/HPI DATE OF PROCEDURE: November 10, 2019 CHIEF COMPLAINT/INDICATIONFOR SURGICAL PROCEDURE: Am here to have Port-A-Cath PREOP DIAGNOSIS: Lung cancer PLANNED PROCEDRUE: Operation Date: 11/10/19 07:20 Proposed Procedures p Portacath Placement 64518/R91.8(Not Applicable) - Christopher Lujan MD This is a pleasant 64 years old female patient with history of recent diagnosis of lung cancer that will require long-term IV access in the form of Port-A-Cath patient was referred to my practice to have it placed, I was able to have a telemetry health visit with the patient couple of days ago and she agreed to proceed with Port-A-Cath placement ROS All systems reviewed negative except as for per H&P and per problem list Medications/Allergies* Home Medications Medication Instructions Recorded Confirmed Type montelukast [Singulair] 10 mg PO DAILY 10/07/19 11/07/19 History pantoprazole [Protonix] 20 mg PO DAILY 10/07/19 11/07/19 History levofloxacin 500 mg PO DAILY 11/07/19 11/07/19 History ondansetron 4 mg PO Q6H 11/07/19 11/07/19 History tramadol 50 mg PO BID PRN 11/07/19 11/07/19 History trazodone 50 mg PO DAILY 11/07/19 11/07/19 History Allergies/Adverse Reactions Allergy/AdvReac Type Severity Reaction Status Date / Time naproxen Allergy Severe ALGY-Anaphy Verified 11/10/19 06:09 laxis Iodinated Contrast Media Allergy ALGY-Anaphy Verified 11/10/19 06:09 laxis lisinopril AdvReac diarrhea Verified 11/10/19 06:09 Pertinent History/Comorbid Conditions* Medical History (Updated 11/05/19 @ 15:26 by NELDA Berry) COPD (chronic obstructive pulmonary disease) Essential (primary) hypertension GERD (gastroesophageal reflux disease) Hypertension Lung cancer Rheumatoid arthritis Skull mass Subdural hemorrhage Urinary incontinence UTI (urinary tract infection) Surgical History (Updated 09/18/19 @ 12:28 by Marsha Thomas APRN) H/O shoulder surgery History of cholecystectomy History of knee replacement History of lung surgery CT guided trans-thoracic cord needle biopsy right upper lobe lung mass pending Hx of cataract surgery Family History (Updated 08/29/19 @ 15:19 by Mary Christensen LPN) Lung disease Mother COPD Brother COPD Social History Smoking and tobacco status: current every day smoker Alcohol intake: never Lives independently: Yes Household members: family and children Housing: House Marital status: service: No Current occupational status: retired History of recent travel: No Pertinent Exam Findings alert, oriented x 3, not clear to auscultation bilaterally (Scattered wheezes and rhonchi particularly on the right side) and regular rate & rhythm Abdominal examination nontender nondistended soft no organomegaly no guarding no rigidity or peritonitis Recommendations Surgery/Procedure today (Plan of care;After thorough history physical examination and reviewing the chart and images with my personal interpretation, I counseled the patient for Port-A-Cath placement, indications, risks including pneumothorax and injury of major vascular structures, benefits, and alternatives were all discussed with the patient, patient understands and is interested to proceed.Informed consent per chartAssurance and educationAll questions have been answered) Coding Level of Care Code Acute Air Traffic Instructor for Kiki Escobar
[2019-11-10 06:14] VITALS: BP 154/82; PULSE 89; RESP 20; TEMP 36.3; O2SAT 96
[2019-11-10 06:33] VITALS: PULSE 90; RESP 20; O2SAT 96
--- NOTE | 2019-11-10 06:33 | ANES.PREANE2 ---
Pre-Anesthetic Assessment Pre-Anesthetic Assessment: Height/Weight: Height 1.73 m Weight 74.843 kg Temp Pulse Resp BP Pulse Ox 97.4 F L 89 20 H 154/82 96 11/10/19 06:14 11/10/19 06:14 11/10/19 06:14 11/10/19 06:14 11/10/19 06:14 Preop Diagnosis: Lung cancer Proposed Procedure: Operation Date: 11/10/19 07:20 Proposed Procedures p Portacath Placement 37326/R91.8(Not Applicable) - Christopher Lujan MD Familial anesthetic complications: No trouble Was Beta Emma taken within 24 hours: N/A Last intake: Intake Last Liquid Date 11/09/19 Last Liquid Time 22:00 Last Solid Date 11/09/19 Last Solid Time 22:00 Social: Social History: Tobacco Packs per day: 0.5 ppd Comment: extensive hx of smoking Exam: Pre-Anes Outpt Exam: alert, oriented x 3, clear to auscultation bilaterally and regular rate & rhythm Additional Exam Findings (including area of procedure): coarse breathsounds w/ wheeze Airway: Cervical ROM: WNL MP: 4 Additional comments: edentulouus Pulmonary: Pulmonary: COPD (wears 2-4 L NC ) Comments: lung cancer CV/HEM: CV/HEM: HTN : : None reported Hepatic: Hepatic: None reported GI: GI: GERD Metabolic: Metabolic: None reported Musc/skel: Musc/skel: Lower Back Pain Neuropsych: Neuropsych: None reported Anesthetic Plan: ASA status: 4 Anesthesia: MAC Risk of > 500 ml blood loss (7ml/kg in children): No PFSH Anesthesia PFSH: Social History Smoking and tobacco status: current every day smoker Alcohol intake: never Lives independently: Yes Household members: family and children Housing: House Marital status: service: No Current occupational status: retired History of recent travel: No Data Anesthesia Cardiac Studies: No Data to Display
[2019-11-10] MEDS: ipratropium-albuterol 3 mL Neb INHALATION (06:40)
[2019-11-10 06:42] VITALS: PULSE 91; RESP 21; O2SAT 96
--- NOTE | 2019-11-10 06:49 | SC_ITS ---
WS: [id number] C-ARM RADIOGRAPHS CHEST; 2 IMAGES HISTORY: Intraoperative imaging. COMPARISON: None available. Intraoperative imaging during Port-A-Cath placement. LEFT IJ Port-A-Cath is present. Catheter crosses the midline and is at the junction of the brachiocephalic with the SVC. SC/C-arm FL for CVA [id number] IMPRESSION: Port-A-Cath terminates at the junction of the brachiocephalic with the SVC.
[2019-11-10] MEDS: sodium chloride 0.9% 1,000 ML 30 ML IV (06:59)
[2019-11-10] MEDS: lidocaine 2% INJ 20 mL INJECTION (07:18)
[2019-11-10] MEDS: heparin, porcine 1,000 unit/mL INJ 10 mL 10000 UNIT IRRIGATION (07:59)
--- NOTE | 2019-11-10 08:19 | P.OP_ITS ---
Operative Report Date of procedure: November 10, 2019 Pre-op Diagnosis: Lung cancer Post-op diagnosis: same Post-op Findings: Difficult access to left subclavian vein, access was obtained via left internal jugular vein Right lung mass Procedure Done: Ultrasound-guided left IJ Port-A-Cath placement PowerPort with fluoroscopic guidance and ultrasound images interpreted through the whole entire procedure by me. Implants: Left IJ PowerPort Surgeon: Christopher Lujan Combat Control Manager: cell technician Janie Strong nurse Nisa Anesthesia: MAC (WAYS OPERATOR Rivera) Estimated blood loss (mL): 5 Complications: No immediate complication Condition: stable Disposition: same day Brief History: This is a pleasant 64 years old female patient with history of right lung cancer that requires Port-A-Cath placement, due to the location of the lung mass were limited to place the port on the left side. Plan of care; After thorough history physical examination and reviewing the chart, I counseled the patient for Port-A-Cath placement, indications, risks including pneumothorax and injury of major vascular structures, benefits, and alternatives were all discussed with the patient, patient understands and is interested to proceed. Informed consent per chart Assurance and education All questions have been answered Procedure: U/S Guided IJ access Patient was identified in the holding area and taken to the operative room and placed in supine position IV propofol was given by the anesthesia provider ,both arms were tucked,Time-out was done verifying the patient's name/date of /planned procedure and destination after the procedure, all were in a greement. SCDs confirmed to be functioning, preoperative antibiotics administered per protocol, and beta digna protocol was confirmed, appropriate positioning of the patient was done by me. Medications were reviewed to assess for anticoagulant usage. Risks and benefits and prevention of central line associated blood stream infection (CLABSI) were discussed with the patient/CPOA, and a consent was obtained. Monitors were in place and monitored throughout the procedure. All necessary supplies were available prior to start. Hand hygiene was completed prior to starting. Maximum barrier technique was utilized including a sterile gown, sterile gloves with a hat and mask. Site was was prepped with [chlorhexidine] and a full body drape was placed. 5 mL of 2% lidocaine was injected into the skin with a 25 gauge needle. Prep& drape was done under the usual sterile technique, lidocaine 2% was injected at the site of the stick, started by left subclavian vein but were not able to have venous return so couple of times were tried and then I deviated my attention to the left internal jugular vein due to the location of the right lung mass I was limited not to Access from the right side due to potential future radiation Left internal Juglar vein stick that retrieved venous blood was obtained under ultrasound guidance and there was no evidence of intraluminal thrombosis, interpretation was done by me through the whole entire procedure, a guidewire was then threaded and under the guidance of fluoroscopy position was confirmed to be in the IVC and my interpretation, there was no PVC changes, at that point the guidewire was secured to the drapes with a hemostat and the needle was taken out. Attention was then deviated towards creation of a pocket for the port were lidocaine 2% was injected using an 15 blade knife skin incision was created at the right upper Chest ,dissection using the Bovie to create a pocket for the Port-A-Cath to be accommodated, hemostasis was secured, after the port being appropriately flushed it was inserted into the pocket and a tunneler was used to accommodate the catheter of the port cath to be delivered through the incision first created at the site of the stick, and then I was able to retrieve the catheter at the index site of the stick. At that point under fluoroscopy an estimated length was measured for the catheter and was cut at the designed level, followed by that a dilator with the sheath introduced onto the guidewire the dilator and the wire were retrieved and the catheter of the port was introduced via the sheath where it was peeled off and the catheter maintained to be in the brachiocephalic/SVC that was confirmed with fluoroscopy, and the fluoroscopy interpretation was done by me throughout the entire procedure that I did career counselor Dr. López intraoperatively and it would have been optimal if we can have the catheter tip in the SVC right atrium yet it was in a satisfactory position this point. Multiple flushes of the port was done by diluted heparin and I was able to retrieve without difficulty venous blood as well as appropriate flushing was achieved. The port was secured to the fascia with using Prolene sutures, 4-0 Vicryl deep subdermal interrupted sutures, skin was then closed by 4-0 Monocryl as subcuticular closure. The stick site was closed by 4-0 Monocryl and Dermabond was used followed by dressing. Patient tolerated the procedure well was taken to the recovery area Count was correct at the end of the procedure I was present for the whole entire procedure
--- NOTE | 2019-11-10 08:28 | XR_ITS ---
WS: [id number] PORTABLE CHEST HISTORY: s/p post left IJ port-a-cath placement COMPARISON: 10/10/2019. LEFT jugular subclavian Port-A-Cath has been placed. The tip of the line terminates near the junction of the SVC with the innominate. Hyperinflated lungs. Bilateral pulmonary nodules. These nodules are better appreciated on a prior CT. Largest nodule RIGHT upper lobe measures 2.5 cm. Chronic emphysema. No pleural effusion or pneumotho rax. Cardiac size: Normal. Mediastinum/Aorta: Mild atherosclerosis aorta. Prior RIGHT humeral head arthroplasty. XR/XR chest 1V portable [id number] IMPRESSION: 1. Interval placement LEFT Port-A-Cath with tip terminating at the junction of the SVC and innominate. 2. Emphysema and known pulmonary nodules.
[2019-11-10 08:35] VITALS: BP 125/82; PULSE 93; RESP 18; TEMP 36.1; O2SAT 95
[2019-11-10 09:06] VITALS: BP 136/87; PULSE 87; RESP 18; O2SAT 98
[2019-11-10] MEDS: HYDROcodone-acetaminophen 5-325 mg Tablet 1 TAB PO (09:11)
== END 2019-11-10 09:32 | disposition home or self-care (01) ==
PROVIDERS: Family Provider Family Medicine; PCP Nurse Practitioner Family; Visit Provider Surgery
PROC: (CPT 36561; principal; 2019-11-10 07:00)
DX: C34.90 Malignant neoplasm of unspecified part of unspecified bronchus or lung (principal); F17.210 Nicotine dependence, cigarettes, uncomplicated; J44.9 Chronic obstructive pulmonary disease, unspecified; I10 Essential (primary) hypertension; K21.9 Gastro-esophageal reflux disease without esophagitis; M06.9 Rheumatoid arthritis, unspecified
CPT/HCPCS: 36561; 12345; 71045; 76000; 77001; 94640; C1788; J0690; J1644; J2001; J2704; J3010; J7030

== ENCOUNTER 2019-11-11 06:36 | Outpatient (RCR) | payer MEDICARE, MEDICAID, SELFPAY ==
[2019-10-30 14:37] LABS: Alanine Aminotransferase 25 U/L (0-33); Albumin Level 3.3 g/dL (3.5-5.2); Alkaline Phosphatase 309 IU/L (35-105); Anion Gap 13.5 (5-19); Aspartate Amino Transferase 24 U/L (0-32); Blood Urea Nitrogen 13 mg/dL (8-23); Carbon Dioxide 29 mmol/L (22-29); Chloride 103 mmol/L (98-107); Globulin 3.3 g/dL (1.3-4.6); Glomerular Filtration Rate 100.3 mL/min (90-130); Glucose 123 mg/dL (65-115); Osmolality Calculated 290 mOsm/kg (285-295); Potassium 4.5 mmol/L (3.5-5.1); Sodium 141 mmol/L (136-145); Total Bilirubin 0.4 mg/dL (0.15-1.2); Total Protein 6.6 g/dL (6.6-8.7)
[2019-10-30 14:48] LABS: Basophils % 0.6 %; Eosinophils % 1.3 %; Hematocrit 28.9 % (37.0-47.0); Hemoglobin 8.7 g/dL (11.5-15.3); Lymphocytes % 60.8 %; Mean Corpuscular HGB Conc 30.1 g/dL (30.0-36.0); Mean Corpuscular Hemoglobin 25.4 pg (28.0-34.0); Mean Corpuscular Volume 84.5 fL (81-99); Mean Platelet Volume 11.5 fL (7.4-10.4); Monocytes # 0.3 10^3/uL (0.2-0.9); Monocytes % 20.3 %; Neutrophils % 13.2 %; Nucleated Red Blood Cells % 2.5 %; Platelet Count 90 10^3/cmm (130-400); Red Blood Count 3.42 10^6/uL (4.1-5.3); Red Cell Distribution Width 14.6 % (12.1-15.1); White Blood Count 1.6 10^3/uL (4.0-10.0)
[2019-10-30 15:10] LABS: Neutrophils # 0.2 10^3/uL (1.8-7.7)
[2019-11-03 16:35] LABS: Basophils % 0.3 %; Eosinophils % 0.3 %; Hemoglobin 7.8 g/dL (11.5-15.3); Lymphocytes # 1.1 10^3/uL (0.8-4.8); Lymphocytes % 36.7 %; Mean Corpuscular Hemoglobin 25.2 pg (28.0-34.0); Mean Corpuscular Volume 84.1 fL (81-99); Mean Platelet Volume 11.7 fL (7.4-10.4); Monocytes # 0.6 10^3/uL (0.2-0.9); Neutrophils # 1.2 10^3/uL (1.8-7.7); Neutrophils % 37.3 %; Nucleated Red Blood Cells # 0.1 /100WBC; Nucleated Red Blood Cells % 3.2 %; Platelet Count 183 10^3/cmm (130-400); Red Blood Count 3.09 10^6/uL (4.1-5.3); Red Cell Distribution Width 15.3 % (12.1-15.1); White Blood Count 3.1 10^3/uL (4.0-10.0)
[2019-11-03 16:53] LABS: Alanine Aminotransferase 17 U/L (0-33); Albumin Level 3.7 g/dL (3.5-5.2); Alkaline Phosphatase 334 IU/L (35-105); Anion Gap 15.3 (5-19); Aspartate Amino Transferase 20 U/L (0-32); Blood Urea Nitrogen 16 mg/dL (8-23); Calcium 9.1 mg/dL (8.5-10.5); Carbon Dioxide 25 mmol/L (22-29); Chloride 100 mmol/L (98-107); Globulin 2.8 g/dL (1.3-4.6); Glomerular Filtration Rate 100.3 mL/min (90-130); Glucose 117 mg/dL (65-115); Osmolality Calculated 279 mOsm/kg (285-295); Potassium 4.3 mmol/L (3.5-5.1); Sodium 136 mmol/L (136-145); Total Bilirubin 0.4 mg/dL (0.15-1.2); Total Protein 6.5 g/dL (6.6-8.7)
[2019-11-03 17:57] LABS: Slide Review Slide Review Perform
[2019-11-03 18:02] LABS: Band Neutrophils Absolute 0.2 10^3/cmm (0.0-1.2); Lymphocytes 49 %; Monocytes Absolute 0.1 10^3/cmm (0.1-0.6); Segmented Neutrophils 34 %; Total Cells Counted 100 (0-100)
[2019-11-03 18:03] LABS: Anisocytosis 1+; Platelet Estimate Normal (Normal); Poikilocytosis 1+
[2019-11-07 13:00] LABS: Basophils % 0.8 %; Eosinophils % 0.3 %; Hematocrit 28.5 % (37.0-47.0); Hemoglobin 8.3 g/dL (11.5-15.3); Mean Corpuscular HGB Conc 29.1 g/dL (30.0-36.0); Mean Corpuscular Hemoglobin 25.2 pg (28.0-34.0); Mean Corpuscular Volume 86.4 fL (81-99); Mean Platelet Volume 10.8 fL (7.4-10.4); Monocytes # 0.6 10^3/uL (0.2-0.9); Monocytes % 15.9 %; Neutrophils % 54.3 %; Nucleated Red Blood Cells # 0.2 /100WBC; Nucleated Red Blood Cells % 6.6 %; Platelet Count 220 10^3/cmm (130-400); Red Cell Distribution Width 16.9 % (12.1-15.1); White Blood Count 3.7 10^3/uL (4.0-10.0)
[2019-11-07 13:13] LABS: Alanine Aminotransferase 15 U/L (0-33); Albumin Level 3.7 g/dL (3.5-5.2); Alkaline Phosphatase 324 IU/L (35-105); Anion Gap 15.7 (5-19); Aspartate Amino Transferase 21 U/L (0-32); Blood Urea Nitrogen 17 mg/dL (8-23); Carbon Dioxide 27 mmol/L (22-29); Chloride 100 mmol/L (98-107); Globulin 2.3 g/dL (1.3-4.6); Glucose 95 mg/dL (65-115); Osmolality Calculated 282 mOsm/kg (285-295); Potassium 4.7 mmol/L (3.5-5.1); Sodium 138 mmol/L (136-145); Total Bilirubin 0.5 mg/dL (0.15-1.2)
--- NOTE | 2019-11-10 | SCC_ITS ---
Procedure Done: Ultrasound-guided left IJ Port-A-Cath placement PowerPort with fluoroscopic guidance 19.6 seconds of fluoroscopic guidance, for a cumulative dose of 2.23 mGy, was provided to Dr. Schafer by the radiology department. C-arm images of the chest were saved for the patient's permanent record. [facility]
== END 2019-11-11 23:59 | disposition home or self-care (01) ==
LOC: ONCMED 06:36
PROVIDERS: Family Provider Family Medicine; PCP Nurse Practitioner Family; Visit Provider Internal Medicine Hematology & Oncology
DX: C34.11 Malignant neoplasm of upper lobe, right bronchus or lung (principal); D70.9 Neutropenia, unspecified
CPT/HCPCS: 80053; 85007; 85025

== ENCOUNTER 2019-11-15 19:30 | Emergency (ER) | payer MEDICARE, MEDICAID, SELFPAY ==
[2019-11-15 19:32] VITALS: BP 140/92; PULSE 99; RESP 21; TEMP 37.1; O2SAT 90; BMI 25.8
--- NOTE | 2019-11-15 19:41 | PC.NURSE ---
patient states that she has had no trauma and has had a subdural hematoma and it had went away but it coming back now. patient states she is having jaw pain and head ache in the occipital area of the head that lasted for 20 minutes and was severe. patient recently had a port placed on the left side of her neck. patient states she has been dizzy. patient is currently on chemo treatments.
--- NOTE | 2019-11-15 19:49 | CTR_ITS ---
PROCEDURE INFORMATION: Exam: CT Head Without Contrast Exam date and time: 11/15/2019 8:05 PM Age: 64 years old Clinical indication: Headache not specified; Patient HX: Chemo PT C/O jaw and occipital pain TECHNIQUE: Imaging protocol: Computed tomography of the head without contrast. Total DLP: 1378.28 mGy-cm Radiation optimization: All CT scans at this facility use at least one of these dose optimization techniques: automated exposure control; mA and/or kV adjustment per patient size (includes targeted exams where dose is matched to clinical indication); or iterative reconstruction. COMPARISON: CT head wo con* [id number] 09/23/2019 1:05 PM FINDINGS: Brain: Examination reveals a large left frontotemporal extracalvarial soft tissue mass dimensions 49 mm by 13 mm x 37 mm. The mass is along the outer table of the skull. No underlying osteolytic destruction. Underneath the extracalvarial soft tissue mass is an extra-axial intracranial mass measuring 41 mm by 10 mm x 29 mm at the level of the sylvian fissure without significant mass effect. No inner table skull osteolytic destruction. There is apparent left meningeal extension into the anterior left temporal fossa. The aforemention findings raise strong suspicion for metastasis from the patient's known lung carcinoma. Extension from the outer table extracranial soft tissue mass into the extra-axial space of the intracranial space most likely from dural sinus spread. Currently no definite visible evidence of other intraparenchymal metastasis although MRI of the brain would be more sensitive for that evaluation. Currently no visible evidence of intracranial hemorrhagic event or generalized edema or demyelination. Ventricles: Unremarkable. No ventriculomegaly. Mastoid and paranasal sinus air cells: Visualized mastoid air cells are well aerated. No visible active paranasal sinus disease. CT/CT head wo con* [id number] IMPRESSION: 1. 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 2. MRI would be helpful in further delineation, characterization, and assessment for other metastatic foci. 3. No osteolytic destruction identified. Radiation Dose CTDIVOL = (mGy): DLP = 1378.28 (mGy-cm)
--- NOTE | 2019-11-15 19:49 | XRR_ITS ---
PROCEDURE INFORMATION: Exam: XR Chest, 1 View Exam date and time: 11/15/2019 8:08 PM Age: 64 years old Clinical indication: Cough; Prior surgery; Additional info: Port a cath TECHNIQUE: Imaging protocol: XR of the chest Views: 1 view. COMPARISON: [place] XR chest 1V portable [id number] 11/10/2019 8:29 AM FINDINGS: Tubes, catheters and devices: Left Infusaport catheter. Lungs: Patient with known lung carcinoma diagnosis. Surgical clips and anastomotic sutures right upper lobe from presumed partial segmental resection of a tumor mass. Suspicion of a 38 mm by 25 mm right upper lobe mass. Also suspicion for a right mid lung potential metastatic focus measuring 15 mm in diameter. Other hematogenous foci may be present. Findings of probable COPD/chronic bronchitis/centrilobular emphysema. Pleural space: Unremarkable. No pleural effusion. No pneumothorax. Heart/Mediastinum: Cardiac structures and configuration stable with arterial sclerosis. Bones/joints: Right shoulder prosthesis. XR/XR chest 1V portable [id number] IMPRESSION: 1. Known lung carcinoma with findings as detailed in text above. 2. No visible evidence of acute cardiopulmonary process.
[2019-11-15 19:50] VITALS: BP 110/72; PULSE 103; RESP 18; O2SAT 96
--- NOTE | 2019-11-15 19:50 | ECG_ITS ---
Measurements Intervals [place] Rate: 91 P: 63 AR: 134 QRS: 64 QRSD: 92 T: 36 QT: 350 QTc: 431 SINUS RHYTHM MODERATE T-WAVE ABNORMALITY, CONSIDER ANTERIOR ISCHEMIA [-0.1+ mV T WAVE IN V3/V4] Compared to ECG 10/07/2019 12:57:22 T-wave abnormality now present Possible ischemia now present Electronically Signed On 11-16-2019 21:09:47 CDT by Garry Duke M.D. [email or web address]
--- NOTE | 2019-11-15 20:02 | W.ED.HA ---
HPI - Headache General: Chief Complaint: Headache Stated Complaint: jaw pain/head ache Time Seen by Provider: 11/15/19 19:38 History of Present Illness: HPI Narrative: 64-year-old female with a history significant for carcinoma of the right lung. She also had a recent subdural hematoma that was managed conservatively. She says that she has had a headache that started earlier today, and significant lower jaw pain that started earlier today with it. These are both essentially resolved now. She had had swelling to the left side of her temporal area up until a week ago, and it resolved. The swelling is back today. No history of trauma. No other neurological symptoms such as weakness, blurry vision, etc. She has not had a fever. She had a Port-A-Cath placed last week. MD elicited complaint: headache Onset (ago): hour(s) Onset description: suddenly Location: left and temporal Quality & Timing: throbbing Exacerbating factors: none Relieving factors: nothing Context: occurred at rest Associated symptoms: Deny chest pain, confusion, cough, fever(s), nausea, rash, seizures, vomiting or weakness Review of Systems Const: Denies: fever Eyes: Denies: change in vision or blurry vision ENMT: Denies: painful swallowing, swelling of lips/tongue, bleeding gums, Change in hearing, nose bleeds or post nasal drip Card: Denies: chest pain Resp: Denies: shortness of breath, productive cough, non-productive cough or wheezing GI: Denies: nausea or vomiting : Denies: painful urination, urinary frequency, urinary urgency or blood in urine Musc: Reports: neck pain; Denies: back pain, redness or joint warmth Skin/Breast: Denies: rash, itching or redness Neuro: Reports: headache; Denies: dizziness, vertigo, confusion or seizure-like activity Psych: Denies: anxiety PFSH ED PFSH: Social History Smoking and tobacco status: current every day smoker Alcohol intake: never Lives independently: Yes Household members: family and children Housing: House Marital status: service: No Current occupational status: retired History of recent travel: No Physical Exam Const: GENERAL APPEARANCE: well developed ORIENTATION/CONSCIOUSNESS: Yes oriented to person, Yes oriented to place and Yes oriented to time HENMT: COMMON NORMALS: normocephalic, external ears normal and external nose normal HEAD & SCALP: normocephalic and hematoma (Significant swelling to the left temporal region) FACE & SINUS: normal facial exam NOSE: external nose normal and no nasal discharge EXTERNAL EAR: Yes external ears normal MOUTH: tongue normal THROAT: posterior oropharynx normal; no peritonsillar mass Eye: COMMON NORMALS: PERRL, EOMs intact bilaterally and conjunctivae normal EYELID: eyelids normal CONJUNCTIVA: Yes conjunctivae normal PUPIL: Yes PERRL Neck/C-Spine: COMMON NORMALS: full ROM GENERAL: No tracheal deviation CERVICAL SPINE: Yes normal cervical lordosis and No cervical spine tenderness Chest: COMMONS NORMALS: inspection of chest normal CHEST: No tenderness Resp: COMMON NORMALS: clear to auscultation bilaterally EFFORT & INSPECTION: No tachypneic, No respiratory distress, No retractions, No uses accessory muscles and No tracheal deviation AUSCULTATION: clear to auscultation bilaterally, no rhonchi, no wheezes and lung sounds not diminished Cardio: COMMON NORMALS: regular rate and regular rhythm RATE: regular rate RHYTHM: regular rhythm HEART SOUNDS: no murmurs PERIPHERAL PULSES: radial pulses present GI: INSPECTION: No abdominal distension AUSCULTATION: No hyperactive bowel sounds and No hypoactive bowel sounds PALPATION: No guarding and No rigid PERCUSSION: no dullness to percussion and no tympanic to percussion : COMMON NORMALS: Yes no CVA tenderness BLADDER/KIDNEY EXAM: Yes no CVA tenderness Back/Pelvis: COMMON NORMALS: no CVA tenderness Neuro: SENSORIUM/ORIENTATION: Yes oriented to person, Yes oriented to place and Yes oriented to time Psych: COMMON NORMALS: mental status grossly normal Skin: COMMON NORMALS: no rashes or lesions noted GENERAL SKIN EXAM: no rashes or lesions noted Course Vital Signs: Vital signs: Vital Signs Temperature 98.8 F 11/15/19 19:32 Pulse Rate 84 11/15/19 21:59 Respiratory Rate 16 11/15/19 21:59 Blood Pressure 120/81 11/15/19 21:59 Pulse Oximetry 100 11/15/19 21:59 MDM - Headache MDM Narrative: Medical decision making narrative: Spoke with the radiologist. Appears the soft tissue swelling, is actually a mass to the left temporal area. This is extracalvarial. It appears to be metastatic to him. Spoke with her oncologist, who wants to see her on Sunday. He prescribes dexamethasone every 6 hours for 48 hours then 3 times daily for 48 more hours. Counseled the patient on her diagnosis. Lab Data: Labs: Lab Results 11/15/19 11/15/19 11/15/19 Range/Units 20:00 20:00 20:00 WBC 4.6 (4.0-10.0) 10^3/ uL RBC 3.61 L (4.1-5.3) 10^6/u L Hgb 9.2 L (11.5-15.3) g/dL Hct 32.4 L (37.0-47.0) % MCV 89.8 (81-99) fL MCH 25.5 L (28.0-34.0) pg MCHC 28.4 L (30.0-36.0) g/dL RDW 19.2 H (12.1-15.1) % Plt Count 153 (130-400) 10^3/c mm MPV 10.2 (7.4-10.4) fL Neut % (Auto) 60.0 % Lymph % (Auto) 21.3 % [place] % (Auto) 11.7 % Eos % (Auto) 1.5 % Baso % (Auto) 0.7 % Neut # (Auto) 2.8 (1.8-7.7) 10^3/u L Lymph # (Auto) 1.0 (0.8-4.8) 10^3/u L [place] # (Auto) 0.5 (0.2-0.9) 10^3/u L Eos # (Auto) 0.1 (0.0-0.8) 10^3/u L Baso # (Auto) 0.0 (0.0-0.1) 10^3/u L Nucleated RBC % (a uto) 3.7 % Nucleated RBCs # 0.2 /100WBC PT 15.40 H (10.5-13.3) SECO NDS INR 1.18 (0.8-1.2) APTT 33.2 (23.9-36.7) SECO NDS Sodium 137 (136-145) mmol/L Potassium 3.8 (3.5-5.1) mmol/L Chloride 100 (98-107) mmol/L Carbon Dioxide 26 (22-29) mmol/L Anion Gap 14.8 (5-19) BUN 18 (8-23) mg/dL Creatinine 0.8 (0.5-0.9) mg/dL GFR Calculation 72.0 L (90-130) mL/min Glucose 118 H (65-115) mg/dL Calculated Osmolal ity 282 L (285-295) mOsm/k g Calcium 9.1 (8.5-10.5) mg/dL Total Bilirubin 0.4 (0.15-1.2) mg/dL AST 20 (0-32) U/L ALT 12 (0-33) U/L Alkaline Phosphata se 260 H (35-105) IU/L C-Reactive Protein 11.6 H (0.0-4.9) mg/L Total Protein 6.5 L (6.6-8.7) g/dL Albumin 3.7 (3.5-5.2) g/dL Globulin 2.8 (1.3-4.6) g/dL Discharge Plan Discharge Patient Disposition: Home, Self-Care Clinical Impression: Mass of soft tissue of face Condition: Stable Prescriptions: New dexamethasone 4 mg tablet 4 mg PO Q6H Qty: 14 RF: 0 No Action albuterol sulfate [ProAir HFA] 90 mcg/actuation HFA aerosol inhaler 2 puff INHALATION Q6H PRN (Reason: bronchospasm) Qty: 6.7 RF: 2 albuterol sulfate 2.5 mg /3 mL (0.083 %) solution for nebulization 2.5 mg INHALATION Q4H PRN (Reason: bronchospasm) Qty: 90 RF: 2 Anoro Ellipta 62.5-25 mcg/actuation blister with device 1 inh INHALATION Q24H Qty: 60 RF: 2 metaxalone [Skelaxin] 800 mg tablet 800 mg PO TID Qty: 90 RF: 0 pantoprazole [Protonix] 20 mg tablet,delayed release (DR/EC) 20 mg PO DAILY RF: 0 montelukast [Singulair] 10 mg tablet 10 mg PO DAILY RF: 0 trazodone 50 mg Tablet 50 mg PO DAILY RF: 0 tramadol 50 mg Tablet 50 mg PO BID PRN (Reason: Pain) RF: 0 levofloxacin 500 mg Tablet 500 mg PO DAILY RF: 0 ondansetron 4 mg Tablet,Disintegrating 4 mg PO Q6H RF: 0 [place] 5-325 mg tablet 1 tab PO Q6H PRN (Reason: pain) Qty: 10 RF: 0 Discharge Orders: Discharge Order (Routine); Ordered 11/15/19 Ordered By: Jabier Rosario Referrals: Prema Jenkins FNP [Primary Care Provider] - Nikki Kunz MD [Staff Physician] - (Call Sunday morning for an appointment. ) Marifer Herrera MD [Family Provider] - Discharge Diet: Usual diet Discharge Activity: Increase activity as tolerated Activity Restrictions/Additional Instructions: Return for worsening pain, mental status changes, weakness, shortness of breath, other concerning symptoms. Call your oncology office on Sunday morning, they will want to see you on Sunday instead of Sunday more than likely. Medication as directed. Discharge Date/Time: 11/15/19 22:00 Coding Level of Care Code ED Supervisor Wet End for Chg Fwd Exam Comprehensive
[2019-11-15 20:08] LABS: Basophils % 0.7 %; Eosinophils # 0.1 10^3/uL (0.0-0.8); Eosinophils % 1.5 %; Hematocrit 32.4 % (37.0-47.0); Hemoglobin 9.2 g/dL (11.5-15.3); Lymphocytes % 21.3 %; Mean Corpuscular HGB Conc 28.4 g/dL (30.0-36.0); Mean Corpuscular Hemoglobin 25.5 pg (28.0-34.0); Mean Corpuscular Volume 89.8 fL (81-99); Mean Platelet Volume 10.2 fL (7.4-10.4); Monocytes # 0.5 10^3/uL (0.2-0.9); Monocytes % 11.7 %; Neutrophils # 2.8 10^3/uL (1.8-7.7); Nucleated Red Blood Cells # 0.2 /100WBC; Nucleated Red Blood Cells % 3.7 %; Platelet Count 153 10^3/cmm (130-400); Red Blood Count 3.61 10^6/uL (4.1-5.3); Red Cell Distribution Width 19.2 % (12.1-15.1); White Blood Count 4.6 10^3/uL (4.0-10.0)
[2019-11-15 20:18] LABS: INR 1.18 (0.8-1.2)
[2019-11-15 20:19] LABS: Partial Thromboplastin Time 33.2 SECONDS (23.9-36.7)
[2019-11-15 20:29] VITALS: PULSE 91; O2SAT 100
[2019-11-15 20:33] LABS: Alanine Aminotransferase 12 U/L (0-33); Albumin Level 3.7 g/dL (3.5-5.2); Alkaline Phosphatase 260 IU/L (35-105); Anion Gap 14.8 (5-19); Aspartate Amino Transferase 20 U/L (0-32); Blood Urea Nitrogen 18 mg/dL (8-23); C Reactive Protein 11.6 mg/L (0.0-4.9); Calcium 9.1 mg/dL (8.5-10.5); Carbon Dioxide 26 mmol/L (22-29); Chloride 100 mmol/L (98-107); Globulin 2.8 g/dL (1.3-4.6); Glucose 118 mg/dL (65-115); Osmolality Calculated 282 mOsm/kg (285-295); Potassium 3.8 mmol/L (3.5-5.1); Sodium 137 mmol/L (136-145); Total Bilirubin 0.4 mg/dL (0.15-1.2); Total Protein 6.5 g/dL (6.6-8.7)
[2019-11-15] MEDS: dexamethasone 4 mg Tablet PO (21:42)
[2019-11-15 21:46] VITALS: BP 114/67; PULSE 86; O2SAT 99
[2019-11-15 21:59] VITALS: BP 120/81; PULSE 84; RESP 16; O2SAT 100
--- NOTE | 2019-11-17 12:28 | DCPLANNER ---
Patient is to follow up with oncology, embedded case manager called Olimpia Thompson at the oncology clinic informing the clinic that patient was seen in the ER and was recommended that patient follow up with clinic today. food and beverage manager was told that patient was being seen today at oncology.
== END 2019-11-15 22:00 | disposition home or self-care (01) ==
PROVIDERS: Emergency Provider Emergency Medicine; Family Provider Family Medicine; PCP Nurse Practitioner Family
DX: R22.0 Localized swelling, mass and lump, head (principal); F17.200 Nicotine dependence, unspecified, uncomplicated; C78.7 Secondary malignant neoplasm of liver and intrahepatic bile duct; C78.00 Secondary malignant neoplasm of unspecified lung; K21.9 Gastro-esophageal reflux disease without esophagitis; J44.9 Chronic obstructive pulmonary disease, unspecified
CPT/HCPCS: 12345; 70450; 71045; 80053; 85025; 85610; 85730; 86140; 93005; 99282; 99283; J8540

== ENCOUNTER 2019-12-02 08:52 | Outpatient (RCR) | payer MEDICARE, MEDICAID, SELFPAY ==
[2019-11-17 11:12] LABS: Basophils % 0.3 %; Eosinophils % 0.3 %; Hematocrit 31.6 % (37.0-47.0); Hemoglobin 9.1 g/dL (11.5-15.3); Lymphocytes # 0.7 10^3/uL (0.8-4.8); Lymphocytes % 11.1 %; Mean Corpuscular HGB Conc 28.8 g/dL (30.0-36.0); Mean Corpuscular Hemoglobin 25.5 pg (28.0-34.0); Mean Corpuscular Volume 88.5 fL (81-99); Mean Platelet Volume 10.6 fL (7.4-10.4); Monocytes # 0.5 10^3/uL (0.2-0.9); Monocytes % 7.5 %; Neutrophils # 4.8 10^3/uL (1.8-7.7); Neutrophils % 74.1 %; Nucleated Red Blood Cells # 0.2 /100WBC; Nucleated Red Blood Cells % 2.3 %; Platelet Count 167 10^3/cmm (130-400); Red Blood Count 3.57 10^6/uL (4.1-5.3); Red Cell Distribution Width 19.5 % (12.1-15.1); White Blood Count 6.4 10^3/uL (4.0-10.0)
[2019-11-17 11:37] LABS: Alanine Aminotransferase 15 U/L (0-33); Albumin Level 3.9 g/dL (3.5-5.2); Alkaline Phosphatase 232 IU/L (35-105); Anion Gap 16.2 (5-19); Aspartate Amino Transferase 22 U/L (0-32); Blood Urea Nitrogen 16 mg/dL (8-23); Calcium 9.2 mg/dL (8.5-10.5); Carbon Dioxide 25 mmol/L (22-29); Chloride 100 mmol/L (98-107); Globulin 2.7 g/dL (1.3-4.6); Glucose 135 mg/dL (65-115); Osmolality Calculated 282 mOsm/kg (285-295); Potassium 4.2 mmol/L (3.5-5.1); Sodium 137 mmol/L (136-145); Total Bilirubin 0.5 mg/dL (0.15-1.2); Total Protein 6.6 g/dL (6.6-8.7)
[2019-11-17 11:46] LABS: Slide Review Slide Review Perform
[2019-11-17 11:49] LABS: Absolute Segmented Neutrophil 3.6 10/cmm (1.6-7.1); Band Neutrophils Absolute 0.8 10^3/cmm (0.0-1.2); Lymphocytes 16 %; Monocytes Absolute 0.5 10^3/cmm (0.1-0.6); Segmented Neutrophils 57 %; Total Cells Counted 100 (0-100)
[2019-11-17 11:50] LABS: Hypochromasia 1+; Platelet Estimate Normal (Normal); Poikilocytosis 1+; Polychromasia 1+
[2019-11-17] MEDS: sodium chloride 0.9% 100 ML 75 ML (12:15)
[2019-11-18] MEDS: sodium chloride 0.9% 100 ML 75 ML (09:00)
[2019-11-19] MEDS: sodium chloride 0.9% 100 ML 75 ML (09:20)
[2019-11-19] MEDS: pegfilgrastim 6 mg/0.6 mL Kit (onpro) SUBCUT (11:15)
[2019-11-27 20:28] LABS: Basophils % 1.2 %; Eosinophils % 0.4 %; Hematocrit 24.9 % (37.0-47.0); Hemoglobin 7.3 g/dL (11.5-15.3); Lymphocytes # 0.9 10^3/uL (0.8-4.8); Lymphocytes % 36.2 %; Mean Corpuscular HGB Conc 29.3 g/dL (30.0-36.0); Mean Corpuscular Hemoglobin 25.6 pg (28.0-34.0); Mean Corpuscular Volume 87.4 fL (81-99); Monocytes # 0.4 10^3/uL (0.2-0.9); Monocytes % 15.9 %; Neutrophils # 0.9 10^3/uL (1.8-7.7); Neutrophils % 36.1 %; Nucleated Red Blood Cells # 0.1 /100WBC; Nucleated Red Blood Cells % 3.3 %; Red Blood Count 2.85 10^6/uL (4.1-5.3); Red Cell Distribution Width 18.2 % (12.1-15.1); White Blood Count 2.5 10^3/uL (4.0-10.0)
[2019-11-27 20:47] LABS: Alanine Aminotransferase 14 U/L (0-33); Albumin Level 3.6 g/dL (3.5-5.2); Alkaline Phosphatase 216 IU/L (35-105); Anion Gap 15.1 (5-19); Aspartate Amino Transferase 15 U/L (0-32); Blood Urea Nitrogen 16 mg/dL (8-23); Calcium 9.1 mg/dL (8.5-10.5); Carbon Dioxide 27 mmol/L (22-29); Chloride 100 mmol/L (98-107); Globulin 2.2 g/dL (1.3-4.6); Glomerular Filtration Rate 100.3 mL/min (90-130); Glucose 126 mg/dL (65-115); Osmolality Calculated 284 mOsm/kg (285-295); Potassium 4.1 mmol/L (3.5-5.1); Sodium 138 mmol/L (136-145); Total Bilirubin 0.3 mg/dL (0.15-1.2); Total Protein 5.8 g/dL (6.6-8.7)
[2019-11-27 21:40] LABS: Platelet Count 20 10^3/cmm (130-400)
[2019-11-27 21:41] LABS: Slide Review Slide Review Perform
[2019-12-01 13:21] LABS: Basophils # 0.1 10^3/uL (0.0-0.1); Basophils % 0.8 %; Eosinophils % 0.2 %; Hematocrit 23.7 % (37.0-47.0); Hemoglobin 6.9 g/dL (11.5-15.3); Lymphocytes # 1.3 10^3/uL (0.8-4.8); Lymphocytes % 9.8 %; Mean Corpuscular HGB Conc 29.1 g/dL (30.0-36.0); Mean Corpuscular Hemoglobin 25.6 pg (28.0-34.0); Mean Corpuscular Volume 87.8 fL (81-99); Monocytes % 7.6 %; Neutrophils # 9.1 10^3/uL (1.8-7.7); Neutrophils % 68.7 %; Nucleated Red Blood Cells # 0.1 /100WBC; Nucleated Red Blood Cells % 0.6 %; Red Cell Distribution Width 19.2 % (12.1-15.1); White Blood Count 13.2 10^3/uL (4.0-10.0)
[2019-12-01 13:39] LABS: Platelet Count 20 10^3/cmm (130-400)
[2019-12-01 13:40] LABS: Slide Review Slide Review Perform
[2019-12-02] VITALS (12 sets, daily range): BP systolic 106–132; BP diastolic 63–80; PULSE 76–88; RESP 18; TEMP 36.6–36.9; O2SAT 9–99
[2019-12-02] MEDS: diphenhydrAMINE 25 mg Capsule PO (11:35)
[2019-12-02] MEDS: sodium chloride 0.9% 250 ML 999 ML IV (11:35)
[2019-12-02] MEDS: FUROsemide 10 mg/mL SDV 2mL 20 MG IV (13:28)
== END 2019-12-11 23:59 | disposition home or self-care (01) ==
LOC: ONCMED 08:52
PROVIDERS: Family Provider Family Medicine; PCP Nurse Practitioner Family; Visit Provider Internal Medicine Hematology & Oncology
DX: Z51.11 Encounter for antineoplastic chemotherapy (principal); C34.11 Malignant neoplasm of upper lobe, right bronchus or lung; J44.9 Chronic obstructive pulmonary disease, unspecified; I10 Essential (primary) hypertension; M06.9 Rheumatoid arthritis, unspecified; R51 Headache; D70.1 Agranulocytosis secondary to cancer chemotherapy; T45.1X5A Adverse effect of antineoplastic and immunosuppressive drugs, initial encounter; Z90.2 Acquired absence of lung [part of]; Z79.899 Other long term (current) drug therapy
CPT/HCPCS: 36415; 36430; 36591; 80053; 85007; 85025; 86850; 86900; 86920; 96367; 96372; 96413; 96417; 99214; J1100; J1940; J2405; J2469; J2505; J7040; J7050; J9045; J9181; P9040

== ENCOUNTER 2019-12-16 06:52 | Outpatient (RCR) | payer MEDICARE, MEDICAID, SELFPAY ==
[2019-12-12 09:05] LABS: Basophils % 0.3 %; Eosinophils % 0.3 %; Hematocrit 32.5 % (37.0-47.0); Hemoglobin 9.7 g/dL (11.5-15.3); Lymphocytes # 1.1 10^3/uL (0.8-4.8); Lymphocytes % 15.6 %; Mean Corpuscular HGB Conc 29.8 g/dL (30.0-36.0); Mean Corpuscular Hemoglobin 27.5 pg (28.0-34.0); Mean Corpuscular Volume 92.1 fL (81-99); Mean Platelet Volume 10.4 fL (7.4-10.4); Monocytes # 0.8 10^3/uL (0.2-0.9); Monocytes % 11.1 %; Neutrophils # 4.9 10^3/uL (1.8-7.7); Neutrophils % 70.8 %; Nucleated Red Blood Cells # 0.1 /100WBC; Nucleated Red Blood Cells % 1.3 %; Platelet Count 198 10^3/cmm (130-400); Red Blood Count 3.53 10^6/uL (4.1-5.3); Red Cell Distribution Width 19.9 % (12.1-15.1); White Blood Count 6.9 10^3/uL (4.0-10.0)
[2019-12-12 09:27] LABS: Alanine Aminotransferase 12 U/L (0-33); Albumin Level 3.7 g/dL (3.5-5.2); Alkaline Phosphatase 227 IU/L (35-105); Anion Gap 13.1 (5-19); Aspartate Amino Transferase 15 U/L (0-32); Blood Urea Nitrogen 13 mg/dL (8-23); Carbon Dioxide 31 mmol/L (22-29); Chloride 100 mmol/L (98-107); Globulin 2.6 g/dL (1.3-4.6); Glomerular Filtration Rate 100.3 mL/min (90-130); Glucose 120 mg/dL (65-115); Osmolality Calculated 287 mOsm/kg (285-295); Potassium 4.1 mmol/L (3.5-5.1); Sodium 140 mmol/L (136-145); Total Bilirubin 0.3 mg/dL (0.15-1.2); Total Protein 6.3 g/dL (6.6-8.7)
[2019-12-12] MEDS: sodium chloride 0.9% 250 ML 75 ML IV (10:26)
[2019-12-12] MEDS: fosaprepitant 150 MG in sodium chloride 0.9% 50 ML, sodium chloride 0.9% (100 ml) 100 ML 300 MG IV (11:00)
[2019-12-15] MEDS: sodium chloride 0.9% 250 ML 75 ML IV (09:53)
[2019-12-16] MEDS: sodium chloride 0.9% 250 ML 75 ML IV (09:46)
[2019-12-16] MEDS: pegfilgrastim 6 mg/0.6 mL Kit (onpro) SUBCUT (10:00)
== END 2019-12-16 23:59 | disposition home or self-care (01) ==
LOC: ONCMED 06:52
PROVIDERS: Family Provider Family Medicine; PCP Nurse Practitioner Family; Visit Provider Internal Medicine Hematology & Oncology
DX: Z51.12 Encounter for antineoplastic immunotherapy (principal); Z51.11 Encounter for antineoplastic chemotherapy; C78.01 Secondary malignant neoplasm of right lung; Z85.118 Personal history of other malignant neoplasm of bronchus and lung; J44.9 Chronic obstructive pulmonary disease, unspecified; I10 Essential (primary) hypertension; Z79.899 Other long term (current) drug therapy; Z99.81 Dependence on supplemental oxygen; Z90.2 Acquired absence of lung [part of]
CPT/HCPCS: 80053; 85025; 96367; 96372; 96413; 96417; 99214; J1100; J1453; J2405; J2469; J2505; J7040; J7050; J9022; J9045; J9181

== ENCOUNTER 2019-12-22 13:16 | Emergency (ER) | payer MEDICARE, MEDICAID, SELFPAY ==
--- NOTE | 2019-12-22 13:23 | XRR_ITS ---
PROCEDURE INFORMATION: Exam: XR Chest, 1 View Exam date and time: 12/22/2019 2:22 PM Age: 64 years old Clinical indication: Cough; Prior surgery; Surgery date: 6+ months; Patient HX: HX of lung cancer, fever this am TECHNIQUE: Imaging protocol: XR of the chest Views: 1 view. COMPARISON: CR (CHEST, ) 11/15/2019 7:59 PM FINDINGS: Tubes, catheters and devices: Med port catheter again demonstrated. Lungs: COPD and interstitial disease. Pleural space: No significant pleural effusion. Heart/Mediastinum: No cardiomegaly. Vasculature: Pulmonary artery enlargement. Bones/joints: Right shoulder arthroplasty. Degenerative change. When correlating with the previous study, no significant interval changes are present. XR/XR chest 1V portable [id number] IMPRESSION: Stable appearance of the chest, not significantly changed from 11/15/19.
[2019-12-22 13:26] VITALS: BP 133/91; PULSE 107; RESP 18; TEMP 37.7; O2SAT 95; BMI 25.0
[2019-12-22 16:34] LABS: Bilirubin Urine Neg (NEGATIVE); Blood Urine 2+ (Negative); Glucose Urine UA Norm (Normal); Ketones Urine Negative (Negative); Leukocyte Esterase Urine 2+ (Negative); Nitrate Urine Negative (Negative); Protein Urine 1+ (Negative); Squamous Epithelial Cell Urine 0-4 (0-5); Sulfosalicylic Acid Urine Negative (Negative); Urine Appearance SL Hazy (CLEAR); Urine Color Yellow (Yellow); Urobilinogen Urine Norm (Negative); WBC Urine 55-80 /hpf (0-5); pH Urine 9 (5-7)
[2019-12-22 16:35] LABS: Add Urine Culture? Yes; Bacteria Urine 1+
== END 2019-12-22 18:33 | disposition left against medical advice (07) ==
LOC: ER 16:37
PROVIDERS: Emergency Medicine; Emergency Provider Physician Assistant; PCP Nurse Practitioner Family
DX: Z53.21 Procedure and treatment not carried out due to patient leaving prior to being seen by health care provider (principal)
CPT/HCPCS: 71045; 81001; 87077; 87086; 87186; 99281

== ENCOUNTER 2020-01-09 06:46 | Outpatient (RCR) | payer MEDICARE, MEDICAID, SELFPAY ==
[2020-01-08 08:56] LABS: Basophils % 0.3 %; Eosinophils # 0.1 10^3/uL (0.0-0.8); Hematocrit 36.5 % (37.0-47.0); Hemoglobin 10.6 g/dL (11.5-15.3); Lymphocytes # 1.1 10^3/uL (0.8-4.8); Lymphocytes % 18.2 %; Mean Corpuscular Hemoglobin 26.6 pg (28.0-34.0); Mean Corpuscular Volume 91.7 fL (81-99); Mean Platelet Volume 10.3 fL (7.4-10.4); Monocytes # 0.6 10^3/uL (0.2-0.9); Monocytes % 9.9 %; Neutrophils # 4.3 10^3/uL (1.8-7.7); Neutrophils % 70.4 %; Nucleated Red Blood Cells % 0 %; Platelet Count 241 10^3/cmm (130-400); Red Blood Count 3.98 10^6/uL (4.1-5.3); Red Cell Distribution Width 18.7 % (12.1-15.1); White Blood Count 6.1 10^3/uL (4.0-10.0)
[2020-01-08 09:20] LABS: Alanine Aminotransferase 12 U/L (0-33); Albumin Level 3.9 g/dL (3.5-5.2); Alkaline Phosphatase 192 IU/L (35-105); Anion Gap 15.6 (5-19); Aspartate Amino Transferase 15 U/L (0-32); Blood Urea Nitrogen 19 mg/dL (8-23); Calcium 9.7 mg/dL (8.5-10.5); Carbon Dioxide 29 mmol/L (22-29); Chloride 102 mmol/L (98-107); Globulin 2.6 g/dL (1.3-4.6); Glucose 119 mg/dL (65-115); Osmolality Calculated 294 mOsm/kg (285-295); Potassium 3.6 mmol/L (3.5-5.1); Sodium 143 mmol/L (136-145); Total Bilirubin 0.2 mg/dL (0.15-1.2); Total Protein 6.5 g/dL (6.6-8.7)
[2020-01-08] MEDS: sodium chloride 0.9% 250 ML IV (10:50)
[2020-01-08] MEDS: HYDROcodone-acetaminophen 10-325 mg Tablet 0.5 TAB PO (14:40)
[2020-01-09] MEDS: sodium chloride 0.9% 250 ML 75 ML IV (08:50)
== END 2020-01-11 23:59 | disposition home or self-care (01) ==
LOC: ONCMED 06:46
PROVIDERS: PCP Nurse Practitioner Family; Visit Provider Internal Medicine Hematology & Oncology
DX: Z51.12 Encounter for antineoplastic immunotherapy (principal); Z51.11 Encounter for antineoplastic chemotherapy; C34.11 Malignant neoplasm of upper lobe, right bronchus or lung; J44.9 Chronic obstructive pulmonary disease, unspecified; I10 Essential (primary) hypertension; M06.9 Rheumatoid arthritis, unspecified; Z79.899 Other long term (current) drug therapy
CPT/HCPCS: 80053; 85025; 96367; 96413; 96417; 99214; J1100; J1453; J2405; J7040; J7050; J9022; J9045; J9181

== ENCOUNTER 2020-01-26 06:44 | Outpatient (RCR) | payer MEDICARE, MEDICAID, SELFPAY ==
[2020-01-12] MEDS: sodium chloride 0.9% 250 ML 999 ML IV (09:50)
--- NOTE | 2020-01-12 10:51 | ONCRAD EPV_ITS ---
Radiation Oncology Established Patient Visit Patient: Vika Simental MR#: [id number] : 1955> Age: 64> Sex: Female> Dictated by: Dr. Yash Covington Date of Service: 01/12/2020 Referring Physician(s) : Nikki Kunz Diagnosis: C34.11 - Malignant neoplasm of upper lobe, right bronchus or lung, Diagnosed 09/16/2019 (Active) Extensive small cell carcinoma of the right lung with liver and pulmonary metastateses at diagnosis. Now with an near CR following chemotherapy. Radiotherapy to Date: None Chief Complaint / History of Present Illness: Ms. Cornelio Mata is a 64-year-old woman who had initial wedge resection for stage I adenocarcinoma the right upper lobe in [facility] in the past in 2017.. She then moved to [facility] for 6 months and ultimately moved to [facility] in December 2018 to be closer to family. She was seen by Dr. Monroe in evaluation for COPD at which time chest x-ray revealed abnormality in the right lung. She underwent CT scan of the chest which revealed a right upper lobe mass followed by bronchoscopy and aspiration of hilar adenopathy which was negative. In August 2019 she underwent transthoracic needle biopsy in [place] of the right lung mass which did reveal small cell carcinoma. She was seen here in September 2019 at which time she was felt to have limited small cell carcinoma and chest radiation was considered. [facility] imaging in September 2019 revealed extensive metastatic disease in lungs and liver and following this she received systemic chemotherapy with carboplatinum and etoposide beginning of October 2019. In November 2019 she was seen for headaches CT scan of the head without contrast in the ER here in November 2019 showed a left extracranial soft tissue mass in the left temporal region consistent with tumor mass with invasion via dural sinus spread into the intracranial left frontal temporal extra-axial space suggestive for leptomeningeal involvement. She received steroids with improvement MRI was never obtained to confirm these findings Follow-up PET CT scan here on December 20, 2019 showed an excellent response to treatment with complete clearance of pulmonary and hepatic metastatic disease the right upper lobe nodule previously measuring x 3.7 x 2.5 had decreased in size to 1.1 x 1.5 cm SUV had decreased from 19.6 to 5.7. She now is feeling much better she is breathing better her energy level has improved she has some periodic headaches and rare nausea. Overall she lost 50 pounds since diagnosis her weight now is stable. She is very active at home caring for her 5 dogs 1 of whom recently was lost over the weekend leading her distressed. 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 As result of the distress of a dog leaving the household her smoking has increased from 3 to 4 cigarettes a day to 10 cigarettes a day. She is smoked for 50 years up to 1-1/2 packs a day. 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 Worked in the [employer] in the past. Has a daughter living in [facility] and one in [facility]. She has smoked as noted above 50 years up to 1-1/2 packs a day. She is a social drinker. Current Medications: Albuterol Sulfate, albuterol Sulfate, anoro Ellipta, cARBOplatin, dexamethasone Sodium Phosphate, emend, etoposide, hYDROcodone-Acetaminophen, hYDROcodone-Acetaminophen, montelukast Sodium, neulasta Onpro, ondansetron HCl, ondansetron HCl, palonosetron HCl, pantoprazole Sodium, prochlorperazine Maleate, tecentriq, tolterodine Tartrate ER. Allergies: Naproxen, Lisinopril and Iodinated Contrast Media. Current Complaints / Review of Systems: Constitutional - Complains of a poor appetite. Complains of mild fatigue. Complains of change in weight had lost about 50 lbs. to begin with and now her weight is stable. Denies fever and night sweats. Eyes - Denies blurred vision. ENMT - Complains of mouth dryness, altered taste occasionally and tinnitus. Denies dysphagia, ear pain, problems with hearing and stomatitis. Neck - Complains of neck pain occasionally. Integumentary - Denies rash. Breasts - Denies pain. Cardiovascular - Denies arrhythmias, chest pain and edema. Respiratory - Complains of dyspnea and is on 3 L 02 NC at bedtime and under stressful events and wheezing. Denies cough and hemoptysis. Gastrointestinal - Complains of nausea. Denies abdominal pain, constipation, diarrhea, heartburn / dyspepsia, melena / GI bleeding and vomiting. Genitourinary (F) - Complains of nocturia gets up 1 to 3 times per night. Denies dysuria, frequency, urgency, vaginal discharge / bleeding and vaginal spotting. Musculoskeletal - Complains of joint pain and has history of JRA. Complains of generalized muscle weakness. Denies bone pain. Neurologic - Complains of intermittent dizziness. Complains of headaches. Denies disorientation and abnormal gait. Endocrine - Denies diabetes, hot flashes and thyroid disease. Hematologic/Lymphatic - Denies tender or enlarged lymph nodes.. Vital Signs: Performed on 01/12/2020 9:00 AM BMI - 25.544 kg/m2 (high), Height - 68.00 in, Weight - 168.0 lbs, Temperature - 98.4 f, Pulse - 88, Respiration - 20, O2 Sat - 93 % (low), Pain - 0 and BP - 130/ 73 mm(hg). Physical Exam: General: Alert and oriented x 3. No acute distress. She was elderly for her age. She was alopecia from chemotherapy. She was a dentulous. Lymph nodes she had no palpable cervical or supraclavicular adenopathy. Lungs are clear to auscultation. Heart was regular without gallop or murmur. Abdominal examination unremarkable. Extremities revealed no clubbing cyanosis or edema. She had no focal neurologic deficits. Performance Status: 2 - Ambulatory/capable of all self-care, unable to perform any work activities. Up and about more than 50% of waking hours. (ECOG) Lab: None pending. Test performed on 12/01/2019 12:43 PM Manual Lymphocytes - 9.8 % (low), Test performed on 01/08/2020 8:40 AM RBC - 3.98 10 6/ul (low), HGB - 10.6 g/dl (low), HCT - 36.5 % (low), MCH - 26.6 pg (low), MCHC - 29.0 g/dl (low), RDW - 18.7 % (high), eGFR - 84.0 ml/min (low), Glucose - 119 mg/dl (high), Protein, Total - 6.5 g/dl (low) and Alkaline Phosphatase - 192 iu/l (high). Pathology: Primary, c34.11 - malignant neoplasm of upper lobe, right bronchus or lung, Diagnosed 09/16/2019 (active). Imaging: See HPI Impression: In summary my impression is that of extensive small cell carcinoma of the lung. She has had an excellent near complete response to systemic chemotherapy. She has minimal residual mass with modest SUV uptake in the right upper lobe. This could be considered for consolidative localized chest radiation. Alternatively she can continue to see Dr. Kunz for ongoing systemic treatment management. She is clear that she is interested only in ongoing systemic treatment given her previous favorable response and good tolerance of treatment thus far. I did outlined to her that her approach is appropriate. Nonetheless in the event she has disease progression locally or distantly palliative radiation therapy could be considered at anytime in the future. She is very comfortable with this recommendation and I concur with her that systemic management at this time is the most appropriate path to take. I did plead with her for smoking cessation. I reviewed these recommendations with the patient and with Dr. Kunz. Signed by: 01/12/2020 10:49:34 AM <<Signature on File>> Time spent with patient: CPT Code: CPT Code:
[2020-01-12] MEDS: pegfilgrastim 6 mg/0.6 mL Kit (onpro) SUBCUT (11:15)
[2020-01-26] VITALS (10 sets, daily range): BP systolic 116–129; BP diastolic 74–84; PULSE 94–98; RESP 18; TEMP 36.2–36.6; O2SAT 96–99
[2020-01-26] MEDS: alteplase 1 mg/mL SDV 2 mL 2 MG INTRACATH (09:22)
[2020-01-26 10:23] LABS: Eosinophils # 0.4 10^3/uL (0.0-0.8); Eosinophils % 15.9 %; Hematocrit 26.6 % (37.0-47.0); Hemoglobin 7.8 g/dL (11.5-15.3); Lymphocytes # 0.5 10^3/uL (0.8-4.8); Mean Corpuscular HGB Conc 29.3 g/dL (30.0-36.0); Mean Corpuscular Hemoglobin 26.1 pg (28.0-34.0); Mean Platelet Volume 10.6 fL (7.4-10.4); Monocytes # 0.2 10^3/uL (0.2-0.9); Monocytes % 8.2 %; Neutrophils # 1.3 10^3/uL (1.8-7.7); Neutrophils % 53.5 %; Nucleated Red Blood Cells % 0 %; Platelet Count 107 10^3/cmm (130-400); Red Blood Count 2.99 10^6/uL (4.1-5.3); Red Cell Distribution Width 16.5 % (12.1-15.1); White Blood Count 2.5 10^3/uL (4.0-10.0)
[2020-01-26 11:59] LABS: Add Urine Microscopic? NO
[2020-01-26 12:07] LABS: Alanine Aminotransferase 9 U/L (0-33); Albumin Level 3.1 g/dL (3.5-5.2); Alkaline Phosphatase 158 IU/L (35-105); Anion Gap 15.8 (5-19); Aspartate Amino Transferase 12 U/L (0-32); Blood Urea Nitrogen 12 mg/dL (8-23); Carbon Dioxide 26 mmol/L (22-29); Chloride 102 mmol/L (98-107); Globulin 2.7 g/dL (1.3-4.6); Glomerular Filtration Rate 100.3 mL/min (90-130); Glucose 122 mg/dL (65-115); Osmolality Calculated 287 mOsm/kg (285-295); Potassium 3.8 mmol/L (3.5-5.1); Sodium 140 mmol/L (136-145); Total Bilirubin 0.2 mg/dL (0.15-1.2); Total Protein 5.8 g/dL (6.6-8.7)
[2020-01-26 12:07] LABS: Bilirubin Urine Neg (NEGATIVE); Blood Urine Neg (Negative); Glucose Urine UA Norm (Normal); Ketones Urine Negative (Negative); Leukocyte Esterase Urine Negative (Negative); Nitrate Urine Negative (Negative); Protein Urine Neg (Negative); Specific Gravity, Urine 1.005 (1.005-1.030); Urine Appearance Clear (CLEAR); Urine Color Yellow (Yellow); Urobilinogen Urine Norm (Negative)
[2020-01-26] MEDS: diphenhydrAMINE 25 mg Capsule PO (13:00)
[2020-01-26] MEDS: acetaminophen 325 mg Tablet 650 MG PO (13:00)
[2020-01-26] MEDS: sodium chloride 0.9% 250 ML 999 ML IV (13:25)
[2020-01-26] MEDS: cyclobenzaprine 10 mg Tablet PO (14:44)
[2020-01-26] MEDS: FUROsemide 10 mg/mL SDV 2mL 20 MG IV (14:55)
== END 2020-02-10 23:59 | disposition home or self-care (01) ==
LOC: ONCMED 06:44
PROVIDERS: PCP Nurse Practitioner Family; Visit Provider Internal Medicine Hematology & Oncology
DX: Z51.11 Encounter for antineoplastic chemotherapy (principal); C34.11 Malignant neoplasm of upper lobe, right bronchus or lung; J44.9 Chronic obstructive pulmonary disease, unspecified; I10 Essential (primary) hypertension; M06.9 Rheumatoid arthritis, unspecified; D64.9 Anemia, unspecified; Z99.81 Dependence on supplemental oxygen
CPT/HCPCS: 36430; 36593; 80053; 81003; 85025; 86850; 86900; 86920; 96367; 96372; 96374; 96413; 99214; J1100; J1940; J2469; J2505; J2997; J7040; J7050; J9181; P9016

== ENCOUNTER 2020-02-01 17:50 | Emergency (ER) | payer MEDICARE, MEDICAID, SELFPAY ==
[2020-02-01 18:07] VITALS: BP 155/95; PULSE 119; RESP 20; TEMP 39.4; O2SAT 94; BMI 25.9
--- NOTE | 2020-02-01 18:40 | XR_ITS ---
WS: [id number] PORTABLE CHEST HISTORY: fever COMPARISON: 12/22/2019 Marked pulmonary hyperinflation. Patient has a known RIGHT upper lobe neoplasm. A discrete mass is no t identified. There is interstitial thickening in the upper lung arango bilaterally which may be rela alec to radiation. Minimal blunting of the costophrenic angles. Cardiac size: Normal. Mediastinum/Aorta: Mild atherosclerosis aorta. Prior RIGHT humeral head replacement. There is a Port-A-Cath present with tip in the mid SVC. XR/XR chest 1V portable [id number] IMPRESSION: Chronic emphysema with no pneumonia. Known RIGHT upper lobe pulmonary neoplasm without progression or change since .
[2020-02-01 19:14] LABS: Basophils % 0.1 %; Eosinophils % 0.1 %; Hematocrit 35.7 % (37.0-47.0); Hemoglobin 10.8 g/dL (11.5-15.3); Lymphocytes # 0.7 10^3/uL (0.8-4.8); Lymphocytes % 6.6 %; Mean Corpuscular HGB Conc 30.3 g/dL (30.0-36.0); Mean Corpuscular Hemoglobin 26.6 pg (28.0-34.0); Mean Corpuscular Volume 87.9 fL (81-99); Mean Platelet Volume 10.2 fL (7.4-10.4); Monocytes # 1.1 10^3/uL (0.2-0.9); Monocytes % 10.9 %; Neutrophils # 8.2 10^3/uL (1.8-7.7); Neutrophils % 81.6 %; Nucleated Red Blood Cells % 0 %; Platelet Count 172 10^3/cmm (130-400); Red Blood Count 4.06 10^6/uL (4.1-5.3); Red Cell Distribution Width 16.1 % (12.1-15.1); White Blood Count 10.1 10^3/uL (4.0-10.0)
[2020-02-01] MEDS: sodium chloride 0.9% 1,000 ML 999 ML IV (19:22)
[2020-02-01] MEDS: acetaminophen 500 mg Tablet 1000 MG PO (19:23)
[2020-02-01 19:32] LABS: Lactate (Lactic Acid level) 0.6 mmol/L (0.5-2.2)
[2020-02-01 19:33] LABS: Alanine Aminotransferase 8 U/L (0-33); Albumin Level 3.4 g/dL (3.5-5.2); Alkaline Phosphatase 161 IU/L (35-105); Anion Gap 16.1 (5-19); Aspartate Amino Transferase 11 U/L (0-32); Blood Urea Nitrogen 18 mg/dL (8-23); C Reactive Protein 182.4 mg/L (0.0-4.9); Calcium 8.8 mg/dL (8.5-10.5); Carbon Dioxide 25 mmol/L (22-29); Chloride 97 mmol/L (98-107); Creatinine Clr Calc Pharmacy 76.7718; Globulin 3.2 g/dL (1.3-4.6); Glucose 156 mg/dL (65-115); Osmolality Calculated 278 mOsm/kg (285-295); Potassium 4.1 mmol/L (3.5-5.1); Sodium 134 mmol/L (136-145); Total Bilirubin 0.5 mg/dL (0.15-1.2); Total Protein 6.6 g/dL (6.6-8.7)
[2020-02-01 19:46] VITALS: PULSE 114; RESP 21
[2020-02-01 20:06] LABS: Add Urine Microscopic? YES; Bilirubin Urine Neg (NEGATIVE); Blood Urine 3+ (Negative); Glucose Urine UA Norm (Normal); Ketones Urine Negative (Negative); Leukocyte Esterase Urine 2+ (Negative); Nitrate Urine Positive (Negative); Protein Urine 3+ (Negative); Urine Appearance Cloudy (CLEAR); Urine Color Yellow (Yellow); Urobilinogen Urine Norm (Negative); pH Urine 6.5 (5-7)
[2020-02-01 20:08] LABS: WBC Urine TOO NUMEROUS TO CNT /hpf (0-5)
[2020-02-01 20:09] LABS: Add Urine Culture? Yes; Bacteria Urine 2+
--- NOTE | 2020-02-01 20:53 | W.ED.FEVER ---
HPI - Fever General: Chief Complaint: Fever Stated Complaint: fever Time Seen by Provider: 02/01/20 18:07 History of Present Illness: HPI Narrative: 64-year-old female with a history of cancer. She sees Dr. Kunz in the oncology clinic. She reports a significant fever, up to 103.0. She had her last chemotherapy treatment 3 weeks ago, and is scheduled to have another next week. She says that she believes she may have a urinary tract infection, as she has been having some burning with urination, frequency, and hesitancy. She really does not have other symptoms besides chills. MD elicited complaint: fever and malaise Onset (ago): day(s) (1) Exacerbating factors: nothing Relieving factors: nothing Associated symptoms: Reports chills, dysuria and nausea; Deny chest pain, confusion, cough, headache(s), nasal congestion, short of breath or vomiting Treatments prior to arrival fever: none Review of Systems Const: Reports: fever(s) and chills Eyes: Denies: change in vision or blurry vision ENMT: Denies: nasal congestion Card: Denies: chest pain Resp: Denies: dyspnea, productive cough, non-productive cough or wheezing GI: Reports: nausea; Denies: vomiting : Reports: dysuria, urinary frequency and urinary urgency; Denies: hematuria Musc: Reports: back pain; Denies: neck pain, joint redness or joint warmth Skin/Breast: Denies: rash, pruritus or erythema Neuro: Denies: headache(s), dizziness, vertigo or confusion Psych: Denies: anxiety PFSH ED PFSH: Medical History (Updated 02/01/20 @ 20:58 by Jabier Rosario DO) COPD (chronic obstructive pulmonary disease) Essential (primary) hypertension GERD (gastroesophageal reflux disease) Hypertension Lung cancer Rheumatoid arthritis Skull mass Subdural hemorrhage Urgency incontinence Urinary incontinence UTI (urinary tract infection) Surgical History H/O shoulder surgery History of cholecystectomy History of knee replacement History of lung surgery CT guided trans-thoracic cord needle biopsy right upper lobe lung mass pending Hx of cataract surgery Family History Mother Lung disease COPD Brother Lung disease COPD Social History Smoking and tobacco status: current every day smoker cigarettes Years cigarettes smoked: 54 Quit status (tobacco): considering quitting Alcohol intake: never Lives independently: Yes Household members: family and children Housing: House Marital status: service: No Current occupational status: retired History of recent travel: No Current gender identity: Female Physical Exam Const: GENERAL APPEARANCE: well developed ORIENTATION/CONSCIOUSNESS: Yes oriented to person, Yes oriented to place and Yes oriented to time HENMT: COMMON NORMALS: external ears normal and Normal external nose present FACE & SINUS: normal facial exam NOSE: Normal external nose present and No nasal discharge present EXTERNAL EAR: Yes external ears normal MOUTH: tongue normal THROAT: posterior oropharynx normal; no peritonsillar mass Eye: COMMON NORMALS: Equal, round and reactive pupils present, EOMs intact bilaterally and conjunctivae normal EYELID: eyelids normal CONJUNCTIVA: Yes conjunctivae normal PUPIL: Yes Equal, round and reactive pupils present Neck/C-Spine: COMMON NORMALS: full ROM GENERAL: No tracheal deviation Chest: COMMONS NORMALS: normal inspection of the chest CHEST: No tenderness Resp: COMMON NORMALS: clear to auscultation bilaterally EFFORT & INSPECTION: No tachypneic, No respiratory distress, No retractions, No uses accessory muscles and No tracheal deviation AUSCULTATION: clear to auscultation bilaterally, no rhonchi, no wheezes and lung sounds not diminished Cardio: COMMON NORMALS: regular rate and regular rhythm RATE: regular rate RHYTHM: regular rhythm HEART SOUNDS: no murmurs PERIPHERAL PULSES: radial pulses present GI: INSPECTION: No abdominal distension AUSCULTATION: No Hyperactive bowel sounds present and No Hypoactive bowel sounds present PALPATION: No Guarding due to palpation present (GI) and No Rigid due to palpation PERCUSSION: no dullness to percussion and no tympanic to percussion Neuro: SENSORIUM/ORIENTATION: Yes oriented to person, Yes oriented to place and Yes oriented to time Psych: COMMON NORMALS: mental status grossly normal Course Vital Signs: Vital signs: Vital Signs Temperature 102.9 F H 02/01/20 18:07 Pulse Rate 99 02/01/20 22:09 Respiratory Rate 18 02/01/20 22:09 Blood Pressure 113/68 02/01/20 22:09 Pulse Oximetry 97 02/01/20 22:09 MDM - Fever MDM Narrative: Medical decision making narrative: 64-year-old lung cancer patient. She has a significant fever. Her white blood cell count is only 10. She has an appropriate neutrophilic response. Temperatures improved here. Her hemoglobin is 11. Other labs are benign. She has a significant urinary tract infection with too many whites to count. She has been given Rocephin after blood cultures here. We were unable to get a blood culture off of her port. She is not vomiting. She was given the option of admission. She prefers to go home on cefdinir. Her last urine culture grew a pansensitive E. coli. She knows to return for worsening symptoms. Lab Data: Labs: Lab Results 02/01/20 02/01/20 02/01/20 Range/Units 19:08 19:08 19:08 WBC 10.1 H (4.0-10.0) 10^3/ uL RBC 4.06 L (4.1-5.3) 10^6/u L Hgb 10.8 L (11.5-15.3) g/dL Hct 35.7 L (37.0-47.0) % MCV 87.9 (81-99) fL MCH 26.6 L (28.0-34.0) pg MCHC 30.3 (30.0-36.0) g/dL RDW 16.1 H (12.1-15.1) % Plt Count 172 (130-400) 10^3/c mm MPV 10.2 (7.4-10.4) fL Neut % (Auto) 81.6 % Lymph % (Auto) 6.6 % [place] % (Auto) 10.9 % Eos % (Auto) 0.1 % Baso % (Auto) 0.1 % Neut # (Auto) 8.2 H (1.8-7.7) 10^3/u L Lymph # (Auto) 0.7 L (0.8-4.8) 10^3/u L [place] # (Auto) 1.1 H (0.2-0.9) 10^3/u L Eos # (Auto) 0.0 (0.0-0.8) 10^3/u L Baso # (Auto) 0.0 (0.0-0.1) 10^3/u L Nucleated RBC % (a uto) 0 % Nucleated RBCs # 0.0 /100WBC Sodium 134 L (136-145) mmol/L Potassium 4.1 (3.5-5.1) mmol/L Chloride 97 L (98-107) mmol/L Carbon Dioxide 25 (22-29) mmol/L Anion Gap 16.1 (5-19) BUN 18 (8-23) mg/dL Creatinine 0.8 (0.5-0.9) mg/dL GFR Calculation 72.0 L (90-130) mL/min Glucose 156 H (65-115) mg/dL Calculated Osmolal ity 278 L (285-295) mOsm/k g Lactate 0.6 (0.5-2.2) mmol/L Calcium 8.8 (8.5-10.5) mg/dL Total Bilirubin 0.5 (0.15-1.2) mg/dL AST 11 (0-32) U/L ALT 8 (0-33) U/L Alkaline Phosphata se 161 H (35-105) IU/L C-Reactive Protein 182.4 H (0.0-4.9) mg/L Total Protein 6.6 (6.6-8.7) g/dL Albumin 3.4 L (3.5-5.2) g/dL Globulin 3.2 (1.3-4.6) g/dL Urine Color (Yellow) Urine Appearance (CLEAR) Urine pH (5-7) Ur Specific Gravit y (1.005-1.030) Urine Protein (Negative) Urine Glucose (UA) (Normal) Urine Ketones (Negative) Urine Blood (Negative) Urine Nitrate (Negative) Urine Bilirubin (NEGATIVE) Urine Urobilinogen (Negative) mg/dL Ur Leukocyte Mikayla ase (Negative) Urine RBC (0-2) /hpf Urine WBC (0-5) /hpf Ur Squamous Epith Cells (0-5) Urine Bacteria (NONE) 01/31/ Range/Units 19:35 WBC (4.0-10.0) 10^3/ uL RBC (4.1-5.3) 10^6/u L Hgb (11.5-15.3) g/dL Hct (37.0-47.0) % MCV (81-99) fL MCH (28.0-34.0) pg MCHC (30.0-36.0) g/dL RDW (12.1-15.1) % Plt Count (130-400) 10^3/c mm MPV (7.4-10.4) fL Neut % (Auto) % Lymph % (Auto) % [place] % (Auto) % Eos % (Auto) % Baso % (Auto) % Neut # (Auto) (1.8-7.7) 10^3/u L Lymph # (Auto) (0.8-4.8) 10^3/u L [place] # (Auto) (0.2-0.9) 10^3/u L Eos # (Auto) (0.0-0.8) 10^3/u L Baso # (Auto) (0.0-0.1) 10^3/u L Nucleated RBC % (a uto) % Nucleated RBCs # /100WBC Sodium (136-145) mmol/L Potassium (3.5-5.1) mmol/L Chloride (98-107) mmol/L Carbon Dioxide (22-29) mmol/L Anion Gap (5-19) BUN (8-23) mg/dL Creatinine (0.5-0.9) mg/dL GFR Calculation (90-130) mL/min Glucose (65-115) mg/dL Calculated Osmolal ity (285-295) mOsm/k g Lactate (0.5-2.2) mmol/L Calcium (8.5-10.5) mg/dL Total Bilirubin (0.15-1.2) mg/dL AST (0-32) U/L ALT (0-33) U/L Alkaline Phosphata se (35-105) IU/L C-Reactive Protein (0.0-4.9) mg/L Total Protein (6.6-8.7) g/dL Albumin (3.5-5.2) g/dL Globulin (1.3-4.6) g/dL Urine Color Yellow (Yellow) Urine Appearance Cloudy (CLEAR) Urine pH 6.5 (5-7) Ur Specific Gravit y 1.010 (1.005-1.030) Urine Protein 3+ H (Negative) Urine Glucose (UA) Norm (Normal) Urine Ketones Negative (Negative) Urine Blood 3+ H (Negative) Urine Nitrate Positive H (Negative) Urine Bilirubin Neg (NEGATIVE) Urine Urobilinogen Norm (Negative) mg/dL Ur Leukocyte Mikayla ase 2+ H (Negative) Urine RBC 10-15 H (0-2) /hpf Urine WBC Too numerous to c nt H (0-5) /hpf Ur Squamous Epith Cells 5-10 H (0-5) Urine Bacteria 2+ H (NONE) Discharge Plan Discharge Patient Disposition: Home, Self-Care Clinical Impression: Urinary tract infection Qualifiers: Urinary tract infection type: acute cystitis Hematuria presence: without hematuria Qualified Code(s): N30.00 - Acute cystitis without hematuria Clinical Impression: (Ruled Out): Pyelonephritis Condition: Stable Prescriptions: New cefdinir 300 mg capsule 300 mg PO Q12H 10 Days Qty: 20 RF: 0 No Action albuterol sulfate [ProAir HFA] 90 mcg/actuation HFA aerosol inhaler 2 puff INHALATION Q6H PRN (Reason: bronchospasm) Qty: 6.7 RF: 2 vitamin [id number] acid 1,000-400 mcg lozenge 1 lozenge SUBLINGUAL DAILY RF: 0 prochlorperazine maleate 10 mg tablet 10 mg PO Q4H PRN (Reason: unknown) RF: 0 pantoprazole [Protonix] 20 mg tablet,delayed release (DR/EC) 20 mg PO DAILY Qty: 30 RF: 2 albuterol sulfate 2.5 mg /3 mL (0.083 %) solution for nebulization 2.5 mg INHALATION Q4H PRN (Reason: bronchospasm) Qty: 525 RF: 2 umeclidinium-vilanterol [Anoro Ellipta] 62.5-25 mcg/actuation blister with device See Rx Instructions .ROUTE .COMPLEX Qty: 60 RF: 1 tramadol 50 mg tablet 50 mg PO BID PRN (Reason: Pain) Qty: 60 RF: 0 montelukast [Singulair] 10 mg tablet 10 mg PO DAILY Qty: 30 RF: 5 cyclobenzaprine 10 mg tablet 10 mg PO TID PRN (Reason: muscle spasm) 30 Days Qty: 90 RF: 0 hydrocodone-acetaminophen [[place]] 5-325 mg tablet 1 tab PO Q6H PRN (Reason: pain) Qty: 10 RF: 0 oxybutynin chloride 10 mg tablet extended release 24hr 20 mg PO DAILY RF: 0 hydrocodone-acetaminophen 5-325 mg tablet 1 tab PO QID PRN (Reason: Pain) RF: 0 Discharge Orders: Discharge Order (Routine); Ordered 02/01/20 Ordered By: Jabier Rosario Referrals: Prema Jenkins FNP [Primary Care Provider] - Nikki Kunz MD [Staff Physician] - 1-3 days Discharge Diet: Advance as tolerated Discharge Activity: Increase activity as tolerated Patient Instructions: Urinary Tract Infection in Women (ED) Activity Restrictions/Additional Instructions: Return for continued fever despite 2-3 doses of antibiotics, vomiting liquids or medications, worsening mental status, other concerning symptoms. Discharge Date/Time: 02/01/20 22:11 Coding Level of Care Code ED Metrology Engineer for Kiki Escobar
[2020-02-01] MEDS: cefTRIAXone 1,000 MG in sodium chloride 0.9% (plus) 50 ML 100 MG IV (21:04)
[2020-02-01 22:09] VITALS: BP 113/68; PULSE 99; RESP 18; O2SAT 97
== END 2020-02-01 22:11 | disposition home or self-care (01) ==
PROVIDERS: Emergency Provider Emergency Medicine; PCP Nurse Practitioner Family
DX: N30.00 Acute cystitis without hematuria (principal); J44.9 Chronic obstructive pulmonary disease, unspecified; I10 Essential (primary) hypertension; Z85.118 Personal history of other malignant neoplasm of bronchus and lung; Z87.440 Personal history of urinary (tract) infections; F17.210 Nicotine dependence, cigarettes, uncomplicated
CPT/HCPCS: 12345; 71045; 80053; 81001; 83605; 85025; 86140; 87040; 87077; 87086; 87186; 96365; 99283; J0696; J7030

== ENCOUNTER 2020-03-08 06:46 | Outpatient (RCR) | payer MEDICARE, MEDICAID, SELFPAY ==
[2020-02-16 12:22] LABS: Basophils % 0.2 %; Eosinophils # 0.2 10^3/uL (0.0-0.8); Eosinophils % 2.7 %; Hematocrit 39.5 % (37.0-47.0); Hemoglobin 11.8 g/dL (11.5-15.3); Lymphocytes # 0.9 10^3/uL (0.8-4.8); Mean Corpuscular HGB Conc 29.9 g/dL (30.0-36.0); Mean Corpuscular Hemoglobin 26.2 pg (28.0-34.0); Mean Corpuscular Volume 87.8 fL (81-99); Mean Platelet Volume 10.6 fL (7.4-10.4); Monocytes # 0.6 10^3/uL (0.2-0.9); Monocytes % 9.2 %; Neutrophils # 4.6 10^3/uL (1.8-7.7); Neutrophils % 72.7 %; Nucleated Red Blood Cells % 0 %; Platelet Count 186 10^3/cmm (130-400); Red Cell Distribution Width 16.1 % (12.1-15.1); White Blood Count 6.3 10^3/uL (4.0-10.0)
[2020-02-16 12:45] LABS: Alanine Aminotransferase 9 U/L (0-33); Albumin Level 3.6 g/dL (3.5-5.2); Alkaline Phosphatase 168 IU/L (35-105); Anion Gap 15.9 (5-19); Aspartate Amino Transferase 15 U/L (0-32); Blood Urea Nitrogen 16 mg/dL (8-23); Calcium 9.2 mg/dL (8.5-10.5); Carbon Dioxide 26 mmol/L (22-29); Chloride 98 mmol/L (98-107); Globulin 3.3 g/dL (1.3-4.6); Glucose 116 mg/dL (65-115); Osmolality Calculated 279 mOsm/kg (285-295); Potassium 3.9 mmol/L (3.5-5.1); Sodium 136 mmol/L (136-145); Total Bilirubin 0.3 mg/dL (0.15-1.2); Total Protein 6.9 g/dL (6.6-8.7)
[2020-02-17] MEDS: sodium chloride 0.9% 250 ML 999 ML IV (11:50)
[2020-02-18] MEDS: sodium chloride 0.9% (100 ml) 100 ML 300 ML (11:50)
[2020-02-19] MEDS: sodium chloride 0.9% 250 ML 999 ML IV (10:15)
[2020-02-19] MEDS: pegfilgrastim 6 mg/0.6 mL Kit (onpro) SUBCUT (11:57)
[2020-03-01 13:30] LABS: Basophils % 0.5 %; Eosinophils # 0.1 10^3/uL (0.0-0.8); Eosinophils % 1.3 %; Hematocrit 37.5 % (37.0-47.0); Hemoglobin 11.1 g/dL (11.5-15.3); Lymphocytes # 1.4 10^3/uL (0.8-4.8); Lymphocytes % 24.5 %; Mean Corpuscular HGB Conc 29.6 g/dL (30.0-36.0); Mean Corpuscular Hemoglobin 26.7 pg (28.0-34.0); Mean Corpuscular Volume 90.1 fL (81-99); Monocytes # 0.5 10^3/uL (0.2-0.9); Monocytes % 9.2 %; Neutrophils # 3.51 10^3/uL (1.8-7.7); Neutrophils % 63.1 %; Nucleated Red Blood Cells % 0 %; Platelet Count 48 10^3/cmm (130-400); Red Blood Count 4.16 10^6/uL (4.1-5.3); Red Cell Distribution Width 17.2 % (12.1-15.1); White Blood Count 5.6 10^3/uL (4.0-10.0)
[2020-03-01 13:50] LABS: Alanine Aminotransferase 21 U/L (0-33); Alkaline Phosphatase 252 IU/L (35-105); Anion Gap 14.9 (5-19); Aspartate Amino Transferase 21 U/L (0-32); Blood Urea Nitrogen 14 mg/dL (8-23); Calcium 9.1 mg/dL (8.5-10.5); Carbon Dioxide 26 mmol/L (22-29); Chloride 102 mmol/L (98-107); Globulin 2.6 g/dL (1.3-4.6); Glucose 100 mg/dL (65-115); Osmolality Calculated 284 mOsm/kg (285-295); Potassium 3.9 mmol/L (3.5-5.1); Sodium 139 mmol/L (136-145); Total Bilirubin 0.2 mg/dL (0.15-1.2); Total Protein 6.6 g/dL (6.6-8.7)
[2020-03-01 13:57] LABS: Slide Review Slide Review Perform
== END 2020-03-12 23:59 | disposition home or self-care (01) ==
LOC: ONCMED 06:46
PROVIDERS: PCP Nurse Practitioner Family; Visit Provider Internal Medicine Hematology & Oncology
DX: Z51.11 Encounter for antineoplastic chemotherapy (principal); C34.11 Malignant neoplasm of upper lobe, right bronchus or lung; C78.02 Secondary malignant neoplasm of left lung; C78.7 Secondary malignant neoplasm of liver and intrahepatic bile duct; D70.1 Agranulocytosis secondary to cancer chemotherapy; T45.1X5A Adverse effect of antineoplastic and immunosuppressive drugs, initial encounter; J44.9 Chronic obstructive pulmonary disease, unspecified; Z99.81 Dependence on supplemental oxygen; Z79.51 Long term (current) use of inhaled steroids; Z79.891 Long term (current) use of opiate analgesic
CPT/HCPCS: 80053; 85025; 96367; 96372; 96413; 96417; 99214; J1100; J1453; J2405; J2469; J2505; J7040; J7050; J9022; J9045; J9181

== ENCOUNTER 2020-03-12 14:07 | Observation (INO) | payer MEDICARE, MEDICAID, SELFPAY ==
[2020-03-12] VITALS (14 sets, daily range): BP systolic 132–141; BP diastolic 68–96; PULSE 84–115; RESP 16–22; TEMP 36.6–36.8; O2SAT 92–97; BMI 24.9
--- NOTE | 2020-03-12 14:15 | PC.NURSE ---
EKG done at 1415 and shown to ER doctor
--- NOTE | 2020-03-12 14:16 | XRR_ITS ---
PROCEDURE INFORMATION: Exam: XR Chest, 1 View Exam date and time: 03/12/2020 2:34 PM Age: 64 years old Clinical indication: Shortness of breath; Additional info: SOB, lung cancer TECHNIQUE: Imaging protocol: XR of the chest Views: 1 view. COMPARISON: CR XR chest 1V portable [id number] 02/01/2020 7:28 PM FINDINGS: Tubes, catheters and devices: There is a left subclavian catheter whose tip is in the superior vena cava. Lungs: There is consolidation in the mid and inferior right lung. The left lung is clear. Pleural space: There is a new large right pleural effusion. No pneumothorax. Heart/Mediastinum: Unremarkable. No cardiomegaly. Bones/joints: There has been a right shoulder replacement. XR/XR chest 1V portable [id number] IMPRESSION: There is a new large right pleural effusion. There is consolidation in the mid and inferior right lung consistent with atelectasis, pneumonia and/or mass.If there is desire for further evaluation, a CT scan could be performed.
--- NOTE | 2020-03-12 14:20 | ED_ITS ---
Documented by User: NELDA Mcbride 03/12/20 14:28 HPI - SOB/Dyspnea General: Chief Complaint: Shortness of Breath/Dyspnea Stated Complaint: SOB Time Seen by Provider: 03/12/20 14:08 History of Present Illness: HPI Narrative: Patient arrives the ER via ambulance with complaint of increasing shortness of breath over the last 3 days. Patient does have a history of lung cancer currently being treated here at [facility] [place] [facility]. Patient says she denies any fever chills or other problems but just having to use more more oxygen to get her air said sats have been down to 85% at home she is use her portable oxygen and her at home oxygen at the same time to get her sats up above 90 MD elicited complaint: shortness of breath Pertinent past history: COPD and other (Lung cancer) Onset (ago): day(s) (3) Timing: constant Severity: severe Exacerbating factors: lying flat Relieving factors: oxygen Known history of: COPD and other (Lung cancer) Associated symptoms: Deny abdominal pain, chest pain, extremity pain, fever(s), nausea or vomiting Review of Systems Const: Denies: fever(s), chills or body aches Eyes: Denies: change in vision or blurry vision ENMT: Denies: throat pain or nasal congestion Card: Denies: chest pain or dyspnea on exertion Resp: Reports: dyspnea; Denies: productive cough or non-productive cough GI: Denies: abdominal pain, nausea or vomiting Musc: Denies: extremity pain Skin/Breast: Denies: rash Neuro: Denies: headache(s) Psych: Denies: anxiety or depression Brad/Lymph: Denies: easy bruising PFSH ED PFSH: Medical History (Updated 03/12/20 @ 17:07 by Nanette Donald) COPD (chronic obstructive pulmonary disease) Essential (primary) hypertension GERD (gastroesophageal reflux disease) Hypertension Lung cancer Recurrent UTI Rheumatoid arthritis Skull mass Subdural hemorrhage Urgency incontinence Urinary incontinence UTI (urinary tract infection) Surgical History H/O shoulder surgery History of cholecystectomy History of knee replacement History of lung surgery CT guided trans-thoracic cord needle biopsy right upper lobe lung mass pending Hx of cataract surgery Family History Mother Lung disease COPD Brother Lung disease COPD Social History Smoking and tobacco status: current every day smoker cigarettes Years cigarettes smoked: 55 Quit status (tobacco): considering quitting Alcohol intake: never Lives independently: Yes Household members: family and children Housing: House Marital status: service: No Current occupational status: retired History of recent travel: No Current gender identity: Female Physical Exam Const: COMMON NORMALS: no acute distress, average body habitus and patient oriented x3 HENMT: COMMON NORMALS: normocephalic HEAD & SCALP: normal to inspection and normocephalic FACE & SINUS: normal facial exam Eye: COMMON NORMALS: conjunctivae normal GENERAL EYE: appearance normal, both eyes and all related structures CONJUNCTIVA: Yes conjunctivae normal Neck/C-Spine: COMMON NORMALS: no JVD Chest: COMMONS NORMALS: normal inspection of the chest Resp: COMMON NORMALS: negative for No use of accessory muscles EFFORT & INSPECTION: Yes able to speak in complete sentences, Yes tachypneic, Yes respiratory distress and Yes uses accessory muscles AUSCULTATION: breath sounds absent on the right and diminished lung sounds Cardio: COMMON NORMALS: no JVD, regular rate and regular rhythm RATE: regular rate RHYTHM: regular rhythm GI: COMMON NORMALS: Normal to inspection, nondistended, normoactive bowel sounds present Extremity: COMMON NORMALS: normal to inspection and full ROM Neuro: COMMON NORMALS: patient oriented x3 Course Vital Signs: Vital signs: Vital Signs Temperature 98.1 F 03/12/20 14:22 Pulse Rate 114 H 03/12/20 16:05 Respiratory Rate 22 H 03/12/20 16:05 Blood Pressure 133/89 03/12/20 16:05 Pulse Oximetry 95 03/12/20 16:05 MDM - SOB/Dyspnea Lab Data: Labs: Lab Results 03/12/20 03/12/20 03/12/20 Range/Units 14:16 14:16 14:16 WBC Cancelled Corrected WBC Cancelled RBC Cancelled Hgb Cancelled Hct Cancelled MCV Cancelled MCH Cancelled MCHC Cancelled RDW Cancelled Plt Count Cancelled MPV Cancelled Gran % Cancelled Neut % (Auto) Cancelled Lymph % (Auto) Cancelled [place] % (Auto) Cancelled Eos % (Auto) Cancelled Baso % (Auto) Cancelled Neut # (Auto) Cancelled Lymph # (Auto) Cancelled [place] # (Auto) Cancelled Eos # (Auto) Cancelled Baso # (Auto) Cancelled Absolute Gran (aut o) Cancelled Nucleated RBC % (a uto) Cancelled Total Counted Nucleated RBCs # Cancelled PT (10.5-13.3) SECO NDS INR (0.8-1.2) D-Dimer 2.08 H (0-0.59) ug/mIFE U Specimen Type Sample Site ABG pH (7.35-7.45) ABG pCO2 (35-45) mmHg ABG pO2 (80.0-100.0) mmH g ABG HCO3 (22-26) mmol/L ABG Base Excess (-2.0-2.0) mmol/ L Phill Test Hematocrit (37-47) % Hgb O2 Saturation (95-100) % Carboxyhemoglobin (0.4-20.1) %THgb Methemoglobin (0.4-1.5) % Total Hemoglobin (12-16) g/dL O2 Delivery Device O2 Liters/Min % FiO2 % Slat Basket Maker Helper Machine ID Sodium 136 (136-145) mmol/L Potassium 4.4 (3.5-5.1) mmol/L Chloride 96 L (98-107) mmol/L Carbon Dioxide 30 H (22-29) mmol/L Anion Gap 14.4 (5-19) BUN 33 H (8-23) mg/dL Creatinine 0.9 (0.5-0.9) mg/dL GFR Calculation 62.8 L (90-130) mL/min Glucose 125 H (65-115) mg/dL Calculated Osmolal ity 281 L (285-295) mOsm/k g Lactic Acid (0.5-2.2) mmol/L Calcium 9.9 (8.5-10.5) mg/dL Magnesium 2.2 (1.7-2.3) mg/dL Total Bilirubin 0.4 (0.15-1.2) mg/dL AST 18 (0-32) U/L ALT 13 (0-33) U/L Alkaline Phosphata se 167 H (35-105) IU/L Troponin T Baselin e (0-10) ng/L NT-Pro-B Natriuret Pep 235 H (0-125) pg/mL Total Protein 6.8 (6.6-8.7) g/dL Albumin 4.0 (3.5-5.2) g/dL Globulin 2.8 (1.3-4.6) g/dL Pleural Color (Pale Yellow) Pleural Appearance (CLEAR) Pleural WBC (0-1000) /uL Pleural RBC 10^3/uL Pleural Other Cell s Pleural Polynuclea r % % Pleural Mononuclea r % % Path Cons w/Slide 03/12/20 03/12/20 03/12/20 Range/Units 14:16 14:16 14:16 WBC Corrected WBC RBC Hgb Hct MCV MCH MCHC RDW Plt Count MPV Gran % Neut % (Auto) Lymph % (Auto) [place] % (Auto) Eos % (Auto) Baso % (Auto) Neut # (Auto) Lymph # (Auto) [place] # (Auto) Eos # (Auto) Baso # (Auto) Absolute Gran (aut o) Nucleated RBC % (a uto) Total Counted Nucleated RBCs # PT 13.20 (10.5-13.3) SECO NDS INR 0.97 (0.8-1.2) D-Dimer (0-0.59) ug/mIFE U Specimen Type Sample Site ABG pH (7.35-7.45) ABG pCO2 (35-45) mmHg ABG pO2 (80.0-100.0) mmH g ABG HCO3 (22-26) mmol/L ABG Base Excess (-2.0-2.0) mmol/ L Phill Test Hematocrit (37-47) % Hgb O2 Saturation (95-100) % Carboxyhemoglobin (0.4-20.1) %THgb Methemoglobin (0.4-1.5) % Total Hemoglobin (12-16) g/dL O2 Delivery Device O2 Liters/Min % FiO2 % Slat Basket Maker Helper Machine ID Sodium (136-145) mmol/L Potassium (3.5-5.1) mmol/L Chloride (98-107) mmol/L Carbon Dioxide (22-29) mmol/L Anion Gap (5-19) BUN (8-23) mg/dL Creatinine (0.5-0.9) mg/dL GFR Calculation (90-130) mL/min Glucose (65-115) mg/dL Calculated Osmolal ity (285-295) mOsm/k g Lactic Acid 1.6 (0.5-2.2) mmol/L Calcium (8.5-10.5) mg/dL Magnesium (1.7-2.3) mg/dL Total Bilirubin (0.15-1.2) mg/dL AST (0-32) U/L ALT (0-33) U/L Alkaline Phosphata se (35-105) IU/L Troponin T Baselin e 46 H (0-10) ng/L NT-Pro-B Natriuret Pep (0-125) pg/mL Total Protein (6.6-8.7) g/dL Albumin (3.5-5.2) g/dL Globulin (1.3-4.6) g/dL Pleural Color (Pale Yellow) Pleural Appearance (CLEAR) Pleural WBC (0-1000) /uL Pleural RBC 10^3/uL Pleural Other Cell s Pleural Polynuclea r % % Pleural Mononuclea r % % Path Cons w/Slide 03/12/20 03/12/20 03/12/20 Range/Units 14:39 15:00 15:40 WBC 12.8 H Corrected WBC RBC 5.11 Hgb 13.4 Hct 47.4 H MCV 92.8 MCH 26.2 L MCHC 28.3 L RDW 17.4 H Plt Count 443 H MPV 10.3 Gran % Neut % (Auto) 79.0 Lymph % (Auto) 11.5 [place] % (Auto) 8.1 Eos % (Auto) 0.2 Baso % (Auto) 0.7 Neut # (Auto) 10.12 H Lymph # (Auto) 1.5 [place] # (Auto) 1.0 H Eos # (Auto) 0.0 Baso # (Auto) 0.1 Absolute Gran (aut o) Nucleated RBC % (a uto) 0 Total Counted Not Reportable Nucleated RBCs # 0.0 PT (10.5-13.3) SECO NDS INR (0.8-1.2) D-Dimer (0-0.59) ug/mIFE U Specimen Type Arterial Sample Site Radial, right ABG pH 7.38 (7.35-7.45) ABG pCO2 50.2 H (35-45) mmHg ABG pO2 60.2 L (80.0-100.0) mmH g ABG HCO3 29.7 H (22-26) mmol/L ABG Base Excess 3.5 H (-2.0-2.0) mmol/ L Phill Test Pos Hematocrit 41.6 (37-47) % Hgb O2 Saturation 89.2 L (95-100) % Carboxyhemoglobin 1.3 (0.4-20.1) %THgb Methemoglobin 0.7 (0.4-1.5) % Total Hemoglobin 13.6 (12-16) g/dL O2 Delivery Device Nc O2 Liters/Min 5.0 % FiO2 40.0 % Slat Basket Maker Helper Machine ID Amh Sodium (136-145) mmol/L Potassium (3.5-5.1) mmol/L Chloride (98-107) mmol/L Carbon Dioxide (22-29) mmol/L Anion Gap (5-19) BUN (8-23) mg/dL Creatinine (0.5-0.9) mg/dL GFR Calculation (90-130) mL/min Glucose (65-115) mg/dL Calculated Osmolal ity (285-295) mOsm/k g Lactic Acid (0.5-2.2) mmol/L Calcium (8.5-10.5) mg/dL Magnesium (1.7-2.3) mg/dL Total Bilirubin (0.15-1.2) mg/dL AST (0-32) U/L ALT (0-33) U/L Alkaline Phosphata se (35-105) IU/L Troponin T Baselin e (0-10) ng/L NT-Pro-B Natriuret Pep (0-125) pg/mL Total Protein (6.6-8.7) g/dL Albumin (3.5-5.2) g/dL Globulin (1.3-4.6) g/dL Pleural Color Red H (Pale Yellow) Pleural Appearance Cloudy (CLEAR) Pleural WBC 1496.000 H (0-1000) /uL Pleural RBC 32.000 10^3/uL Pleural Other Cell s Not Reportable Pleural Polynuclea r % 17 % Pleural Mononuclea r % 83 % Path Cons w/Slide Yes EKG Data^: EKG 1: EKG Interpretation Date: 03/12/20 EKG interpretation time: 14:22 Interpretation: Sinus tachycardia with a ventricular rate of 107 bpm TN interval 128 QRS durations 85 ms QT intervals 310 Discharge Plan Discharge Patient Disposition: Admitted As Inpatient Clinical Impression: 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, Pleural effusion, Acute exacerbation of chronic obstructive pulmonary disease Condition: Stable Prescriptions: No Action cefdinir 300 mg capsule 300 mg PO BID Qty: 60 RF: 2 albuterol sulfate [ProAir HFA] 90 mcg/actuation HFA aerosol inhaler 2 puff INHALATION Q6H PRN (Reason: bronchospasm) Qty: 6.7 RF: 2 vitamin M47-ibpua acid 1,000-400 mcg lozenge 1 lozenge SUBLINGUAL DAILY RF: 0 prochlorperazine maleate 10 mg tablet 10 mg PO Q4H PRN (Reason: Nausea) RF: 0 pantoprazole [Protonix] 20 mg tablet,delayed release (DR/EC) 20 mg PO DAILY Qty: 30 RF: 2 umeclidinium-vilanterol [Anoro Ellipta] 62.5-25 mcg/actuation blister with device See Rx Instructions .ROUTE .COMPLEX Qty: 60 RF: 1 tramadol 50 mg tablet 50 mg PO BID PRN (Reason: Pain) Qty: 60 RF: 0 montelukast [Singulair] 10 mg tablet 10 mg PO DAILY Qty: 30 RF: 5 cyclobenzaprine 10 mg tablet 10 mg PO TID PRN (Reason: muscle spasm) Qty: 90 RF: 0 oxybutynin chloride 10 mg tablet extended release 24hr 20 mg PO DAILY Qty: 30 RF: 0 albuterol sulfate 2.5 mg /3 mL (0.083 %) solution for nebulization 2.5 mg INHALATION Q4H PRN (Reason: bronchospasm) Qty: 525 RF: 0 hydrocodone-acetaminophen 5-325 mg tablet 1 tab PO QID PRN (Reason: Pain) RF: 0 Referrals: Prema Jenkins FNP [Primary Care Provider] - Sign Out Sign Out Data: Patient Sign Out occurred on 03/12/20 at 16:13. Patient's care was discussed, and care was transferred from to Nanette Donald. Coding Level of Care Code ED Instruction Librarian for Chg Fwd Exam Comprehensive Documented by User: Nanette Donald 03/12/20 17:07 HPI - SOB/Dyspnea General: Chief Complaint: Shortness of Breath/Dyspnea Stated Complaint: SOB Time Seen by Provider: 03/12/20 14:08 PFSH ED PFSH: Medical History (Updated 03/12/20 @ 17:07 by Nanette Donald) COPD (chronic obstructive pulmonary disease) Essential (primary) hypertension GERD (gastroesophageal reflux disease) Hypertension Lung cancer Recurrent UTI Rheumatoid arthritis Skull mass Subdural hemorrhage Urgency incontinence Urinary incontinence UTI (urinary tract infection) Surgical History H/O shoulder surgery History of cholecystectomy History of knee replacement History of lung surgery CT guided trans-thoracic cord needle biopsy right upper lobe lung mass pending Hx of cataract surgery Family History Mother Lung disease COPD Brother Lung disease COPD Social History Smoking and tobacco status: current every day smoker cigarettes Years cigarettes smoked: 55 Quit status (tobacco): considering quitting Alcohol intake: never Lives independently: Yes Household members: family and children Housing: House Marital status: service: No Current occupational status: retired History of recent travel: No Current gender identity: Female Course Vital Signs: Vital signs: Vital Signs Temperature 98.1 F 03/12/20 14:22 Pulse Rate 114 H 03/12/20 16:05 Respiratory Rate 22 H 03/12/20 16:05 Blood Pressure 133/89 03/12/20 16:05 Pulse Oximetry 95 03/12/20 16:05 MDM - SOB/Dyspnea MDM Narrative: Medical decision making narrative: Patient is seen by me from Cristian Navarro APN. Please see his note for his history, physical exam and medical decision-making notes. I agree with his assessment and plan. I reviewed the case in full with Dr. Luis and she agrees admission. I did contact Dr. Del Valle who performed the patient's thoracentesis. Patient felt greatly improved after this thoracentesis. Further care be dictated by Dr. Luis on the floor. Lab Data: Labs: Lab Results 03/12/20 03/12/20 03/12/20 Range/Units 14:16 14:16 14:16 WBC Cancelled Corrected WBC Cancelled RBC Cancelled Hgb Cancelled Hct Cancelled MCV Cancelled MCH Cancelled MCHC Cancelled RDW Cancelled Plt Count Cancelled MPV Cancelled Gran % Cancelled Neut % (Auto) Cancelled Lymph % (Auto) Cancelled [place] % (Auto) Cancelled Eos % (Auto) Cancelled Baso % (Auto) Cancelled Neut # (Auto) Cancelled Lymph # (Auto) Cancelled [place] # (Auto) Cancelled Eos # (Auto) Cancelled Baso # (Auto) Cancelled Absolute Gran (aut o) Cancelled Nucleated RBC % (a uto) Cancelled Total Counted Nucleated RBCs # Cancelled PT (10.5-13.3) SECO NDS INR (0.8-1.2) D-Dimer 2.08 H (0-0.59) ug/mIFE U Specimen Type Sample Site ABG pH (7.35-7.45) ABG pCO2 (35-45) mmHg ABG pO2 (80.0-100.0) mmH g ABG HCO3 (22-26) mmol/L ABG Base Excess (-2.0-2.0) mmol/ L Phill Test Hematocrit (37-47) % Hgb O2 Saturation (95-100) % Carboxyhemoglobin (0.4-20.1) %THgb Methemoglobin (0.4-1.5) % Total Hemoglobin (12-16) g/dL O2 Delivery Device O2 Liters/Min % FiO2 % Slat Basket Maker Helper Machine ID Sodium 136 (136-145) mmol/L Potassium 4.4 (3.5-5.1) mmol/L Chloride 96 L (98-107) mmol/L Carbon Dioxide 30 H (22-29) mmol/L Anion Gap 14.4 (5-19) BUN 33 H (8-23) mg/dL Creatinine 0.9 (0.5-0.9) mg/dL GFR Calculation 62.8 L (90-130) mL/min Glucose 125 H (65-115) mg/dL Calculated Osmolal ity 281 L (285-295) mOsm/k g Lactic Acid (0.5-2.2) mmol/L Calcium 9.9 (8.5-10.5) mg/dL Magnesium 2.2 (1.7-2.3) mg/dL Total Bilirubin 0.4 (0.15-1.2) mg/dL AST 18 (0-32) U/L ALT 13 (0-33) U/L Alkaline Phosphata se 167 H (35-105) IU/L Troponin T Baselin e (0-10) ng/L NT-Pro-B Natriuret Pep 235 H (0-125) pg/mL Total Protein 6.8 (6.6-8.7) g/dL Albumin 4.0 (3.5-5.2) g/dL Globulin 2.8 (1.3-4.6) g/dL Pleural Color (Pale Yellow) Pleural Appearance (CLEAR) Pleural WBC (0-1000) /uL Pleural RBC 10^3/uL Pleural Other Cell s Pleural Polynuclea r % % Pleural Mononuclea r % % Path Cons w/Slide 03/12/20 03/12/20 03/12/20 Range/Units 14:16 14:16 14:16 WBC Corrected WBC RBC Hgb Hct MCV MCH MCHC RDW Plt Count MPV Gran % Neut % (Auto) Lymph % (Auto) [place] % (Auto) Eos % (Auto) Baso % (Auto) Neut # (Auto) Lymph # (Auto) [place] # (Auto) Eos # (Auto) Baso # (Auto) Absolute Gran (aut o) Nucleated RBC % (a uto) Total Counted Nucleated RBCs # PT 13.20 (10.5-13.3) SECO NDS INR 0.97 (0.8-1.2) D-Dimer (0-0.59) ug/mIFE U Specimen Type Sample Site ABG pH (7.35-7.45) ABG pCO2 (35-45) mmHg ABG pO2 (80.0-100.0) mmH g ABG HCO3 (22-26) mmol/L ABG Base Excess (-2.0-2.0) mmol/ L Phill Test Hematocrit (37-47) % Hgb O2 Saturation (95-100) % Carboxyhemoglobin (0.4-20.1) %THgb Methemoglobin (0.4-1.5) % Total Hemoglobin (12-16) g/dL O2 Delivery Device O2 Liters/Min % FiO2 % Slat Basket Maker Helper Machine ID Sodium (136-145) mmol/L Potassium (3.5-5.1) mmol/L Chloride (98-107) mmol/L Carbon Dioxide (22-29) mmol/L Anion Gap (5-19) BUN (8-23) mg/dL Creatinine (0.5-0.9) mg/dL GFR Calculation (90-130) mL/min Glucose (65-115) mg/dL Calculated Osmolal ity (285-295) mOsm/k g Lactic Acid 1.6 (0.5-2.2) mmol/L Calcium (8.5-10.5) mg/dL Magnesium (1.7-2.3) mg/dL Total Bilirubin (0.15-1.2) mg/dL AST (0-32) U/L ALT (0-33) U/L Alkaline Phosphata se (35-105) IU/L Troponin T Baselin e 46 H (0-10) ng/L NT-Pro-B Natriuret Pep (0-125) pg/mL Total Protein (6.6-8.7) g/dL Albumin (3.5-5.2) g/dL Globulin (1.3-4.6) g/dL Pleural Color (Pale Yellow) Pleural Appearance (CLEAR) Pleural WBC (0-1000) /uL Pleural RBC 10^3/uL Pleural Other Cell s Pleural Polynuclea r % % Pleural Mononuclea r % % Path Cons w/Slide 03/12/20 03/12/20 03/12/20 Range/Units 14:39 15:00 15:40 WBC 12.8 H Corrected WBC RBC 5.11 Hgb 13.4 Hct 47.4 H MCV 92.8 MCH 26.2 L MCHC 28.3 L RDW 17.4 H Plt Count 443 H MPV 10.3 Gran % Neut % (Auto) 79.0 Lymph % (Auto) 11.5 [place] % (Auto) 8.1 Eos % (Auto) 0.2 Baso % (Auto) 0.7 Neut # (Auto) 10.12 H Lymph # (Auto) 1.5 [place] # (Auto) 1.0 H Eos # (Auto) 0.0 Baso # (Auto) 0.1 Absolute Gran (aut o) Nucleated RBC % (a uto) 0 Total Counted Not Reportable Nucleated RBCs # 0.0 PT (10.5-13.3) SECO NDS INR (0.8-1.2) D-Dimer (0-0.59) ug/mIFE U Specimen Type Arterial Sample Site Radial, right ABG pH 7.38 (7.35-7.45) ABG pCO2 50.2 H (35-45) mmHg ABG pO2 60.2 L (80.0-100.0) mmH g ABG HCO3 29.7 H (22-26) mmol/L ABG Base Excess 3.5 H (-2.0-2.0) mmol/ L Phill Test Pos Hematocrit 41.6 (37-47) % Hgb O2 Saturation 89.2 L (95-100) % Carboxyhemoglobin 1.3 (0.4-20.1) %THgb Methemoglobin 0.7 (0.4-1.5) % Total Hemoglobin 13.6 (12-16) g/dL O2 Delivery Device Nc O2 Liters/Min 5.0 % FiO2 40.0 % Slat Basket Maker Helper Machine ID Amh Sodium (136-145) mmol/L Potassium (3.5-5.1) mmol/L Chloride (98-107) mmol/L Carbon Dioxide (22-29) mmol/L Anion Gap (5-19) BUN (8-23) mg/dL Creatinine (0.5-0.9) mg/dL GFR Calculation (90-130) mL/min Glucose (65-115) mg/dL Calculated Osmolal ity (285-295) mOsm/k g Lactic Acid (0.5-2.2) mmol/L Calcium (8.5-10.5) mg/dL Magnesium (1.7-2.3) mg/dL Total Bilirubin (0.15-1.2) mg/dL AST (0-32) U/L ALT (0-33) U/L Alkaline Phosphata se (35-105) IU/L Troponin T Baselin e (0-10) ng/L NT-Pro-B Natriuret Pep (0-125) pg/mL Total Protein (6.6-8.7) g/dL Albumin (3.5-5.2) g/dL Globulin (1.3-4.6) g/dL Pleural Color Red H (Pale Yellow) Pleural Appearance Cloudy (CLEAR) Pleural WBC 1496.000 H (0-1000) /uL Pleural RBC 32.000 10^3/uL Pleural Other Cell s Not Reportable Pleural Polynuclea r % 17 % Pleural Mononuclea r % 83 % Path Cons w/Slide Yes Discharge Plan Discharge Patient Disposition: Admitted As Inpatient Clinical Impression: 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, Pleural effusion, Acute exacerbation of chronic obstructive pulmonary disease Condition: Stable Prescriptions: No Action cefdinir 300 mg capsule 300 mg PO BID Qty: 60 RF: 2 albuterol sulfate [ProAir HFA] 90 mcg/actuation HFA aerosol inhaler 2 puff INHALATION Q6H PRN (Reason: bronchospasm) Qty: 6.7 RF: 2 vitamin C71-hexox acid 1,000-400 mcg lozenge 1 lozenge SUBLINGUAL DAILY RF: 0 prochlorperazine maleate 10 mg tablet 10 mg PO Q4H PRN (Reason: Nausea) RF: 0 pantoprazole [Protonix] 20 mg tablet,delayed release (DR/EC) 20 mg PO DAILY Qty: 30 RF: 2 umeclidinium-vilanterol [Anoro Ellipta] 62.5-25 mcg/actuation blister with device See Rx Instructions .ROUTE .COMPLEX Qty: 60 RF: 1 tramadol 50 mg tablet 50 mg PO BID PRN (Reason: Pain) Qty: 60 RF: 0 montelukast [Singulair] 10 mg tablet 10 mg PO DAILY Qty: 30 RF: 5 cyclobenzaprine 10 mg tablet 10 mg PO TID PRN (Reason: muscle spasm) Qty: 90 RF: 0 oxybutynin chloride 10 mg tablet extended release 24hr 20 mg PO DAILY Qty: 30 RF: 0 albuterol sulfate 2.5 mg /3 mL (0.083 %) solution for nebulization 2.5 mg INHALATION Q4H PRN (Reason: bronchospasm) Qty: 525 RF: 0 hydrocodone-acetaminophen 5-325 mg tablet 1 tab PO QID PRN (Reason: Pain) RF: 0 Referrals: Prema Jenkins FNP [Primary Care Provider] - Sign Out Sign Out Data: Patient Sign Out occurred on 03/12/20 at 16:13. Patient's care was discussed, and care was transferred from to Nanette Donald. Coding Level of Care Code ED Instruction Librarian for Chg Fwd Exam Comprehensive
[2020-03-12] MEDS: ipratropium-albuterol 3 mL Neb INHALATION ×2 (14:45→22:31)
[2020-03-12 14:48] LABS: D Dimer 2.08 ug/mIFEU (0-0.59)
[2020-03-12 14:50] LABS: ABG PCO2 50.2 mmHg (35-45); ABG PH Result 7.38 (7.35-7.45); Arterial Blood Gas Hematocrit 41.6 % (37-47); Base Excess ABG 3.5 mmol/L (-2.0-2.0); Blood Gas Allen Test Pos; Blood Gas Operator Identificat AMH; Blood Gas Sample Site Radial, right; Blood Gas Sample Type Arterial; Carboxyhemoglobin 1.3 %THgb (0.4-20.1); HCO3 ABG 29.7 mmol/L (22-26); HGB O2 Sat 89.2 % (95-100); Methemoglobin 0.7 % (0.4-1.5); Oxygen Device NC; PO2 ABG 60.2 mmHg (80.0-100.0); Total Hemoglobin 13.6 g/dL (12-16)
--- NOTE | 2020-03-12 14:50 | CTR_ITS ---
PROCEDURE INFORMATION: Exam: CT Angiography Chest With Contrast Exam date and time: 03/12/2020 4:25 PM Age: 64 years old Clinical indication: Pleuordynia; Prior surgery; Surgery date: 6+ months; Surgery type: Port; Patient HX: HX of lung CA C/O SOB and inspiratory pain x 3 days - PT is 1 hr S/P thoracentesis; Additional info: SOB, elevated d-dimer TECHNIQUE: Imaging protocol: Computed tomographic angiography of the chest with intravenous contrast. 3D rendering: MIP and/or 3D reconstructed images were created by the technologist. Radiation optimization: All CT scans at this facility use at least one of these dose optimization techniques: automated exposure control; mA and/or kV adjustment per patient size (includes targeted exams where dose is matched to clinical indication); or iterative reconstruction. Contrast material: VISI 320; Contrast volume: 95 ml; Contrast route: INTRAVENOUS (IV); COMPARISON: CT angio chest w abd pel w con 10/10/2019 12:08 PM RADIATION DOSE METRICS: Total DLP (mGy-cm): 628.43 FINDINGS: Pulmonary arteries: Normal. No pulmonary emboli. Aorta: Unremarkable. No aortic aneurysm. No aortic dissection. Lungs: There is increasing opacification along the lateral superior pleura. For example, on series 2, image 164 where opacification measures 7.3 x 4 cm in size. There are internal surgical clips. There is worsening consolidation in the right middle lobe of the lung. Multifocal right lung nodules are again identified. Nodules in the lingula and left lower lobe of the lung have resolved. There is advanced lung emphysema. Pleural space: There is a new moderate right pleural effusion. No pneumothorax. Heart: Unremarkable. No cardiomegaly. No pericardial effusion. Lymph nodes: There is worsening precarinal mediastinal adenopathy with a short-axis diameter of 2.7 cm. There is also worsening right paratracheal and subcarinal mediastinal adenopathy. Right thoracic hilar adenopathy has also worsened. Bones/joints: Degenerative change is identified in the spine. No acute fracture. Soft tissues: See Pleural space finding. CT/CT angio chest PE protcl [id number] IMPRESSION: There is no evidence for a pulmonary embolus. When compared with 10/10/2019, the pleural based mass in the right upper lobe of the lung has increased in size. Metastatic adenopathy has worsened. There is a new moderate right pleural effusion. Radiation Dose CTDIVOL = (mGy): DLP = 628.43 (mGy-cm)
[2020-03-12 14:53] LABS: Lactic Sepsis W/Reflex 1.6 mmol/L (0.5-2.2)
--- NOTE | 2020-03-12 14:58 | ECG_ITS ---
[facility] Test Date: 2020-03-12 Pat Name: Shira Mata Department: Room: Gender: Female Double Ending Machine Operator: : [id number] Requested By: Deng Navarro Order Number: [id number] Jin MD: Deny Marvin M.D. Measurements Intervals [place] Rate: 107 P: 46 NC: 128 QRS: 65 QRSD: 85 T: 55 QT: 310 QTc: 414 Interpretive Statements SINUS TACHYCARDIA NONSPECIFIC T-WAVE ABNORMALITY ABNORMAL RHYTHM ECG Compared to ECG 11/15/2019 19:59:52 Sinus rhythm no longer present Possible ischemia no longer present T-wave abnormality still present Electronically Signed On 03-12-2020 16:06:53 CDT by Deny Marvin M.D. [id number]
--- NOTE | 2020-03-12 14:58 | US_ITS ---
WS: [id number] ULTRASOUND-GUIDED THORACENTESIS CLINICAL INFORMATION: EFFUSION COMPARISON: None. PROCEDURE: Informed consent: The risks, benefits, and alternatives of the procedure were discussed with the marlon ent. Verbal and written consent was obtained. Timeout: A timeout was performed to confirm the correct patient, procedure, and site. Site: Right Preparation: A suitable skin site was identified. The patient was prepped and draped in usual sterile fashion. Lidocaine 1% was used for local anesthesia. Catheter: 4 Malian One-Step catheter. Fluid Volume: 1400 ml Color: Dark bloody Fluid sent to the laboratory for requested diagnostic tests. Complications: No pneumothorax on the post thoracentesis portable chest. Improved right pleural effus ion. US/ thoracentesis [id number] IMPRESSION: Uncomplicated ultrasound-guided thoracentesis with removal of 1400 cc dark bloo dy fluid.
[2020-03-12 15:04] LABS: Alanine Aminotransferase 13 U/L (0-33); Alkaline Phosphatase 167 IU/L (35-105); Anion Gap 14.4 (5-19); Aspartate Amino Transferase 18 U/L (0-32); Blood Urea Nitrogen 33 mg/dL (8-23); Calcium 9.9 mg/dL (8.5-10.5); Carbon Dioxide 30 mmol/L (22-29); Chloride 96 mmol/L (98-107); Globulin 2.8 g/dL (1.3-4.6); Glomerular Filtration Rate 62.8 mL/min (90-130); Glucose 125 mg/dL (65-115); Magnesium 2.2 mg/dL (1.7-2.3); NT Pro B Type Natriuretic Pept 235 pg/mL (0-125); Osmolality Calculated 281 mOsm/kg (285-295); Potassium 4.4 mmol/L (3.5-5.1); Sodium 136 mmol/L (136-145); Total Bilirubin 0.4 mg/dL (0.15-1.2); Total Protein 6.8 g/dL (6.6-8.7)
[2020-03-12 15:15] LABS: INR 0.97 (0.8-1.2)
[2020-03-12] MEDS: diphenhydrAMINE 50 mg/mL SDV 1mL 25 MG IVP (15:17)
[2020-03-12] MEDS: morphine 4 mg/mL SDV 1 mL IVP ×3 (15:36→23:24)
[2020-03-12] MEDS: ondansetron 2 mg/ML SDV 2 mL 4 MG IVP (15:37)
[2020-03-12 15:44] LABS: Basophils # 0.1 10^3/uL (0.0-0.1); Basophils % 0.7 %; Eosinophils % 0.2 %; Hematocrit 47.4 % (37.0-47.0); Hemoglobin 13.4 g/dL (11.5-15.3); Lymphocytes # 1.5 10^3/uL (0.8-4.8); Lymphocytes % 11.5 %; Mean Corpuscular HGB Conc 28.3 g/dL (30.0-36.0); Mean Corpuscular Hemoglobin 26.2 pg (28.0-34.0); Mean Corpuscular Volume 92.8 fL (81-99); Mean Platelet Volume 10.3 fL (7.4-10.4); Monocytes % 8.1 %; Neutrophils # 10.12 10^3/uL (1.8-7.7); Nucleated Red Blood Cells % 0 %; Platelet Count 443 10^3/cmm (130-400); Red Blood Count 5.11 10^6/uL (4.1-5.3); Red Cell Distribution Width 17.4 % (12.1-15.1); White Blood Count 12.8 10^3/uL (4.0-10.0)
[2020-03-12 15:44] LABS: Troponin(5th) Baseline 46 ng/L (0-10)
--- NOTE | 2020-03-12 15:59 | XRR_ITS ---
PROCEDURE INFORMATION: Exam: XR Chest, 1 View Exam date and time: 03/12/2020 4:16 PM Age: 64 years old Clinical indication: Screening exam; Other screening; Additional info: Post thoracentesis TECHNIQUE: Imaging protocol: XR of the chest Views: 1 view. COMPARISON: CR XR chest 1V portable [id number] 03/12/2020 2:44 PM FINDINGS: Tubes, catheters and devices: There is a left subclavian catheter whose tip is in the superior vena cava. Lungs: There is consolidation in the right thoracic hilum and also along the superior lateral right pleura as before. No new areas of lung consolidation. Pleural space: The right pleural effusion has decreased in size in the interval. No pneumothorax. Heart/Mediastinum: Unremarkable. No cardiomegaly. Bones/joints: There has been a right shoulder replacement. XR/XR chest 1V portable [id number] IMPRESSION: The right pleural effusion has decreased in size in the interval. No pneumothorax.
[2020-03-12 16:58] LABS: Mononuclear %, Pleural Fluid 83 %; Polynuclear Cells, Pleural % 17 %
--- NOTE | 2020-03-12 16:58 | ECG_ITS ---
[facility] Test Date: 2020-03-12 Pat Name: Shira Mata Department: Room: Gender: Female Air Pumper: : 1955 Requested By: Deng Navarro Order Number: [id number] Jin MD: Maryellen Schmidt M.D. Measurements Intervals [place] Rate: 106 P: 63 IL: 142 QRS: 55 QRSD: 86 T: 78 QT: 324 QTc: 432 Interpretive Statements SINUS TACHYCARDIA POSSIBLE LEFT ATRIAL ENLARGEMENT [-0.1mV P WAVE IN V1/V2] NONSPECIFIC T-WAVE ABNORMALITY Compared to ECG 03/12/2020 14:14:31 No significant changes Electronically Signed On 03-12-2020 16:44:13 CDT by Maryellen Schmidt M.D. [id number]
[2020-03-12 17:04] LABS: Appearance, Pleural Fluid CLOUDY (CLEAR); Color, Pleural Fluid Red (Pale Yellow); PATH Referal YES
[2020-03-12 17:10] LABS: Troponin 5 2HR 45.61 ng/L (0-10)
[2020-03-12] MEDS: iodixanol 320 mg/mL 100mL Btl IV (17:24)
[2020-03-12 17:25] LABS: Troponin 5 2HR Delta -0.39 ABS# (0-10)
[2020-03-12 17:31] LABS: LDH Pleural Fluid 1215 U/L; Pleural Fluid Albumin 2.7 g/dL; Pleural Fluid Triglycerides 53 mg/dL; Total Protein Pleural Fluid 3.9 g/dL
--- NOTE | 2020-03-12 18:09 | PM.HP ---
Providers/Chief Complaint Admitting Physician: Elicia Luis MD Primary Care Provider: NELDA Berry Chief Complaint: SOB History of Present Illness Shira Mata is a 64 year old female with metastatic small cell lung cancer per transthoracic right upper lobe lung biopsy done on 09/01/2019 started on systemic chemotherapy with carboplatin/etoposide on 10/13/2019. Currently on carboplatin/etoposide/Tecentriq with last PET/CT in December shpwing good response, final cycle next week. She presented to [facility] with c/o increasing and orthopena and was found to have new large right pleural effusion. CTA was negative for PE, but showed increasing opacification along the lateral superior pleura, worsening precarinal and hilar mediastinal adenopathy, increased pleural based mass. She underwent IR guided Uncomplicated ultrasound-guided thoracentesis with removal of 1400 cc dark bloody fluid. Pleural fluid analysis remains pending at this time, including cytology. She feels imrpoved post procedure. no fever cough Review of Systems General: Reports: 10 or more systems reviewed and unremarkable except in HPI and below Const: Denies: fever(s), chills or body aches Eyes: Denies: change in vision, blurry vision or photophobia ENMT: Reports: hoarseness; Denies: throat pain, enlarged tonsils, odynophagia or nasal congestion Card: Denies: chest pain, palpitations, irregular heart rhythm, edema, swelling of feet/ankles, lightheadedness, pre-syncope, dyspnea on exertion or orthopnea Resp: Denies: dyspnea, productive cough, non-productive cough, wheezing, stridor, pain on inspiration, change in phlegm color, hemoptysis or chest congestion GI: Denies: abdominal pain, nausea, vomiting, hematemesis, coffee ground emesis, dysphagia, heartburn, diarrhea, constipation, GI cramping, change in stool character, hematochezia or melena : Denies: flank pain, difficulty voiding, dysuria, urinary frequency, urinary urgency, urinary hesitancy or hematuria Musc: Denies: neck pain, back pain, extremity pain, joint swelling, joint warmth or deformity Neuro: Denies: headache(s), numbness in extremities, weakness in extremities, sensory changes, difficulty walking, frequent falls, dizziness, vertigo, behavioral changes, Slurred speech present or seizure-like activity Psych: Denies: anxiety, depression, suicidal ideation or homicidal ideation Endo: Denies: polyuria, polydipsia, tired all the time, cold intolerance or hot flashes Brad/Lymph: Denies: easy bruising or easy bleeding Medications/Allergies Home Medications Medication Instructions Recorded Confirmed Last Taken Type albuterol sulfate 90 mcg/actuation 2 puff INHALATION Q6H PRN #6.7 gm 09/04/19 03/12/20 11/09/19 Rx aerosol inhaler vitamin B12 1,000 mcg-folic acid 1 lozenge SUBLINGUAL DAILY 11/20/19 03/12/20 03/11/20 History 400 mcg sublingual lozenge prochlorperazine maleate 10 mg 10 mg PO Q4H PRN tab 12/08/19 03/12/20 02/01/20 History tablet pantoprazole 20 mg tablet,delayed 20 mg PO DAILY #30 tab 12/12/19 03/12/20 03/12/20 Rx release montelukast 10 mg tablet 10 mg PO DAILY #30 tab 01/09/20 03/12/20 03/12/20 Rx tramadol 50 mg tablet 50 mg PO BID PRN #60 tab 01/09/20 03/12/20 03/12/20 Rx umeclidinium 62.5 mcg-vilanterol See Rx Instructions .ROUTE 01/09/20 03/12/20 03/12/20 Rx 25 mcg/actuation powdr for .COMPLEX #60 each inhalation hydrocodone-acetaminophen 1 tab PO QID PRN 02/01/20 03/12/20 03/12/20 History cefdinir 300 mg capsule 300 mg PO BID #60 cap 02/16/20 03/12/20 03/12/20 Rx cyclobenzaprine 10 mg tablet 10 mg PO TID PRN #90 tab 02/17/20 03/12/20 03/12/20 Rx oxybutynin chloride 10 mg 20 mg PO DAILY #30 tab 02/17/20 03/12/20 03/11/20 Rx tablet,extended release 24 hr albuterol sulfate 2.5 mg INHALATION Q4H PRN #525 ml 03/09/20 03/12/20 Unknown Rx Allergies Allergy/AdvReac Type Severity Reaction Status Date / Time naproxen Allergy Severe ALGY-Anaphy Verified 02/01/20 18:30 laxis Iodinated Contrast Media Allergy ALGY-Anaphy Verified 02/01/20 18:30 laxis lisinopril AdvReac diarrhea Verified 02/01/20 18:30 PFSH Acute PFSH: Medical History COPD (chronic obstructive pulmonary disease) Essential (primary) hypertension GERD (gastroesophageal reflux disease) Hypertension Lung cancer Recurrent UTI Rheumatoid arthritis Skull mass Subdural hemorrhage Urgency incontinence Urinary incontinence UTI (urinary tract infection) Surgical History H/O shoulder surgery History of cholecystectomy History of knee replacement History of lung surgery CT guided trans-thoracic cord needle biopsy right upper lobe lung mass pending Hx of cataract surgery Family History Mother Lung disease COPD Brother Lung disease COPD Social History Smoking and tobacco status: current every day smoker cigarettes Years cigarettes smoked: 55 Quit status (tobacco): considering quitting Alcohol intake: never Lives independently: Yes Household members: family and children Housing: House Marital status: service: No Current occupational status: retired History of recent travel: No Current gender identity: Female Vitals/I&O/Wt Last Vital Signs Temp 98.2 F 03/12/20 17:28 Pulse 84 03/12/20 17:28 Resp 18 03/12/20 17:28 BP 132/68 03/12/20 17:28 Pulse Ox 97 03/12/20 17:28 Weight last 48 hrs Weight 74.389 kg Physical Exam Narrative: EXAM NARRATIVE: GEN: Awake, alert and oriented, no acute distress CVS: S1S2 N RS: CTA B/L Abd: Soft, nt/nd , bs+ UI DEVELOPER WITH ANGULAR JS: no focal neuro deficits Data : 03/12/20 15:40 03/12/20 14:16 A&P Assessment and plan (1) Pleural effusion: Status: Acute (2) 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: Status: Acute Additional A&P Information New R pleural effusion s/p thoracentesis with drainage of 1400 cc bloody fluid Fluid cytology sent Low suspicion for pneumonia given lack of other features such as fever, cough, etc. 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
[2020-03-12] MEDS: sodium chloride 0.9% 1,000 ML 75 ML IV (18:33)
[2020-03-12] MEDS: enoxaparin 40 mg/0.4 mL Syringe SUBCUT (18:53)
[2020-03-12 20:41] LABS: Troponin 5 6HR 32.29 ng/L (0-10)
[2020-03-13] VITALS (9 sets, daily range): BP systolic 133–153; BP diastolic 76–94; PULSE 86–91; RESP 16–20; TEMP 36.3–37.2; O2SAT 92–97
[2020-03-13] MEDS: calcium carbonate 500 mg Chew Tablet PO (01:45)
[2020-03-13] MEDS: morphine 4 mg/mL SDV 1 mL IVP (03:54)
[2020-03-13 05:49] LABS: Basophils % 0.1 %; Hemoglobin 11.3 g/dL (11.5-15.3); Lymphocytes # 0.6 10^3/uL (0.8-4.8); Lymphocytes % 7.7 %; Mean Corpuscular HGB Conc 29.7 g/dL (30.0-36.0); Mean Corpuscular Hemoglobin 26.7 pg (28.0-34.0); Mean Corpuscular Volume 89.8 fL (81-99); Mean Platelet Volume 10.6 fL (7.4-10.4); Monocytes # 0.5 10^3/uL (0.2-0.9); Monocytes % 6.2 %; Neutrophils # 6.28 10^3/uL (1.8-7.7); Neutrophils % 85.3 %; Nucleated Red Blood Cells % 0 %; Platelet Count 345 10^3/cmm (130-400); Red Blood Count 4.23 10^6/uL (4.1-5.3); Red Cell Distribution Width 17.2 % (12.1-15.1); White Blood Count 7.4 10^3/uL (4.0-10.0)
--- NOTE | 2020-03-13 05:59 | PC.NURSE ---
SHIFT SUMMARY Has done well tonight. Says SOB much better than before thoracentesis done yesterday. Still some SOB with exertion. O2 at 3l per NC and says this is her baseline for O2 at home. Bandaid to right upper back clean & dry. Area around puncture site soft. Has been medicated with Morphine per request tonight for c/o back and neck/head pain. Obtained order for Tums per pt request for some heartburn. Reported relief with the Tums and Sprite. Requested PAC to be accessed this am for blood draw which was done by RN but was unable to draw enough blood for labs. Pt says it doesn't always draw well
[2020-03-13 06:10] LABS: Blood Urea Nitrogen 26 mg/dL (8-23); Calcium 9.1 mg/dL (8.5-10.5); Carbon Dioxide 24 mmol/L (22-29); Chloride 98 mmol/L (98-107); Creatinine Clr Calc Pharmacy 75.3662; Glucose 142 mg/dL (65-115); Osmolality Calculated 271 mOsm/kg (285-295); Sodium 131 mmol/L (136-145)
[2020-03-13 06:20] LABS: Anion Gap 13.6 (5-19); Potassium 4.6 mmol/L (3.5-5.1)
[2020-03-13] MEDS: ipratropium-albuterol 3 mL Neb INHALATION (07:20)
[2020-03-13] MEDS: HYDROcodone-acetaminophen 5-325 mg Tablet 1 TAB PO (07:52)
[2020-03-13] MEDS: sodium chloride 0.9% 1,000 ML 75 ML IV (08:00)
[2020-03-13] MEDS: pantoprazole DR 40 mg Tablet PO (08:03)
[2020-03-13] MEDS: montelukast sodium 10 mg Tablet PO (08:03)
[2020-03-13] MEDS: oxybutynin chloride XL 5 MG TABLET 20 MG PO (08:03)
[2020-03-13] MEDS: cefdinir 300 MG CAPSULE PO (08:05)
--- NOTE | 2020-03-13 11:30 | PC.CHAP ---
Pastoral Care Encounter/Spiritual Assessment Type of Contact [] Declined wet silk hanger visit [] Patient/Family/Request visit [] Outpatient visit [] Follow-up visit [] Physician referral [] Code/Alert [X] Routine visit [] Staff referral [] Actively dying [X] Patient sleeping [] Family support [] [] Out of room [] Palliative care [] [] Receiving care in room [] Pre-surgical visit [] Trauma [] Long length of stay [] ICU visit [] Other: Relational/Emotional Strength [] Patient feels connected with others/family/visitors/staff [] Distress [] Loneliness/isolation [] Abandonment Spirituality of Patient [] Person of Simona [] Attends Yazidi of their [place] [] Believes in Prayer [] Reads Bible or Faith materials [] There are Spiritual issues to be addressed Traffic Control Technician Interventions [] Prayer [] Active listening [] Non-anxious presence [] Spiritual/emotional support [] Crisis/trauma care [] Spiritual counseling [] Bereavement support [] Provided bereavement packet [] Provided Bible/devotional materials [] Provided toy/stuffed animal, coloring book to patient or family member [] Provided Communion [] Anointing/[place] [] Salvation [] Completed spiritual assessment [] Other: Impact on Illness or Injury [] Angry [] Fearful [] Anxious [] Often cries [] Exhaustion [] Unable to work [] Unable to attend muslim [] Unable to walk/stand [] Unable to read [] Unable to drive [] Unable to eat/drink [] Unable to sleep [] Unable to be with family [] Patient intubated [] Other: Summary Time spent with patient
--- NOTE | 2020-03-13 11:44 | CTR_ITS ---
PROCEDURE INFORMATION: Exam: CT Head Without Contrast Exam date and time: 03/13/2020 12:24 PM Age: 64 years old Clinical indication: Pain; Headache not specified; Patient HX: History of lung cancer with metastasis TECHNIQUE: Imaging protocol: Computed tomography of the head without contrast. Radiation optimization: All CT scans at this facility use at least one of these dose optimization techniques: automated exposure control; mA and/or kV adjustment per patient size (includes targeted exams where dose is matched to clinical indication); or iterative reconstruction. COMPARISON: CT head wo con* [id number] 11/15/2019 8:11 PM RADIATION DOSE METRICS: Total DLP (mGy-cm): 751.44 FINDINGS: Brain: Catalan white matter distinction is maintained throughout the brain. No radiographic evidence of intracranial hemorrhage. No CT evidence of mass hemorrhage or acute infarction. Ventricles: Ventricles are of normal size and configuration. Bones/joints: Unremarkable. No acute fracture. Sinuses: Visualized sinuses are unremarkable. No fluid levels. Mastoid air cells: Visualized mastoid air cells are well aerated. Soft tissues: Unremarkable. Other findings: No intra or extra-axial masses, lesions or collections. CT/CT head wo con* [id number] IMPRESSION: No acute intracranial process is appreciated. Radiation Dose CTDIVOL = (mGy): DLP = 751.44 (mGy-cm)
[2020-03-13 12:08] LABS: Lactate Dehydrogenase 521 U/L (135-214)
[2020-03-13] MEDS: TRAMadol 50 mg Tablet PO (13:48)
--- NOTE | 2020-03-13 13:53 | PM.DCS ---
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 Currently on carboplatin/etoposide/Tecentriq with last PET/CT in December shpwing good response, final cycle next week. She presented to [facility] with c/o increasing and orthopena and was found to have new large right pleural effusion. CTA was negative for PE, but showed increasing opacification along the lateral superior pleura, worsening precarinal and hilar mediastinal adenopathy, increased pleural based mass. She underwent IR guided Uncomplicated ultrasound-guided thoracentesis with removal of 1400 cc dark bloody fluid. Pleural fluid analysis consistent with an exudative effusion. Patient does not have any other signs of pneumonia such as fever consolidation cough or a high WBC count, less likely to be a parapneumonic effusion. Her she did have some leukocytosis upon presentation, however this is resolved any directed therapy. Patient feels well today. Concerned that this may be malignant effusion. Cytology remains pending at this time. Patient did complain of some headache today as well for which he underwent CT of the head to rule out any hemorrhagic bleeding or new metastatic disease. CT head was negative for both of these. She is being discharged today in stable condition and already has follow-up scheduled with Dr. Kunz on Sunday or Sunday. If the cytology returns negative for malignancy, she will likely need to be referred back to pulmonology for further assessment for pleural effusion. Of note she is on cefdinir suppression for what appears to be UTI. This has been continued upon discharge. Physical Exam Narrative: EXAM NARRATIVE: GEN: Awake, alert and oriented, no acute distress HEENT: NC in place, at baseline home 02 requirement CVS: S1S2 N RS: CTA B/L Abd: Soft, nt/nd , bs+ PRINCIPAL SYSTEMS ARCHITECT: no focal neuro deficits Discharge Data Data Completed and Pending: Completed Studies During Hospitalization Category Date Time Status CT angio chest PE protcl [id number] Urge nt Cat Scan 03/12/20 14:[address] head wo con* 7 0450 Routine Cat Scan 03/13/20 11:44 Completed XR chest 1V moy ble [id number] Stat Exams 03/12/20 15:59 Completed XR chest 1V moy ble [id number] Urgent Exams 03/12/20 14:16 Completed US thoracentesis [id number] Urgent Ultrasound 03/12/20 14:58 Completed Pending at discharge Category Date Time Status Body Fluid Cultur e & GS Routine Lab 03/12/20 15:00 Results Mycobacteria, Cul ture w/Fluor Routi ne Lab 03/13/20 10:12 Received Cytology [PTH] Ro utine Pth 03/12/20 16:04 Received Labs from last 24 hours 03/13/20 03/13/20 03/13/20 05:20 05:20 05:20 WBC 7.4 Corrected WBC RBC 4.23 Hgb 11.3 L Hct 38.0 MCV 89.8 MCH 26.7 L MCHC 29.7 L RDW 17.2 H Plt Count 345 MPV 10.6 H Gran % Neut % (Auto) 85.3 Lymph % (Auto) 7.7 Guthrie % (Auto) 6.2 Eos % (Auto) 0.0 Baso % (Auto) 0.1 Neut # (Auto) 6.28 Lymph # (Auto) 0.6 L G[place]rie # (Auto) 0.5 Eos # (Auto) 0.0 Baso # (Auto) 0.0 Absolute Gran (aut o) Nucleated RBC % (a uto) 0 Total Counted Nucleated RBCs # 0.0 PT INR D-Dimer Specimen Type Sample Site ABG pH ABG pCO2 ABG pO2 ABG HCO3 ABG Base Excess Phill Test Hematocrit Hgb O2 Saturation Carboxyhemoglobin Methemoglobin Total Hemoglobin O2 Delivery Device O2 Liters/Min FiO2 Field Services Analyst ID Sodium 131 L Potassium 4.6 Chloride 98 Carbon Dioxide 24 Anion Gap 13.6 BUN 26 H Creatinine 0.7 GFR Calculation 84.0 L Glucose 142 H Calculated Osmolal ity 271 L Lactic Acid Calcium 9.1 Magnesium Total Bilirubin AST ALT Alkaline Phosphata se Lactate Dehydrogen ase 521 H Troponin T Baselin e Troponin T 120 Min [place] Delta Troponin T Troponin T Hi Sens 6Hr Troponin T Hi Sens 6Hr Delta NT-Pro-B Natriuret Pep Total Protein Albumin Globulin Pleural Color Pleural Appearance Pleural pH Pleural WBC Pleural RBC Pleural Other Cell s Pleural Polynuclea r % Pleural Mononuclea r % Pleural Total Prot ein Pleural Albumin Pleural LDH Pleural Glucose Pleural Triglyceri kalina Path Cons w/Slide 03/12/20 03/12/20 03/12/20 20:15 16:30 15:40 WBC 12.8 H Corrected WBC RBC 5.11 Hgb 13.4 Hct 47.4 H MCV 92.8 MCH 26.2 L MCHC 28.3 L RDW 17.4 H Plt Count 443 H MPV 10.3 Gran % Neut % (Auto) 79.0 Lymph % (Auto) 11.5 Guthrie % (Auto) 8.1 Eos % (Auto) 0.2 Baso % (Auto) 0.7 Neut # (Auto) 10.12 H Lymph # (Auto) 1.5 Guthrie # (Auto) 1.0 H Eos # (Auto) 0.0 Baso # (Auto) 0.1 Absolute Gran (aut o) Nucleated RBC % (a uto) 0 Total Counted Nucleated RBCs # 0.0 PT INR D-Dimer Specimen Type Sample Site ABG pH ABG pCO2 ABG pO2 ABG HCO3 ABG Base Excess Phill Test Hematocrit Hgb O2 Saturation Carboxyhemoglobin Methemoglobin Total Hemoglobin O2 Delivery Device O2 Liters/Min FiO2 Field Services Analyst ID Sodium Potassium Chloride Carbon Dioxide Anion Gap BUN Creatinine GFR Calculation Glucose Calculated Osmolal ity Lactic Acid Calcium Magnesium Total Bilirubin AST ALT Alkaline Phosphata se Lactate Dehydrogen ase Troponin T Baselin e Troponin T 120 Min [place] 45.61 H Delta Troponin T -0.39 L Troponin T Hi Sens 6Hr 32.29 H Troponin T Hi Sens 6Hr Delta -13.71 L NT-Pro-B Natriuret Pep Total Protein Albumin Globulin Pleural Color Pleural Appearance Pleural pH Pleural WBC Pleural RBC Pleural Other Cell s Pleural Polynuclea r % Pleural Mononuclea r % Pleural Total Prot ein Pleural Albumin Pleural LDH Pleural Glucose Pleural Triglyceri kalina Path Cons w/Slide 03/12/20 03/12/20 03/12/20 15:00 14:39 14:16 WBC Corrected WBC RBC Hgb Hct MCV MCH MCHC RDW Plt Count MPV Gran % Neut % (Auto) Lymph % (Auto) Guthrie % (Auto) Eos % (Auto) Baso % (Auto) Neut # (Auto) Lymph # (Auto) Guthrie # (Auto) Eos # (Auto) Baso # (Auto) Absolute Gran (aut o) Nucleated RBC % (a uto) Total Counted Not Reportable Nucleated RBCs # PT INR D-Dimer Specimen Type Arterial Sample Site Radial, right ABG pH 7.38 ABG pCO2 50.2 H ABG pO2 60.2 L ABG HCO3 29.7 H ABG Base Excess 3.5 H Phill Test Pos Hematocrit 41.6 Hgb O2 Saturation 89.2 L Carboxyhemoglobin 1.3 Methemoglobin 0.7 Total Hemoglobin 13.6 O2 Delivery Device Nc O2 Liters/Min 5.0 FiO2 40.0 Field Services Analyst ID Amh Sodium Potassium Chloride Carbon Dioxide Anion Gap BUN Creatinine GFR Calculation Glucose Calculated Osmolal ity Lactic Acid Calcium Magnesium Total Bilirubin AST ALT Alkaline Phosphata se Lactate Dehydrogen ase Troponin T Baselin e 46 H Troponin T 120 Min [place] Delta Troponin T Troponin T Hi Sens 6Hr Troponin T Hi Sens 6Hr Delta NT-Pro-B Natriuret Pep Total Protein Albumin Globulin Pleural Color Red H Pleural Appearance Cloudy Pleural pH 8.00 H Pleural WBC 1496.000 H Pleural RBC 32.000 Pleural Other Cell s Not Reportable Pleural Polynuclea r % 17 Pleural Mononuclea r % 83 Pleural Total Prot ein 3.9 Pleural Albumin 2.7 Pleural LDH 1215 Pleural Glucose 98.0 Pleural Triglyceri kalina 53 Path Cons w/Slide Yes 03/12/20 03/12/20 03/12/20 14:16 14:16 14:16 WBC Corrected WBC RBC Hgb Hct MCV MCH MCHC RDW Plt Count MPV Gran % Neut % (Auto) Lymph % (Auto) Guthrie % (Auto) Eos % (Auto) Baso % (Auto) Neut # (Auto) Lymph # (Auto) Guthrie # (Auto) Eos # (Auto) Baso # (Auto) Absolute Gran (aut o) Nucleated RBC % (a uto) Total Counted Nucleated RBCs # PT 13.20 INR 0.97 D-Dimer Specimen Type Sample Site ABG pH ABG pCO2 ABG pO2 ABG HCO3 ABG Base Excess Phill Test Hematocrit Hgb O2 Saturation Carboxyhemoglobin Methemoglobin Total Hemoglobin O2 Delivery Device O2 Liters/Min FiO2 Field Services Analyst ID Sodium 136 Potassium 4.4 Chloride 96 L Carbon Dioxide 30 H Anion Gap 14.4 BUN 33 H Creatinine 0.9 GFR Calculation 62.8 L Glucose 125 H Calculated Osmolal ity 281 L Lactic Acid 1.6 Calcium 9.9 Magnesium 2.2 Total Bilirubin 0.4 AST 18 ALT 13 Alkaline Phosphata se 167 H Lactate Dehydrogen ase Troponin T Baselin e Troponin T 120 Min [place] Delta Troponin T Troponin T Hi Sens 6Hr Troponin T Hi Sens 6Hr Delta NT-Pro-B Natriuret Pep 235 H Total Protein 6.8 Albumin 4.0 Globulin 2.8 Pleural Color Pleural Appearance Pleural pH Pleural WBC Pleural RBC Pleural Other Cell s Pleural Polynuclea r % Pleural Mononuclea r % Pleural Total Prot ein Pleural Albumin Pleural LDH Pleural Glucose Pleural Triglyceri kalina Path Cons w/Slide 03/12/20 03/12/20 14:16 14:16 WBC Cancelled Corrected WBC Cancelled RBC Cancelled Hgb Cancelled Hct Cancelled MCV Cancelled MCH Cancelled MCHC Cancelled RDW Cancelled Plt Count Cancelled MPV Cancelled Gran % Cancelled Neut % (Auto) Cancelled Lymph % (Auto) Cancelled Guthrie % (Auto) Cancelled Eos % (Auto) Cancelled Baso % (Auto) Cancelled Neut # (Auto) Cancelled Lymph # (Auto) Cancelled Guthrie # (Auto) Cancelled Eos # (Auto) Cancelled Baso # (Auto) Cancelled Absolute Gran (aut o) Cancelled Nucleated RBC % (a uto) Cancelled Total Counted Nucleated RBCs # Cancelled PT INR D-Dimer 2.08 H Specimen Type Sample Site ABG pH ABG pCO2 ABG pO2 ABG HCO3 ABG Base Excess Phill Test Hematocrit Hgb O2 Saturation Carboxyhemoglobin Methemoglobin Total Hemoglobin O2 Delivery Device O2 Liters/Min FiO2 Field Services Analyst ID Sodium Potassium Chloride Carbon Dioxide Anion Gap BUN Creatinine GFR Calculation Glucose Calculated Osmolal ity Lactic Acid Calcium Magnesium Total Bilirubin AST ALT Alkaline Phosphata se Lactate Dehydrogen ase Troponin T Baselin e Troponin T 120 Min [place] Delta Troponin T Troponin T Hi Sens 6Hr Troponin T Hi Sens 6Hr Delta NT-Pro-B Natriuret Pep Total Protein Albumin Globulin Pleural Color Pleural Appearance Pleural pH Pleural WBC Pleural RBC Pleural Other Cell s Pleural Polynuclea r % Pleural Mononuclea r % Pleural Total Prot ein Pleural Albumin Pleural LDH Pleural Glucose Pleural Triglyceri kalina Path Cons w/Slide Vitals: Last Vital Signs Temp 98.0 F 03/13/20 11:51 Pulse 88 03/13/20 11:51 Resp 18 03/13/20 11:51 BP 153/83 03/13/20 11:51 Pulse Ox 94 03/13/20 11:51 Discharge Plan Discharge Patient Disposition: Home Condition: Stable Prescriptions: Continued cefdinir 300 mg capsule 300 mg PO BID Qty: 60 RF: 2 albuterol sulfate [ProAir HFA] 90 mcg/actuation HFA aerosol inhaler 2 puff INHALATION Q6H PRN (Reason: bronchospasm) Qty: 6.7 RF: 2 vitamin T23-nxqri acid 1,000-400 mcg lozenge 1 lozenge SUBLINGUAL DAILY RF: 0 prochlorperazine maleate 10 mg tablet 10 mg PO Q4H PRN (Reason: Nausea) RF: 0 pantoprazole [Protonix] 20 mg tablet,delayed release (DR/EC) 20 mg PO DAILY Qty: 30 RF: 2 umeclidinium-vilanterol [Anoro Ellipta] 62.5-25 mcg/actuation blister with device See Rx Instructions .ROUTE .COMPLEX Qty: 60 RF: 1 tramadol 50 mg tablet 50 mg PO BID PRN (Reason: Pain) Qty: 60 RF: 0 montelukast [Singulair] 10 mg tablet 10 mg PO DAILY Qty: 30 RF: 5 cyclobenzaprine 10 mg tablet 10 mg PO TID PRN (Reason: muscle spasm) Qty: 90 RF: 0 oxybutynin chloride 10 mg tablet extended release 24hr 20 mg PO DAILY Qty: 30 RF: 0 albuterol sulfate 2.5 mg /3 mL (0.083 %) solution for nebulization 2.5 mg INHALATION Q4H PRN (Reason: bronchospasm) Qty: 525 RF: 0 hydrocodone-acetaminophen 5-325 mg tablet 1 tab PO QID PRN (Reason: Pain) RF: 0 Discharge Orders: Discharge Order (Routine); Ordered 03/13/20 Ordered By: Elicia Luis Referrals: Prema Jenkins FNP [Primary Care Provider] - Nikki Kunz MD [Staff Physician] - 1-3 days Discharge Diet: Usual diet Discharge Activity: Resume usual activity Discharge Attestations Time Spent in Discharge Care*: greater than 30 min Quality Metrics Clinical Quality Measures During this hospital stay, did patient experience: None Coding Level of Care Code Acute Office Technology Instructor for Candaceg Shawn Diagnoses Pleural effusion J90 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
== END 2020-03-13 16:53 | disposition home or self-care (01) ==
LOC: ER 17:09 → MEDSURG 17:11
PROVIDERS: Emergency Medicine; Nurse Practitioner Family; Admitting Provider Student in an Organized Health Care Education/Training Program; PCP Nurse Practitioner Family; Visit Provider Student in an Organized Health Care Education/Training Program
DX: J90 Pleural effusion, not elsewhere classified (principal); C34.10 Malignant neoplasm of upper lobe, unspecified bronchus or lung; Z79.891 Long term (current) use of opiate analgesic; J44.9 Chronic obstructive pulmonary disease, unspecified; I10 Essential (primary) hypertension; M06.9 Rheumatoid arthritis, unspecified; F17.210 Nicotine dependence, cigarettes, uncomplicated
CPT/HCPCS: 12345; 32555; 36415; 36591; 36600; 70450; 71045; 71275; 80048; 80053; 80500; 82042; 82805; 82945; 83605; 83615; 83735; 83880; 83986; 84157; 84478; 84484; 85025; 85378; 85610; 87015; 87070; 87075; 87116; 87205; 87206; 87801; 88112; 88305; 89050; 93005; 94640; 96360; 96361; 96372; 96374; 96375; 99284; 99285; G0378; J1200; J1650; J2270; J2405; J2930; J7030; Q9967

== ENCOUNTER 2020-03-15 08:37 | Inpatient (IN) | payer MEDICARE, MEDICAID, SELFPAY ==
[2020-03-15] VITALS (85 sets, daily range): BP systolic 105–181; BP diastolic 67–150; PULSE 84–108; RESP 13–30; TEMP 36.7; O2SAT 83–98; BMI 24.9
--- NOTE | 2020-03-15 08:54 | XR_ITS ---
WS: [id number] PORTABLE CHEST HISTORY: dyspnea/cough COMPARISON: 03/12/2020 Moderate size RIGHT pleural effusion. May be partially loculated or there is soft tissue in the pleur al space. Increased lobulated soft tissue along the periphery of the RIGHT upper lobe. Atelectasis at the RIGHT lung base. LEFT lung is hyperexpanded and clear. No pneumonia. No pleural effusion or pneumothorax. Cardiac size: Normal. Mediastinum/Aorta: No mediastinal widening appreciated. Prior RIGHT shoulder replacement. LEFT subclavian Port-A-Cath. XR/XR chest 1V portable [id number] IMPRESSION: 1. Moderate RIGHT pleural effusion has increased in size since the prior study . 2. No pneumothorax.
--- NOTE | 2020-03-15 08:55 | ECG_ITS ---
[facility] Test Date: 2020-03-15 Pat Name: Shira Mata Department: Room: Gender: Female Health Promotion Educator: : 1955 Requested By: Riccardo Escobedo Order Number: [id number] Jin MD: Billie Lea M.D. Measurements Intervals [place] Rate: 97 P: 61 FL: 138 QRS: 77 QRSD: 90 T: 59 QT: 334 QTc: 425 Interpretive Statements SINUS RHYTHM Compared to ECG 03/12/2020 16:35:12 Sinus tachycardia no longer present T-wave abnormality no longer present Electronically Signed On 03-15-2020 9:39:00 CDT by Billie Lea M.D. [email or web address] [employer] Groupselect medical specialty hospital - [email or web address]/OM/[id number]
[2020-03-15] MEDS: ipratropium-albuterol 3 mL Neb INHALATION ×2 (09:05→20:39)
--- NOTE | 2020-03-15 09:11 | W.ED.SOB ---
HPI - SOB/Dyspnea General: Chief Complaint: Shortness of Breath/Dyspnea Stated Complaint: SOB, Hx LUNG CA Time Seen by Provider: 03/15/20 08:42 History of Present Illness: HPI Narrative: 64-year-old female with a known history of small cell lung CA. she is currently undergoing treatment her last cycle of chemo was 4 weeks ago she was supposed to start last week but due to some logistical issues it was put off and then after that she was hospitalized. Patient has had any increasing cough and increasing shortness of breath he not been coughing anything up she used to next 2-3 nebs today of albuterol they did seem to help a little bit but they did not completely resolve her symptoms she is complaining of some right-sided chest pain as well denies any abdominal pain no GI or symptoms at all. She is normally on 3 L/min at home currently she is getting 6 L/min by nasal cannula which is just keeping her sats from 88-90. Unfortunately the patient is still smoking open until last week she states she quit 1 week ago. MD elicited complaint: shortness of breath and cough Pertinent past history: COPD and other (Small cell lung cancer) Onset (ago): day(s) Context: recent illness Timing: constant Severity: moderate Exacerbating factors: movement and coughing Known history of: COPD Associated symptoms: Reports cough; Deny abdominal pain, chest congestion, chest pain, diaphoresis, fever(s), hemoptysis, myalgias, nausea, orthopnea, rash, syncope or vomiting Treatment prior to arrival: none Review of Systems Const: Denies: fever(s) or diaphoresis ENMT: Denies: throat pain, ear or mastoid pain, nasal discharge or nasal congestion Card: Denies: chest pain, syncope or orthopnea Resp: Denies: hemoptysis or chest congestion GI: Denies: abdominal pain, nausea or vomiting : Denies: flank pain, difficulty voiding, dysuria, urinary frequency or urinary urgency Skin/Breast: Denies: rash or pruritus [facility] PFSH: Medical History COPD (chronic obstructive pulmonary disease) Essential (primary) hypertension GERD (gastroesophageal reflux disease) Hypertension Lung cancer Port-A-Cath in place Recurrent UTI Rheumatoid arthritis Skull mass Subdural hemorrhage Urgency incontinence Urinary incontinence UTI (urinary tract infection) Surgical History H/O shoulder surgery History of cholecystectomy History of knee replacement History of lung surgery CT guided trans-thoracic cord needle biopsy right upper lobe lung mass pending Wedge resection of the right upper lobe of the lung done in [facility] Hx of cataract surgery Family History Mother Lung disease COPD Brother Lung disease COPD Social History Smoking and tobacco status: former smoker Quit status (tobacco): has quit using tobacco Former quit date comment: 1 week ago Alcohol intake: never Substance/Drug Use: never Lives independently: Yes Household members: family and children Housing: House Marital status: service: No Current occupational status: retired History of recent travel: No Current gender identity: Female Physical Exam Const: COMMON NORMALS: no acute distress GENERAL APPEARANCE: cooperative and comfortable ORIENTATION/CONSCIOUSNESS: Yes awake, Yes oriented to person, Yes oriented to place and Yes oriented to time HENMT: COMMON NORMALS: normocephalic and atraumatic HEAD & SCALP: normocephalic and atraumatic Eye: COMMON NORMALS: Equal, round and reactive pupils present, EOMs intact bilaterally, conjunctivae normal and no scleral icterus CONJUNCTIVA: Yes conjunctivae normal PUPIL: Yes Equal, round and reactive pupils present Neck/C-Spine: COMMON NORMALS: full ROM, no lymphadenopathy, supple and no JVD Lymph: LYMPHATIC: no lymphadenopathy noted and no lymphedema noted Resp: COMMON NORMALS: normal respiratory effort, No retractions, No use of accessory muscles and clear to auscultation bilaterally AUSCULTATION: clear to auscultation bilaterally Cardio: COMMON NORMALS: no JVD, regular rate, regular rhythm and No murmurs present (Cardio) RATE: regular rate RHYTHM: regular rhythm GI: COMMON NORMALS: Soft to palpation and No hepatosplenomegaly present AUSCULTATION: Yes normoactive bowel sounds PALPATION: Yes Soft to palpation, No Tenderness to palpation present (GI), No Guarding due to palpation present (GI) and Yes No hepatosplenomegaly present Extremity: COMMON NORMALS: normal to inspection, capillary refill normal, no clubbing, cyanosis or edema, no calf tenderness and no pedal edema Neuro: SENSORIUM/ORIENTATION: Yes oriented to person, Yes oriented to place and Yes oriented to time Skin: COMMON NORMALS: no rashes or lesions noted GENERAL SKIN EXAM: no rashes or lesions noted Course Vital Signs: Vital signs: Vital Signs Temperature 98.1 F 03/18/20 14:00 Pulse Rate 110 H 03/19/20 07:53 Respiratory Rate 22 H 03/19/20 07:53 Blood Pressure 178/128 03/19/20 06:00 Pulse Oximetry 94 03/19/20 07:53 MDM - SOB/Dyspnea MDM Narrative: Medical decision making narrative: Patient having difficulty with her breathing will go ahead and admit her for aggressive pulmonary toilet she may also need thoracentesis for the pleural effusion which is secondary to her known small cell carcinoma of the lung. Reviewed with Dr. Rocio Joseph she will accept patient for admission and will consult as appropriate after she evaluated the patient if she will require thoracentesis. Lab Data: Labs: Lab Results 03/15/20 03/15/20 03/15/20 Range/Units 08:51 09:14 09:14 WBC 12.3 H (4.0-10.0) 10^3/ uL RBC 4.86 (4.1-5.3) 10^6/u L Hgb 13.0 (11.5-15.3) g/dL Hct 44.0 (37.0-47.0) % MCV 90.5 (81-99) fL MCH 26.7 L (28.0-34.0) pg MCHC 29.5 L (30.0-36.0) g/dL RDW 17.3 H (12.1-15.1) % Plt Count 385 (130-400) 10^3/c mm MPV 9.7 (7.4-10.4) fL Neut % (Auto) 83.4 % Lymph % (Auto) 7.0 % [place] % (Auto) 8.4 % Eos % (Auto) 0.3 % Baso % (Auto) 0.4 % Neut # (Auto) 10.29 H (1.8-7.7) 10^3/u L Lymph # (Auto) 0.9 (0.8-4.8) 10^3/u L [place] # (Auto) 1.0 H (0.2-0.9) 10^3/u L Eos # (Auto) 0.0 (0.0-0.8) 10^3/u L Baso # (Auto) 0.1 (0.0-0.1) 10^3/u L Nucleated RBC % (a uto) 0 % Nucleated RBCs # 0.0 /100WBC Specimen Type Arterial Sample Site Radial, right ABG pH 7.33 L (7.35-7.45) ABG pCO2 58.4 H (35-45) mmHg ABG pO2 63.0 L (80.0-100.0) mmH g ABG HCO3 30.6 H (22-26) mmol/L ABG O2 Saturation 91.2 ABG Base Excess 3.1 H (-2.0-2.0) mmol/ L Phill Test Pos A-a O2 Gradient 23.5 H (5-10) mmHg Hematocrit 41.0 (37-47) % Hgb O2 Saturation 89.3 L (95-100) % Carboxyhemoglobin 1.2 (0.4-20.1) %THgb Methemoglobin 0.8 (0.4-1.5) % Total Hemoglobin 13.4 (12-16) g/dL Sodium 136.0 134 L (131-143) mmol/L Potassium 4.5 4.6 (3.5-5.0) mmol/L Glucose 123.0 H 124 H (70-115) mg/dL Ionized Calcium 1.3 (1.1-1.4) mmol/L O2 Delivery Device Nc O2 Liters/Min 6.0 % FiO2 44.0 % Motor Room Controller ID Ed Chloride 98 (98-107) mmol/L Carbon Dioxide 27 (22-29) mmol/L Anion Gap 13.6 (5-19) BUN 23 (8-23) mg/dL Creatinine 0.8 (0.5-0.9) mg/dL GFR Calculation 72.0 L (90-130) mL/min Calculated Osmolal ity 276 L (285-295) mOsm/k g Calcium 9.0 (8.5-10.5) mg/dL Total Bilirubin 0.4 (0.15-1.2) mg/dL AST 17 (0-32) U/L ALT 12 (0-33) U/L Alkaline Phosphata se 140 H (35-105) IU/L Troponin T Baselin e (0-10) ng/L Total Protein 6.2 L (6.6-8.7) g/dL Albumin 3.8 (3.5-5.2) g/dL Globulin 2.4 (1.3-4.6) g/dL 03/15/20 Range/Units 09:14 WBC (4.0-10.0) 10^3/ uL RBC (4.1-5.3) 10^6/u L Hgb (11.5-15.3) g/dL Hct (37.0-47.0) % MCV (81-99) fL MCH (28.0-34.0) pg MCHC (30.0-36.0) g/dL RDW (12.1-15.1) % Plt Count (130-400) 10^3/c mm MPV (7.4-10.4) fL Neut % (Auto) % Lymph % (Auto) % [place] % (Auto) % Eos % (Auto) % Baso % (Auto) % Neut # (Auto) (1.8-7.7) 10^3/u L Lymph # (Auto) (0.8-4.8) 10^3/u L [place] # (Auto) (0.2-0.9) 10^3/u L Eos # (Auto) (0.0-0.8) 10^3/u L Baso # (Auto) (0.0-0.1) 10^3/u L Nucleated RBC % (a uto) % Nucleated RBCs # /100WBC Specimen Type Sample Site ABG pH (7.35-7.45) ABG pCO2 (35-45) mmHg ABG pO2 (80.0-100.0) mmH g ABG HCO3 (22-26) mmol/L ABG O2 Saturation ABG Base Excess (-2.0-2.0) mmol/ L Phill Test A-a O2 Gradient (5-10) mmHg Hematocrit (37-47) % Hgb O2 Saturation (95-100) % Carboxyhemoglobin (0.4-20.1) %THgb Methemoglobin (0.4-1.5) % Total Hemoglobin (12-16) g/dL Sodium (131-143) mmol/L Potassium (3.5-5.0) mmol/L Glucose (70-115) mg/dL Ionized Calcium (1.1-1.4) mmol/L O2 Delivery Device O2 Liters/Min % FiO2 % Motor Room Controller ID Chloride (98-107) mmol/L Carbon Dioxide (22-29) mmol/L Anion Gap (5-19) BUN (8-23) mg/dL Creatinine (0.5-0.9) mg/dL GFR Calculation (90-130) mL/min Calculated Osmolal ity (285-295) mOsm/k g Calcium (8.5-10.5) mg/dL Total Bilirubin (0.15-1.2) mg/dL AST (0-32) U/L ALT (0-33) U/L Alkaline Phosphata se (35-105) IU/L Troponin T Baselin e 29 H (0-10) ng/L Total Protein (6.6-8.7) g/dL Albumin (3.5-5.2) g/dL Globulin (1.3-4.6) g/dL Discharge Plan Discharge Patient Disposition: Admitted As Inpatient Admit Provider: Junie Rdz Clinical Impression: Acute exacerbation of chronic obstructive pulmonary disease, 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, Pleural effusion Condition: Stable Referrals: [facility] [Outside] Prema Jenkins FNP [Primary Care Provider] - Discharge Date/Time: 03/15/20 12:00 Coding Level of Care Code ED Gastroenterology Manager for Chg Fwd Exam Comprehensive
[2020-03-15 09:22] LABS: Basophils # 0.1 10^3/uL (0.0-0.1); Basophils % 0.4 %; Eosinophils % 0.3 %; Lymphocytes # 0.9 10^3/uL (0.8-4.8); Mean Corpuscular HGB Conc 29.5 g/dL (30.0-36.0); Mean Corpuscular Hemoglobin 26.7 pg (28.0-34.0); Mean Corpuscular Volume 90.5 fL (81-99); Mean Platelet Volume 9.7 fL (7.4-10.4); Monocytes % 8.4 %; Neutrophils # 10.29 10^3/uL (1.8-7.7); Neutrophils % 83.4 %; Nucleated Red Blood Cells % 0 %; Platelet Count 385 10^3/cmm (130-400); Red Blood Count 4.86 10^6/uL (4.1-5.3); Red Cell Distribution Width 17.3 % (12.1-15.1); White Blood Count 12.3 10^3/uL (4.0-10.0)
[2020-03-15] MEDS: sodium chloride 0.9% 1,000 ML 999 ML IV (09:22)
[2020-03-15 09:40] LABS: Alanine Aminotransferase 12 U/L (0-33); Albumin Level 3.8 g/dL (3.5-5.2); Alkaline Phosphatase 140 IU/L (35-105); Anion Gap 13.6 (5-19); Aspartate Amino Transferase 17 U/L (0-32); Blood Urea Nitrogen 23 mg/dL (8-23); Carbon Dioxide 27 mmol/L (22-29); Chloride 98 mmol/L (98-107); Creatinine Clr Calc Pharmacy 75.3662; Globulin 2.4 g/dL (1.3-4.6); Glucose 124 mg/dL (65-115); Osmolality Calculated 276 mOsm/kg (285-295); Potassium 4.6 mmol/L (3.5-5.1); Sodium 134 mmol/L (136-145); Total Bilirubin 0.4 mg/dL (0.15-1.2); Total Protein 6.2 g/dL (6.6-8.7)
[2020-03-15 09:45] LABS: Troponin(5th) Baseline 29 ng/L (0-10)
[2020-03-15] MEDS: morphine 4 mg/mL SDV 1 mL IVP (10:13)
--- NOTE | 2020-03-15 10:55 | ECG_ITS ---
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 Measurements Intervals [place] Rate: 93 P: 87 ND: 147 QRS: 75 QRSD: 89 T: 70 QT: 338 QTc: 420 Interpretive Statements SINUS RHYTHM Compared to ECG 03/15/2020 09:04:54 No significant changes Electronically Signed On 03-15-2020 20:36:48 CDT by Billie Lea M.D. [email or web address] cleveland heights medical center.[id number]
--- NOTE | 2020-03-15 11:08 | PM.HP ---
Providers/Chief Complaint Admitting Physician: Junie Rdz MD Primary Care Provider: NELDA Berry Chief Complaint: SOB, COPD, LUNG CA History of Present Illness Shira Mata is a 64 year old female with PMHx listed below presents about 48 hours following discharge with complaints of increased work of breathing, inability to lay down due to increased shortness of breath, increased oxygen requirement since yesterday. She was admitted at the end of February for similar symptoms and was found to have a moderate right pleural effusion that was drained by interventional radiology with removal of 1400 mL bloody fluid. Pleural fluid analysis seems consistent with exudative effusion, cytology is pending. Reports almost immediate significant improvement in her breathing and was able to be weaned down to her baseline oxygen requirement of 3 L nasal cannula. However yesterday afternoon due to increased shortness of breath had to increase oxygen requirement to 4 L with continued work of breathing. She progressively got more short of breath as the day wore on and overnight was unable to lay down to sleep. She denies having had any cough, chest pain though she has had some substernal chest tightness, denies any fever/chills, recent travel, sick contacts, abdominal symptoms, changes in her urinary or bowel habits. She denies any changes to her medication regimen and reports compliance. She is a former smoker, quit last week. Reports that she has been having to use a walker/cane since this past weekend likely due to increased work of breathing. She denies any recent falls. Lives with her family and has good family support. Due to her history of lung cancer she follows up with Dr. Kunz and has been on chemotherapy to which she has been responding well. I discussed case with Dr. Kunz particularly in terms of thoracentesis versus [place] drain placement. He would like to wait on cytology results before making a decision to proceed with possible Pleurx drain placement. Patient is quite apprehensive about thoracentesis due to residual pain from recent procedure. During my assessment in the ER she is requiring 10 L oxygen mask with saturation in the mid to high 90s. Work-up indicates leukocytosis with a white count of 12.3, normal hemoglobin at 13, normal electrolytes and renal function, BNP-235, chest x-ray showing moderate right pleural effusion. Initially requested interventional radiology to do thoracentesis but patient does not feel ready to do this unless she is completely sedated. Therefore I have requested consult by Dr. Monroe who will see the patient later this afternoon. Due to increased work of breathing and low threshold for decompensation she will be admitted to ICU. She has already received 1 L normal saline bolus, IV steroids and nebulizer treatment as well as IV morphine for pain control. Review of Systems Const: Reports: change in appetite (decreased appetite) and fatigue; Denies: fever(s) or chills Eyes: Denies: change in vision ENMT: Reports: dry mouth Card: Reports: dyspnea on exertion and orthopnea; Denies: chest pain, swelling of feet/ankles, lightheadedness, syncope or pre-syncope Resp: Reports: dyspnea; Denies: productive cough, non-productive cough or hemoptysis GI: Denies: abdominal pain, nausea, vomiting, hematemesis or hematochezia : Denies: difficulty voiding, dysuria or hematuria Musc: Reports: back pain Skin/Breast: Denies: rash Neuro: Reports: weakness in extremities; Denies: numbness in extremities Psych: Denies: anxiety Medications/Allergies Home Medications Medication Instructions Recorded Confirmed Last Taken Type albuterol sulfate 90 mcg/actuation 2 puff INHALATION Q6H PRN #6.7 gm 09/04/19 03/15/20 11/09/19 Rx aerosol inhaler vitamin B12 1,000 mcg-folic acid 1 lozenge SUBLINGUAL DAILY 11/20/19 03/15/20 03/14/20 History 400 mcg sublingual lozenge prochlorperazine maleate 10 mg 10 mg PO Q4H PRN tab 12/08/19 03/15/20 02/01/20 History tablet montelukast 10 mg tablet 10 mg PO DAILY #30 tab 01/09/20 03/15/20 03/14/20 Rx tramadol 50 mg tablet 50 mg PO BID PRN #60 tab 01/09/20 03/15/20 03/14/20 Rx hydrocodone-acetaminophen 1 tab PO QID PRN 02/01/20 03/15/20 03/14/20 History cefdinir 300 mg capsule 300 mg PO BID #60 cap 02/16/20 03/15/20 03/14/20 Rx cyclobenzaprine 10 mg tablet 10 mg PO TID PRN #90 tab 02/17/20 03/15/20 03/14/20 Rx albuterol sulfate 2.5 mg INHALATION Q4H PRN #525 ml 03/09/20 03/15/20 03/15/20 Rx oxybutynin chloride 15 mg PO DAILY 03/15/20 03/15/20 03/14/20 History pantoprazole 20 mg tablet,delayed See Rx Instructions .ROUTE 03/15/20 03/15/20 03/14/20 Rx release .COMPLEX #30 tab umeclidinium 62.5 mcg-vilanterol See Rx Instructions .ROUTE 03/15/20 03/15/20 03/14/20 Rx 25 mcg/actuation powdr for .COMPLEX #60 each inhalation Allergies Allergy/AdvReac Type Severity Reaction Status Date / Time naproxen Allergy Severe ALGY-Anaphy Verified 02/01/20 18:30 laxis Iodinated Contrast Media Allergy ALGY-Anaphy Verified 02/01/20 18:30 laxis lisinopril AdvReac diarrhea Verified 02/01/20 18:30 PFSH Acute PFSH: Medical History (Updated 03/15/20 @ 11:58 by Junie Rdz MD) COPD (chronic obstructive pulmonary disease) Essential (primary) hypertension GERD (gastroesophageal reflux disease) Hypertension Lung cancer Port-A-Cath in place Recurrent UTI Rheumatoid arthritis Skull mass Subdural hemorrhage Urgency incontinence Urinary incontinence UTI (urinary tract infection) Surgical History H/O shoulder surgery History of cholecystectomy History of knee replacement History of lung surgery CT guided trans-thoracic cord needle biopsy right upper lobe lung mass pending Wedge resection of the right upper lobe of the lung done in [facility] Hx of cataract surgery Family History Mother Lung disease COPD Brother Lung disease COPD Social History (Updated 03/15/20 @ 11:12 by Junie Rdz MD) Smoking and tobacco status: former smoker Quit status (tobacco): has quit using tobacco Former quit date comment: 1 week ago Alcohol intake: never Substance/Drug Use: never Lives independently: Yes Household members: family and children Housing: House Marital status: service: No Current occupational status: retired History of recent travel: No Current gender identity: Female Vitals/I&O/Wt Last Vital Signs Pulse 95 03/15/20 10:04 Resp 24 H 03/15/20 10:13 BP 144/67 03/15/20 10:04 Pulse Ox 95 03/15/20 10:13 Weight last 48 hrs Weight 74.389 kg Physical Exam Const: COMMON NORMALS: no acute distress and patient oriented x3 GENERAL APPEARANCE: cooperative and comfortable ORIENTATION/CONSCIOUSNESS: Yes awake HENMT: COMMON NORMALS: normocephalic, atraumatic, hearing grossly normal bilaterally and moist oral mucous membranes HEAD & SCALP: normocephalic and atraumatic Eye: COMMON NORMALS: Equal, round and reactive pupils present, EOMs intact bilaterally and conjunctivae normal CONJUNCTIVA: Yes conjunctivae normal PUPIL: Yes Equal, round and reactive pupils present Neck/C-Spine: COMMON NORMALS: full ROM GENERAL: Yes normal visual inspection and Yes trachea midline Resp: COMMON NORMALS: normal respiratory effort, No retractions, No use of accessory muscles and clear to auscultation bilaterally EFFORT & INSPECTION: Yes able to speak in complete sentences, Yes symmetric chest movement and No tachypneic AUSCULTATION: clear to auscultation bilaterally Cardio: COMMON NORMALS: regular rate, regular rhythm, S1 normal heart sound present, S2 normal heart sound present and No murmurs present (Cardio) RATE: regular rate RHYTHM: regular rhythm HEART SOUNDS: S1 normal heart sound present and S2 normal heart sound present GI: COMMON NORMALS: Normal to inspection, nondistended, normoactive bowel sounds present, Soft to palpation and non-tender PALPATION: Yes Soft to palpation Extremity: COMMON NORMALS: normal to inspection, full ROM and no clubbing, cyanosis or edema; negative for no pedal edema Neuro: COMMON NORMALS: patient oriented x3, moves all extremities, no focal motor deficits, no sensory deficits noted and gait normal Psych: COMMON NORMALS: mental status grossly normal, Normal thought process present, cooperative, normal affect and speech normal SPEECH: Yes normal speech THOUGHT PROCESS: Normal thought process present Skin: COMMON NORMALS: no rashes or lesions noted, no jaundice, no petechiae and no mottling GENERAL SKIN EXAM: no rashes or lesions noted Data : 03/15/20 09:14 03/15/20 09:14 A&P Assessment and plan (1) Pleural effusion: -has recurrent R pleural effusion, moderate per CXR today -had thoracentesis done on 03/13 for the same, fluid analysis consistent with exudative effusion, noted to be bloody, cytology pending -discussed possibility of [place] drain placement with Dr. Kunz and he would like to wait for cytology before making a decision on this -requested US-guided thoracentesis by IR which patient declined. Discussed with Dr. Monroe who will do procedure -patient requesting sedation for procedure as she is still sore from prior thoracentesis -currently requiring 8 L oxy-mask; close monitoring of respiratory status as she is currently in some distress with noted accessory muscle use and increased oxygen requirement -anticipate improvement in respiratory status following thoracentesis; fluid analysis and cytology requested -will need follow up imaging to determine progress -has received IV steroids, Neb treatments in ED Status: Acute (2) Acute exacerbation of chronic obstructive pulmonary disease: -is oxygen dependent at baseline with 3 L NC requirement, had to increase to 4 L yesterday due to increased work of breathing -increased work of breathing is more consistent with pleural effusion rather than true acute COPD exacerbation so would not continue steroids for now -close monitoring of respiratory status Status: Acute (3) Small cell lung cancer: -follows up with Dr. Kunz -has been on chemotherapy with good response, pending last cycle Status: Acute (4) Recurrent UTI: -on chronic Cefdinir therapy, resume this -currently asymptomatic Status: Chronic (5) Chronic respiratory failure with hypoxia: -secondary to oxygen dependent COPD, 3 L baseline requirement Status: Chronic (6) Urgency incontinence: -resume oxybutnin Status: Chronic (7) GERD (gastroesophageal reflux disease): -resume PPI Status: Chronic Qualifiers: Esophagitis presence: esophagitis presence not specified Qualified Code(s): K21.9 - Gastro-esophageal reflux disease without esophagitis Additional A&P Information -keep NPO for now except meds -GI ppx with PPI -DVT ppx with Lovenox -Dispo: home -Code status: FULL code -ICU admission due to low threshold for decompensation in respiratory status Attestations Medical Necessity Statement*: Shira Mata's hospital stay will require greater than 2 midnights for management of R pleural effusion with associated increased work of breathing pending thoracentesis, needs close monitoring of respiratory status. Time Spent in Patient Care: Greater than 35 minutes (>than 50% of time spent in counselling and/or direct pt care on unit). Coding Level of Care Code Acute Education And Training Manager for [facility] Fwd Exam Comprehensive Diagnoses Pleural effusion J90 Acute exacerbation of chronic obstructive pulmonary disease J44.1 Small cell lung cancer C34.90 Recurrent UTI N39.0 Chronic respiratory failure with hypoxia J96.11 Urgency incontinence N39.41 GERD (gastroesophageal reflux disease) K21.9 Esophagitis presence: esophagitis presence not specified
[2020-03-15 11:31] LABS: Troponin 5 2HR 27.22 ng/L (0-10); Troponin 5 2HR Delta -1.78 ABS# (0-10)
--- NOTE | 2020-03-15 11:36 | PC.NURSE ---
pt not signing consent form for thoracentesis. pt states she hurts too bad to do the procedure right now. Pt states the only way she is agreeing to this is to be put to sleep. Provider to be notified.
--- NOTE | 2020-03-15 11:47 | PC.NURSE ---
Provider notified (Dr. Rdz) of pt's refusal for thoracentesis.
--- NOTE | 2020-03-15 12:19 | PC.NURSE ---
To ICU 1210 Patient to ICU via ER stretcher. Patient transferred to bed x3 nurse assist. Patient AAOx3, on NC c humidity, vitals elevated but patient asymptomatic. Will retake in 15 minutes. Patient sitting up 90 degrees per request for oxygenation, sat 93%.
[2020-03-15] MEDS: enoxaparin 40 mg/0.4 mL Syringe SUBCUT (12:40)
[2020-03-15] MEDS: D5-NS 0.45% + KCL 20 mEq 20 MEQ/1,000 ML BAG 100 MEQ IV ×2 (12:40→23:41)
--- NOTE | 2020-03-15 13:16 | PC.RESP ---
Pulmonary Rehab information sent to patient.
--- NOTE | 2020-03-15 14:55 | ECG_ITS ---
[facility] Test Date: 2020-03-15 Pat Name: Shira Mata Department: Room: ICU03 Gender: Female Display Department Manager: : 1955 Requested By: Riccardo Escobedo Order Number: [id number] Jin MD: Billie Lea M.D. Measurements Intervals [place] Rate: 99 P: 66 GA: 145 QRS: 35 QRSD: 94 T: 19 QT: 339 QTc: 437 Interpretive Statements SINUS RHYTHM WITH OCCASIONAL VENTRICULAR PREMATURE COMPLEXES Poor R wave progression Compared to ECG 03/15/2020 10:36:25 Ventricular premature complex(es) now present Electronically Signed On 03-15-2020 20:38:04 CDT by Billie Lea M.D. [email or web address].[email or web address]/[id number]
[2020-03-15 16:01] LABS: Troponin 5 6HR 20.45 ng/L (0-10)
[2020-03-15] MEDS: morphine 4 mg/mL SDV 1 mL 2 MG IVP ×2 (16:08→20:35)
[2020-03-15 16:11] LABS: Troponin 5 6HR Delta -8.55 ng/L (0-12)
[2020-03-15] MEDS: lidocaine 1% INJ 20 mL IM (16:25)
--- NOTE | 2020-03-15 16:59 | PM.CONSULT ---
Providers/Reason For Consult Consulting Physican/Specialty*: Pulmonary critical care medicine Reason for Consult*: Worsening respiratory failure with suspected malignant right-sided pleural effusion Attending Physician: Junie Rdz MD Primary Care Provider: NELDA Berry History of Present Illness History of Present Illness Shira Mata is a 64 year old female well-known to me from her previous hospital and office visits. The patient has diffuse small cell lung cancer and is currently undergoing chemotherapy. Patient was recently hospitalized with worsening shortness of breath and underwent a right-sided thoracentesis with 1400 cc removed. The patient comes back today within a few days with worsening shortness of breath. A chest x-ray performed in the ED revealed reactive relation of pleural fluid. The pleural fluid analysis after the thoracentesis revealed lymphocyte predominant pleural effusion likely secondary to her malignancy. I had seen and examined the patient in the ICU today. The patient was tachypneic visibly short of breath. Bedside ultrasound revealed large right-sided pleural effusion with flattening of the right hemidiaphragm. The plankton sign was positive. The patient denies any fever, night sweats, chills. Endorses orthopnea but no proximal nocturnal dyspnea. Review of Systems Narrative: General: No fevers chills night sweats. Positive for fatigue Skin: No rash HEENT: No nasal congestion, rhinitis, sinusitis, sneezing, hoarseness of voice. Respiratory: Please see my HPI. Cardiovascular: No chest pain, proximal nocturnal dyspnea, palpitation or lower extremity edema. Gastrointestinal: No abdominal pain, nausea, vomiting, melena Musculoskeletal: No joint pain or swelling, muscle weakness, morning stiffness, numbness or tingling. Neurological: Patient is awake alert and oriented x3, no paralysis, gross motor function is normal. Psychiatric: No anxiety or depression. Meds/Allergies Home Medications and Allergies Home Medications Medication Instructions Recorded Confirmed Last Taken Type albuterol sulfate 90 mcg/actuation 2 puff INHALATION Q6H PRN #6.7 gm 09/04/19 03/15/20 11/09/19 Rx aerosol inhaler vitamin B12 1,000 mcg-folic acid 1 lozenge SUBLINGUAL DAILY 11/20/19 03/15/20 03/14/20 History 400 mcg sublingual lozenge prochlorperazine maleate 10 mg 10 mg PO Q4H PRN tab 12/08/19 03/15/2001/31/20 History tablet montelukast 10 mg tablet 10 mg PO DAILY #30 tab 01/09/20 03/15/20 03/14/20 Rx tramadol 50 mg tablet 50 mg PO BID PRN #60 tab 01/09/20 03/15/20 03/14/20 Rx hydrocodone-acetaminophen 1 tab PO QID PRN 02/01/20 03/15/20 03/14/20 History cefdinir 300 mg capsule 300 mg PO BID #60 cap 02/16/20 03/15/20 03/14/20 Rx cyclobenzaprine 10 mg tablet 10 mg PO TID PRN #90 tab 02/17/20 03/15/20 03/14/20 Rx albuterol sulfate 2.5 mg INHALATION Q4H PRN #525 ml 03/09/20 03/15/20 03/15/20 Rx oxybutynin chloride 15 mg PO DAILY 03/15/20 03/15/20 03/14/20 History pantoprazole 20 mg tablet,delayed See Rx Instructions .ROUTE 03/15/20 03/15/20 03/14/20 Rx release .COMPLEX #30 tab umeclidinium 62.5 mcg-vilanterol See Rx Instructions .ROUTE 03/15/20 03/15/20 03/14/20 Rx 25 mcg/actuation powdr for .COMPLEX #60 each inhalation Allergies Allergy/AdvReac Type Severity Reaction Status Date / Time naproxen Allergy Severe ALGY-Anaphy Verified 02/01/20 18:30 laxis Iodinated Contrast Media Allergy ALGY-Anaphy Verified 02/01/20 18:30 laxis lisinopril AdvReac diarrhea Verified 02/01/20 18:30 Current Medications Current Medications Generic Name Dose Route Start Last Admin Trade Name Freq PRN Reason Stop Dose Admin Enoxaparin Sodium 40 mg 03/15/20 12:15 03/15/20 12:40 Lovenox SUBCUT 40 mg Q24H SP Administration Potassium Chloride/Dextrose/Sod Cl 20 meq in 1,000 mls @ 100 mls/hr 03/15/20 12:13 03/15/20 12:40 D5-Ns 0.45% + Kcl 20 Meq IV 100 mls/hr .Q10H SP Administration Morphine Sulfate 2 mg 03/15/20 12:13 03/15/20 16:08 Morphine IVP 2 mg Q4H PRN Administration SEVERE PAIN PFSH Acute PFSH: Medical History COPD (chronic obstructive pulmonary disease) Essential (primary) hypertension GERD (gastroesophageal reflux disease) Hypertension Lung cancer Port-A-Cath in place Recurrent UTI Rheumatoid arthritis Skull mass Subdural hemorrhage Urgency incontinence Urinary incontinence UTI (urinary tract infection) Surgical History H/O shoulder surgery History of cholecystectomy History of knee replacement History of lung surgery CT guided trans-thoracic cord needle biopsy right upper lobe lung mass pending Wedge resection of the right upper lobe of the lung done in [facility] Hx of cataract surgery Family History Mother Lung disease COPD Brother Lung disease COPD Social History Smoking and tobacco status: former smoker Quit status (tobacco): has quit using tobacco Former quit date comment: 1 week ago Alcohol intake: never Substance/Drug Use: never Lives independently: Yes Household members: family and children Housing: House Marital status: service: No Current occupational status: retired History of recent travel: No Current gender identity: Female Vitals/I&O/Wt Last Vital Signs Temp 98.0 F 03/15/20 13:05 Pulse 101 H 03/15/20 16:10 Resp 22 H 03/15/20 16:10 BP 156/101 03/15/20 16:10 Pulse Ox 94 03/15/20 16:10 Weight last 48 hrs Weight 164 lb Physical Exam Narrative: EXAM NARRATIVE: General: Patient is awake alert and oriented, in mild distress from shortness of breath Neck: No JVD, no cervical or supraclavicular lymphadenopathy. Respiratory: Inspection: No visible deformity of the chest wall, previous surgical scars in the right hemithorax Palpation: Trachea is mildly deviated to the left, reduced expansion in the right hemithorax Percussion: Stony dull percussion noted in the right posterior hemithorax Auscultation: Reduced breath sound over the same affected area on the right side, no wheezing or rhonchi Cardiovascular: Regular rate and rhythm, S1-S2 present, no murmur, no peripheral edema. Abdomen: Soft, nontender, nondistended, positive bowel sound. Musculoskeletal: No obvious joint deformity Skin: No rash, no evidence of erythema nodosum or multiforme. Neuro: Mental status is normal, no gross cranial nerve deficit, normal motor and coordination. Data Other Data: Attestation for Other Data: I personally reviewed and interpreted the following: Other data: I have reviewed the patient laboratory, microbiologic and radiologic data. There is evacuation of the right-sided pleural fluid. Mild leukocytosis A&P Assessment and plan (1) Recurrent pleural effusion on right: The patient has recurrent right-sided pleural effusion likely secondary to malignancy. The pleural fluid cytology is pending from the last thoracentesis. Bedside ultrasound revealed a large right-sided pleural effusion with complete atelectasis of the right lower lobe. After discussion I have decided to perform a right-sided chest tube placement. If the patient has significant pleural fluid accumulation she will likely be a candidate for the Pleurx catheter. However if there is no significant pleural fluid reaccumulation I will take out the chest tube in the near future and follow-up with her as outpatient. The right-sided chest tube was placed without any significant difficulty. Please see the chest tube insertion procedure note for details Status: Acute (2) Small cell lung cancer: The patient is scheduled to get her last dose of chemotherapy next week. Status: Acute (3) COPD (chronic obstructive pulmonary disease): Please continue with home medication. There is no evidence of COPD exacerbation. Status: Acute Coding Level of Care Code Acute Network Support Specialist for [facility] Diagnoses Recurrent pleural effusion on right J90 Small cell lung cancer C34.90 COPD (chronic obstructive pulmonary disease) J44.9
[2020-03-15] MEDS: fentaNYL 50 mcg/mL INJ 2mL IVP (17:06)
--- NOTE | 2020-03-15 17:07 | P.PCN_ITS ---
Procedure/Consent Time out: Time Out Performed: Yes Consent: Consent for Procedure: Consent obtained from other (indicate) Procedure Narrative: Name of the procedure: Right-sided chest tube placement under ultrasound guidance. Medications: Lidocaine 1% 15 mL. Fentanyl 25 mcg Consent: Obtained from her daughter Description of the procedure: An ultrasound was performed and a large right- sided pleural effusion was identified. A safe fluid pocket was identified with the ultrasound guidance and marked. The skin, subcutaneous tissue and the pleura was anesthetized with 1% lidocaine. Needle was advanced till flash back was noted. Serosanguineous fluid was noted. Using Seldinger technique the right-sided chest tube was put in. The chest tube was secured with suture and transparent dressing. 1300 mL of serosanguineous fluid was obtained. Sample: The right-sided pleural fluid was sent for cell count and differential, Gram stain culture, pH, glucose, LDH, total protein, and cytology. Complications: None. Acute Procedures Epistaxis Control: Time out performed: Yes
[2020-03-15] MEDS: cefdinir 300 MG CAPSULE PO (17:13)
--- NOTE | 2020-03-15 17:38 | XRR_ITS ---
PROCEDURE INFORMATION: Exam: XR Chest, 1 View Exam date and time: 03/15/2020 5:59 PM Age: 64 years old Clinical indication: Device placement; Patient HX: Chest tube insertion TECHNIQUE: Imaging protocol: XR of the chest Views: 1 view. COMPARISON: CR XR chest 1V portable [id number] 03/15/2020 9:15 AM FINDINGS: Tubes, catheters and devices: Right humeral prosthesis. Central vascular catheter tip resides at the upper superior vena cava. Lungs: Area of consolidation right upper lobe with nodular opacities right lower lung. Pleural space: Pigtail pleural drain resides at the costophrenic angle. Pleural thickening or pleural effusion with possible area of loculation superiorly and laterally in the right chest. Possible pneumatocele left cardiophrenic angle. Heart/Mediastinum: Stable heart size. Enlargement of the right fatuma. Bones/joints: Unremarkable. XR/XR chest 1V [id number] IMPRESSION: 1. Pigtail pleural drain lower right chest with interval reduction of right-sided effusion. 2. Mass/adenopathy enlargement of the right fatuma. 3. Pleural based opacity lateral upper right hemithorax. 4. Area of consolidation right upper lobe with nodular opacities of right lower lung.
--- NOTE | 2020-03-15 17:40 | PC.NURSE ---
Fentanyl waste Wasted 50 mcg of fentanyl at 1635 with DUGLAS Martinez. Fentanyl ordered for chest tube placement.
--- NOTE | 2020-03-15 17:43 | PC.NURSE ---
FENTANYL WASTE 50 mcg of fentanyl wasted at 1635 with DUGLAS Veloz following chest tube placement.
--- NOTE | 2020-03-15 18:21 | PC.NURSE ---
1636 chest tube placed by Dr. Monroe at bedside. See MAR for medications. Patient tolerated well. Consent signed and in chart. Time out performed.
[2020-03-15 18:23] LABS: Apprearance, Body Fluid CLOUDY (CLEAR); Color, Body Fluid AMBER (PALE YELLOW)
[2020-03-15 19:06] LABS: Body Fluid WBC 143 /uL; RBC, Body Fluid 18 10^3/uL (0-0)
[2020-03-15 19:12] LABS: PATH Referral YES
[2020-03-15 19:23] LABS: LDH Pleural Fluid 1752 U/L; Total Protein Pleural Fluid 3.4 g/dL
[2020-03-16] VITALS (33 sets, daily range): BP systolic 89–171; BP diastolic 59–113; PULSE 79–100; RESP 13–39; TEMP 36.5–36.8; O2SAT 87–99
[2020-03-16] MEDS: TRAMadol 50 mg Tablet PO ×2 (00:04→06:28)
[2020-03-16] MEDS: morphine 4 mg/mL SDV 1 mL 2 MG IVP ×6 (00:05→22:08)
[2020-03-16 04:26] LABS: Basophils % 0.1 %; Eosinophils % 0.1 %; Lymphocytes # 1.1 10^3/uL (0.8-4.8); Lymphocytes % 9.4 %; Mean Corpuscular Hemoglobin 26.7 pg (28.0-34.0); Mean Corpuscular Volume 88.9 fL (81-99); Mean Platelet Volume 10.6 fL (7.4-10.4); Monocytes # 1.5 10^3/uL (0.2-0.9); Monocytes % 12.6 %; Neutrophils # 9.25 10^3/uL (1.8-7.7); Neutrophils % 77.4 %; Nucleated Red Blood Cells % 0 %; Platelet Count 356 10^3/cmm (130-400); White Blood Count 11.9 10^3/uL (4.0-10.0)
[2020-03-16 04:33] LABS: Anion Gap 11.9 (5-19); Blood Urea Nitrogen 18 mg/dL (8-23); Calcium 8.5 mg/dL (8.5-10.5); Carbon Dioxide 28 mmol/L (22-29); Chloride 96 mmol/L (98-107); Creatinine Clr Calc Pharmacy 75.3662; Glomerular Filtration Rate 100.3 mL/min (90-130); Glucose 147 mg/dL (65-115); Osmolality Calculated 271 mOsm/kg (285-295); Potassium 4.9 mmol/L (3.5-5.1); Sodium 131 mmol/L (136-145)
[2020-03-16 06:06] LABS: Urine Appearance Cloudy (CLEAR); Urine Color Yellow (Yellow)
[2020-03-16 06:07] LABS: Add Urine Culture? Yes; Add Urine Microscopic? YES; Bacteria Urine 4+; Bilirubin Urine Neg (NEGATIVE); Blood Urine Trace (Negative); Glucose Urine UA Trace (Normal); Ketones Urine 1+ (Negative); Leukocyte Esterase Urine 2+ (Negative); Nitrate Urine Negative (Negative); Protein Urine Neg (Negative); RBC Urine 0-4 /hpf (0-2); Specific Gravity, Urine 1.025 (1.005-1.030); Squamous Epithelial Cell Urine 0-4 (0-5); Urobilinogen Urine Norm (Negative); WBC Urine >100 /hpf (0-5)
[2020-03-16] MEDS: ipratropium-albuterol 3 mL Neb INHALATION ×3 (07:22→22:01)
[2020-03-16] MEDS: HYDROcodone-acetaminophen 10-325 mg Tablet 1 TAB PO ×2 (07:47→14:01)
--- NOTE | 2020-03-16 08:05 | PC.NURSE ---
dr. berrios in this am. ordered chest tube unclamped. 500ml immediate return. atrium changed and 500 ml to this chamber. and tube clamped. c/o some discomfort while chest draining. states she takes hydrocodone during day. but m.s. does the most good. will get hydrocodone on board.
--- NOTE | 2020-03-16 08:41 | PM.PN ---
Subjective Subjective: Interval history: R chest tube placed by Dr. Monroe with 1350 mL serosanguineous output. Oxygen requirement improved, down to 4 L, hemodynamically stable, afebrile, decreasing leukocytosis, stable hemoglobin, improved renal function. Pleural fluid culture pending, Gram stain negative. Seems to be much more comfortable, states that morphine helps the most in terms of controlling her pain, breathing is much easier. Chest tube was clamped overnight, when unclamped this morning has drained at least a liter so far. Medications: Reviewed: Yes Medication Review Details: Active Medications Generic Name Dose Route Start Last Admin Trade Name Freq PRN Reason Stop Dose Admin Hydrocodone Bitart /Acetaminophen 1 tab 03/16/20 00:05 03/16/20 07:47 [place] 10-325 Mg PO 1 tab Q6H PRN Administration MODERATE PAIN Albuterol/Ipratrop ium 3 ml 03/15/20 12:13 03/16/20 07:22 Duoneb INHALATION 3 ml Q6H.RESPIRATORY P RN Administration SHORTNESS OF MADHAVI TH Cefdinir 300 mg 03/15/20 18:00 03/15/20 17:13 Omnicef PO 300 mg BID SP Administration Protocol Cyclobenzaprine HC l 10 mg 03/15/20 12:13 Flexeril PO TID PRN muscle spasm Enoxaparin Sodium 40 mg 03/15/20 12:15 03/15/20 12:40 Lovenox SUBCUT 40 mg Q24H SP Administration Potassium Chloride /Dextrose/Sod Cl 20 meq in 1,000 m ls @ 100 mls/hr 03/15/20 12:13 03/15/20 23:41 D5-Ns 0.45% + Rory l 20 Meq IV 100 mls/hr .Q10H SP Administration Ceftriaxone Sodium 1,000 mg/ 50 mls @ 100 mls/ hr 03/16/20 08:45 Sodium Chloride IV Q24H SP Protocol Montelukast Sodium 10 mg 03/16/20 09:00 Singulair PO DAILY SP Morphine Sulfate 2 mg 03/15/20 12:13 03/16/20 04:10 Morphine IVP 2 mg Q4H PRN Administration SEVERE PAIN Non-Formulary 0 inhalation 03/15/20 21:00 03/16/20 07:54 Medication ( INHALATION 1 inhalation Umeclidinium 62.5/ Q24H SP Administration Vilanterol 25 Inhalation) Ondansetron HCl 4 mg 03/15/20 12:13 Zofran IVP Q6H PRN NAUSEA AND VOMITI NG Oxybutynin Chlorid e 15 mg 03/16/20 09:00 Ditropan PO DAILY [facility] Pantoprazole Sodiu m 40 mg 03/16/20 09:00 Protonix PO DAILY [facility] Prochlorperazine 10 mg 03/15/20 12:13 Compazine PO Q4H PRN Nausea Tramadol HCl 50 mg 03/15/20 12:13 03/16/20 00:04 Ultram PO 50 mg BID PRN Administration MILD TO MODERATE PAIN Tramadol HCl 50 mg 03/16/20 06:17 03/16/20 06:28 Ultram PO 50 mg ONCE PRN Administration MODERATE PAIN naproxen Allergy (Severe, Verified 02/01/20 18:30) ALGY-Anaphylaxis Iodinated Contrast Media Allergy (Verified 02/01/20 18:30) ALGY-Anaphylaxis lisinopril Adverse Reaction (Verified 02/01/20 18:30) diarrhea Vitals/I&O/Wt Last Vital Signs Temp 98.2 F 03/16/20 04:00 Pulse 86 03/16/20 07:32 Resp 18 03/16/20 07:32 BP 143/63 03/16/20 06:00 Pulse Ox 94 03/16/20 07:32 03/15/20 03/16/20 03/16/20 22:59 06:59 14:59 Intake Total 1150 / 1150 120 / 1270 Output Total 1700 / 1700 Balance -550 / -550 120 / -430 Weight last 48 hrs Weight 74.389 kg Physical Exam Const: COMMON NORMALS: no acute distress and patient oriented x3 GENERAL APPEARANCE: cooperative and comfortable ORIENTATION/CONSCIOUSNESS: Yes awake HENMT: COMMON NORMALS: normocephalic, atraumatic, hearing grossly normal bilaterally and moist oral mucous membranes HEAD & SCALP: normocephalic and atraumatic Eye: COMMON NORMALS: Equal, round and reactive pupils present, EOMs intact bilaterally and conjunctivae normal CONJUNCTIVA: Yes conjunctivae normal PUPIL: Yes Equal, round and reactive pupils present Neck/C-Spine: COMMON NORMALS: full ROM GENERAL: Yes normal visual inspection and Yes trachea midline Chest: OTHER: -Chest tube in place draining serosanguineous fluid Resp: COMMON NORMALS: normal respiratory effort, No retractions and No use of accessory muscles EFFORT & INSPECTION: Yes able to speak in complete sentences and Yes tachypneic OTHER: -Air entry improved bilaterally, currently on 4 L NC Cardio: COMMON NORMALS: regular rate, regular rhythm, S1 normal heart sound present, S2 normal heart sound present and No murmurs present (Cardio) RATE: regular rate RHYTHM: regular rhythm HEART SOUNDS: S1 normal heart sound present and S2 normal heart sound present GI: COMMON NORMALS: Normal to inspection, nondistended, normoactive bowel sounds present, Soft to palpation and non-tender PALPATION: Yes Soft to palpation Extremity: COMMON NORMALS: normal to inspection, full ROM and no clubbing, cyanosis or edema; negative for no pedal edema Neuro: COMMON NORMALS: patient oriented x3, moves all extremities, no focal motor deficits, no sensory deficits noted and gait normal Psych: COMMON NORMALS: mental status grossly normal, Normal thought process present, cooperative, normal affect and speech normal SPEECH: Yes normal speech THOUGHT PROCESS: Normal thought process present Skin: COMMON NORMALS: no rashes or lesions noted, no jaundice, no petechiae and no mottling GENERAL SKIN EXAM: no rashes or lesions noted Data : 03/16/20 03:45 03/16/20 03:45 Micro: Microbiology 03/15/20 17:55 Gram Stain - Final Pleural Fluid A&P Assessment and plan (1) Pleural effusion: -has recurrent R pleural effusion, suspicious for malignant effusion -had thoracentesis done on 03/13 for the same, fluid analysis consistent with exudative effusion, noted to be bloody, cytology pending, per discussion with lab that this may take 3 to 5 days -patient initially declined thoracentesis; agreeable to chest tube placement, done by Dr. Monroe -immediate output of 1350 mL following chest tube placement -CXR noted -decreased oxygen requirement, required as much as 10 L initially, weaned to 4 L NC -fluid analysis and cytology requested; culture pending, gram stain negative -received IV steroids, Neb treatments in ED Status: Acute (2) Acute exacerbation of chronic obstructive pulmonary disease: -is oxygen dependent at baseline with 3 L NC requirement -increased work of breathing is more consistent with pleural effusion rather than true acute COPD exacerbation so would not continue steroids for now. Noted improvement in overall work of breathing following chest tube placement -close monitoring of respiratory status Status: Acute (3) Small cell lung cancer: -follows up with Dr. Kunz -has been on chemotherapy with good response, pending last cycle Status: Acute (4) Recurrent UTI: -on chronic Cefdinir therapy, hold this and treat with Ceftriaxone; has grown E.coli on previous urine cx -currently asymptomatic Status: Chronic (5) Chronic respiratory failure with hypoxia: -secondary to oxygen dependent COPD, 3 L baseline requirement Status: Chronic (6) Urgency incontinence: -on oxybutnin Status: Chronic (7) GERD (gastroesophageal reflux disease): -on PPI Status: Chronic Qualifiers: Esophagitis presence: esophagitis presence not specified Qualified Code(s): K21.9 - Gastro-esophageal reflux disease without esophagitis Additional A&P Information -declined diet other than regular -GI ppx with PPI -DVT ppx with Lovenox -Dispo: home -Code status: FULL code -ICU care due to low threshold for decompensation in respiratory status Attestations Medical Necessity Statement*: Patient requires hospitalization for continued monitoring of respiratory status s/p chest tube placement for recurrent R pleural effusion. Time Spent in Patient Care: 16 - 35 minutes (>than 50% of time spent in counselling and/or direct pt care on unit). Coding Level of Care Code Acute Studio Technician Video Operator for Chg Fwd Exam Comprehensive Diagnoses Pleural effusion J90 Acute exacerbation of chronic obstructive pulmonary disease J44.1 Small cell lung cancer C34.90 Recurrent UTI N39.0 Chronic respiratory failure with hypoxia J96.11 Urgency incontinence N39.41 GERD (gastroesophageal reflux disease) K21.9 Esophagitis presence: esophagitis presence not specified
--- NOTE | 2020-03-16 08:42 | XRR_ITS ---
PROCEDURE INFORMATION: Exam: XR Chest, 1 View Exam date and time: 03/16/2020 8:53 AM Age: 64 years old Clinical indication: Device placement; Chest tube; Patient HX: Small cell lung CA; Additional info: S/P chest tube placement, progression of R pleural effusion TECHNIQUE: Imaging protocol: XR of the chest Views: 1 view. COMPARISON: CR XR chest 1V [id number] 03/15/2020 5:46 PM FINDINGS: Lungs: Emphysema Pulmonary nodule and or nodules within the right lower lobe. Pleural space: Pleural based mass within the right upper lobe laterally. Previously noted. Subpulmonic effusion on the right. Small caliber thoracotomy tube. No significant change. Heart/Mediastinum: Unremarkable. No cardiomegaly. Vasculature: Chest port/Mediport has been placed via the left jugular approach with the tip in the superior vena cava. Bones/joints: Unremarkable. XR/XR chest 1V portable [id number] IMPRESSION: 1. Pleural based mass within the right upper lobe laterally. Previously noted. 2. Pulmonary nodule and or nodules within the right lower lobe. Abnormal soft tissue in the right hilum and infrahilar region. Stable. 3. Subpulmonic effusion on the right. Small caliber thoracotomy tube. No significant change.
[2020-03-16] MEDS: cefTRIAXone 1,000 MG in sodium chloride 0.9% (plus) 50 ML 100 MG IV (08:58)
[2020-03-16] MEDS: pantoprazole DR 40 mg Tablet PO (08:59)
[2020-03-16] MEDS: oxybutynin 5 mg Tablet 15 MG PO (08:59)
[2020-03-16] MEDS: montelukast sodium 10 mg Tablet PO (08:59)
[2020-03-16] MEDS: D5-NS 0.45% + KCL 20 mEq 20 MEQ/1,000 ML BAG 100 MEQ IV ×2 (10:14→22:13)
[2020-03-16] MEDS: enoxaparin 40 mg/0.4 mL Syringe SUBCUT (12:22)
--- NOTE | 2020-03-16 14:07 | PC.NURSE ---
Pt reports increased amount of pain. At 1300 2 of MS was admin IVP. Pt reported pain was a 0 when reassessed 30 mins after admin. At 1400, Pt pain levels increased again, and was being reported at a 5-6 before chest tube became unclamped. Then, pain levels again increased more with clamp being released and fluid draining. Hydrocodone 10/325 was then given to try and lower those pain levels. A total of 410 was the amount of output on chest tube drainage.
--- NOTE | 2020-03-16 16:48 | PC.NURSE ---
phoned. DUGLAS West advised him of the 420 total output. Physician advised for chest tube to remain unclamped, and to continue monitoring. [facility] has been marked on the current output level at 1650, and will be added to the toalt output amounts for end of shift totals.
--- NOTE | 2020-03-16 16:49 | XRR_ITS ---
PROCEDURE INFORMATION: Exam: XR Chest, 1 View Exam date and time: 03/16/2020 5:04 PM Age: 64 years old Clinical indication: Condition or disease; Lung condition and disease; Pleural effusion; Other: Not specified; Patient HX: HX of lung cancer TECHNIQUE: Imaging protocol: XR of the chest Views: 1 view. COMPARISON: CR XR chest 1V portable [id number] 03/16/2020 8:43 AM FINDINGS: Tubes, catheters and devices: Similar position of [id number] vascular catheter. Lungs: Unremarkable. No consolidation. Pleural space: Persistent right pleural drain. Pleural based abnormal thickening and nodules right lung persist with opacity of right upper lobe. Minor kinking configuration or bending of the external portion of the right pleural drain. Heart/Mediastinum: Unremarkable. No cardiomegaly. Bones/joints: Unremarkable. Other findings: Suspect persistent small right effusion. XR/XR chest 1V portable [id number] IMPRESSION: Minor kink/bending of the external portion of right pleural drain. Otherwise unchanged appearance of the chest.
--- NOTE | 2020-03-16 16:50 | P.PN_ITS ---
Subjective Subjective: Interval history: The patient seems to be doing better today. Her shortness of breath is better. Yesterday the patient drained about 1300 cc. This morning she drained 500 cc from the pleural drain. Pleural drain was clamped after that. This evening the patient had drained about another 400 cc. The chest x-ray obtained this morning revealed reducing size of the pleural effusion. Overall the patient is more comfortable than yesterday. Medications: Reviewed: Yes Vitals/I&O/Wt Last Vital Signs Temp 97.7 F 03/16/20 09:00 Pulse 79 03/16/20 16:00 Resp 29 H 03/16/20 16:00 BP 111/64 03/16/20 16:00 Pulse Ox 98 03/16/20 16:00 03/16/20 03/16/20 03/16/20 06:59 14:59 22:59 Intake Total 120 / 1270 2040 / 2040 Output Total 1300 / 1300 Balance 120 / -430 740 / 740 Weight last 48 hrs Weight 164 lb Physical Exam Narrative: EXAM NARRATIVE: General: Patient is awake alert and oriented, in no distress from shortness of breath Neck: No JVD, no cervical or supraclavicular lymphadenopathy. Respiratory: Inspection: No visible deformity of the chest wall, previous surgical scars in the right hemithorax Palpation: Trachea is midline Percussion: Dullness to percussion in the right posterior hemithorax Auscultation: Reduced breath sound in the lower right chest, no wheezing or rhonchi Cardiovascular: Regular rate and rhythm, S1-S2 present, no murmur, no peripheral edema. Abdomen: Soft, nontender, nondistended, positive bowel sound. Musculoskeletal: No obvious joint deformity Skin: No rash, no evidence of erythema nodosum or multiforme. Neuro: Mental status is normal, no gross cranial nerve deficit, normal motor and coordination. Data : 03/16/20 03:45 03/16/20 03:45 Micro: Microbiology 03/15/20 17:55 Gram Stain - Final Pleural Fluid Attestation for Other Data: I personally reviewed and interpreted the following: Other data: I have reviewed the patient radiology, microbiologic and laboratory data. 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 Overall, the patient has drained more than 2 L. The patient has evidence of loculated pleural effusion on the chest x-ray. I am going to monitor her overall pleural fluid output from this point forward for the next 24 hours. If there is no significant accumulation of pleural fluid, she might be a good candidate for talc pleurodesis. Status: Acute (2) Small cell lung cancer: The patient is scheduled to get her last dose of chemotherapy next week. Status: Acute (3) COPD (chronic obstructive pulmonary disease): The patient is on antibiotic given her profoundly weakened immune system. Patient is not showing evidence of COPD exacerbation however given the chest opacity on the chest x-ray she is on antibiotic therapy. Status: Acute Attestations Medical Necessity Statement*: Will defer to the primary team Coding Level of Care Code Acute High School Business Teacher for Kiki Escobar Diagnoses Recurrent pleural effusion on right J90 Small cell lung cancer C34.90 COPD (chronic obstructive pulmonary disease) J44.9
[2020-03-16] MEDS: TRAMadol 50 mg Tablet 100 MG PO (22:09)
[2020-03-17] VITALS (35 sets, daily range): BP systolic 126–165; BP diastolic 75–94; PULSE 78–111; RESP 11–96; TEMP 36.6–36.8; O2SAT 88–97
[2020-03-17] MEDS: HYDROcodone-acetaminophen 10-325 mg Tablet 1 TAB PO ×3 (00:46→16:23)
[2020-03-17] MEDS: morphine 4 mg/mL SDV 1 mL 2 MG IVP ×6 (02:11→23:57)
[2020-03-17 05:10] LABS: Basophils % 0.4 %; Eosinophils # 0.1 10^3/uL (0.0-0.8); Eosinophils % 0.9 %; Hematocrit 39.9 % (37.0-47.0); Lymphocytes # 1.4 10^3/uL (0.8-4.8); Lymphocytes % 14.1 %; Mean Corpuscular HGB Conc 30.1 g/dL (30.0-36.0); Mean Corpuscular Volume 89.7 fL (81-99); Mean Platelet Volume 10.9 fL (7.4-10.4); Monocytes # 1.1 10^3/uL (0.2-0.9); Monocytes % 11.7 %; Neutrophils # 7.02 10^3/uL (1.8-7.7); Neutrophils % 72.5 %; Nucleated Red Blood Cells % 0 %; Platelet Count 319 10^3/cmm (130-400); Red Blood Count 4.45 10^6/uL (4.1-5.3); Red Cell Distribution Width 17.3 % (12.1-15.1); White Blood Count 9.7 10^3/uL (4.0-10.0)
[2020-03-17 05:42] LABS: Anion Gap 9.4 (5-19); Blood Urea Nitrogen 13 mg/dL (8-23); Calcium 8.5 mg/dL (8.5-10.5); Carbon Dioxide 29 mmol/L (22-29); Chloride 99 mmol/L (98-107); Creatinine Clr Calc Pharmacy 75.3662; Glomerular Filtration Rate 100.3 mL/min (90-130); Glucose 142 mg/dL (65-115); Osmolality Calculated 275 mOsm/kg (285-295); Potassium 4.4 mmol/L (3.5-5.1); Sodium 133 mmol/L (136-145)
--- NOTE | 2020-03-17 06:00 | XRR_ITS ---
PROCEDURE INFORMATION: Exam: XR Chest, 1 View Exam date and time: 03/17/2020 5:27 AM Age: 64 years old Clinical indication: Device placement; Chest tube; Prior surgery; Surgery type: Llung; Patient HX: HX of lung cancer; Additional info: Has chest tube in place TECHNIQUE: Imaging protocol: XR of the chest Views: 1 view. COMPARISON: CR XR chest 1V portable [id number] 03/16/2020 4:51 PM FINDINGS: Tubes, catheters and devices: Similar position of [id number] vascular catheter. Lungs: No focally prominent consolidation of the left lung. Pleural space: Persistent small caliber right pleural drain lower right chest. Persistent abnormal pleural based and parenchymal nodularity of the right lung. There is minimal bend or kinking at the external portion of the pleural drain. Persistent enlargement of the right fatuma. Heart/Mediastinum: Unremarkable. No cardiomegaly. Bones/joints: Unremarkable. XR/XR chest 1V portable [id number] IMPRESSION: 1. No interval change since 1 day previous. 2. Minor band or kinking of the external portion of right pleural drain. Correlate clinically for proper function.
--- NOTE | 2020-03-17 07:39 | PC.NURSE ---
CT intermittently unclamped. TOtal of 60 mL very light serosang/serous fluid drained out this shift. Level at 1260.
--- NOTE | 2020-03-17 07:51 | P.PN_ITS ---
Subjective Subjective: Interval history: Hemodynamically stable, on 4 L nasal cannula, had 1200 mL urine output overnight and a total of 1590 mL output from right chest tube yesterday. Clamped overnight. Resolved leukocytosis, stable hemoglobin and renal function, improving hyponatremia. Pleural fluid culture and cytology pending. Was resting quietly during my AM visit, awake and alert during my afternoon visit, no apparent distress. Has had 600 mL additional chest tube output. Case discussed briefly with Dr. Monroe. Medications: Reviewed: Yes Medication Review Details: Active Medications Generic Name Dose Route Start Last Admin Trade Name Freq PRN Reason Stop Dose Admin Hydrocodone Bitart /Acetaminophen 1 tab 03/16/20 00:05 03/17/20 00:46 [place] 10-325 Mg PO 1 tab Q6H PRN Administration MODERATE PAIN Albuterol/Ipratrop ium 3 ml 03/15/20 12:13 03/16/20 22:01 Duoneb INHALATION 3 ml Q6H.RESPIRATORY P RN Administration SHORTNESS OF [place] TH Cefdinir 300 mg 03/15/20 18:00 03/15/20 17:13 Omnicef PO 300 mg BID SP Administration Protocol Cyclobenzaprine HC l 10 mg 03/15/20 12:13 Flexeril PO TID PRN muscle spasm Enoxaparin Sodium 40 mg 03/15/20 12:15 03/16/20 12:22 Lovenox SUBCUT 40 mg Q24H SP Administration Potassium Chloride /Dextrose/Sod Cl 20 meq in 1,000 m ls @ 100 mls/hr 03/15/20 12:13 03/16/20 22:13 D5-Ns 0.45% + Rory l 20 Meq IV 100 mls/hr .Q10H SP Administration Ceftriaxone Sodium 1,000 mg/ 50 mls @ 100 mls/ hr 03/16/20 08:45 03/16/20 10:15 Sodium Chloride IV Infused Q24H SP Infusion Protocol Montelukast Sodium 10 mg 03/16/20 09:00 03/16/20 08:59 Singulair PO 10 mg DAILY SP Administration Morphine Sulfate 2 mg 03/15/20 12:13 03/17/20 06:16 Morphine IVP 2 mg Q4H PRN Administration SEVERE PAIN Non-Formulary 0 inhalation 03/15/20 21:00 03/16/20 07:54 Medication ( INHALATION 1 inhalation Umeclidinium 62.5/ Q24H SP Administration Vilanterol 25 Inhalation) Ondansetron HCl 4 mg 03/15/20 12:13 Zofran IVP Q6H PRN NAUSEA AND VOMITI NG Oxybutynin Chlorid e 15 mg 03/16/20 09:00 03/16/20 08:59 Ditropan PO 15 mg DAILY SP Administration Pantoprazole Sodiu m 40 mg 03/16/20 09:00 03/16/20 08:59 Protonix PO 40 mg DAILY SP Administration Prochlorperazine 10 mg 03/15/20 12:13 Compazine PO Q4H PRN Nausea Tramadol HCl 100 mg 03/16/20 19:11 03/16/20 22:09 Ultram PO 100 mg BID PRN Administration MODERATE PAIN naproxen Allergy (Severe, Verified 02/01/20 18:30) ALGY-Anaphylaxis Iodinated Contrast Media Allergy (Verified 02/01/20 18:30) ALGY-Anaphylaxis lisinopril Adverse Reaction (Verified 02/01/20 18:30) diarrhea Vitals/I&O/Wt Last Vital Signs Temp 98.3 F 03/17/20 04:00 Pulse 82 03/17/20 07:00 Resp 11 L 03/17/20 07:00 BP 138/82 03/17/20 07:00 Pulse Ox 95 03/17/20 07:00 03/16/20 03/17/20 03/17/20 22:59 06:59 14:59 Intake Total 1750 / 3790 Output Total 1540 / 2840 700 / 3540 Balance 210 / 950 -700 / 250 Weight last 48 hrs Weight 74.389 kg Physical Exam Const: COMMON NORMALS: no acute distress and patient oriented x3 GENERAL APPEARANCE: cooperative and comfortable ORIENTATION/CONSCIOUSNESS: Yes awake HENMT: COMMON NORMALS: normocephalic, atraumatic, hearing grossly normal bilaterally and moist oral mucous membranes HEAD & SCALP: normocephalic and atraumatic Eye: COMMON NORMALS: Equal, round and reactive pupils present, EOMs intact bilaterally and conjunctivae normal CONJUNCTIVA: Yes conjunctivae normal PUPIL: Yes Equal, round and reactive pupils present Neck/C-Spine: COMMON NORMALS: full ROM GENERAL: Yes normal visual inspection and Yes trachea midline Chest: OTHER: -Chest tube in place draining serosanguineous fluid (posterior R lower chest wall) Resp: COMMON NORMALS: normal respiratory effort, No retractions and No use of accessory muscles EFFORT & INSPECTION: Yes able to speak in complete sentences and Yes tachypneic OTHER: -Air entry improved bilaterally, c urrently on 4 L NC Cardio: COMMON NORMALS: regular rate, regular rhythm, S1 normal heart sound present, S2 normal heart sound present and No murmurs present (Cardio) RATE: regular rate RHYTHM: regular rhythm HEART SOUNDS: S1 normal heart sound present and S2 normal heart sound present GI: COMMON NORMALS: Normal to inspection, nondistended, normoactive bowel sounds present, Soft to palpation and non-tender PALPATION: Yes Soft to palpation Extremity: COMMON NORMALS: normal to inspection, full ROM and no clubbing, cyanosis or edema; negative for no pedal edema Neuro: COMMON NORMALS: patient oriented x3, moves all extremities, no focal motor deficits, no sensory deficits noted and gait normal Psych: COMMON NORMALS: mental status grossly normal, Normal thought process present, cooperative, normal affect and speech normal SPEECH: Yes normal speech THOUGHT PROCESS: Normal thought process present Skin: COMMON NORMALS: no rashes or lesions noted, no jaundice, no petechiae and no mottling GENERAL SKIN EXAM: no rashes or lesions noted Data : 03/17/20 04:30 03/17/20 04:30 Micro: Microbiology 03/15/20 17:55 Gram Stain - Final Pleural Fluid A&P Assessment and plan (1) Pleural effusion: -has recurrent R pleural effusion, suspicious for malignant effusion -had thoracentesis done on 03/13 for the same, fluid analysis consistent with exudative effusion, noted to be bloody, cytology shows clusters of large malignant cells with atypical mitotic figures, small cell cancer in differential, flow cytometry analysis recommended to rule out lymphoma -patient initially declined thoracentesis; agreeable to chest tube placement, done by Dr. Monroe on 03/15 -total output of almost 3 L following chest tube placement -CXR noted; daily imaging while chest tube in place -decreased oxygen requirement, required as much as 10 L initially, weaned to 4 L NC -fluid analysis and cytology requested; culture pending, gram stain negative -received IV steroids, Neb treatments in ED -May consider pleurodesis based on pleural fluid accumulation Status: Acute (2) Acute exacerbation of chronic obstructive pulmonary disease: -is oxygen dependent at baseline with 3 L NC requirement -increased work of breathing is more consistent with pleural effusion rather than true acute COPD exacerbation so would not continue steroids for now. Noted improvement in overall work of breathing following chest tube placement -close monitoring of respiratory status Status: Acute (3) Small cell lung cancer: -follows up with Dr. Kunz -has been on chemotherapy with good response, pending last cycle. Discussed with Dr. Kunz and chemotherapy will be on hold pending cytology as if small cell cancer related, would be considered resistant to chemo and treatment would be discontinued. Status: Acute (4) Recurrent UTI: -on chronic Cefdinir therapy, hold this and treat with Ceftriaxone; has grown E.coli on previous urine cx -currently asymptomatic -UA indicative of infection -urine cx so far growing Enterococcus species so will switch to Unasyn for better coverage; d/c Ceftriaxone Status: Chronic (5) Chronic respiratory failure with hypoxia: -secondary to oxygen dependent COPD, 3 L baseline requirement Status: Chronic (6) Urgency incontinence: -on oxybutnin Status: Chronic (7) GERD (gastroesophageal reflux disease): -on PPI Status: Chronic Qualifiers: Esophagitis presence: esophagitis presence not specified Qualified Code(s): K21.9 - Gastro-esophageal reflux disease without esophagitis Additional A&P Information -declined diet other than regular -GI ppx with PPI -DVT ppx with Lovenox -Dispo: home -Code status: FULL code -ICU care due to low threshold for decompensation in respiratory status Attestations Medical Necessity Statement*: Patient requires hospitalization for continued management of recurrent right pleural effusion, has chest tube in place. Time Spent in Patient Care: 16 - 35 minutes (>than 50% of time spent in counselling and/or direct pt care on unit) . Coding Level of Care Code Acute Video Production Engineer for Chg Fwd Exam Comprehensive Diagnoses Pleural effusion J90 Acute exacerbation of chronic obstructive pulmonary disease J44.1 Small cell lung cancer C34.90 Recurrent UTI N39.0 Chronic respiratory failure with hypoxia J96.11 Urgency incontinence N39.41 GERD (gastroesophageal reflux disease) K21.9 Esophagitis presence: esophagitis presence not specified
[2020-03-17] MEDS: ipratropium-albuterol 3 mL Neb INHALATION ×2 (07:53→14:07)
--- NOTE | 2020-03-17 08:08 | PC.CHAP ---
Pastoral Care Encounter/Spiritual Assessment Type of Contact [] Declined commercial producer visit [] Patient/Family/Request visit [] Outpatient visit [] Follow-up visit [] Physician referral [] Code/Alert [x] Routine visit [] Staff referral [] Actively dying [x] Patient sleeping [] Family support [] [] Out of room [] Palliative care [] [] Receiving care in room [] Pre-surgical visit [] Trauma [] Long length of stay [] ICU visit [] Other: Relational/Emotional Strength [] Patient feels connected with others/family/visitors/staff [] Distress [] Loneliness/isolation [] Abandonment Spirituality of Patient [] Person of [place] [] Attends Roman Catholic of their [place] [] Believes in Prayer [] Reads Bible or Baptist materials [] There are Spiritual issues to be addressed Greensman Interventions [x] Prayer [] Active listening [] Non-anxious presence [] Spiritual/emotional support [] Crisis/trauma care [] Spiritual counseling [] Bereavement support [] Provided bereavement packet [] Provided Bible/devotional materials [] Provided toy/stuffed animal, coloring book to patient or family member [] Provided Communion [] Anointing/[place] [] Salvation [x] Completed spiritual assessment [] Other: Impact on Illness or Injury [] Angry [] Fearful [] Anxious [] Often cries [] Exhaustion [] Unable to work [] Unable to attend yazidi [] Unable to walk/stand [] Unable to read [] Unable to drive [] Unable to eat/drink [] Unable to sleep [] Unable to be with family [] Patient intubated [] Other: Summary Time spent with patient
[2020-03-17] MEDS: montelukast sodium 10 mg Tablet PO (08:19)
[2020-03-17] MEDS: pantoprazole DR 40 mg Tablet PO (08:19)
[2020-03-17] MEDS: oxybutynin 5 mg Tablet 15 MG PO (08:19)
[2020-03-17] MEDS: D5-NS 0.45% + KCL 20 mEq 20 MEQ/1,000 ML BAG 100 MEQ IV ×2 (08:20→19:28)
[2020-03-17] MEDS: cefTRIAXone 1,000 MG in sodium chloride 0.9% (plus) 50 ML 100 MG IV (08:20)
[2020-03-17] MEDS: enoxaparin 40 mg/0.4 mL Syringe SUBCUT (11:26)
[2020-03-17] MEDS: TRAMadol 50 mg Tablet 100 MG PO ×2 (14:01→23:54)
[2020-03-17] MEDS: cyclobenzaprine 10 mg Tablet PO (14:01)
--- NOTE | 2020-03-17 17:50 | P.PN_ITS ---
Subjective Subjective: Interval history: Patient was seen and examined this morning and later this evening. She seems to be doing well. Comfortable in no distress at all. Since this morning the patient had about 700 cc of pleural fluid output. Medications: Reviewed: Yes Vitals/I&O/Wt Last Vital Signs Temp 97.9 F 03/17/20 14:00 Pulse 99 03/17/20 17:00 Resp 18 03/17/20 17:00 BP 130/78 03/17/20 17:00 Pulse Ox 95 03/17/20 17:00 03/17/20 03/17/20 03/17/20 06:59 14:59 22:59 Intake Total 1550 / 1550 250 / 1800 Output Total 700 / 3540 1000 / 1000 650 / 1650 Balance -700 / 250 550 / 550 -400 / 150 Physical Exam Narrative: EXAM NARRATIVE: General: Patient is awake alert and oriented, in no distress from shortness of breath Neck: No JVD, no cervical or supraclavicular lymphadenopathy. Respiratory: Inspection: No visible deformity of the chest wall, previous surgical scars in the right hemithorax Palpation: Trachea is midline Percussion: Dullness to percussion in the right posterior hemithorax Auscultation: Reduced breath sound in the lower right chest, no wheezing or rhonchi Cardiovascular: Regular rate and rhythm, S1-S2 present, no murmur, no peripheral edema. Abdomen: Soft, nontender, nondistended, positive bowel sound. Musculoskeletal: No obvious joint deformity Skin: No rash, no evidence of erythema nodosum or multiforme. Neuro: Mental status is normal, no gross cranial nerve deficit, normal motor and coordination. Data : 03/17/20 04:30 03/17/20 04:30 Micro: Microbiology 03/15/20 17:55 Gram Stain - Final Pleural Fluid Body Fluid Culture - Preliminary 03/15/20 23:35 Urine Culture - Preliminary Urine,Clean Catch Enterococcus species Attestation for Other Data: I personally reviewed and interpreted the following: Other data: I have reviewed the patient's radiology, microbiologic and laboratory data. Her urine culture is growing enterococcus species. A&P Assessment and plan (1) Recurrent pleural effusion on right: Unfortunately, the patient has significant pleural fluid draining since this morning. With this straight, the patient is not a candidate for pleurodesis at this time. I am going to clamp the pleural drain. If the patient has significant pleural fluid collection tomorrow morning I will perform a Pleurx catheter placement tomorrow afternoon. That with the patient will be able to be discharged home soon. The patient might have achieve spontaneous pleurodesis with the Pleurx catheter in place or I could perform an outpatient pleurodesis once the pleural fluid drainage is smaller. This will prevent potential long-term hospital admission or recurrent hospital admission. Status: Acute (2) Small cell lung cancer: Oncology team is following up with her regarding the chemotherapy regimen. Status: Acute (3) COPD (chronic obstructive pulmonary disease): Patient is not showing evidence of COPD exacerbation. Status: Acute Attestations Medical Necessity Statement*: Will defer to the primary team Coding Level of Care Code Acute Box Hinge And Lock Attacher for Kiki Escobar Diagnoses Recurrent pleural effusion on right J90 Small cell lung cancer C34.90 COPD (chronic obstructive pulmonary disease) J44.9
[2020-03-17] MEDS: fentaNYL 50 mcg/mL INJ 2mL 25 MCG IVP ×2 (18:44→22:08)
--- NOTE | 2020-03-17 19:18 | PC.NURSE ---
Shift summary: Pt alert and oriented. She requests her O2 be turned up to 5 lpm after she moves around, briefly. Chest tube output 750ml pink tinges serous fluid. Chest tube is clamped for tonight. The plan is to insert a Pleurex drain in am. Pt c/o of pain in her back, ( chest tube area). It seemed to be worse this evening when chest tube not draining much. Dr Monroe stopped by to discussed her plan of care with her, started Fentanyl 25mcg IV for pain, She received a dose at evening shift change. Pt has poor appetite, not hardly ate anything at all today. Clamping the chest tube made her very anxious , she required reassurance that if she stated having breathing difficulty through the night it would be addressed even if the chest tube needed unclamped. She verbaized her understanding and some relief .
[2020-03-17] MEDS: ampicillin-sulbactam 1.5 GM in sodium chloride 0.9% (plus) 50 ML IV (19:28)
[2020-03-17] MEDS: LORazepam 2 mg/mL INJ 1 mL 0.5 MG IVP (21:45)
[2020-03-18] VITALS (30 sets, daily range): BP systolic 109–156; BP diastolic 66–107; PULSE 93–113; RESP 12–25; TEMP 36.6–36.7; O2SAT 91–98
[2020-03-18] MEDS: ampicillin-sulbactam 1.5 GM in sodium chloride 0.9% (plus) 50 ML IV ×4 (00:12→18:24)
[2020-03-18] MEDS: LORazepam 2 mg/mL INJ 1 mL 0.5 MG IVP ×3 (04:35→20:38)
[2020-03-18] MEDS: cyclobenzaprine 10 mg Tablet PO ×2 (04:59→20:12)
[2020-03-18] MEDS: morphine 4 mg/mL SDV 1 mL 2 MG IVP ×4 (04:59→23:02)
--- NOTE | 2020-03-18 06:00 | XRR_ITS ---
PROCEDURE INFORMATION: Exam: XR Chest, 1 View Exam date and time: 03/18/2020 4:59 AM Age: 64 years old Clinical indication: Device placement; Chest tube; Additional info: Mechanically ventilated TECHNIQUE: Imaging protocol: XR of the chest Views: 1 view. COMPARISON: CR XR chest 1V portable [id number] 03/17/2020 5:13 AM FINDINGS: Tubes, catheters and devices: Central venous and pleural catheters again demonstrated. Lungs: COPD , interstitial prominence, and asymmetric right-sided airspace disease. Pleural space: Prominent residual right-sided pleural disease. Heart/Mediastinum: No cardiomegaly. Bones/joints: Right shoulder arthroplasty. When correlating with the previous study, no significant interval changes are present. XR/XR chest 1V portable [id number] IMPRESSION: Stable appearance of the chest, not significantly changed from 03/17/2020 .
[2020-03-18] MEDS: D5-NS 0.45% + KCL 20 mEq 20 MEQ/1,000 ML BAG 100 MEQ IV (06:22)
[2020-03-18 06:31] LABS: Anion Gap 11.7 (5-19); Blood Urea Nitrogen 9 mg/dL (8-23); Carbon Dioxide 25 mmol/L (22-29); Chloride 99 mmol/L (98-107); Creatinine Clr Calc Pharmacy 75.3662; Glucose 127 mg/dL (65-115); Osmolality Calculated 270 mOsm/kg (285-295); Potassium 4.7 mmol/L (3.5-5.1); Sodium 131 mmol/L (136-145)
[2020-03-18] MEDS: fentaNYL 50 mcg/mL INJ 2mL 25 MCG IVP ×4 (07:40→23:02)
[2020-03-18] MEDS: ipratropium-albuterol 3 mL Neb INHALATION ×2 (07:41→21:02)
--- NOTE | 2020-03-18 08:36 | P.PN_ITS ---
Subjective Subjective: Interval history: Remains on 4 L NC, overnight had 1100 mL urine output and 10 mL chest tube output. Afebrile, hemodynamically stable. Seen several times throughout the day, quite drowsy likely due to narcotics used for pain control. Seen following Pleurx catheter placement by Dr. Monroe. Is in good spirits, daughter at bedside. Pain is currently tolerable. Following procedure is now on 6 L nasal cannula. Medications: Reviewed: Yes Medication Review Details: Active Medications Generic Name Dose Route Start Last Admin Trade Name Freq PRN Reason Stop Dose Admin Hydrocodone Bitart /Acetaminophen 1 tab 03/16/20 00:05 03/17/20 16:23 [place] 10-325 Mg PO 1 tab Q6H PRN Administration MODERATE PAIN Albuterol/Ipratrop ium 3 ml 03/15/20 12:13 03/18/20 07:41 Duoneb INHALATION 3 ml Q6H.RESPIRATORY P RN Administration SHORTNESS OF MADHAVI TH Cyclobenzaprine HC l 10 mg 03/15/20 12:13 03/18/20 04:59 Flexeril PO 10 mg TID PRN Administration muscle spasm Enoxaparin Sodium 40 mg 03/15/20 12:15 03/17/20 11:26 Lovenox SUBCUT 40 mg Q24H SP Administration Fentanyl 25 mcg 03/17/20 18:11 03/18/20 07:40 Sublimaze IVP 25 mcg Q3H PRN Administration SEVERE PAIN Potassium Chloride /Dextrose/Sod Cl 20 meq in 1,000 m ls @ 100 mls/hr 03/15/20 12:13 03/18/20 06:22 D5-Ns 0.45% + Rory l 20 Meq IV 100 mls/hr .Q10H SP Administration Ampicillin Sodium/ Sulbactam 50 mls @ 150 mls/ hr 03/17/20 19:00 03/18/20 06:50 Sodium 1.5 gm/ S odium Chloride IV Infused Q6H SP Infusion Protocol Lorazepam 0.5 mg 03/17/20 20:21 03/18/20 04:35 Ativan IVP 0.5 mg Q6H PRN Administration ANXIETY Montelukast Sodium 10 mg 03/16/20 09:00 03/17/20 08:19 Singulair PO 10 mg DAILY SP Administration Morphine Sulfate 2 mg 03/15/20 12:13 03/18/20 04:59 Morphine IVP 2 mg Q4H PRN Administration SEVERE PAIN Non-Formulary 0 inhalation 03/15/20 21:00 03/17/20 20:15 Medication ( INHALATION Not Given Umeclidinium 62.5/ Q24H SP Vilanterol 25 Inhalation) Ondansetron HCl 4 mg 03/15/20 12:13 Zofran IVP Q6H PRN NAUSEA AND VOMITI NG Oxybutynin Chlorid e 15 mg 03/16/20 09:00 03/17/20 08:19 Ditropan PO 15 mg DAILY SP Administration Pantoprazole Sodiu m 40 mg 03/16/20 09:00 03/17/20 08:19 Protonix PO 40 mg DAILY [facility] Administration Prochlorperazine 10 mg 03/15/20 12:13 Compazine PO Q4H PRN Nausea Tramadol HCl 100 mg 03/16/20 19:11 03/17/20 23:54 Ultram PO 100 mg BID PRN Administration MODERATE PAIN naproxen Allergy (Severe, Verified 02/01/20 18:30) ALGY-Anaphylaxis Iodinated Contrast Media Allergy (Verified 02/01/20 18:30) ALGY-Anaphylaxis lisinopril Adverse Reaction (Verified 02/01/20 18:30) diarrhea Vitals/I&O/Wt Last Vital Signs Temp 97.9 F 03/18/20 04:00 Pulse 102 H 03/18/20 07:42 Resp 18 03/18/20 07:42 BP 117/80 03/18/20 06:00 Pulse Ox 95 03/18/20 07:42 03/17/20 03/18/20 03/18/20 22:59 06:59 14:59 Intake Total 1300 / 2850 1150 / 4000 Output Total 1210 / 2210 550 / 2760 Balance 90 / 640 600 / 1240 Physical Exam Const: COMMON NORMALS: no acute distress and patient oriented x3 GENERAL APPEARANCE: cooperative and comfortable ORIENTATION/CONSCIOUSNESS: Yes awake HENMT: COMMON NORMALS: normocephalic, atraumatic, hearing grossly normal bilaterally and moist oral mucous membranes HEAD & SCALP: normocephalic and atraumatic Eye: COMMON NORMALS: Equal, round and reactive pupils present, EOMs intact bilaterally and conjunctivae normal CONJUNCTIVA: Yes conjunctivae normal PUPIL: Yes Equal, round and reactive pupils present Neck/C-Spine: COMMON NORMALS: full ROM GENERAL: Yes normal visual inspection and Yes trachea midline Chest: OTHER: -Pleurx drain in place on R, clean/dry/intact pressure dressing in place Resp: COMMON NORMALS: normal respiratory effort, No retractions and No use of accessory muscles EFFORT & INSPECTION: Yes able to speak in complete sentences and Yes tachypneic OTHER: -Air entry improved bilaterally, currently on 6 L NC Cardio: COMMON NORMALS: regular rate, regular rhythm, S1 normal heart sound present, S2 normal heart sound present and No murmurs present (Cardio) RATE: regular rate RHYTHM: regular rhythm HEART SOUNDS: S1 normal heart sound present and S2 normal heart sound present GI: COMMON NORMALS: Normal to inspection, nondistended, normoactive bowel sounds present, Soft to palpation and non-tender PALPATION: Yes Soft to palpation Extremity: COMMON NORMALS: normal to inspection, full ROM and no clubbing, cyanosis or edema; negative for no pedal edema Neuro: COMMON NORMALS: patient oriented x3, moves all extremities, no focal motor deficits, no sensory deficits noted and gait normal Psych: COMMON NORMALS: mental status grossly normal, Normal thought process present, cooperative, normal affect and speech normal SPEECH: Yes normal speech THOUGHT PROCESS: Normal thought process present Skin: COMMON NORMALS: no rashes or lesions noted, no jaundice, no petechiae and no mottling GENERAL SKIN EXAM: no rashes or lesions noted Data : 03/17/20 04:30 03/18/20 05:26 Micro: Microbiology 03/15/20 17:55 Gram Stain - Final Pleural Fluid Body Fluid Culture - Preliminary 03/15/20 23:35 Urine Culture - Preliminary Urine,Clean Catch Enterococcus species A&P Assessment and plan (1) Pleural effusion: -has recurrent R pleural effusion, suspicious for malignant effusion -had thoracentesis done on 03/13 for the same, fluid analysis consistent with exudative effusion, noted to be bloody, cytology shows clusters of large malignant cells with atypical mitotic figures, small cell cancer in differential, flow cytometry analysis recommended to rule out lymphoma -patient initially declined thoracentesis; agreeable to chest tube placement, done by Dr. Monroe on 03/15 -total output of 3.7 L since chest tube placed -CXR noted; daily imaging while chest tube in place -decreased oxygen requirement, required as much as 10 L initially, weaned to 4 L NC -fluid analysis and cytology requested; culture pending, gram stain negative -received IV steroids, Neb treatments in ED -Pleurx catheter placement today Status: Acute (2) Acute exacerbation of chronic obstructive pulmonary disease: -is oxygen dependent at baseline with 3 L NC requirement -increased work of breathing is more consistent with pleural effusion rather than true acute COPD exacerbation so would not continue steroids for now. Noted improvement in overall work of breathing following chest tube placement -close monitoring of respiratory status Status: Acute (3) Small cell lung cancer: -follows up with Dr. Kunz -has been on chemotherapy with good response, pending last cycle. Status: Acute (4) Recurrent UTI: -on chronic Cefdinir therapy, on hold -currently asymptomatic -UA indicative of infection -urine cx so far growing Enterococcus species so switched to Unasyn for better coverage; off Ceftriaxone Status: Chronic (5) Chronic respiratory failure with hypoxia: -secondary to oxygen dependent COPD, 3 L baseline requirement Status: Chronic (6) Urgency incontinence: -on oxybutnin Status: Chronic (7) GERD (gastroesophageal reflux disease): -on PPI Status: Chronic Qualifiers: Esophagitis presence: esophagitis presence not specified Qualified Code(s): K21.9 - Gastro-esophageal reflux disease without esophagitis Additional A&P Information -declined diet other than regular -GI ppx with PPI -DVT ppx with Lovenox -Dispo: home, has services through [facility] -Code status: FULL code -ICU care due to low threshold for decompensation in respiratory status Attestations Medical Necessity Statement*: Patient requires hospitalization for continued management of recurrent R pleural effusion pending drain placement. Time Spent in Patient Care: 16 - 35 minutes (>than 50% of time spent in c ounselling and/or direct pt care on unit) . Coding Level of Care Code Acute Rating Officer for Chg Fwd Exam Comprehensive Diagnoses Pleural effusion J90 Acute exacerbation of chronic obstructive pulmonary disease J44.1 Small cell lung cancer C34.90 Recurrent UTI N39.0 Chronic respiratory failure with hypoxia J96.11 Urgency incontinence N39.41 GERD (gastroesophageal reflux disease) K21.9 Esophagitis presence: esophagitis presence not specified
--- NOTE | 2020-03-18 08:50 | DCPLANNER ---
Pg 2 of IM explained to and signed by pt. She states that she understand the message and has heard it several times before. She declines a copy of it stating just save the paper .
[2020-03-18] MEDS: montelukast sodium 10 mg Tablet PO (09:13)
[2020-03-18] MEDS: oxybutynin 5 mg Tablet 15 MG PO (09:13)
[2020-03-18] MEDS: HYDROcodone-acetaminophen 10-325 mg Tablet 1 TAB PO ×2 (09:14→22:33)
[2020-03-18] MEDS: pantoprazole DR 40 mg Tablet PO (09:14)
[2020-03-18] MEDS: TRAMadol 50 mg Tablet 100 MG PO (11:08)
[2020-03-18] MEDS: enoxaparin 40 mg/0.4 mL Syringe SUBCUT (11:26)
[2020-03-18 16:48] LABS: ABG PCO2 58.4 mmHg (35-45); ABG PH Result 7.33 (7.35-7.45); Alveolar-Arterial Oxygen Gradi 23.5 mmHg (5-10); Base Excess ABG 3.1 mmol/L (-2.0-2.0); Blood Gas Allen Test Pos; Blood Gas Operator Identificat ED; Blood Gas Sample Site Radial, right; Blood Gas Sample Type Arterial; Carboxyhemoglobin 1.2 %THgb (0.4-20.1); HCO3 ABG 30.6 mmol/L (22-26); HGB O2 Sat 89.3 % (95-100); Ionized Calcium Level - ABG 1.3 mmol/L (1.1-1.4); Methemoglobin 0.8 % (0.4-1.5); Oxygen Device NC; Oxygen Saturation ABG 91.2; Potassium Level - ABG 4.5 mmol/L (3.5-5.0); Total Hemoglobin 13.4 g/dL (12-16)
--- NOTE | 2020-03-18 17:29 | XRR_ITS ---
PROCEDURE INFORMATION: Exam: XR Chest, 1 View Exam date and time: 03/18/2020 5:50 PM Age: 64 years old Clinical indication: Device placement; Chest tube TECHNIQUE: Imaging protocol: XR of the chest Views: 1 view. COMPARISON: CR XR chest 1V portable [id number] 03/18/2020 4:40 AM FINDINGS: Tubes, catheters and devices: Replacement of right chest tube at the lower right thorax. Plfvoj-O-Lver remains. Lungs: See adjacent discussion. Pleural space: Similar pleural thickening or right-sided effusion and similar right pleural and parenchymal partially nodular opacities throughout the right chest. Persistent enlargement at the right fatuma. Blunting of the left costophrenic angle. Heart/Mediastinum: See Pleural space finding. The heart size is stable. Bones/joints: Right shoulder arthroplasty. XR/XR chest 1V portable [id number] IMPRESSION: Similar appearance of abnormal findings throughout the right hemithorax.
[2020-03-18] MEDS: lidocaine 1% INJ 20 mL 30 ML INTRADERMA (17:34)
[2020-03-18] MEDS: fentaNYL 50 mcg/mL INJ 2mL IVP (17:34)
--- NOTE | 2020-03-18 17:48 | P.PN_ITS ---
Subjective Subjective: Interval history: The patient was seen and examined today. Overnight the patient had an episode of shortness of breath likely secondary to anxiety. I had performed a bedside ultrasound in the morning which showed small to moderate amount of loculated pleural effusions. I had made a decision to keep the chest tube clamped throughout the day and perform the Pleurx catheter placement this evening. The patient was comfortable without any complaints. I performed the Pleurx catheter placement this evening. There was 800 cc of pleural fluid that was drained. The patient tolerated the procedure well. Medications: Reviewed: Yes Vitals/I&O/Wt Last Vital Signs Temp 98.1 F 03/18/20 14:00 Pulse 102 H 03/18/20 15:00 Resp 21 H 03/18/20 15:00 BP 142/107 03/18/20 15:00 Pulse Ox 91 03/18/20 15:00 03/18/20 03/18/20 03/18/20 06:59 14:59 22:59 Intake Total 1150 / 4000 300 / 300 1000 / 1300 Output Total 550 / 2760 Balance 600 / 1240 300 / 300 1000 / 1300 Physical Exam Narrative: EXAM NARRATIVE: General: Patient is awake alert and oriented, in no distress from shortness of breath Neck: No JVD, no cervical or supraclavicular lymphadenopathy. Respiratory: Inspection: No visible deformity of the chest wall, previous surgical scars in the right hemithorax, Pleurx catheter in place Palpation: Trachea is midline Percussion: Dullness to percussion in the right posterior hemithorax compared to the left Auscultation: Reduced breath sound in the lower right chest, no wheezing or rhonchi Cardiovascular: Regular rate and rhythm, S1-S2 present, no murmur, no peripheral edema. Abdomen: Soft, nontender, nondistended, positive bowel sound. Musculoskeletal: No obvious joint deformity Skin: No rash, no evidence of erythema nodosum or multiforme. Neuro: Mental status is normal, no gross cranial nerve deficit, normal motor and coordination. Data : 03/17/20 04:30 03/18/20 05:26 Micro: Microbiology 03/15/20 17:55 Gram Stain - Final Pleural Fluid Body Fluid Culture - Preliminary Attestation for Other Data: I personally reviewed and interpreted the following: Other data: I have reviewed the patient radiology, microbiology and laboratory data. The urine culture is growing enterococcus. A&P Assessment and plan (1) Recurrent pleural effusion on right: The patient is status post right-sided Pleurx catheter placement. 800 cc of pleural fluid was drained. The patient should be drained on a daily basis. She will follow-up with me in the office in 10 days for suture removal. The procedure was explained to the patient and her daughter. All her daughter's questions were answered. The patient can be discharged home from pulmonary perspective. Status: Acute (2) Small cell lung cancer: Oncology team is following up with her regarding the chemotherapy regimen. Status: Acute (3) COPD (chronic obstructive pulmonary disease): Patient is not showing evidence of COPD exacerbation. Status: Acute Attestations Medical Necessity Statement*: Will defer to the primary team Coding Level of Care Code Acute Curriculum Development Manager for Kiki Escobar Diagnoses Recurrent pleural effusion on right J90 Small cell lung cancer C34.90 COPD (chronic obstructive pulmonary disease) J44.9
--- NOTE | 2020-03-18 17:53 | PM.ACPR ---
Procedure/Consent Time out: Time Out Performed: Yes Consent: Consent for Procedure: Consent obtained from patient Procedure Narrative: Name of the procedure: Right-sided Pleurx catheter placement Anesthesia: Fentanyl 50 mcg Local: 1% lidocaine 15 mL. Description of the procedure: Consent was obtained after explaining the procedure to the patient and her daughter. The patient was placed in left lateral position. Using the ultrasound a safe fluid pocket was identified in the right ninth intercostal space in the midaxillary line. The site was marked. The patient was then prepared using sterile technique. 1% lidocaine was used to anesthetize the skin and subcutaneous tissue periosteum and the pleural space was entered. Serous fluid was aspirated. The introducer needle was then introduced into the pleural space. The guide wire was introduced and left in place. About 6 cm from the initial introduction site in the anterolateral chest wall a second incision was made. The pleural catheter was then tunneled under the skin with the help of a trocar. The initial site was then dilated and the Pleurx catheter was advanced into the pleural space without any difficulty. The incision sites were sutured. There was good hemostasis. 800 cc of serous fluid was drained. Complications: None X-ray: Loculated pleural effusion noted in several space on the right side but overall the right lung is expanded. The Pleurx catheter is in the right place. Acute Procedures Epistaxis Control: Time out performed: Yes
--- NOTE | 2020-03-18 19:32 | PC.NURSE ---
Shift summary: Pt alert and oriented. Rest with her eyes closed off and on most of the day. Lung sounds remain very diminished. Anxiety better controlled today. Pt only eats 3-4 bites of every meal, she says it tastes good just doesn't have room/appetite. Dr Monroe here at 1700, removed chest tube and replaced with Pleurex drain, drained 750 ml out immediately.. Pt tolerated well. Pt received fentanl during. Now pt seems to be forgetting she has had pain meds and when. Report given to DUGLAS Hatch.
[2020-03-19] VITALS (30 sets, daily range): BP systolic 103–178; BP diastolic 60–128; PULSE 96–113; RESP 13–27; TEMP 36.9; O2SAT 90–100
[2020-03-19] MEDS: ipratropium-albuterol 3 mL Neb INHALATION ×3 (02:12→21:24)
[2020-03-19] MEDS: fentaNYL 50 mcg/mL INJ 2mL 25 MCG IVP ×3 (02:18→06:04)
[2020-03-19] MEDS: LORazepam 2 mg/mL INJ 1 mL 0.5 MG IVP ×2 (02:47→07:31)
[2020-03-19] MEDS: morphine 4 mg/mL SDV 1 mL 2 MG IVP ×2 (02:49→06:37)
--- NOTE | 2020-03-19 02:54 | PC.NURSE ---
Pt c/o SOB. RT gave breathing tx. Andre drain kit used to stay sterile and pull 300 mL dark shirley fluid from pleural space. Pt tolerated fair.
[2020-03-19] MEDS: HYDROcodone-acetaminophen 10-325 mg Tablet 1 TAB PO ×2 (06:05→14:55)
[2020-03-19] MEDS: ampicillin-sulbactam 1.5 GM in sodium chloride 0.9% (plus) 50 ML IV ×4 (06:05→17:33)
[2020-03-19] MEDS: cyclobenzaprine 10 mg Tablet PO (07:32)
[2020-03-19] MEDS: TRAMadol 50 mg Tablet 100 MG PO ×2 (07:32→19:39)
[2020-03-19] MEDS: pantoprazole DR 40 mg Tablet PO (08:11)
[2020-03-19] MEDS: montelukast sodium 10 mg Tablet PO (08:12)
[2020-03-19] MEDS: oxybutynin 5 mg Tablet 15 MG PO (08:12)
--- NOTE | 2020-03-19 08:33 | PM.PN ---
Subjective Subjective: Interval history: Required significant pain control overnight with total of 3 doses of Ativan, 5 doses of Fentanyl IV, and 4 doses of Morphine. Quite hypertensive this AM, remains on 6 L NC, noted mild tachycardia. Noted drain output of 300 mL and urine output of 550 mL overnight. Falling asleep during my encounter, pain controlled right now. Medications: Reviewed: Yes Medication Review Details: Active Medications Generic Name Dose Route Start Last Admin Trade Name Freq PRN Reason Stop Dose Admin Hydrocodone Bitart /Acetaminophen 1 tab 03/16/20 00:05 03/19/20 06:05 [place] 10-325 Mg PO 1 tab Q6H PRN Administration MODERATE PAIN Albuterol/Ipratrop ium 3 ml 03/15/20 12:13 03/19/20 07:53 Duoneb INHALATION 3 ml Q6H.RESPIRATORY P RN Administration SHORTNESS OF MADHAVI TH Cyclobenzaprine HC l 10 mg 03/15/20 12:13 03/19/20 07:32 Flexeril PO 10 mg TID PRN Administration muscle spasm Enoxaparin Sodium 40 mg 03/15/20 12:15 03/18/20 11:26 Lovenox SUBCUT 40 mg Q24H SP Administration Fentanyl 25 mcg 03/17/20 18:11 03/19/20 06:04 Sublimaze IVP 25 mcg Q3H PRN Administration SEVERE PAIN Fentanyl 25 mcg 03/19/20 03:51 03/19/20 03:57 Sublimaze IVP 25 mcg ONCE PRN Administration SEVERE PAIN Ampicillin Sodium/ Sulbactam 50 mls @ 150 mls/ hr 03/17/20 19:00 03/19/20 06:31 Sodium 1.5 gm/ S odium Chloride IV Infused Q6H SP Infusion Protocol Lorazepam 0.5 mg 03/17/20 20:21 03/19/20 07:31 Ativan IVP 0.5 mg Q6H PRN Administration ANXIETY Montelukast Sodium 10 mg 03/16/20 09:00 03/19/20 08:12 Singulair PO 10 mg DAILY SP Administration Morphine Sulfate 2 mg 03/15/20 12:13 03/19/20 06:37 Morphine IVP 2 mg Q4H PRN Administration SEVERE PAIN Non-Formulary 0 inhalation 03/15/20 21:00 03/18/20 21:34 Medication ( INHALATION Not Given Umeclidinium 62.5/ Q24H [facility] Vilanterol 25 Inhalation) Ondansetron HCl 4 mg 03/15/20 12:13 Zofran IVP Q6H PRN NAUSEA AND VOMITI NG Oxybutynin Chlorid e 15 mg 03/16/20 09:00 03/19/20 08:12 Ditropan PO 15 mg DAILY SP Administration Pantoprazole Sodiu m 40 mg 03/16/20 09:00 03/19/20 08:11 Protonix PO 40 mg DAILY SP Administration Prochlorperazine 10 mg 03/15/20 12:13 Compazine PO Q4H PRN Nausea Tramadol HCl 100 mg 03/16/20 19:11 03/19/20 07:32 Ultram PO 100 mg BID PRN Administration MODERATE PAIN naproxen Allergy (Severe, Verified 02/01/20 18:30) ALGY-Anaphylaxis Iodinated Contrast Media Allergy (Verified 02/01/20 18:30) ALGY-Anaphylaxis lisinopril Adverse Reaction (Verified 02/01/20 18:30) diarrhea Vitals/I&O/Wt Last Vital Signs Temp 98.1 F 03/18/20 14:00 Pulse 110 H 03/19/20 07:53 Resp 22 H 03/19/20 07:53 BP 178/128 03/19/20 06:00 Pulse Ox 94 03/19/20 07:53 03/18/20 03/19/20 03/19/20 22:59 06:59 14:59 Intake Total 1200 / 1500 220 / 1720 Output Total 1000 / 1000 600 / 1600 Balance 200 / 500 -380 / 120 Physical Exam Const: COMMON NORMALS: no acute distress and patient oriented x3 GENERAL APPEARANCE: cooperative and comfortable ORIENTATION/CONSCIOUSNESS: Yes awake (though drowsy) HENMT: COMMON NORMALS: normocephalic, atraumatic, hearing grossly normal bilaterally and moist oral mucous membranes HEAD & SCALP: normocephalic and atraumatic Eye: COMMON NORMALS: Equal, round and reactive pupils present, EOMs intact bilaterally and conjunctivae normal CONJUNCTIVA: Yes conjunctivae normal PUPIL: Yes Equal, round and reactive pupils present Neck/C-Spine: COMMON NORMALS: full ROM GENERAL: Yes normal visual inspection and Yes trachea midline Chest: OTHER: -Pleurx drain in place on R, clean/dry/intact pressure dressing in place Resp: COMMON NORMALS: normal respiratory effort, No retractions and No use of accessory muscles EFFORT & INSPECTION: Yes able to speak in complete sentences and Yes tachypneic OTHER: -Air entry improved bilaterally, currently on 6 L NC Cardio: COMMON NORMALS: regular rate, regular rhythm, S1 normal heart sound present, S2 normal heart sound present and No murmurs present (Cardio) RATE: regular rate RHYTHM: regular rhythm HEART SOUNDS: S1 normal heart sound present and S2 normal heart sound present GI: COMMON NORMALS: Normal to inspection, nondistended, normoactive bowel sounds present, Soft to palpation and non-tender PALPATION: Yes Soft to palpation Extremity: COMMON NORMALS: normal to inspection, full ROM and no clubbing, cyanosis or edema; negative for no pedal edema Neuro: COMMON NORMALS: patient oriented x3, moves all extremities, no focal motor deficits, no sensory deficits noted and gait normal Psych: COMMON NORMALS: mental status grossly normal, Normal thought process present, cooperative, normal affect and speech normal SPEECH: Yes normal speech THOUGHT PROCESS: Normal thought process present Skin: COMMON NORMALS: no rashes or lesions noted, no jaundice, no petechiae and no mottling GENERAL SKIN EXAM: no rashes or lesions noted Data : 03/17/20 04:30 03/18/20 05:26 Micro: Microbiology 03/15/20 17:55 Gram Stain - Final Pleural Fluid Body Fluid Culture - Preliminary A&P Assessment and plan (1) Pleural effusion: -has recurrent R pleural effusion, suspicious for malignant effusion -had thoracentesis done on 03/13 for the same, fluid analysis consistent with exudative effusion, noted to be bloody, cytology shows clusters of large malignant cells with atypical mitotic figures, small cell cancer in differential, flow cytometry analysis recommended to rule out lymphoma -patient initially declined thoracentesis; agreeable to chest tube placement, done by Dr. Monroe on 03/15 -had output of almost 4 L following chest tube placed; Pleurx catheter placed 03/18 -CXR noted; daily imaging while chest tube in place -increased oxygen requirement following Pleurx drain placement, wean as tolerated -fluid analysis and cytology requested; culture prelim negative, gram stain negative -received IV steroids, Neb treatments in ED -has had high pain requirement, add oral morphine to bridge Status: Acute (2) Acute exacerbation of chronic obstructive pulmonary disease: -is oxygen dependent at baseline with 3 L NC requirement -increased work of breathing is more consistent with pleural effusion rather than true acute COPD exacerbation so would not continue steroids for now. Noted improvement in overall work of breathing following chest tube placement -close monitoring of respiratory status Status: Resolved (3) Small cell lung cancer: -follows up with Dr. Kunz -has been on chemotherapy with good response. Status: Acute (4) Recurrent UTI: -on chronic Cefdinir therapy, on hold -currently asymptomatic -UA indicative of infection -urine cx so far growing Enterococcus species so switched to Unasyn for better coverage; off Ceftriaxone Status: Chronic (5) Chronic respiratory failure with hypoxia: -secondary to oxygen dependent COPD, 3 L baseline requirement Status: Chronic (6) Urgency incontinence: -on oxybutnin Status: Chronic (7) GERD (gastroesophageal reflux disease): -on PPI Status: Chronic Qualifiers: Esophagitis presence: esophagitis presence not specified Qualified Code(s): K21.9 - Gastro-esophageal reflux disease without esophagitis Additional A&P Information -declined diet other than regular -GI ppx with PPI -DVT ppx with Lovenox -Dispo: home, has HH services through [facility] -Code status: FULL code -ICU care due to low threshold for decompensation in respiratory status, high pain requirement Attestations Medical Necessity Statement*: Patient requires hospitalization for continued pain control, monitoring of respiratory status, on higher than baseline oxygen requirement. Time Spent in Patient Care: 16 - 35 minutes (>than 50% of time spent in counselling and/or direct pt care on unit). 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
[2020-03-19] MEDS: morphine ER (12 HR) 30 mg tablet PO (09:27)
--- NOTE | 2020-03-19 11:51 | PC.NURSE ---
PATIENT STARTED HER DAY IN PAIN , NEGATIVE DISCUSSIONS AND CONFUSED, TRAMADOL FLEXERIL AND ATIVAN GIVEN AND SHE WAS SMILING AND JOKING . SHE COULD NOT EAT DUE TO TEETH SO I WILL ADJUST HER MENU , SHE MADE A FANCY COOL COFFEE FROM WHAT HER DAUGHTER BROUGHT HER. DR SHRESTHA SPOKE TO PATIENT ABOUT ADJUSTING HER MEDS AND STAYING A DAY OR TWO TO DO SO. PATIENT REMAINED CALM WITH THAT DISCUSSION . I BATHED HER AND USED THE [employer] DRAIN KIT TO REMOVE 250 CC OF SEROSANG FLUID. I STOPPED THE SUCTION WHEN SHE FELT PAIN. SHE SETTLED WELL BUT THE ACT OF PUTTING HER LEGS OVER THE SIDE WAS STRESSFUL. HER OXYGEN WAS INCREASED FOR COMFORT, SHE PANICED AND NEEDED HER PHONE TO PLAY A WORD PUZZLE TO CALM DOWN AND ALLOW US TO MOVE HER TO THE CHAIR. NOTED HER DIAPER AND PERIPAD WERE FILLED WITH URINE, SHE WA CLEANED AND COUNCILLED THAT SHE NEEDS TO CHANGE THE PAD OFTEN IF SHE HAS IT SHE IS GETTING A UTI FROM SITTING IN HER OLD URINE . SHE INSISTED THAT SHE JUST CHANGED IT AN HOUR BEFORE BUT SINCE WAS UNABLE TO STAND I KNOW THIS DID NOT HAPPEN . SHE MAY BENEFIT FROM LESS PAIN MEDS AND MORE ANTIANXEITY MEDS GIVEN ORALLY. SHE SPOKE OF MARIJUANA USE AND THIS MAY HELP HER ESPECIALLY AT NIGHT. SHE IS DEFINATELY TOO WEAK AND CONUSED TO SAFELY BE ALONE AT HOME . DR SHRESTHA MADE AWARE.
[2020-03-19] MEDS: enoxaparin 40 mg/0.4 mL Syringe SUBCUT (12:09)
[2020-03-19] MEDS: prochlorperazine 10 mg Tablet PO (12:09)
--- NOTE | 2020-03-19 15:18 | PC.NURSE ---
i feel that her pain meds with 30 of morphine may be overdone, shes a little too loopy, unsteady on feet, wandering thoughts, but happier and less anxious overall. she may do better with 15 of er ms bid with is available when her drain is opened. she still has not told me she needs to void, but i have changed her bed pad 2x and managed to keep shorts and pull ups off her so that her incontinence could be taken from her skin
[2020-03-19] MEDS: morphine ER (12 HR) 30 mg tablet 15 MG PO (17:32)
--- NOTE | 2020-03-19 17:43 | PC.NURSE ---
discussed with and with patients daughter her pain needs today. we agreed that 30 mg was a little high for 2x a day so we reduced it to 15mg and allow space for her prn meds if needed but since this am she had not truly displayed any pain but admitted to some late in the afternoon. her mind is not clear , conversational but she has her times off and is not coordinated as is necessary to be safe. her daughter did transfer easily to the [facility] this evening on her own.
--- NOTE | 2020-03-19 17:51 | PC.NURSE ---
showed the patients daughter how to use a shravan drain package. one kit used this afternoon, one a day expected. explained that her skin was sensitive to the tegaderm tape and that i used barrier cream on it and covered wth gauze so the drain site appears larger than really present. patient may be less sensitive to micropore tape and it may actually hold better.
[2020-03-19] MEDS: morphine IR 15 mg Tablet PO (19:27)
--- NOTE | 2020-03-19 20:35 | PC.NURSE ---
Wasted 55 mL IV fentanyl with Dilia Nava RN
[2020-03-20] VITALS (12 sets, daily range): BP systolic 124–155; BP diastolic 80–118; PULSE 98–112; RESP 14–28; TEMP 36.6–36.9; O2SAT 92–96
[2020-03-20] MEDS: ampicillin-sulbactam 1.5 GM in sodium chloride 0.9% (plus) 50 ML IV ×2 (00:38→06:14)
[2020-03-20] MEDS: LORazepam 1 mg Tablet PO ×2 (05:57→11:01)
--- NOTE | 2020-03-20 06:27 | PC.NURSE ---
Pt is in a much better mood this morning. She states she is in significantly less pain. She is not tearful, but states she is anxious because she wants to go home. Pt is afraid she will not be able to go home today. Pt was reassured Dr. Zaman was very hopeful she would be able to be d/c today.
[2020-03-20] MEDS: ipratropium-albuterol 3 mL Neb INHALATION (08:00)
--- NOTE | 2020-03-20 08:02 | P.DS_ITS ---
Discharge Providers Date of Admission: 03/15/20 10:30 Date of Discharge: March 20, 2020 Attending Provider at Admission: Junie Rdz MD Attending Provider at Discharge: Junie Rdz MD Consults: Pulmonology, Dr. Monroe Primary Care Provider: NELDA Berry Diagnoses at Discharge Discharge Diagnosis (1) Pleural effusion: Status: Acute Problem details: -has recurrent R pleural effusion, suspicious for malignant effusion -had thoracentesis done on 03/13 for the same, fluid analysis consistent with exudative effusion, noted to be bloody, cytology shows clusters of large malignant cells with atypical mitotic figures, small cell cancer in differential, flow cytometry analysis recommended to rule out lymphoma -patient initially declined thoracentesis; agreeable to chest tube placement, done by Dr. Monroe on 03/15 -had output of almost 4 L following chest tube placed; Pleurx catheter placed 03/18 -CXR noted; daily imaging while chest tube in place -increased oxygen requirement following Pleurx drain placement, wean as tolerated -pleural fluid analysis noted, culture prelim negative, gram stain negative -received IV steroids, Neb treatments in ED -has had high pain requirement, oral morphine added (2) Acute exacerbation of chronic obstructive pulmonary disease: Status: Resolved Problem details: -is oxygen dependent at baseline with 3 L NC requirement -increased work of breathing is more consistent with pleural effusion rather than true acute COPD exacerbation so would not continue steroids for now. Noted improvement in overall work of breathing following chest tube placement -close monitoring of respiratory status (3) Small cell lung cancer: Status: Acute Problem details: -follows up with Dr. Kunz -has been on chemotherapy with good response. (4) Recurrent UTI: Status: Chronic Problem details: -on chronic Cefdinir therapy, on hold -currently asymptomatic -UA indicative of infection -urine cx-Enterococcus faecium, will d/c on Linezolid (5) Chronic respiratory failure with hypoxia: Status: Chronic Problem details: -secondary to oxygen dependent COPD, 3 L baseline requirement (6) Urgency incontinence: Status: Chronic Problem details: -on oxybutnin (7) GERD (gastroesophageal reflux disease): Status: Chronic Problem details: -on PPI Qualifiers: Esophagitis presence: esophagitis presence not specified Qualified Code(s): K21.9 - Gastro-esophageal reflux disease without esophagitis Reason for Visit Reason for Visit: SOB, COPD, LUNG CA Hospital Course Hospital Course: Patient was admitted to ICU secondary to noted respiratory distress with at least moderate right pleural effusion which had been drained a few days prior to this admission and recurred. Due to concern for continued recurrence of pleural effusion likely secondary to underlying malignancy pulmonology was consulted and placed a right chest tube. She had a total of about 4 L following chest tube placement over the course of approximately 48 to 72 hours. Discussion on alternative options including Pleurx drain versus pleurodesis was had and in light of continued effusion, Pleurx drain was placed and patient and daughter who is also her primary caregiver were educated on need for draining once daily or if overtly symptomatic. She did require higher than baseline oxygen requirement but has been weaned down to her baseline of 3 L nasal cannula. Pain control and anxiety have been an ongoing challenge for her. Emphasis has been on trying to use oral alternatives in anticipation of discharge. I suspect she will have a gradually increasing narcotic requirement moving forward. She has been noted to have some altered mentation likely sec ondary to medication primarily narcotics and anxiolytics. I have discussed this with patient and daughter and they have opted to prioritize pain control and comfort with understanding of potential for sedation and altered mental status. Daughter is available to provide [id number] supervision and assistance to the patient. Patient has a known history of recurrent UTIs and urinalysis here showed indication of infection, urine culture has grown enterococcus faecium with sensitivity to vancomycin and Zyvox. While here she has been covered with Unasyn but based on sensitivity profile will discharge on Zyvox to complete her treatment course. While she is on Zyvox will recommend holding cefdinir which she is on for chronic suppressive therapy due to her recurrent UTI history. Based on pleural fluid analysis she seems to have malignancy related effusion with cytology confirming presence of malignant cells, differential includes small cell and pathologist recommends flow cytometry analysis for more definitive evaluation. Case has been discussed with Dr. Kunz who is her primary oncologist and he will follow-up with the patient once discharged. Patient will follow-up with Dr. Monroe in approximately 10 days. She will need to follow-up with her primary care provider in the interim. Strongly advised to seek medical attention immediately should her symptoms worsen particularly in terms of shortness of breath, concern for infection around Pleurx drain. She is hemodynamically stable, afebrile. Has worked with physical therapy. Already has home health services arranged through [facility] which should resume on discharge. Discharge Summary: -Patient follow-up with primary care provider within 1 week -Patient to follow-up with Dr. Kunz next week -Patient to follow-up with Dr. Monroe in 7 to 10 days Physical Exam Const: COMMON NORMALS: no acute distress and patient oriented x3 GENERAL APPEARANCE: cooperative and comfortable ORIENTATION/CONSCIOUSNESS: Yes awake (though drowsy) HENMT: COMMON NORMALS: normocephalic, atraumatic, hearing grossly normal bilaterally and moist oral mucous membranes HEAD & SCALP: normocephalic and atraumatic Eye: COMMON NORMALS: Equal, round and reactive pupils present, EOMs intact bilaterally and conjunctivae normal CONJUNCTIVA: Yes conjunctivae normal PUPIL: Yes Equal, round and reactive pupils present Neck/C-Spine: COMMON NORMALS: full ROM GENERAL: Yes normal visual inspection and Yes trachea midline Chest: OTHER: -Pleurx drain in place on R, clean/dry/intact pressure dressing in place Resp: COMMON NORMALS: normal respiratory effort, No retractions and No use of accessory muscles EFFORT & INSPECTION: Yes able to speak in complete sentences and Yes tachypneic OTHER: -Air entry improved bilaterally, currently on 3 L NC Cardio: COMMON NORMALS: regular rate, regular rhythm, S1 normal heart sound present, S2 normal heart sound present and No murmurs present (Cardio) RATE: regular rate RHYTHM: regular rhythm HEART SOUNDS: S1 normal heart sound present and S2 normal heart sound present GI: COMMON NORMALS: Normal to inspection, nondistended, normoactive bowel sounds present, Soft to palpation and non-tender PALPATION: Yes Soft to palpation Extremity: COMMON NORMALS: normal to inspection, full ROM and no clubbing, cyanosis or edema; negative for no pedal edema Neuro: COMMON NORMALS: patient oriented x3, moves all extremities, no focal motor deficits, no sensory deficits noted and gait normal Psych: COMMON NORMALS: mental status grossly normal, Normal thought process present, cooperative, normal affect and speech normal SPEECH: Yes normal speech THOUGHT PROCESS: Normal thought process present Skin: COMMON NORMALS: no rashes or lesions noted, no jaundice, no petechiae and no mottling GENERAL SKIN EXAM: no rashes or lesions noted Discharge Data Data Completed and Pending: Completed Studies During Hospitalization Category Date Time Status XR chest 1V [id number] Routine Exams 03/15/20 17:38 Completed XR chest 1V moy ble [id number] Routine Exams 03/16/20 08:42 Completed XR chest 1V moy ble [id number] Routine Exams 03/16/20 16:49 Completed XR chest 1V moy ble [id number] Routine Exams 03/17/20 06:00 Completed XR chest 1V moy ble [id number] Routine Exams 03/18/20 06:00 Completed XR chest 1V moy ble [id number] Routine Exams 03/18/20 17:29 Completed XR chest 1V moy ble [id number] Stat Exams 03/15/20 08:54 Completed Pending at discharge Category Date Time Status Cytology [PTH] Ro utine Pth 03/15/20 17:08 Received Vitals: Last Vital Signs Temp 98.5 F 03/19/20 17:00 Pulse 100 03/20/20 06:00 Resp 17 03/20/20 06:00 BP 142/118 03/20/20 06:00 Pulse Ox 96 03/20/20 06:00 Discharge Plan Discharge Patient Disposition: Home Health Service Condition: Stable Prescriptions: New morphine 30 mg Tablet Extended Release 15 mg PO BID Qty: 30 RF: 0 hydrocodone-acetaminophen 10-325 mg Tablet 1 tab PO Q6H PRN (Reason: moderate to severe pain) Qty: 30 RF: 0 lorazepam 1 mg Tablet 1 mg PO BID PRN (Reason: Anxiety) Qty: 30 RF: 0 linezolid 600 mg tablet 600 mg PO BID 10 Days Qty: 20 RF: 0 Continued albuterol sulfate [ProAir HFA] 90 mcg/actuation HFA aerosol inhaler 2 puff INHALATION Q6H PRN (Reason: bronchospasm) Qty: 6.7 RF: 2 vitamin F32-ifwxs acid 1,000-400 mcg lozenge 1 lozenge SUBLINGUAL DAILY RF: 0 prochlorperazine maleate 10 mg tablet 10 mg PO Q4H PRN (Reason: Nausea) RF: 0 montelukast [Singulair] 10 mg tablet 10 mg PO DAILY Qty: 30 RF: 5 albuterol sulfate 2.5 mg /3 mL (0.083 %) solution for nebulization 2.5 mg INHALATION Q4H PRN (Reason: bronchospasm) Qty: 525 RF: 0 umeclidinium-vilanterol [Anoro Ellipta] 62.5-25 mcg/actuation blister with device See Rx Instructions .ROUTE .COMPLEX Qty: 60 RF: 0 oxybutynin chloride 10 mg tablet extended release 24hr 15 mg PO DAILY RF: 0 cyclobenzaprine 10 mg tablet 10 mg PO TID PRN (Reason: muscle spasm) Qty: 90 RF: 0 Changed tramadol 50 mg tablet 100 mg PO BID PRN (Reason: Pain) Qty: 60 RF: 0 pantoprazole 20 mg tablet,delayed release (DR/EC) 40 mg PO DAILY Qty: 30 RF: 0 Held cefdinir 300 mg capsule 300 mg PO BID Qty: 60 RF: 2 Hold Instructions: Please hold off on taking Cefdinir until completion of treatment with Augmentin Discontinued hydrocodone-acetaminophen 10 mg tablet PO QID PRN (Reason: Pain) RF: 0 hydrocodone-acetaminophen 5-325 mg tablet 1 tab PO QID PRN (Reason: Pain) RF: 0 Discharge Orders: Discharge Order (Routine); Ordered 03/20/20 Ordered By: Junie Rdz Referrals: [facility] [Outside] Prema Jenkins FNP [Primary Care Provider] - 4-7 days (Post hospital discharge follow up) Haseeb Monroe MD [Physician] - 7-10 days Nikki Kunz MD [Staff Physician] - 4-7 days Discharge Diet: Regular Discharge Activity: Increase activity as tolerated, As per PT/OT instructions and Oxygen as instructed Discharge Attestations Time Spent in Discharge Care*: greater than 30 min Specific Discharge Activities: Specific discharge activities: educating patient, educating and/or supporting family/caregiver (uzair Martinez), discussing with pcp/other providers, discussing with leather case finisher/social workers/dc planners, documenting/other paperwork and evaluating patient/reviewing data Status at Discharge: Cognitive status at discharge: cognitively intact , Behavioral status at discharge: cooperative and dependent in ADL's , Functional status at discharge: uses cane/walker Overall status at discharge: patient is progressing back to baseline Quality Metrics Clinical Quality Measures During this hospital stay, did patient experience: None Coding Level of Care Code 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
[2020-03-20] MEDS: oxybutynin 5 mg Tablet 15 MG PO (09:51)
[2020-03-20] MEDS: pantoprazole DR 40 mg Tablet PO (09:51)
[2020-03-20] MEDS: montelukast sodium 10 mg Tablet PO (09:51)
[2020-03-20] MEDS: morphine ER (12 HR) 30 mg tablet 15 MG PO (09:51)
--- NOTE | 2020-03-20 10:20 | PC.SOCIAL ---
IMM Updated Page 2 of IMM updated and given to patient. Initialed, dated, and timed and placed back in chart.
--- NOTE | 2020-03-20 12:05 | PC.NURSE ---
DISCHARGE INSTRUCTIONS DISCUSSED WITH PATIENT; DRAIN SITE REDRESSED WITH 4X4, TEGADERM, AND TAPE ON RIGHT POSTERIOR SIDE; PORT-A-CATH LOCKED WITH HEPARIN PRIOR TO DEACCESSING; ALL QUESTIONS ANSWERED; PRESCRIPTIONS GIVEN TO PATIENT; PT SENT HOME WITH 3 DRAIN BOTTLES AND [employer]LL SUPPLIES FOR DRESSING CHANGES FOR WEEKEND UNTIL HOME HEALTH SEE PATIENT ON SUNDAY;
== END 2020-03-20 11:15 | disposition home health service (06) | DRG 181 ==
LOC: ER 10:10 → ICU 11:25
PROVIDERS: Family Medicine; Internal Medicine Critical Care Medicine; Admitting Provider Family Medicine; PCP Nurse Practitioner Family; Visit Provider Family Medicine
DX: C34.90 Malignant neoplasm of unspecified part of unspecified bronchus or lung (principal); N39.0 Urinary tract infection, site not specified; J91.0 Malignant pleural effusion; J98.11 Atelectasis; J96.11 Chronic respiratory failure with hypoxia; N39.41 Urge incontinence; K21.9 Gastro-esophageal reflux disease without esophagitis; J44.9 Chronic obstructive pulmonary disease, unspecified; Z99.81 Dependence on supplemental oxygen; I10 Essential (primary) hypertension; M06.9 Rheumatoid arthritis, unspecified; Z87.891 Personal history of nicotine dependence
CPT/HCPCS: 12345; 32555; 32557; 36415; 36591; 36600; 70450; 71045; 71275; 80048; 80051; 80053; 80500; 81001; 81003; 82042; 82805; 82810; 82945; 83605; 83615; 83735; 83880; 83986; 84157; 84478; 84484; 85025; 85378; 85610; 87015; 87070; 87075; 87077; 87086; 87116; 87186; 87205; 87206; 87801; 88112; 88305; 89050; 93005; 94640; 96360; 96361; 96372; 96374; 96375; 97161; 97530; 99284; 99285; G0378; J0295; J0696; J1200; J1642; J1650; J2060; J2270; J2405; J2930; J3010; J7030; Q0164; Q9967

== ENCOUNTER 2020-03-23 05:58 | Outpatient (RCR) | payer MEDICARE, MEDICAID, SELFPAY | END 2020-03-24 06:00 | disposition home or self-care (01) | LOC: ONCMED 05:58 | PROVIDERS: PCP Nurse Practitioner Family; Visit Provider Internal Medicine Hematology & Oncology | DX: C34.11 Malignant neoplasm of upper lobe, right bronchus or lung (principal); C78.7 Secondary malignant neoplasm of liver and intrahepatic bile duct; C78.02 Secondary malignant neoplasm of left lung; J90 Pleural effusion, not elsewhere classified; J44.9 Chronic obstructive pulmonary disease, unspecified; I10 Essential (primary) hypertension; Z85.118 Personal history of other malignant neoplasm of bronchus and lung; Z90.2 Acquired absence of lung [part of]; Z99.81 Dependence on supplemental oxygen; Z79.899 Other long term (current) drug therapy | CPT/HCPCS: 99214 ==

== ENCOUNTER 2020-03-24 02:24 | Inpatient (IN) | payer MEDICARE, MEDICAID, SELFPAY ==
[2020-03-24] VITALS (31 sets, daily range): BP systolic 91–143; BP diastolic 48–87; PULSE 87–105; RESP 16–33; TEMP 36.6–36.9; O2SAT 87–98; BMI 25.0
--- NOTE | 2020-03-24 02:29 | XR_ITS ---
WS: [id number] Portable AP upright chest, 03/24/2020, 0305 hours. Clinical Data: Shortness of breath Comparison: Portable chest, 03/18/2020. Findings: There is peripheral right pleural thickening with clips in the right upper pleural space. T here is opacity in the right hilum extending into the right lower lobe. The right lower lobe opacity has increased. There is a right inferior pleural based catheter unchanged. The infusion catheter ente ring the left internal jugular vein remains unchanged. The left lung is clear. The heart size remains the same. The aortic arch and descending aorta show calcification and tortuosity. There is a total r ight shoulder prosthesis. XR/XR chest 1V portable [id number] Impression: 1. Increase in right pleural based opacity which could represent accumulation o f fluid or development of basilar pneumonia. 2. Upper right pleural thickening unchanged. 3. No change in right basilar pleural catheter and left infusion catheter.
--- NOTE | 2020-03-24 02:31 | ECG_ITS ---
[facility] Test Date: 2020-03-24 Pat Name: Shira Mata Department: Room: Gender: Female Quarryman: : 1955 Requested By: Nanette Marroquin Order Number: [id number] Jin MD: Garry Duke M.D. Measurements Intervals [place] Rate: 100 P: 59 SD: 134 QRS: 51 QRSD: 98 T: 43 QT: 326 QTc: 422 Interpretive Statements SINUS TACHYCARDIA ABNORMAL RHYTHM ECG Compared to ECG 03/15/2020 16:17:04 Sinus rhythm no longer present Ventricular premature complex(es) no longer present Poor R-wave progression no longer present Electronically Signed On 03-24-2020 21:22:43 CDT by Garry Duke M.D. https://[employer] (acquired by [employer] in 2014)[facility].[employer]/store/O/O/ecg/[id number]
[2020-03-24 03:37] LABS: ABG PCO2 67.8 mmHg (35-45); ABG PH Result 7.25 (7.35-7.45); Base Excess ABG 1.1 mmol/L (-2.0-2.0); Blood Gas Allen Test Pos; Blood Gas Operator Identificat HARKR; Blood Gas Sample Site Radial, right; Blood Gas Sample Type Arterial; Oxygen Device NC; PO2 ABG 74.2 mmHg (80.0-100.0)
[2020-03-24 03:53] LABS: Alanine Aminotransferase 11 U/L (0-33); Alkaline Phosphatase 124 IU/L (35-105); Anion Gap 13.8 (5-19); Aspartate Amino Transferase 23 U/L (0-32); Blood Urea Nitrogen 33 mg/dL (8-23); Calcium 9.4 mg/dL (8.5-10.5); Carbon Dioxide 26 mmol/L (22-29); Chloride 89 mmol/L (98-107); Globulin 2.5 g/dL (1.3-4.6); Glomerular Filtration Rate 49.8 mL/min (90-130); Glucose 127 mg/dL (65-115); Magnesium 2.4 mg/dL (1.7-2.3); NT Pro B Type Natriuretic Pept 1824 pg/mL (0-125); Osmolality Calculated 255 mOsm/kg (285-295); Potassium 5.8 mmol/L (3.5-5.1); Sodium 123 mmol/L (136-145); Total Bilirubin 0.3 mg/dL (0.15-1.2); Total Protein 5.5 g/dL (6.6-8.7)
[2020-03-24] MEDS: piperacillin-tazobactam 3.375 GM in sodium chloride 0.9% (plus) 50 ML IV ×3 (03:56→21:36)
[2020-03-24 04:00] LABS: Troponin(5th) Baseline 39 ng/L (0-10)
--- NOTE | 2020-03-24 04:00 | PC.NURSE ---
Pt trying to pic fleas off blanket. States she did not have them at home and we gave them to her.
[2020-03-24 04:20] LABS: INR 1.07 (0.8-1.2)
--- NOTE | 2020-03-24 04:23 | PC.NURSE ---
pt states she is refusing treatment and is leaveing Dr Pardo notified and he said pt is A/O x3 and that she will be signing out AMA.
--- NOTE | 2020-03-24 04:24 | PC.NURSE ---
Pt refusing all care, has torn off bipap and is texting daughter to come get her. Pt is alert and appropriate speaking with MD and RN during refusal of treatment. RN calling daughter to update her on situation
[2020-03-24 04:26] LABS: Basophils % 0.2 %; Eosinophils # 0.4 10^3/uL (0.0-0.8); Eosinophils % 2.5 %; Lymphocytes # 0.5 10^3/uL (0.8-4.8); Lymphocytes % 3.3 %; Mean Corpuscular Hemoglobin 26.7 pg (28.0-34.0); Mean Corpuscular Volume 88.9 fL (81-99); Monocytes # 1.5 10^3/uL (0.2-0.9); Monocytes % 9.1 %; Neutrophils % 84.4 %; Nucleated Red Blood Cells % 0 %; Platelet Count 353 10^3/cmm (130-400); Red Cell Distribution Width 17.4 % (12.1-15.1)
[2020-03-24 04:27] LABS: Slide Review Slide Review Perform
[2020-03-24 04:29] LABS: Lactic Sepsis W/Reflex 2.7 mmol/L (0.5-2.2)
--- NOTE | 2020-03-24 05:02 | PC.NURSE ---
Pt daughter and MD @ bedside
--- NOTE | 2020-03-24 05:09 | ED_ITS ---
HPI - SOB/Dyspnea General: Chief Complaint: Shortness of Breath/Dyspnea Stated Complaint: SOB Time Seen by Provider: 03/24/20 02:29 Source: patient Mode of arrival: ambulatory Limitations: no limitations History of Present Illness: HPI Narrative: Cornelio is a nice 64-year-old female who comes in with shortness of breath. She has history of lung cancer and COPD. She states that she got more short of breath this evening and was coughing more than normal. She denies any fever. Family related to EMS the patient is also been having hallucinations. This is a new symptom for her. Patient arrives in mild to moderate respiratory distress. Review of Systems General: Reports: ROS unobtainable due to medical condition PFSH ED PFSH: Medical History Chronic respiratory failure with hypoxia -secondary to oxygen dependent COPD, 3 L baseline requirement COPD (chronic obstructive pulmonary disease) COPD (chronic obstructive pulmonary disease) Essential (primary) hypertension GERD (gastroesophageal reflux disease) -on PPI Hypertension Lung cancer Pleural effusion -has recurrent R pleural effusion, suspicious for malignant effusion -had thoracentesis done on 03/13 for the same, fluid analysis consistent with exudative effusion, noted to be bloody, cytology shows clusters of large malignant cells with atypical mitotic figures, small cell cancer in differential, flow cytometry analysis recommended to rule out lymphoma -patient initially declined thoracentesis; agreeable to chest tube placement, done by Dr. Monroe on 03/15 -had output of almost 4 L following chest tube placed; Pleurx catheter placed 03/18 -CXR noted; daily imaging while chest tube in place -increased oxygen requirement following Pleurx drain placement, wean as tolerated -pleural fluid analysis noted, culture prelim negative, gram stain negative -received IV steroids, Neb treatments in ED -has had high pain requirement, oral morphine added Port-A-Cath in place Recurrent pleural effusion on right Recurrent UTI -on chronic Cefdinir therapy, on hold -currently asymptomatic -UA indicative of infection -urine cx-Enterococcus faecium, will d/c on Linezolid Rheumatoid arthritis 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 Kunz -has been on chemotherapy with good response. Small cell lung cancer Subdural hemorrhage Urgency incontinence -on oxybutnin Urinary incontinence UTI (urinary tract infection) Surgical History H/O shoulder surgery History of cholecystectomy History of knee replacement History of lung surgery CT guided trans-thoracic cord needle biopsy right upper lobe lung mass pending Wedge resection of the right upper lobe of the lung done in [facility] Hx of cataract surgery Family History Mother Lung disease COPD Brother Lung disease COPD Social History Smoking and tobacco status: former smoker Quit status (tobacco): has quit using tobacco Former quit date comment: 1 week ago Alcohol intake: never Lives independently: Yes Household members: family and children Housing: House Marital status: service: No Current occupational status: retired History of recent travel: No Current gender identity: Female Physical Exam Const: COMMON NORMALS: patient oriented x3 GENERAL APPEARANCE: in distress HENMT: COMMON NORMALS: normocephalic, atraumatic, external ears normal, EAC's normal and Normal external nose present HEAD & SCALP: normal to inspection, normocephalic and atraumatic FACE & SINUS: normal facial exam and face symmetric NOSE: Normal external nose present and Normal nares present EXTERNAL EAR: Yes external ears normal EXTERNAL AUDITORY CANAL: EAC's normal MOUTH: Normal oral and palatal mucosa present, lip normal and tongue normal Eye: COMMON NORMALS: Equal, round and reactive pupils present and conjunctivae normal GENERAL EYE: appearance normal, both eyes and all related structures ALIGNMENT: Yes alignment normal PERIORBITAL: periorbital findings normal EYELID: eyelids normal CONJUNCTIVA: Yes conjunctivae normal SCLERA: sclerae normal PUPIL: Yes Equal, round and reactive pupils present Neck/C-Spine: COMMON NORMALS: full ROM, no lymphadenopathy, supple, no meningeal signs and no JVD GENERAL: Yes normal visual inspection and Yes trachea midline Chest: COMMONS NORMALS: normal inspection of the chest and normal palpation of entire chest wall Resp: EFFORT & INSPECTION: Yes tachypneic, Yes respiratory distress, Yes grunting and Yes audible wheezes AUSCULTATION: rhonchi and wheezes Cardio: COMMON NORMALS: no JVD, regular rate, regular rhythm, S1 normal heart sound present and S2 normal heart sound present RATE: regular rate RHYTHM: regular rhythm HEART SOUNDS: S1 normal heart sound present, S2 normal heart sound present, no click, no gallops, no murmurs, no rubs and abnormal split S2 GI: COMMON NORMALS: Soft to palpation and No hepatosplenomegaly present PALPATION: Yes Soft to palpation, No Tenderness to palpation present (GI), No Guarding due to palpation present (GI), No Rigid due to palpation, Yes No hepatosplenomegaly present, No Hernia present, No Palpable mass present and No Pulsatile mass present : COMMON NORMALS: Yes no CVA tenderness BLADDER/KIDNEY EXAM: Yes no CVA tenderness EXTERNAL FEMALE EXAM: No Hernia present Back/Pelvis: COMMON NORMALS: no CVA tenderness, thoracic and lumbar spine normal to inspection, no thoracic nor lumbar tenderness and thoraco-lumbar ROM normal Extremity: COMMON NORMALS: normal to inspection, full ROM, capillary refill normal, no joint enlargement, no clubbing, cyanosis or edema and no calf tenderness Neuro: COMMON NORMALS: patient oriented x3, CN's II-XII intact bilaterally, moves all extremities, no focal motor deficits and no sensory deficits noted MENINGEAL SIGNS: Yes no meningeal signs SPEECH: speech normal Psych: COMMON NORMALS: mental status grossly normal, Normal thought process present, cooperative, normal affect, speech normal and activity/motor behavior normal SPEECH: Yes normal speech THOUGHT PROCESS: Normal thought process present Skin: COMMON NORMALS: no rashes or lesions noted, turgor normal, no jaundice, no petechiae and no mottling GENERAL SKIN EXAM: no rashes or lesions noted and turgor normal Course Vital Signs: Vital signs: Vital Signs Temperature 98.4 F 03/24/20 02:25 Pulse Rate 98 03/24/20 05:00 Respiratory Rate 24 H 03/24/20 05:00 Blood Pressure 131/49 03/24/20 05:00 Pulse Oximetry 95 03/24/20 05:00 MDM - SOB/Dyspnea MDM Narrative: Medical decision making narrative: The patient has been fighting us on the BiPAP until family arrived and now she is agreeing to work. A repeat ABG will be ordered after she has been on the BiPAP for at least an hour. Patient is clearly alert and oriented x3 at this time. Dr. Cardenas is been made of aware of the admission and she is coming down to see the patient. Lab Data: Attestation: I reviewed the patient's lab results. Labs: Lab Results 03/24/20 03/24/20 03/24/20 Range/Units 02:50 02:50 02:50 WBC Cancelled Corrected WBC Cancelled RBC Cancelled Hgb Cancelled Hct Cancelled MCV Cancelled MCH Cancelled MCHC Cancelled RDW Cancelled Plt Count Cancelled MPV Cancelled Gran % Cancelled Neut % (Auto) Cancelled Lymph % (Auto) Cancelled [place] % (Auto) Cancelled Eos % (Auto) Cancelled Baso % (Auto) Cancelled Neut # (Auto) Cancelled Lymph # (Auto) Cancelled [place] # (Auto) Cancelled Eos # (Auto) Cancelled Baso # (Auto) Cancelled Absolute Gran (aut o) Cancelled Nucleated RBC % (a uto) Cancelled Nucleated RBCs # Cancelled PT (12.1-14.9) SECO NDS INR (0.8-1.2) Specimen Type Sample Site ABG pH (7.35-7.45) ABG pCO2 (35-45) mmHg ABG pO2 (80.0-100.0) mmH g ABG HCO3 (22-26) mmol/L ABG Base Excess (-2.0-2.0) mmol/ L Phill Test Hematocrit (37-47) % O2 Delivery Device O2 Liters/Min % Mail Carrier And Clerk ID Sodium 123 L (136-145) mmol/L Potassium 5.8 H (3.5-5.1) mmol/L Chloride 89 L (98-107) mmol/L Carbon Dioxide 26 (22-29) mmol/L Anion Gap 13.8 (5-19) BUN 33 H (8-23) mg/dL Creatinine 1.1 H (0.5-0.9) mg/dL GFR Calculation 49.8 L (90-130) mL/min Glucose 127 H (65-115) mg/dL Calculated Osmolal ity 255 L (285-295) mOsm/k g Lactic Acid 2.7 H (0.5-2.2) mmol/L Calcium 9.4 (8.5-10.5) mg/dL Magnesium 2.4 H (1.7-2.3) mg/dL Total Bilirubin 0.3 (0.15-1.2) mg/dL AST 23 (0-32) U/L ALT 11 (0-33) U/L Alkaline Phosphata se 124 H (35-105) IU/L Troponin T Baselin e (0-10) ng/L NT-Pro-B Natriuret Pep 1824 H (0-125) pg/mL Total Protein 5.5 L (6.6-8.7) g/dL Albumin 3.0 L (3.5-5.2) g/dL Globulin 2.5 (1.3-4.6) g/dL 03/24/20 03/24/20 03/24/20 Range/Units 02:50 03:26 03:50 WBC Corrected WBC RBC Hgb Hct MCV MCH MCHC RDW Plt Count MPV Gran % Neut % (Auto) Lymph % (Auto) [place] % (Auto) Eos % (Auto) Baso % (Auto) Neut # (Auto) Lymph # (Auto) [place] # (Auto) Eos # (Auto) Baso # (Auto) Absolute Gran (aut o) Nucleated RBC % (a uto) Nucleated RBCs # PT 14.30 (12.1-14.9) SECO NDS INR 1.07 (0.8-1.2) Specimen Type Arterial Sample Site Radial, right ABG pH 7.25 L (7.35-7.45) ABG pCO2 67.8 H* (35-45) mmHg ABG pO2 74.2 L (80.0-100.0) mmH g ABG HCO3 30.0 H (22-26) mmol/L ABG Base Excess 1.1 (-2.0-2.0) mmol/ L Phill Test Pos Hematocrit 40.0 (37-47) % O2 Delivery Device Nc O2 Liters/Min 4.0 % Mail Carrier And Clerk ID Harkr Sodium (136-145) mmol/L Potassium (3.5-5.1) mmol/L Chloride (98-107) mmol/L Carbon Dioxide (22-29) mmol/L Anion Gap (5-19) BUN (8-23) mg/dL Creatinine (0.5-0.9) mg/dL GFR Calculation (90-130) mL/min Glucose (65-115) mg/dL Calculated Osmolal ity (285-295) mOsm/k g Lactic Acid (0.5-2.2) mmol/L Calcium (8.5-10.5) mg/dL Magnesium (1.7-2.3) mg/dL Total Bilirubin (0.15-1.2) mg/dL AST (0-32) U/L ALT (0-33) U/L Alkaline Phosphata se (35-105) IU/L Troponin T Baselin e 39 H (0-10) ng/L NT-Pro-B Natriuret Pep (0-125) pg/mL Total Protein (6.6-8.7) g/dL Albumin (3.5-5.2) g/dL Globulin (1.3-4.6) g/dL 03/24/20 Range/Units 03:50 WBC 16.0 H Corrected WBC RBC 4.50 Hgb 12.0 Hct 40.0 MCV 88.9 MCH 26.7 L MCHC 30.0 RDW 17.4 H Plt Count 353 MPV 10.0 Gran % Neut % (Auto) 84.4 Lymph % (Auto) 3.3 [place] % (Auto) 9.1 Eos % (Auto) 2.5 Baso % (Auto) 0.2 Neut # (Auto) 13.50 H Lymph # (Auto) 0.5 L [place] # (Auto) 1.5 H Eos # (Auto) 0.4 Baso # (Auto) 0.0 Absolute Gran (aut o) Nucleated RBC % (a uto) 0 Nucleated RBCs # 0.0 PT (12.1-14.9) SECO NDS INR (0.8-1.2) Specimen Type Sample Site ABG pH (7.35-7.45) ABG pCO2 (35-45) mmHg ABG pO2 (80.0-100.0) mmH g ABG HCO3 (22-26) mmol/L ABG Base Excess (-2.0-2.0) mmol/ L Phill Test Hematocrit (37-47) % O2 Delivery Device O2 Liters/Min % Mail Carrier And Clerk ID Sodium (136-145) mmol/L Potassium (3.5-5.1) mmol/L Chloride (98-107) mmol/L Carbon Dioxide (22-29) mmol/L Anion Gap (5-19) BUN (8-23) mg/dL Creatinine (0.5-0.9) mg/dL GFR Calculation (90-130) mL/min Glucose (65-115) mg/dL Calculated Osmolal ity (285-295) mOsm/k g Lactic Acid (0.5-2.2) mmol/L Calcium (8.5-10.5) mg/dL Magnesium (1.7-2.3) mg/dL Total Bilirubin (0.15-1.2) mg/dL AST (0-32) U/L ALT (0-33) U/L Alkaline Phosphata se (35-105) IU/L Troponin T Baselin e (0-10) ng/L NT-Pro-B Natriuret Pep (0-125) pg/mL Total Protein (6.6-8.7) g/dL Albumin (3.5-5.2) g/dL Globulin (1.3-4.6) g/dL Imaging Data^: CXR: Attestation: I personally reviewed and interpreted this imaging study as follows: My impression: Pleural effusion with possible infiltrate right lung. EKG Data^: EKG 1: Attestation: I personally reviewed and interpreted this EKG as follows: EKG Interpretation Date: 03/24/20 EKG interpretation time: 02:40 Interpretation: Normal sinus rhythm at 100 beats a minute, no acute ST-T wave changes. Discharge Plan Discharge Patient Disposition: Admitted As Inpatient Clinical Impression: Acute hypercapnic respiratory failure Condition: Stable Prescriptions: No Action cefdinir 300 mg capsule 300 mg PO BID Qty: 60 RF: 2 Hold Instructions: Please hold off on taking Cefdinir until completion of treatment with Augmentin albuterol sulfate [ProAir HFA] 90 mcg/actuation HFA aerosol inhaler 2 puff INHALATION Q6H PRN (Reason: bronchospasm) Qty: 6.7 RF: 2 vitamin [id number] acid 1,000-400 mcg lozenge 1 lozenge SUBLINGUAL DAILY RF: 0 prochlorperazine maleate 10 mg tablet 10 mg PO Q4H PRN (Reason: Nausea) RF: 0 montelukast [Singulair] 10 mg tablet 10 mg PO DAILY Qty: 30 RF: 5 albuterol sulfate 2.5 mg /3 mL (0.083 %) solution for nebulization 2.5 mg INHALATION Q4H PRN (Reason: bronchospasm) Qty: 525 RF: 0 umeclidinium-vilanterol [Anoro Ellipta] 62.5-25 mcg/actuation blister with device See Rx Instructions .ROUTE .COMPLEX Qty: 60 RF: 0 oxybutynin chloride 10 mg tablet extended release 24hr 15 mg PO DAILY RF: 0 morphine 30 mg Tablet Extended Release 15 mg PO BID Qty: 30 RF: 0 hydrocodone-acetaminophen 10-325 mg Tablet 1 tab PO Q6H PRN (Reason: moderate to severe pain) Qty: 30 RF: 0 lorazepam 1 mg Tablet 1 mg PO BID PRN (Reason: Anxiety) Qty: 30 RF: 0 cyclobenzaprine 10 mg tablet 10 mg PO TID PRN (Reason: muscle spasm) Qty: 90 RF: 0 tramadol 50 mg tablet 100 mg PO BID PRN (Reason: Pain) Qty: 60 RF: 0 pantoprazole 20 mg tablet,delayed release (DR/EC) 40 mg PO DAILY Qty: 30 RF: 0 linezolid 600 mg tablet 600 mg PO BID 10 Days Qty: 20 RF: 0 Referrals: Prema Jenkins FNP [Primary Care Provider] - Coding Level of Care Code ED Forging Machine Operator for Kiki Escobar
--- NOTE | 2020-03-24 05:09 | PC.NURSE ---
Pt agrees to having bipap on for 1 hour but refusing urine sample because she already has a UTI and will see MD in 2 days for recheck.
[2020-03-24] MEDS: sodium chloride 0.9% 1,000 ML 100 ML IV (05:28)
--- NOTE | 2020-03-24 05:57 | PC.NURSE ---
Patient now cooperating and has fallen asleep comfortably with bipap on and daughter at bedside.
[2020-03-24 06:03] LABS: Reflex Lactate Order REFLEX LACTIC ORDERD
[2020-03-24 06:38] LABS: ABG PH Result 7.28 (7.35-7.45); Arterial Blood Gas Hematocrit 39.3 % (37-47); Base Excess ABG 0.7 mmol/L (-2.0-2.0); Blood Gas Allen Test Pos; Blood Gas Sample Type Arterial; HCO3 ABG 28.9 mmol/L (22-26); PO2 ABG 93.1 mmHg (80.0-100.0)
[2020-03-24 06:39] LABS: Blood Gas Operator Identificat HARKR; Blood Gas Sample Site Radial, left; Oxygen Device BIPAP
--- NOTE | 2020-03-24 06:44 | P.HP_ITS ---
Providers/Chief Complaint Primary Care Provider: NELDA Berry Chief Complaint: SOB History of Present Illness Shira Mata is a 64 year old female with a history of small cell lung cancer discharged on March 20 after an admission in which she was found to have a right-sided pleural effusion, recurrent. This effusion was found to have some malignant cells. It has not yet been determined that that is small cell or a another type of cancer. She did have a drain placed by Dr. Monroe during the last hospital stay. History is obtained from patient's daughter as she herself is confused. The daughter states that they have been draining from the drain once a day. Getting about half a bottle of fluid. Last time it was drained was last evening. Patient was discharged on extended release morphine last hospital stay due to increasing pain and need for better control. Since the initiation of the morphine however she has been having hallucinations frequently, particularly at night. This evening she woke up around 1 AM hallucinating and having trouble breathing leading to the emergency room visit. Patient has not been sleeping well because of the hallucinations. Hydrocodone works but also keeps her awake. Patient was seen by Dr. Kunz yesterday according to the daughter, discussion was had about transition to hospice care. They have another chemotherapy they could consider but it is not thought that she would tolerate it well. There is another family member coming soon and it sounds like they will make more decisions then. Upon arrival to the emergency room, patient was by herself and was refusing all care. Once her daughter arrived she was much more agreeable. She was noted to have hypoxia and hypercapnia. She was put on BiPAP and is breathing better presently. Chest x-ray shows increased right pleural effusion compared to previous. Review of Systems General: Reports: ROS unobtainable due to medical condition and ROS unobtainable due to mental status Medications/Allergies Home Medications Medication Instructions Recorded Confirmed Last Taken Type albuterol sulfate 90 mcg/actuation 2 puff INHALATION Q6H PRN #6.7 gm 09/04/19 03/15/20 11/09/19 Rx aerosol inhaler prochlorperazine maleate 10 mg 10 mg PO Q4H PRN tab 12/08/19 03/15/20 02/01/20 History tablet montelukast 10 mg tablet 10 mg PO DAILY #30 tab 01/09/20 03/15/20 03/14/20 Rx cefdinir 300 mg capsule 300 mg PO BID #60 cap 02/16/20 03/15/20 03/14/20 Rx albuterol sulfate 2.5 mg INHALATION Q4H PRN #525 ml 03/09/20 03/15/20 03/15/20 Rx oxybutynin chloride 15 mg PO DAILY 03/15/20 03/15/20 03/14/20 History cyclobenzaprine 10 mg PO TID PRN #90 tab 03/20/20 Unknown Rx hydrocodone-acetaminophen 1 tab PO Q6H PRN #30 tab 03/20/20 Unknown Rx linezolid 600 mg PO BID 10 Days #20 tab 03/20/20 Unknown Rx lorazepam 1 mg PO BID PRN #30 tab 03/20/20 Unknown Rx morphine 15 mg PO BID #30 tab 03/20/20 Unknown Rx pantoprazole 40 mg PO DAILY #30 tab 03/20/20 03/15/20 03/14/20 Rx tramadol 100 mg PO BID PRN #60 tab 03/20/20 Unknown Rx Anoro Ellipta 1 inh INHALATION Q24H 03/24/20 03/24/20 03/23/20 History Vitamin B-12 1 tab PO DAILY 03/24/20 03/24/20 Unknown History Vitamin D3 1 tab PO DAILY 03/24/20 03/24/20 Unknown History magnesium 1 tab PO DAILY 03/24/20 03/24/20 Unknown History naloxone [Narcan] See Rx Instructions .ROUTE .COMPLEX 03/24/20 03/24/20 Unknown History potassium gluconate 595 mg PO DAILY 03/24/20 03/24/20 Unknown History Allergies Allergy/AdvReac Type Severity Reaction Status Date / Time naproxen Allergy Severe ALGY-Anaphy Verified 02/01/20 18:30 laxis Iodinated Contrast Media Allergy ALGY-Anaphy Verified 02/01/20 18:30 laxis morphine AdvReac Intermediate hallucinati Verified 03/24/20 06:41 ons lisinopril AdvReac diarrhea Verified 02/01/20 18:30 PFSH Acute PFSH: Medical History (Updated 03/24/20 @ 08:52 by Corrine Johnson MD) Chronic respiratory failure with hypoxia secondary to oxygen dependent COPD, 3 L baseline requirement COPD (chronic obstructive pulmonary disease) Essential (primary) hypertension GERD (gastroesophageal reflux disease) Port-A-Cath in place Recurrent pleural effusion on right recurrent R pleural effusion, malignant by cytology 03/2020, drain placed 03/2020 Recurrent UTI on chronic Cefdinir therapy Rheumatoid arthritis Skull mass Small cell lung cancer follows up with Dr. Kunz Subdural hemorrhage Urgency incontinence Surgical History H/O shoulder surgery History of cholecystectomy History of knee replacement History of lung surgery CT guided trans-thoracic cord needle biopsy right upper lobe lung mass pending Wedge resection of the right upper lobe of the lung done in [facility] Hx of cataract surgery Family History Mother Lung disease COPD Brother Lung disease COPD Social History (Updated 03/24/20 @ 06:55 by Corrine Johnson MD) Smoking and tobacco status: former smoker Quit status (tobacco): has quit using tobacco Former quit date comment: Recently Alcohol intake: never Lives independently: Yes Household members: family and children Housing: House Marital status: service: No Current occupational status: retired History of recent travel: No Current gender identity: Female Vitals/I&O/Wt Last Vital Signs Temp 98.4 F 03/24/20 02:25 Pulse 99 03/24/20 05:35 Resp 24 H 03/24/20 05:00 BP 131/49 03/24/20 05:00 Pulse Ox 97 03/24/20 05:35 03/23/20 03/23/20 03/24/20 14:59 22:59 06:59 Intake Total 50 / 50 Balance 50 / 50 Weight last 48 hrs Weight 74.843 kg Physical Exam Narrative: EXAM NARRATIVE: Patient is lethargic but arousable, tries to answer questions but not making complete sense. She presently is on BiPAP and does not wish to come off to communicate further. She sitting upright in bed. She has alopecia. Pupils are equally reactive, not able to visualize oropharynx presently but mucous membranes look dry. Neck is supple. Lungs with wheezes bilaterally. She has some supraclavicular retractions even with BiPAP on but is overall breathing better than upon arrival. Pleural drain is intact and the right thorax laterally. Cardiovascular exam reveals distant heart sounds but with a regular rhythm. Patient has puffy edema distally. Abdomen is soft, nontender with decreased bowel sounds. Normal external female genitalia. No red or painfully swollen joints. Moves all extremities but quite weak. Full cooperation with neurological exam is limited presently secondary to respiratory status. Skin is dry, cool to touch distally. Not able to evaluate sacral region presently. Data : 03/24/20 03:50 03/24/20 02:50 Micro: Microbiology 03/24/20 03:09 Blood Culture - Preliminary Blood SPECIMEN COLLECTED A&P Assessment and plan (1) Acute hypercapnic respiratory failure: Suspect combination of effect of narcotic medications, increasing right pleural effusion, possibility of pneumonia and known small cell lung cancer. Status: Acute (2) Recurrent pleural effusion on right: With drain in place functioning appropriately per the daughter Status: Acute (3) Acute kidney injury: With hyperkalemia and somebody taking some potassium supplementation Status: Acute (4) Hallucinations: Appear to be progressively worsening. Was noted during last hospital stay but more significant at home. Daughter thinks may be related to the morphine but I suspect multifactorial Status: Acute (5) Small cell lung cancer: Status: Chronic (6) Essential (primary) hypertension: Status: Chronic (7) Port-A-Cath in place: Status: Chronic Additional A&P Information Mild elevation in lactic acid which I suspect is due to respiratory distress Inpatient admission Continue BiPAP therapy Broad-spectrum antibiotics Breathing treatments Diuretic therapy Continue drain management, will consider discussion with Dr. Monroe Ta catheter secondary to diuresis Strict I's and O's Recheck BMP in particular potassium Hold home potassium replacement Received steroids and fluids in the emergency room Add lactobacillus Try some as needed Haldol for hallucinations Will see if Dilaudid helps without same degree of hallucinations as morphine Check urinalysis Follow-up blood cultures SCDs for DVT prophylaxis Consideration was given to CT of the head but patient had one on March 13 that did not show any acute intracranial process in a noncontrasted study. Patient was found to have a soft tissue skull mass in November of this year. Supportive care otherwise for both patient and her daughter with whom she lives Patient remains full code currently however should she decompensate to that degree need to talk to family as soon as possible as they may make other decisions. There is family that is working on coming in town soon and discussions have been initiated regarding possible transition to hospice care. I am not sure that they are quite ready for that transition though they have been discussing it. Attestations Medical Necessity Statement*: Anticipated stay greater than 2 midnights in a patient presenting with recurrent effusion and respiratory distress who has known malignancy. Plans are as noted above. Coding Level of Care Code Acute Operator Control Room for Kiki Escobar Diagnoses Acute hypercapnic respiratory failure J96.02 Recurrent pleural effusion on right J90 Acute kidney injury N17.9 Hallucinations R44.3 Small cell lung cancer C34.90 Essential (primary) hypertension I10 Port-A-Cath in place Z95.828
[2020-03-24] MEDS: linezolid 600 mg Tablet PO (08:06)
--- NOTE | 2020-03-24 08:31 | ECG_ITS ---
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 Measurements Intervals [place] Rate: 96 P: 51 NE: 137 QRS: 40 QRSD: 101 T: 35 QT: 334 QTc: 422 Interpretive Statements SINUS RHYTHM LOW QRS VOLTAGE IN PRECORDIAL LEADS [QRS DEFLECTION < 1.0 mV IN CHEST LEADS] Compared to ECG 03/24/2020 02:40:07 Low QRS voltage now present Sinus tachycardia no longer present Electronically Signed On 03-24-2020 21:24:10 CDT by Garry Duke M.D. [email or web address] mississippi medical centereLifestylessalem regional [facility] center.[employer]/store/NU/[id number] f
--- NOTE | 2020-03-24 08:54 | PM.PN ---
Documented by User: Junie Rdz MD 03/24/20 09:09 Subjective Subjective: Interval history: Patient known to me from previous admission. Chart reviewed and case discussed with Dr. Johnson. She is currently requiring BiPAP. Vital signs stable. Noted leukocytosis, hyponatremia, worsening renal function and hyperkalemia. Has received some IV fluid hydration and Lasix. Repeat labs ordered. Chest x-ray reviewed. Medications: Reviewed: Yes Medication Review Details: Active Medications Generic Name Dose Route Start Last Admin Trade Name Freq PRN Reason Stop Dose Admin Acetaminophen 650 mg 03/24/20 07:31 Tylenol PO Q6H PRN MILD PAIN Albuterol/Ipratrop ium 3 ml 03/24/20 09:00 Duoneb INHALATION Q6H.RESPIRATORY S CH Albuterol/Ipratrop ium 3 ml 03/24/20 06:41 Duoneb INHALATION Q4H PRN SHORTNESS OF MADHAVI TH Docusate Sodium 100 mg 03/24/20 09:00 Colace PO BID SP Hydromorphone HCl 1 mg 03/24/20 06:39 Dilaudid Inj IVP Q2H PRN SEVERE PAIN Sodium Chloride 1,000 mls @ 100 m ls/hr 03/24/20 05:18 03/24/20 05:28 Sodium Chloride 0.9% IV 03/24/20 15:17 100 mls/hr .Q10H ONE Administration Linezolid 600 mg 03/24/20 07:30 03/24/20 08:06 Zyvox Tablet PO 600 mg Q12H SP Administration Protocol Ondansetron HCl 4 mg 03/24/20 07:31 Zofran IVP Q6H PRN NAUSEA AND VOMITI NG naproxen Allergy (Severe, Verified 02/01/20 18:30) ALGY-Anaphylaxis Iodinated Contrast Media Allergy (Verified 02/01/20 18:30) ALGY-Anaphylaxis morphine Adverse Reaction (Intermediate, Verified 03/24/20 06:41) hallucinations lisinopril Adverse Reaction (Verified 02/01/20 18:30) diarrhea Vitals/I&O/Wt Last Vital Signs Temp 98.4 F 03/24/20 02:25 Pulse 94 03/24/20 08:09 Resp 17 03/24/20 08:09 BP 123/79 03/24/20 08:09 Pulse Ox 93 03/24/20 08:09 03/23/20 03/24/20 03/24/20 22:59 06:59 14:59 Intake Total 50 / 50 Balance 50 / 50 Weight last 48 hrs Weight 74.843 kg Physical Exam Const: COMMON NORMALS: no acute distress and patient oriented x3 GENERAL APPEARANCE: cooperative and comfortable ORIENTATION/CONSCIOUSNESS: Yes awake HENMT: COMMON NORMALS: normocephalic, atraumatic, hearing grossly normal bilaterally and moist oral mucous membranes HEAD & SCALP: normocephalic and atraumatic Eye: COMMON NORMALS: Equal, round and reactive pupils present, EOMs intact bilaterally and conjunctivae normal CONJUNCTIVA: Yes conjunctivae normal PUPIL: Yes Equal, round and reactive pupils present Neck/C-Spine: COMMON NORMALS: full ROM GENERAL: Yes normal visual inspection and Yes trachea midline Resp: COMMON NORMALS: normal respiratory effort, No retractions, No use of accessory muscles and clear to auscultation bilaterally EFFORT & INSPECTION: Yes able to speak in complete sentences, Yes symmetric chest movement and No tachypneic AUSCULTATION: clear to auscultation bilaterally Cardio: COMMON NORMALS: regular rate, regular rhythm, S1 normal heart sound present, S2 normal heart sound present and No murmurs present (Cardio) RATE: regular rate RHYTHM: regular rhythm HEART SOUNDS: S1 normal heart sound present and S2 normal heart sound present GI: COMMON NORMALS: Normal to inspection, nondistended, normoactive bowel sounds present, Soft to palpation and non-tender PALPATION: Yes Soft to palpation Extremity: COMMON NORMALS: normal to inspection, full ROM and no clubbing, cyanosis or edema; negative for no pedal edema Neuro: COMMON NORMALS: patient oriented x3, moves all extremities, no focal motor deficits, no sensory deficits noted and gait normal Psych: COMMON NORMALS: mental status grossly normal, Normal thought process present, cooperative, normal affect and speech normal SPEECH: Yes normal speech THOUGHT PROCESS: Normal thought process present Skin: COMMON NORMALS: no rashes or lesions noted, no jaundice, no petechiae and no mottling GENERAL SKIN EXAM: no rashes or lesions noted Data : 03/24/20 03:50 03/24/20 02:50 Micro: Microbiology 03/24/20 02:50 Blood Culture - Preliminary Blood SPECIMEN COLLECTED 03/24/20 03:09 Blood Culture - Preliminary Blood SPECIMEN COLLECTED Attestations Medical Necessity Statement*: Patient requires hospitalization for management of recurrent pleural effusion, and pneumonia, acute renal impairment and electrolyte abnormalities. Time Spent in Patient Care: Greater than 35 minutes (>than 50% of time spent in counselling and/or direct pt care on unit). Coding Level of Care Code Acute Phlebotomy Services Technician for [facility] Fwd Exam Comprehensive Documented by User: Corrine Johnson MD 03/24/20 09:33 Data : 03/24/20 03:50 03/24/20 02:50 Coding Level of Care Code Acute Phlebotomy Services Technician for [facility] Fwd Exam Comprehensive
[2020-03-24] MEDS: ipratropium-albuterol 3 mL Neb INHALATION ×3 (09:36→21:31)
[2020-03-24 09:46] LABS: Troponin(5th) Baseline 38 ng/L (0-10)
--- NOTE | 2020-03-24 09:57 | ECG_ITS ---
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 Measurements Intervals [place] Rate: 101 P: 52 FL: 135 QRS: 34 QRSD: 97 T: 30 QT: 328 QTc: 427 Interpretive Statements SINUS TACHYCARDIA LOW QRS VOLTAGE IN PRECORDIAL LEADS [QRS DEFLECTION < 1.0 mV IN CHEST LEADS] ABNORMAL RHYTHM ECG Compared to ECG 03/24/2020 08:21:13 Sinus rhythm no longer present Electronically Signed On 03-24-2020 21:25:56 CDT by Garry Duke M.D. [email or web address] point mature adult care unitReady To Travelprotestant deaconess hospital.[employer]/store/OM/[id number]
[2020-03-24] MEDS: docusate sodium 100 mg Capsule PO ×2 (10:15→17:15)
[2020-03-24] MEDS: FUROsemide 10 mg/mL SDV 2mL 20 MG IVP (10:16)
[2020-03-24] MEDS: levofloxacin-dextrose 5 % 750 MG/150 ML PREMIX 100 MG IV (10:17)
[2020-03-24 10:30] LABS: Lactic Acid level (Lactate) 2.2 mmol/L (0.5-2.2)
[2020-03-24 10:32] LABS: Troponin 5 2HR 32.26 ng/L (0-10)
[2020-03-24 10:33] LABS: Troponin 5 2HR Delta -5.74 ABS# (0-10)
--- NOTE | 2020-03-24 11:14 | PM.PN ---
Subjective Subjective: Interval history: Patient well-known to me from recent admission, seen on her arrival to the ICU, mildly disoriented, on 5 L nasal cannula and per ER nurse has been off BiPAP since start of this shift around 7 AM. First dose of Levaquin currently running. Blood pressure normal, currently afebrile. Will request drainage of Pleurx drain due to noted shortness of breath. Medications: Reviewed: Yes Medication Review Details: Active Medications Generic Name Dose Route Start Last Admin Trade Name Freq PRN Reason Stop Dose Admin Acetaminophen 650 mg 03/24/20 07:31 Tylenol PO Q6H PRN MILD PAIN Hydrocodone Bitart /Acetaminophen 1 tab 03/24/20 08:53 [place] 10-325 Mg PO Q4H PRN MODERATE PAIN Albuterol/Ipratrop ium 3 ml 03/24/20 09:00 03/24/20 09:36 Duoneb INHALATION 3 ml Q6H.RESPIRATORY S CH Administration Albuterol/Ipratrop ium 3 ml 03/24/20 06:41 Duoneb INHALATION Q4H PRN SHORTNESS OF MADHAVI TH Docusate Sodium 100 mg 03/24/20 09:00 03/24/20 10:15 Colace PO 100 mg BID SP Administration Haloperidol 0.5 mg 03/24/20 09:17 Haldol PO BID PRN HALLUCINATIONS Hydromorphone HCl 1 mg 03/24/20 06:39 Dilaudid Inj IVP Q2H PRN SEVERE PAIN Sodium Chloride 1,000 mls @ 100 m ls/hr 03/24/20 05:18 03/24/20 05:28 Sodium Chloride 0.9% IV 03/24/20 15:17 100 mls/hr .Q10H ONE Administration Levofloxacin/Dextr ose 750 mg in 150 mls @ 100 mls/hr 03/24/20 09:00 03/24/20 10:17 Levaquin-D5w IV 100 mls/hr Q24H SP Administration Protocol Piperacillin Sod/T azobactam 50 mls @ 12.5 mls /hr 03/24/20 10:00 Sod 3.375 gm/ So dium Chloride IV Q8H SP Protocol Linezolid 600 mg in 300 mls @ 300 mls/hr 03/24/20 19:00 Zyvox Premix IV Q12H SP Protocol Lactobacillus Acid ophilus 1 tab 03/24/20 09:00 Floranex PO BID SP Lorazepam 0.5 mg 03/24/20 08:53 Ativan PO BID PRN ANXIETY Ondansetron HCl 4 mg 03/24/20 07:31 Zofran IVP Q6H PRN NAUSEA AND VOMITI NG naproxen Allergy (Severe, Verified 02/01/20 18:30) ALGY-Anaphylaxis Iodinated Contrast Media Allergy (Verified 02/01/20 18:30) ALGY-Anaphylaxis morphine Adverse Reaction (Intermediate, Verified 03/24/20 06:41) hallucinations lisinopril Adverse Reaction (Verified 02/01/20 18:30) diarrhea Vitals/I&O/Wt Last Vital Signs Temp 98.4 F 03/24/20 02:25 Pulse 97 03/24/20 10:28 Resp 21 H 03/24/20 10:28 BP 126/68 03/24/20 10:28 Pulse Ox 94 03/24/20 10:28 03/23/20 03/24/20 03/24/20 22:59 06:59 14:59 Intake Total 50 / 50 Balance 50 / 50 Weight last 48 hrs Weight 74.843 kg Physical Exam Const: COMMON NORMALS: alert GENERAL APPEARANCE: cooperative, comfortable and frail appearing ORIENTATION/CONSCIOUSNESS: Yes awake and Yes confused (requiring frequent redirection) OTHER: -dyspneic, appears pale HENMT: COMMON NORMALS: normocephalic, atraumatic, hearing grossly normal bilaterally and moist oral mucous membranes HEAD & SCALP: normocephalic and atraumatic Eye: COMMON NORMALS: Equal, round and reactive pupils present, EOMs intact bilaterally and conjunctivae normal CONJUNCTIVA: Yes conjunctivae normal PUPIL: Yes Equal, round and reactive pupils present Neck/C-Spine: COMMON NORMALS: full ROM GENERAL: Yes normal visual inspection and Yes trachea midline Chest: CHEST: Yes Vascular access present (port-A-cath on L) Resp: EFFORT & INSPECTION: Yes tachypneic OTHER: -dyspneic even at rest and with conversation, noted abdominal breathing, on 5 L NC, diminished breath sounds bilaterally, more on the R -Pleurx drain on R; bulky dressing in place Cardio: COMMON NORMALS: regular rhythm, S1 normal heart sound present, S2 normal heart sound present and No murmurs present (Cardio) RATE: tachycardic (mildly) RHYTHM: regular rhythm HEART SOUNDS: S1 normal heart sound present and S2 normal heart sound present GI: COMMON NORMALS: Normal to inspection, nondistended, normoactive bowel sounds present, Soft to palpation and non-tender PALPATION: Yes Soft to palpation Extremity: COMMON NORMALS: normal to inspection, full ROM and no clubbing, cyanosis or edema; negative for no pedal edema Neuro: COMMON NORMALS: moves all extremities, no focal motor deficits and no sensory deficits noted SENSORIUM/ORIENTATION: Yes alert and Yes Orientation impaired Psych: COMMON NORMALS: mental status grossly normal, Normal thought process present, cooperative, normal affect and speech normal SPEECH: Yes normal speech THOUGHT PROCESS: Normal thought process present Skin: COMMON NORMALS: no rashes or lesions noted, no jaundice, no petechiae and no mottling GENERAL SKIN EXAM: no rashes or lesions noted Data : 03/24/20 03:50 03/24/20 02:50 Micro: Microbiology 03/24/20 02:50 Blood Culture - Preliminary Blood SPECIMEN COLLECTED 03/24/20 03:09 Blood Culture - Preliminary Blood SPECIMEN COLLECTED A&P Assessment and plan (1) Acute hypercapnic respiratory failure: -Noted to be quite short of breath with noted hypoxia and hypercapnia. Known history of recurrent right pleural effusion with placement of Pleurx drain on 03/18 -ABG shows hypercapnia, initially required BiPAP but could not seem to keep it in place consistently, currently on 5 L nasal cannula -Needs continued close monitoring of respiratory status -Imaging reviewed showing increase in right pleural-based opacity which could be fluid versus pneumonia -With noted associated increased leukocytosis, mild lactic acidosis (2.7), will continue broad-spectrum IV antibiotics; currently on IV vancomycin, Zosyn and Zyvox (due to recent Enterococcus UTI) -Supplemental oxygen as needed, has a baseline requirement of 3 L nasal cannula -We will need drainage of Pleurx drain at least once daily, twice if able to tolerate this -Nebulizer treatments as needed -f/u blood cx Status: Acute (2) Recurrent pleural effusion on right: -has known hx of recurrent R pleural effusion, suspicious for malignant effusion based on cytology with recommendation made to have flow cytometry done to rule out lymphoma -Pleurx catheter placed by Dr. Monroe on 03/18 with daily drainage per daughter -may need to discuss with Dr. Monroe Status: Chronic (3) Acute kidney injury: -noted acute renal impairment with hyperkalemia -had been on KCl supplementation, hold this -received IVF and Lasix -monitor renal function, avoid nephrotoxins, renally dose meds -Ta catheter placement for accurate Is & Os Status: Acute (4) Altered mental status: -likely multifactorial given narcotics, CO2 narcosis, hypoxia, infection (pneumonia), and need to r/o metastatic disease to the brain -CT head ordered -hold narcotics but may try dilaudid with caution -strict fall precautions; needs 1:1 monitoring -UA pending; recently treated for UTI secondary to Enterococcus -Haldol, Ativan PRN Status: Acute Qualifiers: Altered mental status type: disorientation Qualified Code(s): R41.0 - Disorientation, unspecified (5) Port-A-Cath in place: Status: Chronic (6) Weakness: -fatigues quite easily -strict fall precautions Status: Acute (7) Small cell lung cancer: -was previously on chemotherapy for this -f/u with Dr. Kunz; last visit was 03/23 -discussion about transition to hospice Status: Chronic (8) Essential (primary) hypertension: -normotensive; continue to monitor vital signs Status: Chronic (9) GERD (gastroesophageal reflux disease): -on PPI Status: Chronic Qualifiers: Esophagitis presence: esophagitis presence not specified Qualified Code(s): K21.9 - Gastro-esophageal reflux disease without esophagitis (10) COPD (chronic obstructive pulmonary disease): -no acute exacerbation currently -baseline oxygen requirement of 3 L NC -received dose of IV steroids in ED, hold off on more for now Status: Chronic Qualifiers: COPD type: emphysema Emphysema type: unspecified Qualified Code(s): J43.9 - Emphysema, unspecified (11) Tobacco dependency: -quit smoking recently Status: Chronic (12) Cancer of lung, secondary: -prior hx of R adenocarcinoma s/p wedge resection -was receiving chemotherapy for small cell cancer Status: Acute Qualifiers: Laterality: right Qualified Code(s): C78.01 - Secondary malignant neoplasm of right lung Additional A&P Information -hx of urgency incontinence; on oxybuytnin -hx of recurrent UTI; on chronic cefdinir therapy, had been discharged on zyvox; UA pending -noted slight troponin elevation which is likely secondary to demand ischemia from respiratory issues -GI ppx with PPI -DVT ppx with SCDs -regular diet as tolerated -Dispo: home with services, daughter Michelle is her primary caregiver -Code status: FULL code; may need to re-discuss this due to overall decompensation -ICU care due to low threshold for decompensation Attestations Medical Necessity Statement*: Patient requires hospitalization for continued management of acute respiratory failure requiring close monitoring of respiratory status, higher than baseline oxygen requirement, IV antibiotics. Time Spent in Patient Care: Greater than 35 minutes (>than 50% of time spent in counselling and/or direct pt care on unit). Coding Level of Care Code Acute Android Platform Developer for g Fwd Diagnoses Acute hypercapnic respiratory failure J96.02 Recurrent pleural effusion on right J90 Acute kidney injury N17.9 Altered mental status R41.0 Altered mental status type: disorientation Port-A-Cath in place Z95.828 Weakness R53.1 Small cell lung cancer C34.90 Essential (primary) hypertension I10 GERD (gastroesophageal reflux disease) K21.9 Esophagitis presence: esophagitis presence not specified COPD (chronic obstructive pulmonary disease) J43.9 COPD type: emphysema Emphysema type: unspecified Tobacco dependency F17.200 Cancer of lung, secondary C78.01 Laterality: right
[2020-03-24] MEDS: lactobacillus 1 Tablet 1 TAB PO ×2 (11:51→17:15)
[2020-03-24 12:25] LABS: Bilirubin Urine Neg (NEGATIVE); Blood Urine Neg (Negative); Glucose Urine UA Norm (Normal); Ketones Urine Negative (Negative); Leukocyte Esterase Urine 1+ (Negative); Nitrate Urine Negative (Negative); Protein Urine Neg (Negative); Specific Gravity, Urine 1.025 (1.005-1.030); Urine Appearance Cloudy (CLEAR); Urine Color Yellow (Yellow); Urobilinogen Urine Norm (Negative); pH Urine 5 (5-7)
[2020-03-24 12:26] LABS: RBC Urine 0-4 /hpf (0-2)
[2020-03-24 12:27] LABS: Add Urine Culture? Yes; Bacteria Urine TRACE
[2020-03-24 13:21] LABS: Anion Gap 17.9 (5-19); Blood Urea Nitrogen 34 mg/dL (8-23); Calcium 9.1 mg/dL (8.5-10.5); Carbon Dioxide 25 mmol/L (22-29); Chloride 89 mmol/L (98-107); Glomerular Filtration Rate 49.8 mL/min (90-130); Glucose 124 mg/dL (65-115); Osmolality Calculated 261 mOsm/kg (285-295); Potassium 5.9 mmol/L (3.5-5.1); Sodium 126 mmol/L (136-145)
[2020-03-24] MEDS: HYDROmorphone 1 mg/mL INJ 1 mL IVP (16:45)
[2020-03-24] MEDS: linezolid premix 600 MG/300 ML PREMIX 300 MG IV (17:17)
--- NOTE | 2020-03-24 18:08 | PC.NURSE ---
SHIFT SUMMARY PATIENT HAS BEEN CONFUSED THE MAJORITY OF THE DAY, WITH SMALL BREAKTHROUGH'S OF CLARITY THAT COME AND GO. KAVON DRAIN DRAINED 100ML. NEW DRESSING APPLIED. PATIENT HAD 1300ML OF URINE OUTPUT. LEFT PAC ACCESSED. DRESSING C/D/I. DILAUDID ADMINISTERED ONCE FOR PAIN. 0.5MG ADMINISTERED VS. 1MG AND PATIENT RESTED WELL. WASTED 0.5MG OF DILAUDID WITH BRI ARDON. PATIENT CURRENTLY RESTING IN BED LISTENING TO MUSIC. NO COMPLAINTS AT THIS TIME.
[2020-03-25] VITALS (44 sets, daily range): BP systolic 82–149; BP diastolic 52–109; PULSE 78–106; RESP 12–27; TEMP 36.5; O2SAT 89–99
[2020-03-25] MEDS: ipratropium-albuterol 3 mL Neb INHALATION ×4 (04:03→20:55)
[2020-03-25] MEDS: piperacillin-tazobactam 3.375 GM in sodium chloride 0.9% (plus) 50 ML IV ×2 (04:30→14:03)
[2020-03-25] MEDS: HYDROmorphone 1 mg/mL INJ 1 mL IVP ×6 (04:36→21:43)
[2020-03-25] MEDS: linezolid premix 600 MG/300 ML PREMIX 300 MG IV (06:16)
[2020-03-25] MEDS: pantoprazole DR 40 mg Tablet PO (08:47)
[2020-03-25] MEDS: levofloxacin-dextrose 5 % 750 MG/150 ML PREMIX 100 MG IV (08:47)
[2020-03-25] MEDS: docusate sodium 100 mg Capsule PO (08:47)
[2020-03-25] MEDS: lactobacillus 1 Tablet 1 TAB PO (08:47)
[2020-03-25] MEDS: sodium chloride 0.9% (100 ml) 100 ML 10 ML (09:55)
--- NOTE | 2020-03-25 10:50 | PM.PN ---
Subjective Subjective: Interval history: Sitter at bedside, patient sitting up in bed, looks somewhat confused, had about 100 mL drained around midnight, requesting to have fluid drained again this morning. Explained that we will likely not get much in terms of output but she insists on having this done. On 6 L nasal cannula, hemodynamically stable. Daughter has chosen [facility], case management assisting with arranging appropriate DME and discharge planning process. Medications: Reviewed: Yes Medication Review Details: Active Medications Generic Name Dose Route Start Last Admin Trade Name Freq PRN Reason Stop Dose Admin Acetaminophen 650 mg 03/24/20 07:31 Tylenol PO Q6H PRN MILD PAIN Hydrocodone Bitart /Acetaminophen 1 tab 03/24/20 08:53 [place] 10-325 Mg PO Q4H PRN MODERATE PAIN Albuterol/Ipratrop ium 3 ml 03/24/20 09:00 03/25/20 08:01 Duoneb INHALATION 3 ml Q6H.RESPIRATORY S CH Administration Albuterol/Ipratrop ium 3 ml 03/24/20 06:41 Duoneb INHALATION Q4H PRN SHORTNESS OF MADHAVI TH Docusate Sodium 100 mg 03/24/20 09:00 03/25/20 08:47 Colace PO 100 mg BID SP Administration Haloperidol 0.5 mg 03/24/20 09:17 Haldol PO BID PRN HALLUCINATIONS Hydromorphone HCl 1 mg 03/24/20 06:39 03/25/20 09:40 Dilaudid Inj IVP 1 mg Q2H PRN Administration SEVERE PAIN Levofloxacin/Dextr ose 750 mg in 150 mls @ 100 mls/hr 03/24/20 09:00 03/25/20 08:47 Levaquin-D5w IV 100 mls/hr Q24H SP Administration Protocol Piperacillin Sod/T azobactam 50 mls @ 12.5 mls /hr 03/24/20 10:00 03/25/20 08:50 Sod 3.375 gm/ So dium Chloride IV Infused Q8H SP Infusion Protocol Linezolid 600 mg in 300 mls @ 300 mls/hr 03/24/20 19:00 03/25/20 08:50 Zyvox Premix IV Infused Q12H SP Infusion Protocol Lactobacillus Acid ophilus 1 tab 03/24/20 09:00 03/25/20 08:47 Floranex PO 1 tab BID SP Administration Lorazepam 0.5 mg 03/24/20 08:53 Ativan PO BID PRN ANXIETY Ondansetron HCl 4 mg 03/24/20 07:31 Zofran IVP Q6H PRN NAUSEA AND VOMITI NG Pantoprazole Sodiu m 40 mg 03/25/20 09:00 03/25/20 08:47 Protonix PO 40 mg DAILY SP Administration naproxen Allergy (Severe, Verified 02/01/20 18:30) ALGY-Anaphylaxis Iodinated Contrast Media Allergy (Verified 02/01/20 18:30) ALGY-Anaphylaxis morphine Adverse Reaction (Intermediate, Verified 03/24/20 06:41) hallucinations lisinopril Adverse Reaction (Verified 02/01/20 18:30) diarrhea Vitals/I&O/Wt Last Vital Signs Temp 97.8 F 03/24/20 19:00 Pulse 84 03/25/20 08:03 Resp 20 H 03/25/20 09:40 BP 105/74 03/25/20 06:30 Pulse Ox 96 03/25/20 08:03 03/24/20 03/25/20 03/25/20 22:59 06:59 14:59 Intake Total 350 / 350 50 / 400 925 / 925 Output Total 300 / 1400 450 / 1850 100 / 100 Balance 50 / -1050 -400 / -1450 825 / 825 Weight last 48 hrs Weight 81.788 kg Weight 74.843 kg Physical Exam Const: COMMON NORMALS: alert GENERAL APPEARANCE: cooperative, comfortable and frail appearing ORIENTATION/CONSCIOUSNESS: Yes awake and Yes confused (requiring frequent redirection) OTHER: -dyspneic, appears pale HENMT: COMMON NORMALS: normocephalic, atraumatic, hearing grossly normal bilaterally and moist oral mucous membranes HEAD & SCALP: normocephalic and atraumatic Eye: COMMON NORMALS: Equal, round and reactive pupils present, EOMs intact bilaterally and conjunctivae normal CONJUNCTIVA: Yes conjunctivae normal PUPIL: Yes Equal, round and reactive pupils present Neck/C-Spine: COMMON NORMALS: full ROM GENERAL: Yes normal visual inspection and Yes trachea midline Chest: CHEST: Yes Vascular access present (port-A-cath on L) Resp: COMMON NORMALS: normal respiratory effort, No retractions, No use of accessory muscles and clear to auscultation bilaterally EFFORT & INSPECTION: Yes tachypneic AUSCULTATION: clear to auscultation bilaterally OTHER: -dyspneic even at rest and with conversation, noted abdominal breathing, on 6 L NC, diminished breath sounds bilaterally, more on the R -Pleurx drain on R; bulky dressing in place Cardio: COMMON NORMALS: regular rhythm, S1 normal heart sound present, S2 normal heart sound present and No murmurs present (Cardio) RATE: tachycardic (mildly) RHYTHM: regular rhythm HEART SOUNDS: S1 normal heart sound present and S2 normal heart sound present GI: COMMON NORMALS: Normal to inspection, nondistended, normoactive bowel sounds present, Soft to palpation and non-tender PALPATION: Yes Soft to palpation Extremity: COMMON NORMALS: normal to inspection, full ROM and no clubbing, cyanosis or edema; negative for no pedal edema Neuro: COMMON NORMALS: moves all extremities, no focal motor deficits and no sensory deficits noted SENSORIUM/ORIENTATION: Yes alert and Yes Orientation impaired Psych: COMMON NORMALS: mental status grossly normal, Normal thought process present, cooperative, normal affect and speech normal SPEECH: Yes normal speech THOUGHT PROCESS: Normal thought process present Skin: COMMON NORMALS: no rashes or lesions noted, no jaundice, no petechiae and no mottling GENERAL SKIN EXAM: no rashes or lesions noted Urinary Catheter Management^: Ta: Cath Placed During This Visit: yes Reason for Continuing Indwelling Catheter: Accurate Measurement of Urinary Output in Critically Ill Patients Urinary Catheter Date of Insertion: 03/24/20 Urinary Catheter Time of Insertion: 11:33 Data : 03/24/20 03:50 03/24/20 10:05 Micro: Microbiology 03/24/20 02:50 Blood Culture - Preliminary Blood NEGATIVE TO DATE 03/24/20 03:09 Blood Culture - Preliminary Blood NEGATIVE TO DATE A&P Assessment and plan (1) Acute hypercapnic respiratory failure: -Noted to be quite short of breath with noted hypoxia and hypercapnia. Known history of recurrent right pleural effusion with placement of Pleurx drain on 03/18 -ABG shows hypercapnia, initially required BiPAP but could not seem to keep it in place consistently, currently on 6 L nasal cannula -Needs continued close monitoring of respiratory status -Imaging reviewed showing increase in right pleural-based opacity which could be fluid versus pneumonia -With noted associated increased leukocytosis, mild lactic acidosis (2.7), will continue broad-spectrum IV antibiotics; currently on IV vancomycin, Zosyn and Zyvox (due to recent Enterococcus UTI) -Supplemental oxygen as needed, has a baseline requirement of 3 L nasal cannula -We will need drainage of Pleurx drain at least once daily, twice if able to tolerate this -Nebulizer treatments as needed -f/u blood cx Status: Acute (2) Recurrent pleural effusion on right: -has known hx of recurrent R pleural effusion, suspicious for malignant effusion based on cytology with recommendation made to have flow cytometry done to rule out lymphoma -Pleurx catheter placed by Dr. Monroe on 03/18 with daily drainage per daughter -discussed case with Dr. Monroe Status: Chronic (3) Acute kidney injury: -noted acute renal impairment with hyperkalemia -had been on KCl supplementation, hold this -received IVF and Lasix -monitor renal function, avoid nephrotoxins, renally dose meds -Ta catheter placement for accurate Is & Os Status: Acute (4) Altered mental status: -likely multifactorial given narcotics, CO2 narcosis, hypoxia, infection (pneumonia), and need to r/o metastatic disease to the brain -CT head done 03/13 was negative for acute findings -on dilaudid -strict fall precautions; needs 1:1 monitoring -UA with evidence of continued infection; recently treated for UTI secondary to Enterococcus -Haldol, Ativan PRN Status: Acute Qualifiers: Altered mental status type: disorientation Qualified Code(s): R41.0 - Disorientation, unspecified (5) Port-A-Cath in place: Status: Chronic (6) Weakness: -fatigues quite easily -strict fall precautions Status: Acute (7) Small cell lung cancer: -was previously on chemotherapy for this -f/u with Dr. Kunz; last visit was 03/23 -discussion about transition to hospice Status: Chronic (8) Essential (primary) hypertension: -normotensive; continue to monitor vital signs Status: Chronic (9) GERD (gastroesophageal reflux disease): -on PPI Status: Chronic Qualifiers: Esophagitis presence: esophagitis presence not specified Qualified Code(s): K21.9 - Gastro-esophageal reflux disease without esophagitis (10) COPD (chronic obstructive pulmonary disease): -no acute exacerbation currently -baseline oxygen requirement of 3 L NC -received dose of IV steroids in ED, hold off on more for now Status: Chronic Qualifiers: COPD type: emphysema Emphysema type: unspecified Qualified Code(s): J43.9 - Emphysema, unspecified (11) Tobacco dependency: -quit smoking recently Status: Chronic (12) Cancer of lung, secondary: -prior hx of R adenocarcinoma s/p wedge resection -was receiving chemotherapy for small cell cancer Status: Acute Qualifiers: Laterality: right Qualified Code(s): C78.01 - Secondary malignant neoplasm of right lung Additional A&P Information -hx of urgency incontinence; on oxybuytnin -hx of recurrent UTI; on chronic cefdinir therapy, had been discharged on zyvox; UA with noted LE/pyuria/trace bacteria. Urine cx prelim negative -noted slight troponin elevation which is likely secondary to demand ischemia from respiratory issues -GI ppx with PPI -DVT ppx with SCDs -regular diet as tolerated -Dispo: home with hospice, [facility] chosen by daughter Michelle -Code status: DNR/DNI; discussed with patient and daughter -ICU care due to low threshold for decompensation Attestations Medical Necessity Statement*: Patient requires hospitalization for continued care pending arrangements for hospice at home. Time Spent in Patient Care: 16 - 35 minutes (>than 50% of time spent in counselling and/or direct pt care on unit). Coding Level of Care Code Acute Demand Generation Manager for Chg Fwd Exam Comprehensive Diagnoses Acute hypercapnic respiratory failure J96.02 Recurrent pleural effusion on right J90 Acute kidney injury N17.9 Altered mental status R41.0 Altered mental status type: disorientation Port-A-Cath in place Z95.828 Weakness R53.1 Small cell lung cancer C34.90 Essential (primary) hypertension I10 GERD (gastroesophageal reflux disease) K21.9 Esophagitis presence: esophagitis presence not specified COPD (chronic obstructive pulmonary disease) J43.9 COPD type: emphysema Emphysema type: unspecified Tobacco dependency F17.200 Cancer of lung, secondary C78.01 Laterality: right
[2020-03-25] MEDS: LORazepam 2 mg/mL INJ 1 mL IVP (17:32)
--- NOTE | 2020-03-25 19:11 | PC.NURSE ---
Notified daughter Michelle of change in pt condition. Pt is sleeping soundly and displaying agonal respirations, and it is possible that she could pass away tonight. Daughter thanked this nurse for the call and wants to be updated with any further changes. Updated oncoming nurse.
[2020-03-26] VITALS (21 sets, daily range): BP systolic 98–136; BP diastolic 51–91; PULSE 92–110; RESP 8–28; TEMP 36.2–36.6; O2SAT 88–98
[2020-03-26] MEDS: HYDROmorphone 1 mg/mL INJ 1 mL IVP ×7 (00:38→13:57)
[2020-03-26] MEDS: ipratropium-albuterol 3 mL Neb INHALATION (04:41)
--- NOTE | 2020-03-26 08:09 | PM.PN ---
Subjective Subjective: Interval history: Patient decompensating particularly since yesterday evening, more somnolent and confused, dyspneic, on 6 L NC, family at bedside. Medications: Reviewed: Yes Medication Review Details: Active Medications Generic Name Dose Route Start Last Admin Trade Name Freq PRN Reason Stop Dose Admin Acetaminophen 650 mg 03/24/20 07:31 Tylenol PO Q6H PRN MILD PAIN Hydrocodone Bitart /Acetaminophen 1 tab 03/24/20 08:53 Caruthers 10-325 Mg PO Q4H PRN MODERATE PAIN Atropine Sulfate 4 drop 03/25/20 14:48 Isopto Atropine SUBLINGUAL Q2H PRN SECRETIONS Haloperidol 0.5 mg 03/24/20 09:17 Haldol PO BID PRN HALLUCINATIONS Hydromorphone HCl 1 mg 03/24/20 06:39 03/26/20 07:28 Dilaudid Inj IVP 1 mg Q2H PRN Administration SEVERE PAIN Lorazepam 2 mg 03/25/20 14:48 03/25/20 17:32 Ativan IVP 2 mg Q4H PRN Administration ANXIETY Ondansetron HCl 4 mg 03/24/20 07:31 Zofran IVP Q6H PRN NAUSEA AND VOMITI NG naproxen Allergy (Severe, Verified 02/01/20 18:30) ALGY-Anaphylaxis Iodinated Contrast Media Allergy (Verified 02/01/20 18:30) ALGY-Anaphylaxis morphine Adverse Reaction (Intermediate, Verified 03/24/20 06:41) hallucinations lisinopril Adverse Reaction (Verified 02/01/20 18:30) diarrhea Vitals/I&O/Wt Last Vital Signs Temp 97.1 F L 03/26/20 02:00 Pulse 94 03/26/20 08:00 Resp 20 H 03/26/20 08:00 BP 123/70 03/26/20 08:00 Pulse Ox 92 03/26/20 08:00 03/25/20 03/26/20 03/26/20 22:59 06:59 14:59 Intake Total 50 / 1125 Output Total 140 / 415 90 / 505 30 / 30 Balance -90 / 710 -90 / 620 -30 / -30 Weight last 48 hrs Weight 81.278 kg Weight 81.788 kg Physical Exam Const: GENERAL APPEARANCE: lethargic, frail appearing and appears older than stated age ORIENTATION/CONSCIOUSNESS: Yes confused (requiring frequent redirection) and Yes lethargic OTHER: -dyspneic, appears pale HENMT: COMMON NORMALS: normocephalic, atraumatic, hearing grossly normal bilaterally and moist oral mucous membranes HEAD & SCALP: normocephalic and atraumatic TEETH & GINGIVA: Yes edentulous Eye: COMMON NORMALS: Equal, round and reactive pupils present, EOMs intact bilaterally and conjunctivae normal CONJUNCTIVA: Yes conjunctivae normal PUPIL: Yes Equal, round and reactive pupils present Neck/C-Spine: COMMON NORMALS: full ROM GENERAL: Yes normal visual inspection and Yes trachea midline Chest: CHEST: Yes Vascular access present (port-A-cath on L) Resp: EFFORT & INSPECTION: Yes tachypneic, Yes labored and Yes uses accessory muscles OTHER: -dyspneic even at rest and with conversation, noted abdominal breathing, on 6 L NC, diminished breath sounds bilaterally, more on the R -Pleurx drain on R; bulky dressing in place Cardio: COMMON NORMALS: regular rhythm, S1 normal heart sound present, S2 normal heart sound present and No murmurs present (Cardio) RATE: tachycardic (mildly) RHYTHM: regular rhythm HEART SOUNDS: S1 normal heart sound present and S2 normal heart sound present GI: COMMON NORMALS: Normal to inspection, nondistended, normoactive bowel sounds present, Soft to palpation and non-tender PALPATION: Yes Soft to palpation : BLADDER/KIDNEY EXAM: Yes catheter in place Catheter type (Female): urethral Extremity: COMMON NORMALS: normal to inspection, full ROM, no clubbing, cyanosis or edema and no pedal edema Neuro: COMMON NORMALS: moves all extremities, no focal motor deficits and no sensory deficits noted SENSORIUM/ORIENTATION: Yes Orientation impaired and Yes lethargic Psych: COMMON NORMALS: mental status grossly normal, Normal thought process present, cooperative, normal affect and speech normal SPEECH: Yes normal speech THOUGHT PROCESS: Normal thought process present Skin: COMMON NORMALS: no rashes or lesions noted, no jaundice, no petechiae and no mottling GENERAL SKIN EXAM: no rashes or lesions noted Urinary Catheter Management^: Ta: Cath Placed During This Visit: yes Reason for Continuing Indwelling Catheter: Accurate Measurement of Urinary Output in Critically Ill Patients Urinary Catheter Date of Insertion: 03/24/20 Urinary Catheter Time of Insertion: 11:33 Data : 03/24/20 03:50 03/24/20 10:05 Micro: Microbiology 03/24/20 11:35 Urine Culture - Preliminary Urine,Clean Catch 03/24/20 02:50 Blood Culture - Preliminary Blood NEGATIVE TO DATE 03/24/20 03:09 Blood Culture - Preliminary Blood NEGATIVE TO DATE A&P Assessment and plan (1) Acute hypercapnic respiratory failure: -Noted to be quite short of breath with noted hypoxia and hypercapnia. Known history of recurrent right pleural effusion with placement of Pleurx drain on 03/18 -ABG shows hypercapnia, initially required BiPAP but could not seem to keep it in place consistently, currently on 6 L nasal cannula -Imaging reviewed showing increase in right pleural-based opacity which could be fluid versus pneumonia -With noted associated increased leukocytosis, mild lactic acidosis (2.7), initially covered with broad-spectrum IV antibiotics; d/c due to transition to end of life care -continue palliative drainage of Pleurx drain as tolerated Status: Acute (2) Recurrent pleural effusion on right: -has known hx of recurrent R pleural effusion, suspicious for malignant effusion based on cytology with recommendation made to have flow cytometry done to rule out lymphoma -Pleurx catheter placed by Dr. Monroe on 03/18 with daily drainage per daughter -discussed case with Dr. Monroe Status: Chronic (3) Acute kidney injury: -noted acute renal impairment with hyperkalemia -had been on KCl supplementation, hold this -received IVF and Lasix -Ta catheter in place for accurate Is & Os, end of life care Status: Acute (4) Altered mental status: -likely multifactorial given narcotics, CO2 narcosis, hypoxia, infection (pneumonia), and need to r/o metastatic disease to the brain -CT head done 03/13 was negative for acute findings -on dilaudid -strict fall precautions; needs 1:1 monitoring -UA with evidence of continued infection; recently treated for UTI secondary to Enterococcus -Haldol, Ativan PRN Status: Acute Qualifiers: Altered mental status type: disorientation Qualified Code(s): R41.0 - Disorientation, unspecified (5) Port-A-Cath in place: Status: Chronic (6) Weakness: -fatigues quite easily -strict fall precautions Status: Acute (7) Small cell lung cancer: -was previously on chemotherapy for this -f/u with Dr. Kunz; last visit was 03/23 -discussion about transition to hospice Status: Chronic (8) Essential (primary) hypertension: -normotensive; continue to monitor vital signs Status: Chronic (9) GERD (gastroesophageal reflux disease): -on PPI Status: Chronic Qualifiers: Esophagitis presence: esophagitis presence not specified Qualified Code(s): K21.9 - Gastro-esophageal reflux disease without esophagitis (10) COPD (chronic obstructive pulmonary disease): -no acute exacerbation currently -baseline oxygen requirement of 3 L NC -received dose of IV steroids in ED, hold off on more for now Status: Chronic Qualifiers: COPD type: emphysema Emphysema type: unspecified Qualified Code(s): J43.9 - Emphysema, unspecified (11) Tobacco dependency: -quit smoking recently Status: Chronic (12) Cancer of lung, secondary: -prior hx of R adenocarcinoma s/p wedge resection -was receiving chemotherapy for small cell cancer Status: Acute Qualifiers: Laterality: right Qualified Code(s): C78.01 - Secondary malignant neoplasm of right lung Additional A&P Information -hx of urgency incontinence; on oxybuytnin -hx of recurrent UTI; on chronic cefdinir therapy, had been discharged on zyvox; UA with noted LE/pyuria/trace bacteria. Urine cx prelim negative -noted slight troponin elevation which is likely secondary to demand ischemia from respiratory issues -GI ppx with PPI -DVT ppx with SCDs -regular diet as tolerated; minimal oral intake -Dispo: home with hospice, [facility] chosen by daughter Michelle -Code status: DNR/DNI; discussed with patient and daughter -transitioned to end of life care per patient and family Attestations Medical Necessity Statement*: Patient requires hospitalization for continued end of life care given continued decompensation. Time Spent in Patient Care: 16 - 35 minutes (>than 50% of time spent in counselling and/or direct pt care on unit). Coding Level of Care Code Acute Personalized Living Manager for Kiki Escobar Diagnoses Acute hypercapnic respiratory failure J96.02 Recurrent pleural effusion on right J90 Acute kidney injury N17.9 Altered mental status R41.0 Altered mental status type: disorientation Port-A-Cath in place Z95.828 Weakness R53.1 Small cell lung cancer C34.90 Essential (primary) hypertension I10 GERD (gastroesophageal reflux disease) K21.9 Esophagitis presence: esophagitis presence not specified COPD (chronic obstructive pulmonary disease) J43.9 COPD type: emphysema Emphysema type: unspecified Tobacco dependency F17.200 Cancer of lung, secondary C78.01 Laterality: right
--- NOTE | 2020-03-26 12:09 | PM.DCS ---
Discharge Providers Date of Admission: 03/24/20 07:21 Date of Discharge: March 26, 2020 Attending Provider at Admission: Junie Rdz MD Attending Provider at Discharge: Junie Rdz MD Consults: None Primary Care Provider: NELDA Berry Diagnoses at Discharge Discharge Diagnosis (1) Acute hypercapnic respiratory failure: Status: Acute Problem details: -Noted to be quite short of breath with noted hypoxia and hypercapnia. Known history of recurrent right pleural effusion with placement of Pleurx drain on 03/18 -ABG shows hypercapnia, initially required BiPAP but could not seem to keep it in place consistently, currently on 6 L nasal cannula -Imaging reviewed showing increase in right pleural-based opacity which could be fluid versus pneumonia -With noted associated increased leukocytosis, mild lactic acidosis (2.7), initially covered with broad-spectrum IV antibiotics; d/c due to transition to end of life care -continue palliative drainage of Pleurx drain as tolerated (2) Recurrent pleural effusion on right: Status: Chronic Problem details: -has known hx of recurrent R pleural effusion, suspicious for malignant effusion based on cytology with recommendation made to have flow cytometry done to rule out lymphoma -Pleurx catheter placed by Dr. Monroe on 03/18 with daily drainage per daughter -discussed case with Dr. Monroe (3) Acute kidney injury: Status: Acute Problem details: -noted acute renal impairment with hyperkalemia -had been on KCl supplementation, hold this -received IVF and Lasix -Ta catheter in place for accurate Is & Os, end of life care (4) Altered mental status: Status: Acute Problem details: -likely multifactorial given narcotics, CO2 narcosis, hypoxia, infection (pneumonia), and need to r/o metastatic disease to the brain -CT head done 03/13 was negative for acute findings -on dilaudid; had issues with hallucinations while on morphine -strict fall precautions; needs 1:1 monitoring -UA with evidence of continued infection; recently treated for UTI secondary to Enterococcus -Haldol, Ativan PRN Qualifiers: Altered mental status type: disorientation Qualified Code(s): R41.0 - Disorientation, unspecified (5) Port-A-Cath in place: Status: Chronic (6) Weakness: Status: Acute Problem details: -fatigues quite easily -strict fall precautions (7) Small cell lung cancer: Status: Chronic Problem details: follows up with Dr. Kunz (8) Essential (primary) hypertension: Status: Chronic (9) GERD (gastroesophageal reflux disease): Status: Chronic Qualifiers: Esophagitis presence: esophagitis presence not specified Qualified Code(s): K21.9 - Gastro-esophageal reflux disease without esophagitis (10) COPD (chronic obstructive pulmonary disease): Status: Chronic Qualifiers: COPD type: emphysema Emphysema type: unspecified Qualified Code(s): J43.9 - Emphysema, unspecified (11) Tobacco dependency: Status: Chronic (12) Cancer of lung, secondary: Status: Acute Qualifiers: Laterality: right Qualified Code(s): C78.01 - Secondary malignant neoplasm of right lung Reason for Visit Reason for Visit: SOB Hospital Course Hospital Course: Patient was admitted to ICU secondary to increased oxygen requirement, high risk for decompensation. She was initially started on broad-spectrum IV antibiotics secondary to underlying immunocompromise, increased leukocytosis and increased oxygen requirement. Unfortunately overall she began to decompensate and following a goals of care discussion with patient and family decided to transition to end-of-life care. CODE STATUS was changed to DNR/DNI at that point as well. Per patient and family request arrangements were made for transition home with hospice. They have chosen [facility] and DME has been delivered to the home. Medication packet will be arranged through hospice [facility]. Family has expressed concern about morphine specifically due to noted hallucinations following most recent discharge. Will defer decision on choice of narcotic to hospice company at this time. Patient is to follow-up with hospice provider on discharge. Ta catheter will remain in place on discharge and Pleurx drain can be drained palliatively as tolerated by patient. I anticipate that output will be minimal moving forward both from Pleurx drain and in terms of urine output. Discharge Summary: -Patient to follow up with hospice provider Physical Exam Const: GENERAL APPEARANCE: lethargic, frail appearing and appears older than stated age ORIENTATION/CONSCIOUSNESS: Yes confused (requiring frequent redirection) and Yes lethargic OTHER: -dyspneic, appears pale HENMT: COMMON NORMALS: normocephalic, atraumatic, hearing grossly normal bilaterally and moist oral mucous membranes HEAD & SCALP: normocephalic and atraumatic TEETH & GINGIVA: Yes edentulous Eye: COMMON NORMALS: Equal, round and reactive pupils present, EOMs intact bilaterally and conjunctivae normal CONJUNCTIVA: Yes conjunctivae normal PUPIL: Yes Equal, round and reactive pupils present Neck/C-Spine: COMMON NORMALS: full ROM GENERAL: Yes normal visual inspection and Yes trachea midline Chest: CHEST: Yes Vascular access present (port-A-cath on L) Resp: COMMON NORMALS: normal respiratory effort, No retractions, No use of accessory muscles and clear to auscultation bilaterally EFFORT & INSPECTION: Yes tachypneic, Yes labored and Yes uses accessory muscles AUSCULTATION: clear to auscultation bilaterally OTHER: -dyspneic even at rest and with conversation, noted abdominal breathing, on 6 L NC, diminished breath sounds bilaterally, more on the R -Pleurx drain on R; bulky dressing in place Cardio: COMMON NORMALS: regular rhythm, S1 normal heart sound present, S2 normal heart sound present and No murmurs present (Cardio) RATE: tachycardic (mildly) RHYTHM: regular rhythm HEART SOUNDS: S1 normal heart sound present and S2 normal heart sound present GI: COMMON NORMALS: Normal to inspection, nondistended, normoactive bowel sounds present, Soft to palpation and non-tender PALPATION: Yes Soft to palpation : BLADDER/KIDNEY EXAM: Yes catheter in place Catheter type (Female): urethral Extremity: COMMON NORMALS: normal to inspection, full ROM, no clubbing, cyanosis or edema and no pedal edema Neuro: COMMON NORMALS: moves all extremities, no focal motor deficits and no sensory deficits noted SENSORIUM/ORIENTATION: Yes Orientation impaired and Yes lethargic Psych: COMMON NORMALS: mental status grossly normal, Normal thought process present, cooperative, normal affect and speech normal SPEECH: Yes normal speech THOUGHT PROCESS: Normal thought process present Skin: COMMON NORMALS: no rashes or lesions noted, no jaundice, no petechiae and no mottling GENERAL SKIN EXAM: no rashes or lesions noted Urinary Catheter Management^: Ta: Cath Placed During This Visit: yes Reason for Continuing Indwelling Catheter: Accurate Measurement of Urinary Output in Critically Ill Patients Urinary Catheter Date of Insertion: 03/24/20 Urinary Catheter Time of Insertion: 11:33 Discharge Data Data Completed and Pending: Completed Studies During Hospitalization Category Date Time Status XR chest 1V [place]oy ble [id number] Stat Exams 03/24/20 02:29 Completed Pending at discharge Category Date Time Status Blood Culture Sta t Lab 03/24/20 02:50 Results Vitals: Last Vital Signs Temp 97.1 F L 03/26/20 02:00 Pulse 98 03/26/20 10:00 Resp 24 H 03/26/20 12:05 BP 98/71 03/26/20 10:00 Pulse Ox 91 03/26/20 10:00 Discharge Plan Discharge Patient Disposition: Hospice - Home Condition: Serious Prescriptions: New atropine 1 % drops 4 drop SUBLINGUAL Q2H PRN (Reason: secretions) Qty: 15 RF: 0 Continued albuterol sulfate [ProAir HFA] 90 mcg/actuation HFA aerosol inhaler 2 puff INHALATION Q6H PRN (Reason: bronchospasm) Qty: 6.7 RF: 2 albuterol sulfate 2.5 mg /3 mL (0.083 %) solution for nebulization 2.5 mg INHALATION Q4H PRN (Reason: bronchospasm) Qty: 525 RF: 0 hydrocodone-acetaminophen 10-325 mg Tablet 1 tab PO Q6H PRN (Reason: moderate to severe pain) Qty: 30 RF: 0 Discontinued cefdinir 300 mg capsule 300 mg PO BID Qty: 60 RF: 2 Hold Instructions: Please hold off on taking Cefdinir until completion of treatment with Augmentin prochlorperazine maleate 10 mg tablet 10 mg PO Q4H PRN (Reason: Nausea) RF: 0 montelukast [Singulair] 10 mg tablet 10 mg PO DAILY Qty: 30 RF: 5 oxybutynin chloride 10 mg tablet extended release 24hr 15 mg PO DAILY RF: 0 morphine 30 mg Tablet Extended Release 15 mg PO BID Qty: 30 RF: 0 lorazepam 1 mg Tablet 1 mg PO BID PRN (Reason: Anxiety) Qty: 30 RF: 0 cyclobenzaprine 10 mg tablet 10 mg PO TID PRN (Reason: muscle spasm) Qty: 90 RF: 0 tramadol 50 mg tablet 100 mg PO BID PRN (Reason: Pain) Qty: 60 RF: 0 pantoprazole 20 mg tablet,delayed release (DR/EC) 40 mg PO DAILY Qty: 30 RF: 0 linezolid 600 mg tablet 600 mg PO BID 10 Days Qty: 20 RF: 0 potassium gluconate 595 mg (99 mg) Tablet 595 mg PO DAILY RF: 0 Narcan 4 mg/actuation spray,non-aerosol See Rx Instructions .ROUTE .COMPLEX RF: 0 Vitamin B-12 1 tab PO DAILY RF: 0 Vitamin D3 1 tab PO DAILY RF: 0 magnesium 1 tab PO DAILY RF: 0 Anoro Ellipta 62.5-25 mcg/actuation blister with device 1 inh inhalation Q24H RF: 0 Discharge Orders: Discharge Order (Routine); Ordered 03/26/20 Ordered By: Junie Rdz Referrals: [facility] [Outside] Prema Jenkins FNP [Primary Care Provider] - 4-7 days Discharge Diet: As Directed Discharge Activity: Bedrest and Oxygen as instructed Activity Restrictions/Additional Instructions: -Patient has a Ta catheter in place due to need for end-of-life care. This will remain in place until no longer needed. Discharge Attestations Time Spent in Discharge Care*: greater than 30 min Specific Discharge Activities: Specific discharge activities: educating patient, educating and/or supporting family/caregiver, discussing with family preservation caseworker/social workers/dc planners, documenting/other paperwork and evaluating patient/reviewing data Status at Discharge: Cognitive status at discharge: cognitively intact, Behavioral status at discharge: cooperative and dependent in ADL's, Functional status at discharge: bed bound Quality Metrics Clinical Quality Measures During this hospital stay, did patient experience: None Coding Level of Care Code Acute Certified Credit Counselor for g Fwd Diagnoses Acute hypercapnic respiratory failure J96.02 Recurrent pleural effusion on right J90 Acute kidney injury N17.9 Altered mental status R41.0 Altered mental status type: disorientation Port-A-Cath in place Z95.828 Weakness R53.1 Small cell lung cancer C34.90 Essential (primary) hypertension I10 GERD (gastroesophageal reflux disease) K21.9 Esophagitis presence: esophagitis presence not specified COPD (chronic obstructive pulmonary disease) J43.9 COPD type: emphysema Emphysema type: unspecified Tobacco dependency F17.200 Cancer of lung, secondary C78.01 Laterality: right
== END 2020-03-26 14:15 | disposition hospice, home (50) | DRG 189 ==
LOC: ER 07:56 → ICU 08:39
PROVIDERS: Emergency Medicine; Family Medicine; Hospitalist; Admitting Provider Family Medicine; PCP Nurse Practitioner Family; Visit Provider Family Medicine
DX: J96.02 Acute respiratory failure with hypercapnia (principal); J18.9 Pneumonia, unspecified organism; C34.11 Malignant neoplasm of upper lobe, right bronchus or lung; J91.0 Malignant pleural effusion; N39.0 Urinary tract infection, site not specified; N17.9 Acute kidney failure, unspecified; R44.3 Hallucinations, unspecified; E87.2 Acidosis; Z99.81 Dependence on supplemental oxygen; J43.9 Emphysema, unspecified; I10 Essential (primary) hypertension; K21.9 Gastro-esophageal reflux disease without esophagitis; Z79.2 Long term (current) use of antibiotics; M06.9 Rheumatoid arthritis, unspecified; Z96.659 Presence of unspecified artificial knee joint; Z87.891 Personal history of nicotine dependence; E87.5 Hyperkalemia; Z95.828 Presence of other vascular implants and grafts; Z79.51 Long term (current) use of inhaled steroids; Z79.891 Long term (current) use of opiate analgesic; G93.9 Disorder of brain, unspecified; Z51.5 Encounter for palliative care; N39.41 Urge incontinence; Z92.21 Personal history of antineoplastic chemotherapy; Z66 Do not resuscitate; Z90.2 Acquired absence of lung [part of]
CPT/HCPCS: 12345; 36600; 51702; 71045; 80048; 80053; 81001; 81003; 82803; 83605; 83735; 83880; 84484; 85025; 85610; 87040; 87086; 93005; 94640; 94660; 96375; 99214; 99284; J1170; J1940; J1956; J2020; J2060; J2543; J2930; J7030